=== PATIENT | female | born 1980 ===

== ENCOUNTER → 2020-07-26 09:10 | Outpatient (BNVA) | payer MEDICAID, SELFPAY | PROVIDERS: PCP Internal Medicine; Visit Provider Surgery ==

== ENCOUNTER → 2020-07-27 12:25 | Outpatient (BNVA) | payer MEDICAID, SELFPAY | PROVIDERS: PCP Internal Medicine; Visit Provider Surgery ==

== ENCOUNTER → 2020-08-21 08:19 | Outpatient (BNVA) | payer MEDICAID, SELFPAY | PROVIDERS: PCP Internal Medicine; Visit Provider Dietitian, Registered ==

== ENCOUNTER 2020-08-24 11:00 | Outpatient (REF) | payer MEDICAID, SELFPAY ==
[2020-08-25 15:12] LABS: H Pylori Breath Test NOT DETECTED (NOT DETECTED)
== END 2020-08-24 11:01 | disposition home or self-care (01) ==
LOC: HO.LNP 11:00
PROVIDERS: PCP Internal Medicine; Visit Provider Surgery
DX: A04.8 Other specified bacterial intestinal infections (principal)
CPT/HCPCS: 83013; 99211

== ENCOUNTER → 2020-08-29 08:12 | Outpatient (BNVA) | payer MEDICAID, SELFPAY | PROVIDERS: PCP Internal Medicine; Visit Provider Surgery ==

== ENCOUNTER 2020-09-11 09:19 | Outpatient (REF) | payer MEDICAID, SELFPAY ==
--- NOTE | ~2020-09-11 | US_ITS ---
EXAMINATION: ULTRASOUND ABDOMEN COMPLETE WITH ELASTOGRAPHY XR CHEST CLINICAL INFORMATION: Moderate to severe obesity. COMPARISON: Ultrasound abdomen 10/06/2017. TECHNIQUE: Routine grayscale imaging of abdomen was obtained. In addition liver Elastography was performed. Chest x-ray 2 views. FINDINGS: CHEST: The lungs are well expanded and clear of acute process. The heart size and pulmonary vascularity is normal. No gross bony abnormality seen. ABDOMEN ULTRASOUND: Liver and gallbladder: The liver is diffusely increased in intensity, normal size and contour. No focal mass or intrahepatic ductal dilatation seen. Normal hepatopedal flow seen in the portal vein on Doppler exam. Right hepatic lobe measures 17.3 cm in length and left hepatic lobe measures 15.5 cm in length. On liver elastography the median value is 1.66 m/s. IQR/median is 0.08. Pancreas: The pancreas has homogeneous echotexture which appears normal size. Abdominal aorta and IVC: Unremarkable. Gallbladder: There are no radiopaque gallstones or wall thickening. The gallbladder wall measures 0.17 cm in thickness. Common bile duct measures 0.43 cm. Right kidney: It measures 13.2 cm in length. There is normal kidney cortical thickness with no radiopaque calculi or hydronephrosis. Left kidney: It measures 12.8 cm in length. There is normal kidney cortical thickness with no radiopaque calculi or hydronephrosis. The spleen measures 11.8 cm in length and appears unremarkable. US/US abdomen comp w elastography IMPRESSION: Unremarkable chest exam. Diffuse hepatic steatosis without focal lesion. Liver elastography stiffness measures 1.66 m/S. This corresponds to cACLD (ruled out).
--- NOTE | ~2020-09-11 | FL_ITS ---
EXAMINATION: XR GI SERIES CLINICAL INFORMATION: Obesity. Preop. COMPARISON: None TECHNIQUE: Upper GI was performed using thin and thick barium and effervescent granules. FINDINGS: Esophageal motility is normal. There is mild gastroesophageal reflux. The stomach and duodenum are normal-appearing. No fold thickening, mass, ulcer or stricture is seen. FLUOROSCOPY TIME: 0.9 minutes DAP: 15 quispe per centimeter squared, total dose 52 mgy 24 saved fluoroscopic images. FL/FL upper GI series IMPRESSION: Mild gastroesophageal reflux otherwise unremarkable exam.
== END 2020-09-11 09:20 | disposition home or self-care (01) ==
LOC: HO.US 09:19
PROVIDERS: PCP Internal Medicine; Visit Provider Surgery
DX: Z01.818 Encounter for other preprocedural examination (principal); E66.01 Morbid (severe) obesity due to excess calories; K21.9 Gastro-esophageal reflux disease without esophagitis
CPT/HCPCS: 71046; 74240; 76705; 76981

== ENCOUNTER → 2020-10-18 15:34 | Outpatient (BNVA) | payer MEDICAID, SELFPAY | PROVIDERS: PCP Internal Medicine; Referring Provider Internal Medicine; Visit Provider Dietitian, Registered | DX: E66.01 Morbid (severe) obesity due to excess calories (principal); Z68.42 Body mass index [BMI] 45.0-49.9, adult | CPT/HCPCS: 97803 ==

== ENCOUNTER 2020-11-26 10:41 | Outpatient (REF) | payer MEDICAID, SELFPAY ==
--- NOTE | 2020-11-26 10:48 | ECG_ITS ---
Test Reason : E66.00 Blood Pressure : / mmHG Vent. Rate : 063 BPM Atrial Rate : 063 BPM P-R Int : 164 ms QRS Dur : 100 ms QT Int : 424 ms P-R-T Axes : 060 000 -14 degrees QTc Int : 433 ms Normal sinus rhythm Nonspecific ST abnormality Abnormal ECG No significant changes when compared with the previous EKG of 30 jul 2017 Referred By: Mikey Ricardo Electronically Signed By:REGLA CHAVEZ
[2020-11-26 11:44] LABS: MANUAL DIFF FLAG NO
[2020-11-26 11:52] LABS: Basophils Absolute Auto 0.1 X10*3/uL (0.0-0.2); Basophils Percent Auto 0.7 % (0-2); Eosinophils Absolute Auto 0.1 X10*3/uL (0.0-0.4); Eosinophils Percent Auto 2.1 % (0-4); Hematocrit 39.6 % (37-47); Hemoglobin 12.4 g/dl (12.0-16.0); Imm Gran Abs Auto 0.03 X10*3/uL (0.00-0.03); Imm Gran Pct Auto 0.4 % (0.0-0.4); Lymphocytes Absolute Auto 1.5 X10*3/uL (1.2-4.9); Lymphocytes Percent Auto 21.7 % (20-40); Mean Corpuscular HGB Conc 31.3 g/dl (31.0-35.0); Mean Corpuscular Hemoglobin 23.9 pg (27.0-33.0); Mean Corpuscular Volume 76.4 fL (80-98); Mean Platelet Volume 11.2 fL (9.4-12.3); Monocytes Absolute Auto 0.3 X10*3/uL (0.1-1.2); Monocytes Percent Auto 4.3 % (2-11); Neutrophils Absolute Auto 4.8 X10*3/uL (2.0-8.3); Neutrophils Percent Auto 70.8 % (45-73); Platelet Count 310 X10*3/uL (160-400); Red Blood Count 5.18 X10*6/uL (4.20-5.50); White Blood Count 6.8 X10*3/uL (4.8-10.8)
[2020-11-26 11:57] LABS: Estimated Average Glucose 126 mg/dL
[2020-11-26 12:17] LABS: Alanine Aminotransferase 29 U/L (0-31); Albumin Level 3.8 g/dL (3.5-5.0); Alkaline Phosphatase 89 U/L (39-117); Anion Gap 10 (12-20); Aspartate Amino Transferase 19 U/L (5-31); Bilirubin Total 0.7 mg/dL (0.0-1.0); Blood Urea Nitrogen 10 mg/dL (9-16); C Reactive Protein 1.66 mg/dL (< or = 0.50); Carbon Dioxide 32 mmol/L (22-29); Chloride 105 mmol/L (96-108); Cholesterol 157 mg/dL; Estimated Glomerular Filt Rate > 60; Glucose Random 117 mg/dL (60-115); HDL Cholesterol 40 mg/dL; LDL Cholesterol Calculated 98 mg/dl; Potassium 3.9 mmol/L (3.3-5.1); Sodium 143 mmol/L (135-145); Total Protein 6.3 g/dL (6.5-8.0); Triglycerides 99 mg/dL
[2020-11-26 12:29] LABS: Ferritin 11 ng/mL (10-250); TSH reflex Free T4 1.13 uIU/mL (0.32-4.0)
[2020-11-26 12:43] LABS: Folate 8.2 ng/mL (> or = 4.0); Vitamin B12 378 pg/mL (200-900)
[2020-11-27 18:32] LABS: Insulin Level Total 15.5 uIU/mL
[2020-11-28 10:36] LABS: Calcium (PTHI) 8.9 mg/dL (8.6-10.2); PTHI 85 pg/mL (14-64)
[2020-11-28 23:42] LABS: Zinc 62 mcg/dL (60-130)
[2020-11-30 10:07] LABS: Vitamin B1 8 nmol/L (8-30)
[2020-12-01 00:47] LABS: Vitamin A 29 mcg/dL (38-98)
== END 2020-11-26 10:42 | disposition home or self-care (01) ==
LOC: HO.LAB 10:41
PROVIDERS: PCP Internal Medicine; Visit Provider Surgery
DX: E66.01 Morbid (severe) obesity due to excess calories (principal); K21.9 Gastro-esophageal reflux disease without esophagitis; I10 Essential (primary) hypertension; R73.03 Prediabetes
CPT/HCPCS: 36415; 80053; 80061; 82306; 82607; 82728; 82746; 83036; 83525; 83970; 84425; 84443; 84590; 84630; 85025; 86140; 93005

== ENCOUNTER 2021-01-14 15:49 | Emergency (ER) | payer MEDICAID, SELFPAY ==
--- NOTE | ~2021-01-14 | XR_ITS ---
EXAMINATION: XR CHEST CLINICAL INFORMATION: Left-sided chest pain COMPARISON: 09/11/2020 TECHNIQUE: Frontal view of the chest was obtained. FINDINGS: No significant abnormality is noted involving the heart, lungs, mediastinum, bony thorax or soft tissues. XR/XR chest 1V IMPRESSION: Unremarkable examination.
--- NOTE | ~2021-01-14 | CT_ITS ---
EXAMINATION: CT HEAD WITHOUT CONTRAST CLINICAL INFORMATION: Headache. Nausea. Hypertension. COMPARISON: Head CT report from 07/25/2015. TECHNIQUE: Contiguous axial imaging was performed from the skull base to vertex without intravenous administration of contrast. This CT examination was performed using dose optimization techniques as appropriate, variously including the following: *Automated exposure control *Adjustment of mA and/or kV according to patient size (this includes techniques or standardized protocols for targeted exams where dose is matched to indication/reason for exam; i.e. extremities or head) *Use of iterative reconstruction technique DLP: 817 mGy-cm FINDINGS: There is a 2 x 2 x 1.5 cm rounded fluid attenuation lesion filling the superior nasal passages and directly underlying the planum sphenoidale where there is perceived deficiency of bone. Adjacent posterior ethmoid air cells are mucosal opacified and suspected to be at least partially obstructed bilaterally. The sphenoid sinus cavities are hypoplastic and aerated with patency of the sphenoethmoid recesses. Additionally, there is an empty mildly expanded sella. Small arachnoid pit is seen in the greater sphenoid wings bilaterally. There are small bilateral petrous apex cephaloceles at the level of Meckel's cave on both sides. The craniovertebral junction and cerebellar tonsils appear normal. There is no evidence of acute intracranial hemorrhage or territorial infarction. No abnormal mass effect or midline shift is seen. Neely to white matter differentiation is well preserved. No extra-axial fluid collections are identified. The ventricles are normal in size. There is no abnormal attenuation within the brain parenchyma. Incidental developmental pneumatization variant in the body of the sphenoid bone posterior to the left sphenoid sinus. The remaining osseous structures and soft tissues are normal. The mastoid air cells are well aerated. CT/CT head/brain wo con IMPRESSION: Homogeneous 2 x 2 x 1.5 cm fluid attenuating cystic lesion in the superior nasal passages, more so on the left side with potential partial resorption of the perpendicular plate of the ethmoid bone at this level. Additional deficiency of bone in the overlying planum sphenoidale. 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 Recommend ENT follow-up evaluation. Assess for any signs of papilledema on funduscopic assessment. A follow-up MRI of the brain and paranasal sinuses could be considered in follow-up as well.
[2021-01-14 17:00] VITALS: BP 173/95; PULSE 69; RESP 18; TEMP 36.6; O2SAT 100; BMI 31.9
--- NOTE | 2021-01-14 19:07 | ECG_ITS ---
Test Reason : HYPERTENSION Blood Pressure : / mmHG Vent. Rate : 064 BPM Atrial Rate : 064 BPM P-R Int : 160 ms QRS Dur : 098 ms QT Int : 420 ms P-R-T Axes : 046 -05 -10 degrees QTc Int : 433 ms Normal sinus rhythm Nonspecific ST abnormality Abnormal ECG When compared with ECG of 26-NOV-2020 10:53, No significant change was found Referred By: Kurt Piña Electronically Signed By:Monster Ma
[2021-01-14 19:11] VITALS: BP 173/95; PULSE 68; RESP 15; TEMP 35.8; O2SAT 100
[2021-01-14 20:14] LABS: Hematocrit 40.2 % (37-47); Hemoglobin 12.7 g/dl (12.0-16.0); Mean Corpuscular HGB Conc 31.6 g/dl (31.0-35.0); Mean Corpuscular Hemoglobin 24.2 pg (27.0-33.0); Mean Corpuscular Volume 76.7 fL (80-98); Mean Platelet Volume 10.8 fL (9.4-12.3); Platelet Count 295 X10*3/uL (160-400); Red Blood Count 5.24 X10*6/uL (4.20-5.50); Red Cell Distribution Width 16.6 % (11.0-16.0); White Blood Count 12.3 X10*3/uL (4.8-10.8)
[2021-01-14 20:20] LABS: Prothrombin Time 11.1 SEC (9.9-13.0)
--- NOTE | 2021-01-14 20:20 | PC.NURSE ---
Multiple attempts at iv access and unable, provider aware.
[2021-01-14 20:39] LABS: Anion Gap 13 (12-20); Blood Urea Nitrogen 14 mg/dL (9-16); C Reactive Protein 1.88 mg/dL (< or = 0.50); Calcium 9.3 mg/dL (8.4-10.2); Carbon Dioxide 26 mmol/L (22-29); Chloride 106 mmol/L (96-108); Creatinine Clr Calc Pharmacy 125.8; Estimated Glomerular Filt Rate > 60; Glucose Random 109 mg/dL (60-115); Potassium 3.9 mmol/L (3.3-5.1); Sodium 141 mmol/L (135-145)
[2021-01-14] MEDS: Butalb/Acetamin/Caff 50/325/40 TABLET 1 TAB PO (20:50)
[2021-01-14] MEDS: Ondansetron ODT 4 MG TAB.RAPDIS TRANSLINGU (20:50)
--- NOTE | 2021-01-14 21:04 | ED.GENADULT ---
HPI - General Adult General Chief complaint: General Medical Stated complaint: high blood pressure Time Seen by Provider: 01/14/21 18:59 Source: patient Mode of arrival: ambulatory Limitations: no limitations History of Present Illness HPI narrative: Patient presents to ED for headache, nausea, and blurry vision. Patient denies any paralysis, slurred speech, loss of vision, or facial droop. Patient states history of migraine but this headache is different. Patient states woke up with headache since Thursday morning at 01:00am. Patient presently denies any blurry vision Related Data Home Medications Medication Instructions Recorded Confirmed lisinopril 10 mg tablet 10 mg PO DAILY 07/25/20 01/14/21 omeprazole 20 mg capsule,delayed 20 mg PO BID 07/25/20 07/27/20 release sucralfate 1 gram tablet 1 g PO QIDACHS 07/25/20 07/27/20 trazodone 50 mg tablet 25 mg PO DAILY 07/26/20 07/27/20 albuterol sulfate 90 mcg/actuation 2 puff INHALATION Q6H PRN 07/27/20 07/27/20 aerosol inhaler cetirizine 10 mg tablet 1 tab PO QAM PRN 01/14/21 01/14/21 sodium chloride 0.65 % nasal spray 1 spray INTRANASAL Q4H PRN 01/14/21 01/14/21 aerosol (Deep Sea Nasal) Previous Rx's Medication Instructions Recorded naproxen 500 mg tablet 500 mg PO BID PRN #20 tab 01/15/21 Allergies Allergy/AdvReac Type Severity Reaction Status Date / Time zolpidem [From Ambien] AdvReac Confusion Verified 01/14/21 19:15 Review of Systems Review of Systems: Yes all other systems are reviewed and are negative and unobtainable due to endotracheal tube Constitutional: Constitutional: Reports headache(s) Eyes: Eyes: Reports as per HPI, Reports no additional eye complaints and Reports blurry vision ENT: Reports system reviewed and no additional complaints, except as documented, Reports as per HPI and Reports headache(s) Cardiovascular: Cardiovascular: Reports as per HPI and Reports no additional cardiovascular complaints Respiratory: Respiratory: Reports as per HPI and Reports no additional respiratory complaints Gastrointestinal: Gastrointestinal: Reports as per HPI and Reports no additional gastrointestinal complaints Genitourinary: Genitourinary: Reports no additional female genitourinary complaints and Reports as per HPI Musculoskeletal: Musculoskeletal: Reports no additional musculoskeletal complaints and Reports as per HPI Integumentary/Breasts: Skin/Breast: Reports system reviewed and no additional complaints, except as docu and Reports as per HPI Neurologic: Reports system reviewed and no additional complaints, except as documented, Reports as per HPI and Reports headache(s) [facility] Past Medical History Medical History (Updated 01/14/21 @ 23:55 by SHERRILL Camejo) Back pain GERD (gastroesophageal reflux disease) Hypertension Insomnia Knee pain Morbid obesity Prediabetes Surgical History (Updated 07/25/20 @ 13:47 by Drew Pugh Deyanira) Hx of section Hx of tubal ligation Family History Family History (Updated 07/25/20 @ 13:49 by ESTELA Cooley) Mother Hypertension Diabetes Asthma Arthritis Father No problems noted. Brother No problems noted. Brother No problems noted. Daughter No problems noted. Daughter No problems noted. Daughter No problems noted. Social History Social History (Updated 07/25/20 @ 13:49 by Drew Pugh Deyanira) Alcohol intake: never Patient Tobacco Use Status: Never used Tobacco Use of substances other than those prescribed or required for medical reasons: No Advance Directives: No Advance Directives Information Provided: Yes Patient : No Physical Exam Vital Signs: Vital Signs: Last Vital Signs Temp 96.5 F L 01/14/21 19:11 Pulse 63 01/15/21 00:00 Resp 16 01/15/21 00:00 BP 144/99 H 01/15/21 00:00 Pulse Ox 100 01/15/21 00:00 Body Mass Index 31.9 Const: General: cooperative, healthy appearing, comfortable, no acute distress and well developed Orientation/consciousness: patient oriented x3 HENMT: Head: Yes normal to inspection, Yes No palpable skull fracture present, Yes normocephalic, Yes atraumatic, No abrasion, No Acrocyanosis present, No Walsh's sign, No contusion, No cranial bruits, No hematoma, No laceration, No occipital foramen tenderness, No palpable skull fracture, No raccoon eyes, No scalp lesion, No scalp tenderness, No Temporal artery tenderness present and No periorbital ecchymosis Eyes: Other: Mild photophobia General: appearance normal, both eyes and all related structures Neck: Neck: Yes normal visual inspection, Yes full ROM, Yes no lymphadenopathy, Yes no meningeal signs, Yes trachea midline, Yes supple and No tender Chest: Chest palpation & inspection: normal inspection of the chest and normal palpation of entire chest wall Resp: Effort & Inspection: normal respiratory effort and able to speak in complete sentences Auscultation: clear to auscultation bilaterally Cardio: Jugular venous distension: no JVD Heart sounds: S1 normal heart sound present and S2 normal heart sound present GI: Inspection: Yes normal to inspection and No abdominal wall ecchymosis Palpation (GI): Soft to palpation, not firm, nontender, no guarding and not rigid : General: No CVA tenderness and Yes no CVA tenderness Back/Spine/Pelvis: Back: no CVA tenderness, No CVA tenderness and No back tenderness Skin: General skin exam: no rashes or lesions noted and elasticity normal Neuro: Other: Negative facial droop. Negative slurred speech. Negative pronator drift. All extremities equal strength 5+. [id number] and rapid hand movement intact. Negative Romberg test. General: patient oriented x3, gait normal, no meningeal signs and CN's II-XI intact bilaterally Cranial nerves: Yes CN's II-XII intact bilaterally Course Course Course Narrative: Patient will have labs including head CT ordered. EKG troponin ordered. Chest x-ray ordered. Reevaluation(s) Reevaluation #1: Head CT scan shows possible intracranial pressure elevation. Troponin chest x-ray normal. EKG negative for STEMI. Negative elevated white blood cell count. Will to do lumbar puncture per Time: 20:08 Reevaluation #2: Patient signed consent for lumbar puncture. Lumbar puncture performed by myself and Dr. Hurt. Area cleaned with sterile saline Betadine iodine. 5 mL of lidocaine used for anesthesia. Twenty-two size spinal needle was used for procedure. Intracranial pressure was measured. Initial ICP pressure was 25. Around 8 cc was drained. Repeat ICP pressure was 16. Patient feels better after procedure no longer has headache Time: 22:09 Reevaluation #3: CSF negative for any white blood cell count. Patient will be discharged. Patient will be discharged with pain medication. Time: 23:54 Medical Decision Making Lab Data Result diagrams: 01/14/21 20:08 01/14/21 20:08 Labs: Lab Results 01/14/21 01/14/21 01/14/21 Range/Units 20:08 20:08 20:08 WBC 12.3 H (4.8-10.8) X10*3/uL RBC 5.24 (4.20-5.50) X10*6/uL Hgb 12.7 (12.0-16.0) g/dl Hct 40.2 (37-47) % MCV 76.7 L (80-98) fL MCH 24.2 L (27.0-33.0) pg MCHC 31.6 (31.0-35.0) g/dl RDW 16.6 H (11.0-16.0) % Plt Count 295 (160-400) X10*3/uL MPV 10.8 (9.4-12.3) fL Absolute Nucleated RBC 0.000 (0.0-0.012) X10*3/uL Nucleated RBC % (auto) 0.0 (0.0-0.2) /100WBC ESR (0-20) MM/HR PT 11.1 (9.9-13.0) SEC INR 1.0 (0.9-1.1) APTT 31.0 (24.1-38.0) SEC Sodium 141 (135-145) mmol/L Potassium 3.9 (3.3-5.1) mmol/L Chloride 106 (96-108) mmol/L Carbon Dioxide 26 (22-29) mmol/L Anion Gap 13 (12-20) BUN 14 (9-16) mg/dL Creatinine 0.71 (0.5-1.4) mg/dL Estim Creat Clear Calc 125.8 Estimated GFR > 60 Random Glucose 109 (60-115) mg/dL Calcium 9.3 (8.4-10.2) mg/dL Total Creatine Kinase 102 (26-140) U/L Troponin I High Sens (<3.5-17.0) ng/L C-Reactive Protein 1.88 H (< or = 0.50) mg/dL CSF Tube Number CSF Volume ML CSF Appearance CSF Color CSF WBC MM*3 CSF RBC MM*3 CSF Appearance (b) CSF Glucose mg/dL CSF Total Protein (15-45) mg/dL 01/14/21 01/14/21 01/14/21 Range/Units 20:33 20:33 22:04 WBC (4.8-10.8) X10*3/uL RBC (4.20-5.50) X10*6/uL Hgb (12.0-16.0) g/dl Hct (37-47) % MCV (80-98) fL MCH (27.0-33.0) pg MCHC (31.0-35.0) g/dl RDW (11.0-16.0) % Plt Count (160-400) X10*3/uL MPV (9.4-12.3) fL Absolute Nucleated RBC (0.0-0.012) X10*3/uL Nucleated RBC % (auto) (0.0-0.2) /100WBC ESR 16 (0-20) MM/HR PT (9.9-13.0) SEC INR (0.9-1.1) APTT (24.1-38.0) SEC Sodium (135-145) mmol/L Potassium (3.3-5.1) mmol/L Chloride (96-108) mmol/L Carbon Dioxide (22-29) mmol/L Anion Gap (12-20) BUN (9-16) mg/dL Creatinine (0.5-1.4) mg/dL Estim Creat Clear Calc Estimated GFR Random Glucose (60-115) mg/dL Calcium (8.4-10.2) mg/dL Total Creatine Kinase (26-140) U/L Troponin I High Sens 3.5 (<3.5-17.0) ng/L C-Reactive Protein (< or = 0.50) mg/dL CSF Tube Number 2 CSF Volume ML CSF Appearance CSF Color CSF WBC MM*3 CSF RBC MM*3 CSF Appearance (b) Clear, Colorless CSF Glucose 67 mg/dL CSF Total Protein 24.0 (15-45) mg/dL 01/14/21 Range/Units 22:04 WBC (4.8-10.8) X10*3/uL RBC (4.20-5.50) X10*6/uL Hgb (12.0-16.0) g/dl Hct (37-47) % MCV (80-98) fL MCH (27.0-33.0) pg MCHC (31.0-35.0) g/dl RDW (11.0-16.0) % Plt Count (160-400) X10*3/uL MPV (9.4-12.3) fL Absolute Nucleated RBC (0.0-0.012) X10*3/uL Nucleated RBC % (auto) (0.0-0.2) /100WBC ESR (0-20) MM/HR PT (9.9-13.0) SEC INR (0.9-1.1) APTT (24.1-38.0) SEC Sodium (135-145) mmol/L Potassium (3.3-5.1) mmol/L Chloride (96-108) mmol/L Carbon Dioxide (22-29) mmol/L Anion Gap (12-20) BUN (9-16) mg/dL Creatinine (0.5-1.4) mg/dL Estim Creat Clear Calc Estimated GFR Random Glucose (60-115) mg/dL Calcium (8.4-10.2) mg/dL Total Creatine Kinase (26-140) U/L Troponin I High Sens (<3.5-17.0) ng/L C-Reactive Protein (< or = 0.50) mg/dL CSF Tube Number 4 CSF Volume 3.0 ML CSF Appearance CLEAR CSF Color COLORLESS CSF WBC 0 MM*3 CSF RBC 56 MM*3 CSF Appearance (b) CSF Glucose mg/dL CSF Total Protein (15-45) mg/dL Discharge Plan Discharge Clinical Impression: Headache, Increased intracranial pressure Patient Disposition: Home, Self-Care Instructions: Acute Headache (ED), Lumbar Puncture (ED) Additional Instructions: Le diagnosticaron aumento de la presi?n intracraneal. Tendr? que hacer un seguimiento con un neur?logo. El electrocardiograma y las troponinas dieron resultados negativos normales para un ataque card?aco. Garcia radiograf?a de t?rax result? negativa para neumon?a. Entonces, garcia l?quido cefalorraqu?swati no muestra signos de infecci?n bacteriana. Regrese al servicio de urgencias si empeora el dolor de elizabeth, las n?useas, los v?mitos, la fiebre, los escalofr?os, la rigidez del yeny o cualquier otro s?ntoma que le preocupe. Llame al PCP para que lo derive a un neur?logo o puede llamar a nuestro neur?logo afiliado a [facility] ER. Prescriptions: New naproxen 500 mg tablet 500 mg PO BID PRN (Reason: pain) Qty: 20 RF: 0 No Action lisinopril 10 mg tablet 10 mg PO DAILY RF: 0 sucralfate 1 gram tablet 1 g PO QIDACHS RF: 0 omeprazole 20 mg capsule,delayed release(DR/EC) 20 mg PO BID RF: 0 cetirizine 10 mg tablet 1 tab PO QAM PRN (Reason: allergies) RF: 0 sodium chloride [Deep Sea Nasal] 0.65 % aerosol,spray 1 spray intranasal Q4H PRN (Reason: Congestion) RF: 0 trazodone 50 mg tablet 25 mg PO DAILY RF: 0 albuterol sulfate 90 mcg/actuation HFA aerosol inhaler 2 puff inhalation Q6H PRNRF: 0 Referrals: Alfred House MD [Physician] - 2 days (Increase intracranial pressure.) Partha Morgan [Physician] - 2 days (CT scan shows cyst in nasal passages.) Stand Alone Forms: Work/School Release Interventions: ED Discharge Assessment Last Done: 01/15/21 00:26 Discharge Date/Time: 01/15/21 00:27 Print Language: Bahraini
[2021-01-14 21:06] LABS: Troponin-I High Sensitivity 3.5 ng/L (<3.5-17.0)
[2021-01-14 21:20] LABS: Erythrocyte Sedimentation Rate 16 MM/HR (0-20)
[2021-01-14 22:00] VITALS: BP 126/81; PULSE 62; RESP 16; O2SAT 100
[2021-01-14] MEDS: Lidocaine HCl 2 % MPF 5 ML VIAL INFILTRATI (22:05)
--- NOTE | 2021-01-14 22:06 | PC.NURSE ---
lidocaine given by provider to perform a lumbar punture. pt aleshia well no complications, deneis headache and instructed to lay flat till 2250
[2021-01-14 22:31] LABS: CSF Appearance Clear, Colorless; CSF Tube # 2
[2021-01-14 22:51] LABS: Glucose CSF 67 mg/dL
[2021-01-14 22:57] LABS: Appearance CSF CLEAR; CSF Tube # 4; Color CSF COLORLESS; Red Blood Cell CSF 56 MM*3; White Blood Cell CSF 0 MM*3
[2021-01-14] MEDS: Ibuprofen 800 MG TABLET PO (23:59)
[2021-01-15] VITALS: BP 144/99; PULSE 63; RESP 16; O2SAT 100
== END 2021-01-15 00:27 | disposition home or self-care (01) ==
PROVIDERS: Physician Assistant; Emergency Provider Internal Medicine
DX: R51.9 Headache, unspecified (principal); G93.2 Benign intracranial hypertension; E66.01 Morbid (severe) obesity due to excess calories
CPT/HCPCS: 36415; 62270; 70450; 71045; 80048; 82550; 82945; 84157; 84484; 85027; 85610; 85652; 85730; 86140; 87015; 87070; 87205; 89051; 93005; 96360; 99285

== ENCOUNTER 2021-01-15 15:39 | Emergency (ER) | payer MEDICAID, SELFPAY ==
[2021-01-15 15:57] VITALS: BP 167/103; PULSE 71; RESP 22; TEMP 36.7; O2SAT 98; BMI 48.0
--- NOTE | 2021-01-15 20:03 | PC.NURSE ---
PA at bedside for primary eval.
--- NOTE | 2021-01-15 20:08 | ED_ITS ---
HPI - Headache General Chief Complaint: Headache Stated Complaint: neck pain Time Seen by Provider: 01/15/21 15:51 Source: patient and family (Family translated for patient via FaceTime phone call) Mode of arrival: ambulatory Limitations: language barrier (No manager of exhibitions and collections on duty in the hospital, family interpreted) History of Present Illness HPI Narrative: 40-year-old female with a past medical history of GERD, pre diabetes, hypertension and morbid obesity presents with 10/10 headache and nausea x2 days. Patient was seen in this emergency department yesterday where she had a LP which was negative. She states she has some upper thoracic back pain which is sharp in nature. It does not radiate. She denies any changes in her vision, fevers, vomiting or neck pain. She states she last took ibuprofen at 01:00 o'clock today, with no relief of her headache or back pain. Patient states the headache is not better when she lies flat and it is not worse when she stands up, is the same regardless of her position. Related Data Home Medications Medication Instructions Recorded Confirmed lisinopril 10 mg tablet 10 mg PO DAILY 07/25/20 01/14/21 omeprazole 20 mg capsule,delayed 20 mg PO BID 07/25/20 07/27/20 release sucralfate 1 gram tablet 1 g PO QIDACHS 07/25/20 07/27/20 trazodone 50 mg tablet 25 mg PO DAILY 07/26/20 07/27/20 albuterol sulfate 90 mcg/actuation 2 puff INHALATION Q6H PRN 07/27/20 07/27/20 aerosol inhaler cetirizine 10 mg tablet 1 tab PO QAM PRN 01/14/21 01/14/21 sodium chloride 0.65 % nasal spray 1 spray INTRANASAL Q4H PRN 01/14/21 01/14/21 aerosol (Deep Sea Nasal) Previous Rx's Medication Instructions Recorded beanxjbtfs-cepqxmsexqukv-eqfpwdrg 1 cap PO Q8H PRN #10 cap 01/15/21 50 mg-300 mg-40 mg capsule (Fioricet) naproxen 500 mg tablet 500 mg PO BID PRN #20 tab 01/15/21 Allergies Allergy/AdvReac Type Severity Reaction Status Date / Time zolpidem [From Ambien] AdvReac Confusion Verified 01/14/21 19:15 Review of Systems Review of Systems: Yes all other systems are reviewed and are negative [facility] Past Medical History Medical History Back pain GERD (gastroesophageal reflux disease) Hypertension Insomnia Knee pain Morbid obesity Prediabetes Surgical History Hx of section Hx of tubal ligation Family History Family History Mother Hypertension Diabetes Asthma Arthritis Father No problems noted. Brother No problems noted. Brother No problems noted. Daughter No problems noted. Daughter No problems noted. Daughter No problems noted. Social History Social History Alcohol intake: never Patient Tobacco Use Status: Never used Tobacco Advance Directives: No Physical Exam Vital Signs: Vital Signs: Last Vital Signs Temp 98.0 F 01/15/21 22:17 Pulse 56 01/15/21 22:17 Resp 18 01/15/21 22:17 BP 122/72 01/15/21 22:17 Pulse Ox 97 01/15/21 22:17 Body Mass Index 48.0 Const: General: cooperative, healthy appearing, comfortable, no acute distress and well developed Orientation/consciousness: patient oriented x3 Limitations: no limitations HENMT: Head: Yes normal to inspection Eyes: General: appearance normal, both eyes and all related structures Neck: Neck: Yes normal visual inspection and Yes full ROM Resp: Effort & Inspection: normal respiratory effort and able to speak in complete sentences Cardio: Rate: regular rate GI: Inspection: Yes normal to inspection Back/Spine/Pelvis: Other: Small Aks on patient's lumbar spine where LP was likely done, no signs of infection noted. No warmth in this area, no tenderness. Back: No mass, No erythema, No warmth and back tenderness (Upper thoracic paraspinal muscles) Cervical Spine: cervical ROM normal and No Cervical spine tenderness Thoracic/Lumbar Spine: thoracic and lumbar spine normal to inspection, No thoracic spinal tenderness and No lumbar spinal tenderness Skin: General skin exam: no rashes or lesions noted Neuro: General: patient oriented x3 Extrem: General: Yes normal to inspection Course Course Course Narrative: 40-year-old female with a past medical history of GERD, pre diabetes, hypertension and morbid obesity presents with 10/10 headache and nausea x2 days. Patient was seen in this emergency department yesterday where she had a LP which was negative. Spoke with Kurt, the PA who did the LP, he said it was pretty routine, he tried twice and then Dr. Hurt came in and got on the 3rd try. No complications from the procedure. As her headache is not worse with standing and not better with lying flat, this is very unlikely to be a post LP headache. Vital signs stable except for slightly elevated blood pressure at 167/103 and respiratory rate of 22. Likely secondary to pain. Will give migraine cocktail, repeat labs to compare for to yesterday, UA and reassess. Reevaluation(s) Reevaluation #1: Patient states headache is feeling better but she still has the back pain. We discussed a migraine cocktail at home, advised I would give her a couple of Fioricet to get her through rough patches. Advised to follow up with her PCP and possibly a neurologist. We also discussed using ice on her back in the area where it hurts as well as a lidocaine patch which she can purchase [id number]. Time: 22:41 MDM - Headache Lab Data Result diagrams: 01/15/21 20:17 01/15/21 20:17 Labs: Lab Results 01/15/21 01/15/21 01/15/21 Range/Units 20:17 20:17 20:17 WBC 9.4 (4.8-10.8) X10*3/uL RBC 5.04 (4.20-5.50) X10*6/uL Hgb 12.4 (12.0-16.0) g/dl Hct 39.1 (37-47) % MCV 77.6 L (80-98) fL MCH 24.6 L (27.0-33.0) pg MCHC 31.7 (31.0-35.0) g/dl RDW 16.3 H (11.0-16.0) % Plt Count 326 (160-400) X10*3/uL MPV 10.6 (9.4-12.3) fL Immature Gran % (Auto) 0.2 (0.0-0.4) % Neut % (Auto) 75.0 H (45-73) % Lymph % (Auto) 18.9 L (20-40) % Addison % (Auto) 4.5 (2-11) % Eos % (Auto) 0.8 (0-4) % Baso % (Auto) 0.6 (0-2) % Lymph # (Auto) 1.8 (1.2-4.9) X10*3/uL Addison # (Auto) 0.4 (0.1-1.2) X10*3/uL Eos # (Auto) 0.1 (0.0-0.4) X10*3/uL Baso # (Auto) 0.1 (0.0-0.2) X10*3/uL Abs Immat Gran (auto) 0.02 (0.00-0.03) X10*3/uL Absolute Neuts (auto) 7.1 (2.0-8.3) X10*3/uL Absolute Nucleated RBC 0.000 (0.0-0.012) X10*3/uL Nucleated RBC % (auto) 0.0 (0.0-0.2) /100WBC Sodium 142 (135-145) mmol/L Potassium 4.1 (3.3-5.1) mmol/L Chloride 107 (96-108) mmol/L Carbon Dioxide 26 (22-29) mmol/L Anion Gap 13 (12-20) BUN 12 (9-16) mg/dL Creatinine 0.64 (0.5-1.4) mg/dL Estim Creat Clear Calc 152.7 Estimated GFR > 60 Random Glucose 111 (60-115) mg/dL Calcium 9.4 (8.4-10.2) mg/dL Total Bilirubin 0.5 (0.0-1.0) mg/dL AST 13 (5-31) U/L ALT 19 (0-31) U/L Alkaline Phosphatase 97 (39-117) U/L Total Protein 7.0 (6.5-8.0) g/dL Albumin 4.1 (3.5-5.0) g/dL Urine Color YELLOW Urine Appearance CLEAR Urine pH 6.0 (5.0-8.0) Ur Specific Advance >= 1.030 H (1.005-1.025) Urine Protein TRACE (NEG-TRACE) MG/DL Urine Glucose (UA) NEG (NEG) MG/DL Urine Ketones NEG (NEG) MG/DL Urine Blood TRACE (NEG) Urine Nitrite NEG (NEG) Ur Leukocyte Esterase NEG (NEG) Urine RBC 0-2 (0) /HPF Urine WBC 0-2 (0-4) /HPF Ur Squamous Epith Cells 1+ /LPF Amorphous Sediment TRACE /LPF Urine Bacteria NONE /LPF Urine Test (NEGATIVE) 01/15/21 Range/Units 20:17 WBC (4.8-10.8) X10*3/uL RBC (4.20-5.50) X10*6/uL Hgb (12.0-16.0) g/dl Hct (37-47) % MCV (80-98) fL MCH (27.0-33.0) pg MCHC (31.0-35.0) g/dl RDW (11.0-16.0) % Plt Count (160-400) X10*3/uL MPV (9.4-12.3) fL Immature Gran % (Auto) (0.0-0.4) % Neut % (Auto) (45-73) % Lymph % (Auto) (20-40) % Addison % (Auto) (2-11) % Eos % (Auto) (0-4) % Baso % (Auto) (0-2) % Lymph # (Auto) (1.2-4.9) X10*3/uL Addison # (Auto) (0.1-1.2) X10*3/uL Eos # (Auto) (0.0-0.4) X10*3/uL Baso # (Auto) (0.0-0.2) X10*3/uL Abs Immat Gran (auto) (0.00-0.03) X10*3/uL Absolute Neuts (auto) (2.0-8.3) X10*3/uL Absolute Nucleated RBC (0.0-0.012) X10*3/uL Nucleated RBC % (auto) (0.0-0.2) /100WBC Sodium (135-145) mmol/L Potassium (3.3-5.1) mmol/L Chloride (96-108) mmol/L Carbon Dioxide (22-29) mmol/L Anion Gap (12-20) BUN (9-16) mg/dL Creatinine (0.5-1.4) mg/dL Estim Creat Clear Calc Estimated GFR Random Glucose (60-115) mg/dL Calcium (8.4-10.2) mg/dL Total Bilirubin (0.0-1.0) mg/dL AST (5-31) U/L ALT (0-31) U/L Alkaline Phosphatase (39-117) U/L Total Protein (6.5-8.0) g/dL Albumin (3.5-5.0) g/dL Urine Color Urine Appearance Urine pH (5.0-8.0) Ur Specific Advance (1.005-1.025) Urine Protein (NEG-TRACE) MG/DL Urine Glucose (UA) (NEG) MG/DL Urine Ketones (NEG) MG/DL Urine Blood (NEG) Urine Nitrite (NEG) Ur Leukocyte Esterase (NEG) Urine RBC (0) /HPF Urine WBC (0-4) /HPF Ur Squamous Epith Cells /LPF Amorphous Sediment /LPF Urine Bacteria /LPF Urine Test NEGATIVE (NEGATIVE) Discharge Plan Discharge Clinical Impression: Headache Qualifiers: Headache type: tension-type Headache chronicity pattern: acute headache Intract ability: not intractable Qualified Code(s): G44.209 - Tension-type headache, unspecified, not intractable Patient Disposition: Home, Self-Care Instructions: Acute Headache (ED) Additional Instructions: As discussed, please use ice and or lidocaine patch on your mid back pain. For your headaches, you can take 600mg ibuprofen and Benadryl at bedtime. I have sent a prescription for another migraine medication to be used when ibuprofen and Benadryl do not work for you. Please follow-up with your primary care doctor because you may need a Neurology referral or different kind of migraine medication. If you have any changes in your vision, extreme dizziness or the ?worst headache of your life ?, please return to the emergency department or call 911. Prescriptions: New cgzlhtuspb-otdlcsnumotuh-hiib [Fioricet] 50-300-40 mg capsule 1 cap PO Q8H PRN (Reason: migraine headache) Qty: 10 RF: 0 No Action lisinopril 10 mg tablet 10 mg PO DAILY RF: 0 sucralfate 1 gram tablet 1 g PO QIDACHS RF: 0 omeprazole 20 mg capsule,delayed release(DR/EC) 20 mg PO BID RF: 0 cetirizine 10 mg tablet 1 tab PO QAM PRN (Reason: allergies) RF: 0 sodium chloride [Deep Sea Nasal] 0.65 % aerosol,spray 1 spray intranasal Q4H PRN (Reason: Congestion) RF: 0 naproxen 500 mg tablet 500 mg PO BID PRN (Reason: pain) Qty: 20 RF: 0 trazodone 50 mg tablet 25 mg PO DAILY RF: 0 albuterol sulfate 90 mcg/actuation HFA aerosol inhaler 2 puff inhalation Q6H PRNRF: 0 Referrals: Joceline Gutierrez MD [Primary Care Provider] - 2 days (If your headaches do not resolve )
[2021-01-15 20:23] LABS: MANUAL DIFF FLAG NO
[2021-01-15 20:24] LABS: Basophils Absolute Auto 0.1 X10*3/uL (0.0-0.2); Basophils Percent Auto 0.6 % (0-2); Eosinophils Absolute Auto 0.1 X10*3/uL (0.0-0.4); Eosinophils Percent Auto 0.8 % (0-4); Hematocrit 39.1 % (37-47); Hemoglobin 12.4 g/dl (12.0-16.0); Imm Gran Abs Auto 0.02 X10*3/uL (0.00-0.03); Imm Gran Pct Auto 0.2 % (0.0-0.4); Lymphocytes Absolute Auto 1.8 X10*3/uL (1.2-4.9); Lymphocytes Percent Auto 18.9 % (20-40); Mean Corpuscular HGB Conc 31.7 g/dl (31.0-35.0); Mean Corpuscular Hemoglobin 24.6 pg (27.0-33.0); Mean Corpuscular Volume 77.6 fL (80-98); Mean Platelet Volume 10.6 fL (9.4-12.3); Monocytes Absolute Auto 0.4 X10*3/uL (0.1-1.2); Monocytes Percent Auto 4.5 % (2-11); Neutrophils Absolute Auto 7.1 X10*3/uL (2.0-8.3); Platelet Count 326 X10*3/uL (160-400); Red Blood Count 5.04 X10*6/uL (4.20-5.50); Red Cell Distribution Width 16.3 % (11.0-16.0); White Blood Count 9.4 X10*3/uL (4.8-10.8)
[2021-01-15 20:25] LABS: Glucose Urine UA NEG (NEG); Leukocyte Esterase Urine NEG (NEG); Nitrite Urine NEG (NEG); Specific Gravity - Urine >= 1.030 (1.005-1.025); UACC Culture Trigger NO; Urine Blood TRACE (NEG); Urine Ketones NEG (NEG); Urine Protein TRACE MG/DL (NEG-TRACE)
[2021-01-15] MEDS: Ketorolac Tromethamine 15 MG/ML VIAL 30 MG IVPUSH (20:25)
[2021-01-15] MEDS: dexAMETHasone sod phosphate 10 MG/ML VIAL IVPUSH (20:25)
[2021-01-15] MEDS: diphenhydrAMINE HCL 50 MG/ML VIAL 25 MG IVPUSH (20:25)
[2021-01-15] MEDS: Metoclopramide HCl 10 MG/2 ML VIAL IVPUSH (20:25)
[2021-01-15 20:27] LABS: Appearance Urine CLEAR; Color Urine YELLOW
[2021-01-15 20:28] LABS: UPreg QC Valid YES; Urine Pregnancy NEGATIVE (NEGATIVE)
--- NOTE | 2021-01-15 20:31 | PC.NURSE ---
IV established, labs and UA obtained and sent. Pt medicated per AUG. Pt resting in bed, lights dim, warm blanket provided for comfort. Continue to monitor.
[2021-01-15 20:45] LABS: Amorphous Sediment Urine TRACE /LPF; RBC Urine 0-2 /HPF (0); Squamous Epithelial Cell Urine 1+ /LPF; WBC Urine 0-2 /HPF (0-4)
[2021-01-15 20:50] LABS: Alanine Aminotransferase 19 U/L (0-31); Albumin Level 4.1 g/dL (3.5-5.0); Alkaline Phosphatase 97 U/L (39-117); Anion Gap 13 (12-20); Aspartate Amino Transferase 13 U/L (5-31); Bilirubin Total 0.5 mg/dL (0.0-1.0); Blood Urea Nitrogen 12 mg/dL (9-16); Calcium 9.4 mg/dL (8.4-10.2); Carbon Dioxide 26 mmol/L (22-29); Chloride 107 mmol/L (96-108); Creatinine Clr Calc Pharmacy 152.7; Estimated Glomerular Filt Rate > 60; Glucose Random 111 mg/dL (60-115); Potassium 4.1 mmol/L (3.3-5.1); Sodium 142 mmol/L (135-145)
[2021-01-15 22:17] VITALS: BP 122/72; PULSE 56; RESP 18; TEMP 36.7; O2SAT 97
== END 2021-01-15 23:05 | disposition home or self-care (01) ==
PROVIDERS: Physician Assistant; Emergency Provider Emergency Medicine; PCP Internal Medicine
DX: G44.209 Tension-type headache, unspecified, not intractable (principal); M54.2 Cervicalgia; M54.5 Low back pain; R73.03 Prediabetes; Z79.899 Other long term (current) drug therapy
CPT/HCPCS: 36415; 80053; 81001; 81025; 85025; 96365; 96375; 99284; J1100; J1200; J1885; J2765

== ENCOUNTER → 2021-03-01 13:11 | Outpatient (BNVA) | payer MEDICAID, SELFPAY | PROVIDERS: Visit Provider Nurse Practitioner Family | DX: M79.18 Myalgia, other site (principal) | CPT/HCPCS: 99202 ==

== ENCOUNTER 2021-03-11 14:48 | Outpatient (REF) | payer MEDICAID, SELFPAY ==
--- NOTE | ~2021-03-11 | MM_ITS ---
EXAMINATION: MM SCREENING DIGITAL BREAST TOMOSYNTHESIS, BILATERAL CLINICAL INFORMATION: Screening. Asymptomatic. No prior breast imaging. Age 40. Family history breast cancer, paternal aunt. The lifetime risk of breast cancer based on the Tyrer-Cuzick Model is 16%. COMPARISON: None (current study represents initial baseline exam). TECHNIQUE: Digital breast tomosynthesis is performed in both the craniocaudal and mediolateral oblique views along with computer-aided detection (CAD). Synthesized 2D images are generated from the tomosynthesis. FINDINGS: The breasts are almost entirely fatty (ACR BI-RADS breast composition Category a). There are no significant masses, abnormal calcifications, or other abnormalities. There are 2 tiny circumscribed nodules central mid right breast, possibly intramammary nodes. No architectural abnormality. The axilla and skin contours are unremarkable. MM/MM tomosynthesis screening BI IMPRESSION: No mammographic evidence of malignancy. ASSESSMENT: BI-RADS 2: Benign RECOMMENDATION: Routine annual mammography screening. This patient's information was entered into a reminder system with a target due date for their next mammogram.
== END 2021-03-11 14:49 | disposition home or self-care (01) ==
LOC: HO.MAMMO 14:48
PROVIDERS: Visit Provider Internal Medicine
DX: Z12.31 Encounter for screening mammogram for malignant neoplasm of breast (principal)
CPT/HCPCS: 77063; 77067

== ENCOUNTER 2021-04-18 15:58 | Outpatient (REF) | payer MEDICAID, SELFPAY ==
--- NOTE | ~2021-04-18 | MR_ITS ---
EXAMINATION: MRI ORBIT WITHOUT AND WITH CONTRAST CLINICAL INFORMATION: Cyst and mucocele of the nose and nasal sinus. COMPARISON: CT scan of the head 01/14/2021. TECHNIQUE: Multiplanar MR imaging of the orbits was performed without and with contrast. A total of 10 mL Gadavist was utilized for this examination. FINDINGS: There is a well marginated nonenhancing cystic lesion located within the left olfactory recess causing chronic remodeling of the adjacent structures including the left posterior ethmoid air cells and there is rightward deviation of the nasal septum. It measures 2.3 x 1.4 x 2.0 cm (AP x TV x SI). There is also fluid partially filling the right posterior ethmoid air cells and what appears to be an [place] air cell on the left. Globes and extraocular muscles are symmetric. No abnormal retrobulbar mass or inflammation. The optic nerves and orbital apices are unremarkable. There is homogeneous enhancement within the anterior lobe of the pituitary gland. No suprasellar mass effect or chiasmatic compression. Cavernous sinuses enhance symmetrically. Cavernous internal carotid artery flow voids are maintained. Postcontrast images of the whole brain reveal no abnormal mass or enhancement within the intracranial compartment. No evidence of acute territorial infarct. Intracranial vascular flow voids are grossly maintained. MR/MR orbits face neck wo/w con IMPRESSION: There is an expansile well marginated nonenhancing cystic lesion located within the left olfactory recess most likely representing a mucocele causing chronic remodeling of the adjacent anatomy. No evidence of a meningoencephalocele.
[2021-04-18 15:44] LABS: Blood Urea Nitrogen 10 mg/dL (9-16); Estimated Glomerular Filt Rate > 60
== END 2021-04-18 15:59 | disposition home or self-care (01) ==
LOC: HO.MRI 15:58
PROVIDERS: Internal Medicine; Visit Provider General Practice
DX: G97.1 Other reaction to spinal and lumbar puncture (principal); H40.053 Ocular hypertension, bilateral; H47.333 Pseudopapilledema of optic disc, bilateral; J34.1 Cyst and mucocele of nose and nasal sinus
CPT/HCPCS: 36415; 70543; 82565; 84520; A9585

== ENCOUNTER → 2021-07-03 08:26 | Outpatient (REF) | payer MEDICAID, SELFPAY ==
--- NOTE | 2021-07-03 08:31 | CA_ITS ---
Transthoracic Echocardiogram Patient (Last, First, Middle): Delma Downs M Gender: Female Date of : 1980 Age: 41 Procedure Date: 07/03/2021 Procedure Type: Transthoracic Echocardiogram Location: OP Height: 162.56 cm Weight: 136.08 kg BSA: 2.32 m2 Heart Rate: bpm BP: 145 / 102 mmHg Learning Coach: JOSE ANTONIO Referring MD: Joceline Gutierrez MD Coremaker Helper: Gerard Hare MD Symptoms: I10 HTN R01.1 CARDIAC MURMUR Study Quality: Fair ECG Rhythm: Sinus Conclusions: - 1. Normal LV systolic and diastolic function with mild LVH 2. Normal cardiac valvular Doppler 3. Normal RV systolic pressure 4. No pericardial effusion Findings Left Ventricle Normal left ventricular size and systolic function. There is mildly increased left ventricular wall thickness. The visually estimated ejection fraction is between 55-60%. Spectral Doppler is indicative of a normal filling pattern. Right Ventricle Normal right ventricular cavity size and systolic function. Atria Both atria are normal in size. Interatrial shunt cannot be excluded. Aortic Valve Normal aortic valve structure and function. There is no aortic valve stenosis. There is no aortic valve regurgitation. Mitral Valve Normal mitral valve structure and function. There is trace mitral valve regurgitation. There is no mitral valve stenosis. Tricuspid Valve Likely normal tricuspid valve structure and function. There is trace tricuspid valve regurgitation. The right ventricular systolic pressure is normal. The right ventricular systolic pressure is 13 mmHg. Normal right atrial pressure. There is no evidence of pulmonary hypertension. Great Vessels All visible segments of the aorta are normal in size. The pulmonary artery was not well visualized. Venous The inferior vena cava was not well visualized. Pericardium/Pleural There is no evidence of pericardial effusion. Prior Study Comparison No prior study available for comparison. Measurements 2D Linear Measurements IVSd: 1.22 0.6-0.9/0.6-1.0 cm LVIDd: 4.91 3.9-5.3/4.2-5.9 cm LVIDd Index: 2.12 2.4-3.2/2.2-3.1 cm/m2 LVIDs: 2.77 2.0-3.6 cm LVPWd: 1.31 0.7-1.1 cm Ao Root: 3.30 2.1-3.5 cm LA Diam: 3.80 2.7-3.8/3.0-4.0 cm LAIDs Index: 1.64 1.5-2.3 cm/m2 LV Mass: 305.20 67-162/88-224 g LV Mass Index: 131.55 43-95/49-115 g/m2 LVOT Diam: 2.00 3.0+(-)1.3 cm 2D Systolic Function EF 4C: 56.00 >55% EF 2C: 59.10 >55% Mitral Valve MV Pk E: 0.74 MV PK A: 0.88 MV Decel Time: 209.00 E/A: 0.80 E'Lateral: 9.14 E'Medial: 9.03 E/E' Med: 8.10 E/E' Lat: 8.00 PHT: 61.00 MVA PHT: 3.61 Decel [place]: 3.51 Aortic Valve AoV Pk Cas: 1.68 AoV Mn Cas: 1.17 AoV VTI: 0.30 AoV Pk Grad: 11.00 Aov Mn Grad: 6.00 ELAINA Cont.VTI: 2.07 LVOT LVOT Pk Cas: 1.03 LVOT Mn Cas: 0.73 LVOT VTI: 0.20 LVOT Pk Grad: 4.00 LVOT Mn Grad: 2.00 LVOT Diam: 2.00 LVOT Area: 3.14 Diastolic Function MV Pk E: 0.74 MV Pk A: 0.88 E/A: 0.80 E'Medial: 9.03 E/E' Med: 8.10 E' Laterial: 9.14 E/E' Lat: 8.00 Right Ventricle TAPSE (mm): 2.30 TVS' Cas: 12.20 Tricuspid Valve TR Pk Cas: 1.60 TR Pk Grad: 10.00 RA Press: 3.00 RVSP: 13.00 Great Vessels Aorta Ao Root-2D: 3.30 2.0-3.7 cm Ao Asc: 3.60 2.1-3.4 cm Ao Arch: 2.80 Updated in Other Vendor System with Status of Final Gerard Hare MD electronically signed on 07/03/2021 1:03:27 PM with status of Final
== END ==
LOC: HO.CARD 08:26
PROVIDERS: Visit Provider Internal Medicine
DX: I10 Essential (primary) hypertension (principal); R01.1 Cardiac murmur, unspecified
CPT/HCPCS: 93306

== ENCOUNTER 2021-07-11 10:56 | Outpatient (REF) | payer MEDICAID, SELFPAY | END 2021-07-11 10:57 | disposition home or self-care (01) | LOC: HO.LAB 10:56 | PROVIDERS: PCP Internal Medicine; Visit Provider Obstetrics & Gynecology | DX: R87.612 Low grade squamous intraepithelial lesion on cytologic smear of cervix (LGSIL) (principal); R87.810 Cervical high risk human papillomavirus (HPV) DNA test positive; I10 Essential (primary) hypertension; E66.01 Morbid (severe) obesity due to excess calories; R73.03 Prediabetes; Z68.43 Body mass index [BMI] 50.0-59.9, adult; Z98.51 Tubal ligation status; Z88.8 Allergy status to other drugs, medicaments and biological substances | CPT/HCPCS: 57454; 88305 ==

== ENCOUNTER → 2021-07-25 11:35 | Outpatient (BNVA) | payer MEDICAID, SELFPAY | PROVIDERS: PCP Internal Medicine; Visit Provider Obstetrics & Gynecology ==

== ENCOUNTER 2021-10-16 14:41 | Emergency (ER) | payer MEDICAID, SELFPAY ==
[2021-10-16 14:58] VITALS: BP 180/90; PULSE 84; RESP 18; TEMP 36.4; O2SAT 98; BMI 46.9
--- NOTE | 2021-10-16 15:34 | ED.HA ---
HPI - Headache General Chief Complaint: Headache Stated Complaint: eye pain head pain Time Seen by Provider: 10/16/21 15:34 Source: patient Mode of arrival: ambulatory Limitations: no limitations History of Present Illness HPI Narrative: history obtained by shoe handler. Patient with eye pain and pulsating headache. 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 This is being operated by Dr. Li of ENT in [place]. Now she is having more symptoms. MD elicited complaint: headache Onset (ago): week(s) Onset description: gradually Location: left Severity: mild Quality & Timing: throbbing Exacerbating factors: none Relieving factors: nothing Associated symptoms: none Related Data Home Medications Medication Instructions Recorded Confirmed lisinopril 10 mg tablet 10 mg PO DAILY 07/25/20 03/01/21 omeprazole 20 mg capsule,delayed 20 mg PO BID 07/25/20 03/01/21 release trazodone 50 mg tablet 25 mg PO DAILY 07/26/20 03/01/21 albuterol sulfate 90 mcg/actuation 2 puff INHALATION Q6H PRN 07/27/20 03/01/21 aerosol inhaler cetirizine 10 mg tablet 1 tab PO QAM PRN 01/14/21 03/01/21 sodium chloride 0.65 % nasal spray 1 spray INTRANASAL Q4H PRN 01/14/21 03/01/21 aerosol (Deep Sea Nasal) chlorthalidone 25 mg tablet 25 mg PO DAILY 03/01/21 03/01/21 meclizine 12.5 mg tablet 12.5 mg PO TID 03/01/21 03/01/21 Previous Rx's Medication Instructions Recorded nrcwnyyrlw-cukwfhanhgwbt-eankbvnd 1 cap PO Q8H PRN #10 cap 01/15/21 50 mg-300 mg-40 mg capsule (Fioricet) naproxen 500 mg tablet 500 mg PO BID PRN #20 tab 01/15/21 amoxicillin 875 mg-potassium 1 tab PO BID #20 tab 10/16/21 clavulanate 125 mg tablet fluticasone propionate 50 1 spray INTRANASAL BID #16 g 10/16/21 mcg/actuation nasal spray,suspension (24 Hour Allergy Relief) Allergies Allergy/AdvReac Type Severity Reaction Status Date / Time zolpidem [From Ambien] AdvReac Confusion Verified 07/11/21 11:06 Review of Systems Constitutional: Constitutional: Reports no additional constitutional complaints Eyes: Eyes: Reports no additional eye complaints ENT: Denies dizziness Cardiovascular: Cardiovascular: Reports no additional cardiovascular complaints Respiratory: Respiratory: Reports as per HPI Gastrointestinal: Gastrointestinal: Reports no additional gastrointestinal complaints Genitourinary: Genitourinary: Reports no additional female genitourinary complaints Musculoskeletal: Musculoskeletal: Reports no additional musculoskeletal complaints Integumentary/Breasts: Skin/Breast: Denies rash Neurologic: Reports system reviewed and no additional complaints, except as documented, Denies dizziness and Denies Sensory deficit (Neuro) Psychiatric: Psychiatric: Denies anxiety [facility] Past Medical History Medical History Back pain GERD (gastroesophageal reflux disease) Hypertension Insomnia Knee pain Morbid obesity Prediabetes Surgical History Hx of section Hx of tubal ligation Family History Family History Mother Hypertension Diabetes Asthma Arthritis Father No problems noted. Brother No problems noted. Brother No problems noted. Daughter No problems noted. Daughter No problems noted. Daughter No problems noted. Social History Social History Alcohol intake: never Patient Tobacco Use Status: Never used Tobacco Advance Directives: No Advance Directives Information Provided: No Physical Exam Vital Signs: Vital Signs: Last Vital Signs Temp 98.6 F 10/16/21 15:56 Pulse 80 10/16/21 15:56 Resp 18 10/16/21 15:56 BP 182/114 H 10/16/21 15:56 Pulse Ox 99 10/16/21 15:56 BMI result Body Mass Index 46.9 Const: General: healthy appearing Nutritional Appearance: average body habitus Orientation/consciousness: oriented to person and patient oriented x3 Limitations: no limitations HEENT: Head: Yes normal to inspection Ears: external ears normal General nose exam: Normal external nose present Mouth: Normal oral and palatal mucosa present and oropharynx normal Throat: Yes posterior oropharynx normal Eyes: Other: PERRL, EOMI General: appearance normal, both eyes and all related structures Neck: Other: supple Neck: Yes normal visual inspection Chest: Chest palpation & inspection: normal inspection of the chest Resp: Auscultation: clear to auscultation bilaterally Cardio: Jugular venous distension: no JVD Rate: regular rate Rhythm: regular rhythm Heart sounds: S1 normal heart sound present and S2 normal heart sound present GI: Inspection: Yes normal to inspection Palpation (GI): Soft to palpation, nontender and No hepatosplenomegaly present Auscultation: normal bowel sounds : General: Yes no CVA tenderness Back/Spine/Pelvis: Back: no CVA tenderness Skin: General skin exam: no rashes or lesions noted Neuro: General: oriented to person and patient oriented x3 Cranial nerves: Yes CN's II-XII intact bilaterally Motor exam (neuro): 5/5 motor strength present throughout Sensory Exam: No Sensory deficit (Neuro) Extrem: General: Yes normal to inspection Psych: Appearance: grossly normal Course Reevaluation(s) Reevaluation #1: patient with known 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 Li. Time: 16:12 Discharge Plan Discharge Clinical Impression: Sinusitis, Headache Patient Disposition: Home, Self-Care Instructions: Sinusitis (ED) Prescriptions: New fluticasone propionate [24 Hour Allergy Relief] 50 mcg/actuation spray,suspension 1 spray intranasal BID Qty: 16 0RF Rx Instructions: administer into each nostril amoxicillin-pot clavulanate 875-125 mg tablet 1 tab PO BID Qty: 20 0RF No Action lisinopril 10 mg tablet 10 mg PO DAILY 0RF omeprazole 20 mg capsule,delayed release(DR/EC) 20 mg PO BID 0RF cetirizine 10 mg tablet 1 tab PO QAM PRN (Reason: allergies) 0RF sodium chloride [Deep Sea Nasal] 0.65 % aerosol,spray 1 spray intranasal Q4H PRN (Reason: Congestion) 0RF naproxen 500 mg tablet 500 mg PO BID PRN (Reason: pain) Qty: 20 0RF mzgjscsgmh-gzbpazsfycpwx-djte [Fioricet] 50-300-40 mg capsule 1 cap PO Q8H PRN (Reason: migraine headache) Qty: 10 0RF trazodone 50 mg tablet 25 mg PO DAILY 0RF albuterol sulfate 90 mcg/actuation HFA aerosol inhaler 2 puff inhalation Q6H PRN0RF chlorthalidone 25 mg tablet 25 mg PO DAILY 0RF meclizine 12.5 mg tablet 12.5 mg PO TID 0RF Referrals: Joceline Gutierrez MD [Primary Care Provider] - 1 week (Also follow up with Dr. Li your surgeon)
[2021-10-16 15:56] VITALS: BP 182/114; PULSE 80; RESP 18; TEMP 37; O2SAT 99
== END 2021-10-16 16:35 | disposition home or self-care (01) ==
PROVIDERS: Emergency Provider Emergency Medicine; PCP Internal Medicine
DX: J32.9 Chronic sinusitis, unspecified (principal); R51.9 Headache, unspecified; J34.1 Cyst and mucocele of nose and nasal sinus; I10 Essential (primary) hypertension
CPT/HCPCS: 99283

== ENCOUNTER 2021-11-28 12:40 | Emergency (ER) | payer MEDICAID, SELFPAY ==
--- NOTE | ~2021-11-28 | CT_ITS ---
EXAMINATION: CT HEAD WITHOUT CONTRAST CLINICAL INFORMATION: Headache. Neck pain. COMPARISON: Previous head CT January 2021 TECHNIQUE: Contiguous axial imaging was performed from the skull base to vertex without intravenous administration of contrast. This CT examination was performed using dose optimization techniques as appropriate, variously including the following: *Automated exposure control *Adjustment of mA and/or kV according to patient size (this includes techniques or standardized protocols for targeted exams where dose is matched to indication/reason for exam; i.e. extremities or head) *Use of iterative reconstruction technique DLP: 758 mGy-cm FINDINGS: There is no evidence of acute intracranial hemorrhage or territorial infarction. No abnormal mass effect or midline shift is seen. Neely to white matter differentiation is well preserved. No extra-axial fluid collections are identified. The ventricles are normal in size. There is no abnormal attenuation within the brain parenchyma. No skull fracture is seen. There appears to have been interval removal of the left nasal cavity cystic mass. There is a soft tissue and air seen filling the nasal cavity. There is tarsal soft tissue opacification of the bilateral ethmoid, sphenoid and left frontal sinus. There is membranous soft tissue thickening in the left maxillary sinus. CT/CT head/brain wo con IMPRESSION: No acute intracranial pathology. Postsurgical changes to the nasal cavity with residual soft tissue opacification of the nasal cavity and bilateral ethmoid sinuses and membranous soft tissue thickening in the left maxillary sinus.
--- NOTE | 2021-11-28 12:50 | ED_ITS ---
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 Patient states that 3 days ago she had surgery on her left sinus and now she is having a headache and nausea. Patient states that when she called her surgeon, Dr. Li's office, they recommended she come to the ER. Patient states that she does have a significant history of migraines. Patient denies any dizziness, lightheadedness, abdominal pain, vomiting, fever, chills, blurry vision, double vision, loss of vision, chest pain, difficulty breathing, shortness of breath, back pain, night sweats, pain with urination, increased urinary frequency, increased urinary urgency, blood in her urine or stool, syncope or a near syncopal episode, recent trauma or falls, bowel incontinence, bladder incontinence, bowel retention, bladder retention, or any other complaints at this time. Onset (ago): hour(s) Location: head Radiation: non-radiation Severity: mild Severity scale (1-10): 2 Pain Consistency: constant Relieving factors: none Exacerbating factors: none Associated symptoms: nausea/vomiting Treatments prior to arrival: none Related Data Home Medications Medication Instructions Recorded Confirmed lisinopril 10 mg tablet 10 mg PO DAILY 07/25/20 03/01/21 omeprazole 20 mg capsule,delayed 20 mg PO BID 07/25/20 03/01/21 release trazodone 50 mg tablet 25 mg PO DAILY 07/26/20 03/01/21 albuterol sulfate 90 mcg/actuation 2 puff inhalation Q6H PRN 07/27/20 03/01/21 aerosol inhaler cetirizine 10 mg tablet 1 tab PO QAM PRN allergies 01/14/21 03/01/21 sodium chloride 0.65 % nasal spray 1 spray intranasal Q4H PRN 01/14/21 03/01/21 aerosol (Deep Sea Nasal) Congestion chlorthalidone 25 mg tablet 25 mg PO DAILY 03/01/21 03/01/21 meclizine 12.5 mg tablet 12.5 mg PO TID 03/01/21 03/01/21 Previous Rx's Medication Instructions Recorded [id number]-azbztfxtafjqc-nphntggq 1 cap PO Q8H PRN migraine headache 01/15/21 50 mg-300 mg-40 mg capsule #10 caps (Fioricet) naproxen 500 mg tablet 500 mg PO BID PRN pain #20 tabs 01/15/21 amoxicillin 875 mg-potassium 1 tab PO BID #20 tabs 10/16/21 clavulanate 125 mg tablet fluticasone propionate 50 1 spray intranasal BID #16 grams 10/16/21 mcg/actuation nasal spray,suspension (24 Hour Allergy Relief) Allergies Allergy/AdvReac Type Severity Reaction Status Date / Time zolpidem [From Ambien] AdvReac Confusion Verified 07/11/21 11:06 Review of Systems Constitutional: Constitutional: Reports no additional constitutional complain ts, Denies chills, Denies fever(s), Reports headache(s) and Denies night sweats Eyes: Eyes: Reports no additional eye complaints, Denies blurry vision, Denies change in vision, Denies diplopia, Denies eye discharge, Denies loss of vision and Denies eye pain ENT: Denies dizziness and Reports headache(s) Cardiovascular: Cardiovascular: Reports no additional cardiovascular complaints, Denies chest pain, Denies lightheadedness, Denies Loss of Consciousness and Denies dyspnea Respiratory: Respiratory: Reports no additional respiratory complaints and Denies dyspnea Gastrointestinal: Gastrointestinal: Reports no additional gastrointestinal complaints, Denies abdominal pain, Denies melena, Denies hematochezia, Denies change in bowel habits, Denies change in stool character and Reports nausea Genitourinary: Genitourinary: Denies hematuria, Denies urinary frequency, Denies dysuria, Denies urinary incontinence, Denies urinary hesitancy and Denies urinary urgency Musculoskeletal: Musculoskeletal: Reports no additional musculoskeletal complaints, Denies numbness and Denies tingling Neurologic: Denies dizziness, Reports headache(s), Denies loss of vision, Denies numbness and Denies tingling Psychiatric: Psychiatric: Reports no additional psychiatric complaints Endocrine: Endocrine: Reports no additional endocrine complaints Hematologic/Lymphatic: Hematologic/Lymphatic: Reports no additional hematologic/lymphatic complaints Allergic/Immunologic: Allergic/Immunologic: Reports no additional a llergic/immunologic complaints PMFSH Past Medical History Attestation statement: The following information was validated with the patient. Source: old records reviewed Surgical History Hx of section Hx of tubal ligation Family History Family History Mother Hypertension Diabetes Asthma Arthritis Father No problems noted. Brother No problems noted. Brother No problems noted. Daughter No problems noted. Daughter No problems noted. Daughter No problems noted. Social History Social History Alcohol intake: never Patient Tobacco Use Status: Never used Tobacco Advance Directives: No Advance Directives Information Provided: No Physical Exam ED Vital Signs: Vital Signs - 24 hr 11/28/21 12:53 11/28/21 14:18 Temperature 98.3 F 98.7 F Pulse Rate 80 77 Respiratory Rate 16 20 Blood Pressure 150/85 H 158/91 H Pulse Oximetry 99 98 Oxygen Delivery Method Room Air Room Air BMI result Body Mass Index 48.3 Const General: cooperative, no acute distress, alert and awake Nutritional Appearance: well nourished Orientation/consciousness: patient oriented x3 Limitations: no limitations HENMT Head: Yes normal to inspection and Yes atraumatic Ears: hearing grossly normal bilaterally and external ears normal General nose exam: Normal external nose present, no nasal discharge noted and no epistaxis Face and sinus: Yes normal facial exam, No abrasion and No laceration Mouth: Normal oral and palatal mucosa present, no drooling and no muffled voice Eyes General: appearance normal, both eyes and all related structures Periorbital: periorbital findings normal Eyelids: Yes eyelids normal Conjunctivae: conjunctivae normal Pupils: Equal, round and reactive pupils present EOM: EOMs intact bilaterally Neck Neck: Yes normal visual inspection, Yes full ROM and Yes no lymphadenopathy Chest Chest palpation & inspection: normal inspection of the chest Resp Effort & Inspection: normal respiratory effort and able to speak in complete sentences Auscultation: clear to auscultation bilaterally Cardio Rate: regular rate Rhythm: regular rhythm GI Inspection: Yes normal to inspection Neuro General: patient oriented x3 and moves all extremities Cranial nerves: Yes Equal, round and reactive pupils present Cognition (Neuro): normal cognition Motor exam (neuro): 5/5 motor strength present throughout Sensory Exam: Normal double simultaneous stimulation for sensation Coordination: ekgtdd-oe-zrlc test normal Extrem General: Yes normal to inspection, Yes full ROM and Yes capillary refill normal Psych Appearance: grossly normal Mental Status: mental status grossly normal Affect: normal affect Attitude: cooperative Thought process: Normal thought process present Thought content: Normal thought content present Insight: Good insight present (Psych) Course Consultations Consultation #1: Spoke to Dr. Li who stated that he was satisfied with our work up and that he did not recommend anything further. States that he will follow up with her in office. Time: 15:55 Medical Decision Making MDM Narrative Medical decision making narrative: Patient is a 41 year old female presenting to the emergency department today with a left sided headache. Patient's physical exam was unremarkable. Patient's blood work showed an elevated WBC count, ESR, and CRP however, this is secondary to a recent procedure rather than an acute infection. Patient's head CT showed no acute process. I determined that the patient is not septic as of 1321. I explained my physical exam findings as well as all test results to the patient. I answered all questions asked by the patient. Patient received IV Regalin, Morphine, and Toradol which she stated helped her symptoms significantly. I stressed the importance of the patient taking her medication as prescribed. I stressed the importance of the patient following up with her primary care provider and Dr. Li, her surgeon. I stressed the importance of the patient returning to the emergency department immediately if her symptoms were to worsen or if she were to develop any dizziness, shortness of breath, difficulty breathing, chest pain, blurry vision, loss of vision, nausea, vomiting, abdominal pain, fever, chills, back pain, or any other complaints. Patient verbalized agreement and understanding with this treatment plan and discharge. Differential Diagnosis Differential Diagnosis: migraine, headache Medical Records Medical records reviewed: Yes I reviewed the patient's medical records. Lab Data Lab results reviewed: Yes I reviewed the patient's lab results. Result diagrams: 11/28/21 13:21 11/28/21 13:21 Labs: Lab Results 11/28/21 11/28/21 11/28/21 Range/Units 13:21 13:21 13:21 WBC 13.6 H (4.8-10.8) X10*3/uL RBC 4.87 (4.20-5.50) X10*6/uL Hgb 12.7 (12.0-16.0) g/dl Hct 38.9 (37.0-47.0) % MCV 79.9 L (80.0-98.0) fL MCH 26.1 L (27.0-33.0) pg MCHC 32.6 (31.0-35.0) g/dl RDW 14.4 (11.0-16.0) % Plt Count 293 (160-400) X10*3/uL MPV 10.0 (9.4-12.3) fL Immature Gran % (Auto) 0.4 (0.0-0.4) % Neut % (Auto) 86.6 H (45-73) % Lymph % (Auto) 9.5 L (20-40) % [place] % (Auto) 3.0 (2-11) % Eos % (Auto) 0.1 (0-4) % Baso % (Auto) 0.4 (0-2) % Lymph # (Auto) 1.3 (1.2-4.9) X10*3/uL [place] # (Auto) 0.4 (0.1-1.2) X10*3/uL Eos # (Auto) 0.0 (0.0-0.4) X10*3/uL Baso # (Auto) 0.1 (0.0-0.2) X10*3/uL Abs Immat Gran (auto) 0.06 H (0.00-0.03) X10*3/uL Absolute Neuts (auto) 11.8 H (2.0-8.3) x10*3/uL Absolute Nucleated RBC 0.000 (0.0-0.012) X10*3/uL Nucleated RBC % (auto) 0.0 (0.0-0.2) /100WBC ESR 21 H (0-20) MM/HR Sodium 135 (135-145) mmol/L Potassium 3.5 (3.3-5.1) mmol/L Chloride 94 L (96-108) mmol/L Carbon Dioxide 32 H (22-29) mmol/L Anion Gap 13 (12-20) BUN 9 (9-16) mg/dL Creatinine 0.66 (0.5-1.4) mg/dL Estim Creat Clear Calc 141.9 Estimated GFR > 60 Random Glucose 193 H (60-115) mg/dL Calcium 9.0 (8.4-10.2) mg/dL Total Bilirubin 0.6 (0.0-1.0) mg/dL AST 17 (5-31) U/L ALT 31 (0-31) U/L Alkaline Phosphatase 100 (39-117) U/L C-Reactive Protein 4.63 H (< or = 0.50) mg/dL Total Protein 6.9 (6.5-8.0) g/dL Albumin 4.1 (3.5-5.0) g/dL Imaging Data CT scan - head: Attestation: I personally reviewed and interpreted this imaging study as follows: My impression: No acute process. Radiologist's impression: EXAMINATION: CT HEAD WITHOUT CONTRAST CLINICAL INFORMATION: Headache. Neck pain.? COMPARISON: Previous head CT January 2021 TECHNIQUE: Contiguous axial imaging was performed from the skull base to vertex without intravenous administration of contrast. This CT examination was performed using dose optimization techniques as appropriate, variously including the following: *Automated exposure control *Adjustment of mA and/or kV according to patient size (this includes techniques or standardized protocols for targeted exams where dose is matched to indication/reason for exam; i.e. extremities or head) *Use of iterative reconstruction technique DLP: 758 mGy-cm FINDINGS: There is no evidence of acute intracranial hemorrhage or territorial infarction. No abnormal mass effect or midline shift is seen. Neely to white matter differentiation is well preserved. No extra-axial fluid collections are identified. The ventricles are normal in size. There is no abnormal attenuation within the brain parenchyma. No skull fracture is seen. There appears to have been interval removal of the left nasal cavity cystic mass. There is a soft tissue and air seen filling the nasal cavity. There is tarsal soft tissue opacification of the bilateral ethmoid, sphenoid and left frontal sinus. There is membranous soft tissue thickening in the left maxillary sinus. CT/CT head/brain wo con IMPRESSION: No acute intracranial pathology. Postsurgical changes to the nasal cavity with residual soft tissue opacification of the nasal cavity and bilateral ethmoid sinuses and membranous soft tissue thickening in the left maxillary sinus. Dictated By: Michell Davies MD Signed By: Electronically signed by Michell Davies MD 11/28/21 9801 Discharge Plan Discharge Clinical Impression: Migraine Patient Disposition: Home, Self-Care Instructions: Migraine Headache (ED) Additional Instructions: Follow up with your primary care provider and Dr. Li at [facility]. Return to the emergency department immediately if your symptoms worsen or if you develop any dizziness, shortness of breath, difficulty breathing, chest pain, blurry vision, loss of vision, nausea, vomiting, abdominal pain, fever, chills, back pain, or any other complaints. Prescriptions: No Action lisinopril 10 mg tablet 10 mg PO DAILY omeprazole 20 mg capsule,delayed release(DR/EC) 20 mg PO BID cetirizine 10 mg tablet 1 tab PO QAM PRN (Reason: allergies) sodium chloride [Deep Sea Nasal] 0.65 % aerosol,spray 1 spray intranasal Q4H PRN (Reason: Congestion) naproxen 500 mg tablet 500 mg PO BID PRN (Reason: pain) Qty: 20 0RF ssabmoeexl-xjobgbldajspp-kzna [Fioricet] 50-300-40 mg capsule 1 cap PO Q8H PRN (Reason: migraine headache) Qty: 10 0RF fluticasone propionate [24 Hour Allergy Relief] 50 mcg/actuation spray,suspension 1 spray intranasal BID Qty: 16 0RF Rx Instructions: administer into each nostril amoxicillin-pot clavulanate 875-125 mg tablet 1 tab PO BID Qty: 20 0RF trazodone 50 mg tablet 25 mg PO DAILY albuterol sulfate 90 mcg/actuation HFA aerosol inhaler 2 puff inhalation Q6H PRN chlorthalidone 25 mg tablet 25 mg PO DAILY meclizine 12.5 mg tablet 12.5 mg PO TID Referrals: Joceline Gutierrez MD [Primary Care Provider] - Interventions: ED Discharge Assessment Last Done: 11/28/21 16:13 Discharge Date/Time: 11/28/21 16:14 Print Language: Korean
[2021-11-28 12:53] VITALS: BP 150/85; PULSE 80; RESP 16; TEMP 36.8; O2SAT 99; BMI 48.3
[2021-11-28 13:24] LABS: MANUAL DIFF FLAG NO
[2021-11-28 13:25] LABS: Basophils Absolute Auto 0.1 X10*3/uL (0.0-0.2); Basophils Percent Auto 0.4 % (0-2); Eosinophils Percent Auto 0.1 % (0-4); Hematocrit 38.9 % (37.0-47.0); Hemoglobin 12.7 g/dl (12.0-16.0); Imm Gran Abs Auto 0.06 X10*3/uL (0.00-0.03); Imm Gran Pct Auto 0.4 % (0.0-0.4); Lymphocytes Absolute Auto 1.3 X10*3/uL (1.2-4.9); Lymphocytes Percent Auto 9.5 % (20-40); Mean Corpuscular HGB Conc 32.6 g/dl (31.0-35.0); Mean Corpuscular Hemoglobin 26.1 pg (27.0-33.0); Mean Corpuscular Volume 79.9 fL (80.0-98.0); Monocytes Absolute Auto 0.4 X10*3/uL (0.1-1.2); Neutrophils Absolute Auto 11.8 x10*3/uL (2.0-8.3); Neutrophils Percent Auto 86.6 % (45-73); Platelet Count 293 X10*3/uL (160-400); Red Blood Count 4.87 X10*6/uL (4.20-5.50); Red Cell Distribution Width 14.4 % (11.0-16.0); White Blood Count 13.6 X10*3/uL (4.8-10.8)
[2021-11-28] MEDS: Metoclopramide HCl 10 MG/2 ML VIAL IVPUSH (13:58)
[2021-11-28] MEDS: Morphine Sulfate 4 MG/ML CARTRIDGE IVPUSH (13:59)
[2021-11-28 14:07] LABS: Alanine Aminotransferase 31 U/L (0-31); Albumin Level 4.1 g/dL (3.5-5.0); Alkaline Phosphatase 100 U/L (39-117); Anion Gap 13 (12-20); Aspartate Amino Transferase 17 U/L (5-31); Bilirubin Total 0.6 mg/dL (0.0-1.0); Blood Urea Nitrogen 9 mg/dL (9-16); C Reactive Protein 4.63 mg/dL (< or = 0.50); Carbon Dioxide 32 mmol/L (22-29); Chloride 94 mmol/L (96-108); Creatinine Clr Calc Pharmacy 141.9; Estimated Glomerular Filt Rate > 60; Glucose Random 193 mg/dL (60-115); Potassium 3.5 mmol/L (3.3-5.1); Sodium 135 mmol/L (135-145); Total Protein 6.9 g/dL (6.5-8.0)
[2021-11-28 14:18] VITALS: BP 158/91; PULSE 77; RESP 20; TEMP 37.1; O2SAT 98
[2021-11-28 14:35] LABS: Erythrocyte Sedimentation Rate 21 MM/HR (0-20)
[2021-11-28] MEDS: Ketorolac Tromethamine 15 MG/ML VIAL IVPUSH (16:06)
== END 2021-11-28 16:14 | disposition home or self-care (01) ==
PROVIDERS: Physician Assistant Medical; Emergency Provider Student in an Organized Health Care Education/Training Program; PCP Internal Medicine
DX: G43.909 Migraine, unspecified, not intractable, without status migrainosus (principal); I10 Essential (primary) hypertension
CPT/HCPCS: 36415; 70450; 80053; 85025; 85652; 86140; 96374; 96375; 99283; 99284; J1885; J2270; J2765

== ENCOUNTER → 2022-03-26 11:50 | Outpatient (REF) | payer MEDICAID, SELFPAY ==
--- NOTE | 2022-03-26 | PFT_ITS ---
INDICATION: History of asthma. SPIROMETRY: FEV1 to FVC of 80% with an FEV1 of 2.61 L, which is 91% predicted. FVC of 3.24 L, which is 92% predicted. No significant response to bronchodilators noted. To note, there is some evidence of small airways disease with an FEF 25/75 of 60%. Maximum voluntary ventilation 67% predicted. LUNG VOLUMES: Appears the patient could not perform the study and the expiratory reserve volume could not be measured. A total lung capacity is 88% predicted. DIFFUSION CAPACITY: DLCO 111% predicted. COMPARISONS: None. INTERPRETATION: No obstructive ventilatory defect. No restrictive ventilatory defect. No significant response to bronchodilators noted. There is some evidence of small airway disease, which could be secondary to her history of asthma, although it could also be related to her body habitus with NIV elevated BMI. Lung volumes are within normal limits and diffusion capacity is within normal limits. If asthma is in the differential, methacholine challenge may be helpful in assessing for hyper-reactive airways, otherwise clinical correlation warranted. MD SOHEILA Selby/MODDahlia / [phone]
== END ==
LOC: HO.SL 11:50
PROVIDERS: PCP Internal Medicine; Visit Provider Internal Medicine
DX: R06.09 Other forms of dyspnea (principal); G47.9 Sleep disorder, unspecified
CPT/HCPCS: 94060; 94727; 94729; 95806

== ENCOUNTER → 2022-04-09 10:21 | Outpatient (BNVA) | payer MEDICAID, SELFPAY | PROVIDERS: PCP Internal Medicine; Referring Provider Internal Medicine; Visit Provider Internal Medicine Cardiovascular Disease | DX: I10 Essential (primary) hypertension (principal); R06.09 Other forms of dyspnea | CPT/HCPCS: 93005; 99202 ==

== ENCOUNTER → 2022-04-24 11:11 | Outpatient (REF) | payer MEDICAID, SELFPAY ==
--- NOTE | 2022-04-24 11:13 | CA_ITS ---
Acquisition Time: 2022-04-24 11:24:42 Total Exercise Time: 00:03:55 Test Indications: Dyspnea Medications: ALBUTEROL CETIRIZINE CHLORTHALIDONE LISINOPRIL NAPROXEN OMEPRAZOLE Protocol: YOLANDA Max HR: 157 BPM 88% of Pred: 177 BPM Max BP: 140/080 mmHG Max Work Load: 5.6 METS Exercise stress test with exercise 3 min 55 sec of Yolanda protocol, achieving up to 88% MPHR, with moderate to severe shortness of breath and need to stop, no chest discomfort, with normotensive response to exercise, without EKG changes meeting criteria for ischemia. Echo images obtained at rest and immediately post peak exercise. Definity contrast used. Test reviewed with Dr Ma. Note: prior to exercise she had some expiratory wheezes and used her own albuteral inhaler. Intermittent cough noted during test period. STRESS ECHO : Technique : Images were obtianed at rest and immediately post exerrcise within 1 minute. Definity contast was used to enhance endocardial definition. Images were obtained in multiple views and compared side to side. Findings: At rest images are of adequate quality. LV systolic function is normal with normal wall motion. Post exercise images are borderline due to some off-axis views. There is good augmentation of overall LV systolic function with no regional wall motion abnormalities. Conclusion : Stress echo is negative for ischemia at achieved workload. Referred By: Monster Ma Overread By: KESHAV FREED MD
== END ==
LOC: HO.CARD 11:11
PROVIDERS: PCP Internal Medicine; Visit Provider Internal Medicine Cardiovascular Disease
DX: R06.09 Other forms of dyspnea (principal)
CPT/HCPCS: 93350; Q9957

== ENCOUNTER 2022-05-28 10:45 | Outpatient (REF) | payer MEDICAID, SELFPAY ==
--- NOTE | ~2022-05-28 | US_ITS ---
EXAMINATION: US PELVIS CLINICAL INFORMATION: Secondary dysmenorrhea COMPARISON: August 25, 2011 TECHNIQUE: Ultrasound of the pelvis is performed using transabdominal transducers along with Doppler. Patient refused transvaginal study. FINDINGS: Uterus: The uterus is anteverted and measures 7.8 x 4.4 x 5.2 cm. No cervical abnormality appreciated. The double wall endometrial thickness is 0.5 mm. The uterus is smooth in contour and has normal myometrial echogenicity. No visible fibroid. Adnexa: Neither ovary was visualized due to body habitus and bowel gas.. There is no pelvic ascites or fluid collection. No definite adnexal mass is seen. US/US pelvic complete IMPRESSION: Limited study as described above. No significant abnormality appreciated on provided images.
== END 2022-05-28 10:46 | disposition home or self-care (01) ==
LOC: HO.US 10:45
PROVIDERS: Visit Provider Advanced Practice Midwife
DX: N94.5 Secondary dysmenorrhea (principal)
CPT/HCPCS: 76856

== ENCOUNTER → 2022-07-02 10:00 | Outpatient (BNVA) | payer MEDICAID, SELFPAY | PROVIDERS: PCP Internal Medicine; Referring Provider Internal Medicine; Visit Provider Internal Medicine Cardiovascular Disease | DX: R06.09 Other forms of dyspnea (principal); I10 Essential (primary) hypertension; E66.01 Morbid (severe) obesity due to excess calories; Z68.43 Body mass index [BMI] 50.0-59.9, adult | CPT/HCPCS: 99212 ==

== ENCOUNTER → 2022-08-05 13:25 | Outpatient (BNVA) | payer MEDICAID, SELFPAY | PROVIDERS: PCP Internal Medicine; Visit Provider Internal Medicine | DX: E66.01 Morbid (severe) obesity due to excess calories (principal); R06.09 Other forms of dyspnea; Z68.43 Body mass index [BMI] 50.0-59.9, adult | CPT/HCPCS: 99202 ==

== ENCOUNTER 2022-12-08 10:20 | Outpatient (REF) | payer MEDICAID, SELFPAY ==
[2022-12-11 02:33] LABS: HPV mRNA E6/E7 rflx Not Detected (Not Detected)
== END 2022-12-08 10:21 | disposition home or self-care (01) ==
LOC: HO.LNP 10:20
PROVIDERS: PCP Internal Medicine; Visit Provider Obstetrics & Gynecology
DX: Z01.419 Encounter for gynecological examination (general) (routine) without abnormal findings (principal); Z11.51 Encounter for screening for human papillomavirus (HPV)
CPT/HCPCS: 87624; 88142

== ENCOUNTER 2022-12-17 11:10 | Outpatient (REF) | payer MEDICAID, SELFPAY ==
--- NOTE | ~2022-12-17 | MM_ITS ---
EXAMINATION: MM SCREENING DIGITAL BREAST TOMOSYNTHESIS, BILATERAL CLINICAL INFORMATION: Screening. Asymptomatic. The lifetime risk of breast cancer based on the Tyrer-Cuzick Model is 15%. COMPARISON: Mammography: This study is compared with prior exam dating back to 2020. TECHNIQUE: Digital breast tomosynthesis is performed in both the craniocaudal and mediolateral oblique views along with computer-aided detection (CAD). Synthesized 2D images are generated from the tomosynthesis. FINDINGS: There are scattered areas of fibroglandular density (ACR BI-RADS breast composition Category b). There are no significant masses, abnormal calcifications, or other abnormalities. MM/MM tomosynthesis screening BI IMPRESSION: No mammographic evidence of malignancy. ASSESSMENT: BI-RADS BI-RADS 1 - Negative RECOMMENDATION: Routine annual mammography screening. 1 year F/U This examination should not preclude the clinical evaluation of a suspicious palpable abnormality. This patient's information was entered into a reminder system with a target due date for their next mammogram.
== END 2022-12-17 11:11 | disposition home or self-care (01) ==
LOC: HO.MAMMO 11:10
PROVIDERS: Absent Provider Obstetrics & Gynecology; PCP Internal Medicine; Visit Provider Internal Medicine
DX: Z12.31 Encounter for screening mammogram for malignant neoplasm of breast (principal)
CPT/HCPCS: 77063; 77067

== ENCOUNTER → 2022-12-17 11:45 | Outpatient (BNV) | payer MEDICAID, SELFPAY | PROVIDERS: Absent Provider Obstetrics & Gynecology; PCP Internal Medicine; Visit Provider Radiology Diagnostic Radiology | DX: Z12.31 Encounter for screening mammogram for malignant neoplasm of breast (principal) | CPT/HCPCS: 77063; 77067 ==

== ENCOUNTER 2023-01-07 09:34 | Outpatient (AMB) | payer MEDICAID, SELFPAY ==
--- NOTE | 2023-01-07 09:44 | A.OFFVIS_ITS ---
Intake Vital Signs 01/07/23 09:46 Height 5 ft 4 in Weight 300 lb BMI 51.5 BP 130/84 Blood Pressure Location Lt brachial Position Sitting Pulse 67 Pulse Source Monitor Intake Visit Reasons: 6 mth fu Intake Note: 6 month follow up with EKG. Carbon Electrodes Supervisor Required: Yes Carbon Electrodes Supervisor Language: Screw Machine Repairer Name: Hany [id number] Ipad Accompanied by: Self / Same As Patient Allergies zolpidem [From Ambien] Adverse Reaction (Verified 01/07/23 09:47) Confusion Medication List - Last Reconciled 01/07/23 by Monster Ma MD albuterol sulfate 90 mcg/actuation 2 puffs inhalation Q6H PRN atorvastatin 40 mg PO QAM cetirizine 10 mg PO QAM PRN chlorthalidone 50 mg PO BEDTIME empagliflozin (Jardiance) 25 mg PO QAM ergocalciferol (vitamin D2) 1,250 mcg PO QWEEK meclizine 12.5 mg PO TID metformin ER 500 mg PO QPM naproxen 500 mg PO BID PRN nifedipine ER 90 mg PO QAM omeprazole 20 mg PO BID oxybutynin chloride ER 15 mg PO QAM sucralfate 1 g PO TID valsartan 160 mg PO BID HPI HPI Comments History of Present Illness Details 42-year-old female who is presenting for dyspnea on exertion. She has been experiencing shortness of breath for some time but has noticed that it is getting worse. She is saying when she is going up stairs or walking she gets out of breath. She has morbid obesity. She has hypertension and blood pressure is mildly elevated. She returns and has been started on valsartan 160 mg daily along with lisinopril 10 mg daily. Together they can increase risk of hyperkalemia and kidney issues and I have advised her to stop the lisinopril. She continues to have dyspnea on exertion. She is also describing some orthopnea like episodes which sound more like obstructive sleep apnea to me. She has daytime fatigue and sleepiness. Blood pressure is mildly elevated. She was referred for exercise stress echo which she was able to exercise for 5.6 metabolic equivalents and did not have any wall motion abnormalities. Overall the stress test was somewhat limited due to her exercise capacity. He was referred to pulmonology and has followed up with pulmonology. She was told that most of her symptoms are related to her weight. 7/26/23: She is here for follow-up. She is denying any chest discomfort. She is saying her breathing has been stable. Blood pressure control is good. She is currently taking chlorthalidone 50 mg, 50 pain 90 mg and valsartan 160 mg twice a day. She is saying that she has looked at the weight management program and will be considering it. [facility] Medical History (Reviewed 12/08/22 @ 10:39 by Cara Trinh [facility]) Back pain Dysplasia of cervix, low grade (JOSE LUIS 1) GERD (gastroesophageal reflux disease) Hypertension Insomnia Knee pain Morbid obesity Prediabetes Surgical History Hx of section Hx of tubal ligation Family History Mother Hypertension Diabetes Asthma Arthritis Father No problems noted. Brother No problems noted. Brother No problems noted. Daughter No problems noted. Daughter No problems noted. Daughter No problems noted. Social History Household Members: Children Household Members Other:: mother Housing: Apartment Alcohol intake: never Patient Tobacco Use Status: Never used Tobacco Current occupational status: unemployed Sexual orientation: Straight/Heterosexual Gender identity: Female Female Reproductive History Menstrual Age of Menarche: 10 Review of Systems Const Denies weakness ENT Denies dizziness Card Denies chest pain, Denies chest pain with activity, Denies syncope, Denies rapid heart rate, Denies pedal edema, Denies edema, Denies leg edema, Denies lightheadedness, Denies palpitations, Denies dyspnea, Denies dyspnea on exertion and Denies orthopnea Resp Denies cough, Denies dyspnea and Denies dyspnea on exertion GI Denies hematochezia and Denies change in stool character Musc Denies abnormal gait, Denies muscle cramps, Denies muscle weakness, Denies numbness, Denies radiating pain into limb and Denies tingling Neuro Denies abnormal gait, Denies dizziness, Denies syncope, Denies numbness, Denies tingling and Denies weakness Endo Denies palpitations Physical Exam Vital Signs: Last Vital Signs Pulse 67 01/07/23 09:46 BP 130/84 01/07/23 09:46 BMI result Body Mass Index 51.5 GENERAL APPEARANCE: in no acute distress, pleasant. Obese. NECK: no carotid bruit, no jugular venous distention. SKIN: no suspicious lesions, warm and dry. HEART: no murmurs, regular rate and rhythm. LUNGS: clear to auscultation bilaterally. ABDOMEN: soft, nontender. EXTREMITIES: no edema. PERIPHERAL PULSES: equal. NEUROLOGIC: No gross deficits, AAO X 3 Office Procedures EKG Details: Normal sinus rhythm 87 beats per minute, normal axis, nonspecific T-wave changes, QTC 448 milliseconds. [id number], Complete Assessment & Plan Assessment & Plan (1) ZHAO (dyspnea on exertion): Comment: DYSPNEA ON EXERTION IS MAINLY DUE TO HER MORBID OBESITY, AND DECONDITIONING. I EXPLAINED TO HER THAT BASICALLY HER PULMONARY FUNCTION TEST IS NORMAL. ALSO SHE HAS HAD CARDIAC WORKUP WHICH IS WITHIN NORMAL RANGE. FOR RESPIRATORY CONDITIONING I GAVE HER INCENTIVE SPIROMETRY DEVICE FROM THE OFFICE, AN INSTRUCTED HER TO DO DEEP BREATHING EXERCISES EVERY 2 HOURS WHILE AWAKE. SHE WAS EDUCATED THROUGH AN FLAKING ROLL OPERATOR. Code(s): R06.09 - Other forms of dyspnea (2) Hypertension: Code(s): I10 - Essential (primary) hypertension Plan Pleasant 39 year female who is here for follow-up. She has hypertension. Blood pressure control is good on the current regimen and she should continue same medications. She has seen pulmonology as above and was told that pulmonary function testing was normal. She is overweight and I think that is a harrington reason for her symptoms right now. She is looking into the weight management program. Continue same medications. She should have at least once a year basic metabolic panel as she is on thiazides and valsartan. Follow-up with us in 6 months. Thank you for allowing me to participate in the care of your patient. Please f eel free to contact me if you have any questions. Coding Level of Care Code Est Pt Level 3 (47852) Diagnoses ZAHO (dyspnea on exertion) R06.09 Hypertension I10 CPT Codes EKG - CPT: 60360-[id number], Complete ([id number])
[2023-01-07 09:46] VITALS: BP 130/84; PULSE 67; BMI 51.5
== END 2023-01-07 10:09 | disposition home or self-care (01) ==
LOC: HO.HCSM 09:34
PROVIDERS: PCP Internal Medicine; Visit Provider Internal Medicine Cardiovascular Disease
DX: R06.09 Other forms of dyspnea (principal); I10 Essential (primary) hypertension
CPT/HCPCS: 93010; 99213

== ENCOUNTER → 2023-01-07 09:34 | Outpatient (BNVA) | payer MEDICAID, SELFPAY | PROVIDERS: PCP Internal Medicine; Visit Provider Internal Medicine Cardiovascular Disease | DX: R06.09 Other forms of dyspnea (principal); I10 Essential (primary) hypertension | CPT/HCPCS: 93005; 99212 ==

== ENCOUNTER 2023-01-12 09:31 | Outpatient (REF) | payer MEDICAID, SELFPAY ==
[2023-01-12 12:53] LABS: Anion Gap 16 (12-20); Blood Urea Nitrogen 9 mg/dL (9-16); Calcium 9.1 mg/dL (8.4-10.2); Carbon Dioxide 26 mmol/L (22-29); Chloride 104 mmol/L (96-108); Estimated Glomerular Filt Rate > 60; Glucose Random 175 mg/dL (60-115); Potassium 3.1 mmol/L (3.3-5.1); Sodium 143 mmol/L (135-145)
== END 2023-01-12 09:32 | disposition home or self-care (01) ==
LOC: HO.HHCL 09:31
PROVIDERS: Visit Provider Internal Medicine
DX: I10 Essential (primary) hypertension (principal)
CPT/HCPCS: 36415; 80048

== ENCOUNTER 2023-01-27 09:21 | Outpatient (REF) | payer MEDICAID, SELFPAY ==
[2023-01-27 12:01] LABS: Anion Gap 14 (12-20); Blood Urea Nitrogen 11 mg/dL (9-16); Calcium 9.8 mg/dL (8.4-10.2); Carbon Dioxide 26 mmol/L (22-29); Chloride 102 mmol/L (96-108); Estimated Glomerular Filt Rate > 60; Glucose Random 172 mg/dL (60-115); Potassium 3.4 mmol/L (3.3-5.1); Sodium 139 mmol/L (135-145)
== END 2023-01-27 09:22 | disposition home or self-care (01) ==
LOC: HO.HHCL 09:21
PROVIDERS: Visit Provider Internal Medicine
DX: E87.6 Hypokalemia (principal)
CPT/HCPCS: 36415; 80048

== ENCOUNTER 2023-02-13 10:26 | Emergency (ER) | payer MEDICAID, SELFPAY ==
--- NOTE | ~2023-02-13 | CT_ITS ---
EXAMINATION: CT ABDOMEN AND PELVIS WITH CONTRAST CLINICAL INFORMATION: 42-year-old female with epigastric pain COMPARISON: None available. TECHNIQUE: Multidetector volumetric images were obtained from the superior aspect of the liver through the pubic symphysis following administration 100 mL of Omnipaque 350 intravenous contrast. Sagittal and coronal reformatted images were obtained on the technologist's workstation. Oral contrast: No This CT examination was performed using dose optimization techniques as appropriate, variously including the following: *Automated exposure control *Adjustment of mA and/or kV according to patient size (this includes techniques or standardized protocols for targeted exams where dose is matched to indication/reason for exam; i.e. extremities or head) *Use of iterative reconstruction technique DLP: 1087 mGy-cm FINDINGS: LUNG BASES: The visualized lung bases are unremarkable. LIVER, GALLBLADDER, AND BILIARY TREE: The liver is normal in size, shape, and attenuation. No focal hepatic lesion or biliary ductal dilatation is present. The gallbladder is unremarkable with no evidence of radiopaque gallstones, gallbladder wall thickening, or obvious pericholecystic inflammatory changes. PANCREAS: Unremarkable. SPLEEN: Unremarkable. ADRENAL GLANDS: Unremarkable. KIDNEYS AND URETERS: The kidneys are normal in size, shape, and attenuation. No hydronephrosis, hydroureter, or calculi seen. No perinephric stranding. BLADDER: Unremarkable. GASTROINTESTINAL TRACT: The small and large bowel are unremarkable. The appendix is not seen ABDOMINAL WALL: There is fat-containing small umbilical hernia. LYMPH NODES: Normal. VASCULAR: Unremarkable. PELVIC VISCERA: An bilateral ovarian cysts in left ovary measured 4.3 x 3.1 x 3.7 cm in the right ovary measured 3.2 x 2.3 x 3.0 cm. There is no free fluid in the pelvis. OSSEOUS STRUCTURES: Unremarkable. CT/CT abdomen pelvis w IV con IMPRESSION: Bilateral ovarian cysts. Small fat-containing umbilical hernia. Fleischner guidelines were followed.
[2023-02-13 10:34] VITALS: BP 179/107; PULSE 75; RESP 18; TEMP 36.7; O2SAT 99; BMI 51.5
--- NOTE | 2023-02-13 11:18 | ED.ABDPAIN ---
HPI - Abdominal Pain General Chief Complaint: Abdominal Pain Stated Complaint: sent from [facility] Time Seen by Provider: 02/13/23 10:45 Source: patient, family and gas shovel operator Mode of arrival: ambulatory Limitations: no limitations History of Present Illness HPI narrative: 42 yo female with PMH of obesity, prediabetes, GERD, HTN, h pylori reports frequent heartburn episodes does not take NSAIDs states she is on omeprazole 20mg daily and compliant. Last night she had heartburn and nausea with diarrhea made worse with terrance seltzer. She was seen at walk in clinic and c/o pain and they referred her here. She denies fevers. She has no had surgery on abdomen before. No ETOH use. MD elicited complaint: abdominal pain Pertinent past history: gastritis Onset (ago): day(s) (1) Pain Consistency: constant Location: epigastric Severity: moderate Quality: aching and burning Radiation: none Migration to: no migration Exacerbating factors: eating Relieving factors: nothing Context: history of similar episodes Associated symptoms: nausea Related Data Home Medications Medication Instructions Recorded Confirmed omeprazole 20 mg capsule,delayed 20 mg PO BID 07/25/20 01/07/23 release albuterol sulfate 90 mcg/actuation 2 puff inhalation Q6H PRN 07/27/20 01/07/23 aerosol inhaler meclizine 12.5 mg tablet 12.5 mg PO TID 03/01/21 01/07/23 ergocalciferol (vitamin D2) 1,250 1,250 mcg PO QWEEK 07/02/22 01/07/23 mcg (50,000 unit) capsule metformin 500 mg tablet,extended 500 mg PO QPM 07/02/22 01/07/23 release 24 hr nifedipine 90 mg tablet,extended 90 mg PO QAM 07/02/22 01/07/23 release 24 hr sucralfate 1 gram tablet 1 g PO TID 07/02/22 01/07/23 atorvastatin 40 mg tablet 40 mg PO QAM 01/07/23 01/07/23 cetirizine 10 mg tablet 10 mg PO QAM PRN allergies 01/07/23 01/07/23 chlorthalidone 50 mg tablet 50 mg PO BEDTIME 01/07/23 01/07/23 empagliflozin 25 mg tablet 25 mg PO QAM 01/07/23 01/07/23 (Jardiance) oxybutynin chloride 15 mg 15 mg PO QAM 01/07/23 01/07/23 tablet,extended release 24 hr Previous Rx's Medication Instructions Recorded naproxen 500 mg tablet 500 mg PO BID PRN pain #20 tabs 01/15/21 valsartan 160 mg tablet 160 mg PO BID #90 tabs 07/02/22 omeprazole 40 mg capsule,delayed 40 mg PO BID #14 caps 02/13/23 release sucralfate 100 mg/mL oral 5 ml PO QID 7 days #140 mL 02/13/23 suspension (Carafate) Allergies Allergy/AdvReac Type Severity Reaction Status Date / Time zolpidem [From Ambien] AdvReac Confusion Verified 01/07/23 09:47 Review of Systems Review of Systems Constitutional : No Weight loss, No Fever, No Chills Cardiovascular : No Chest Pain, No SOB, NoEdema Respiratory : No Cough, No Sputum, No Wheezing Gastrointestinal : Positive Nausea, no Vomiting, positive Diarrhea, positive abdominal Pain, No Hematochezia, No Melena Genitourinary : No Dysuria, No Urinary Frequency, No Hematuria, No Urgency Musculoskeletal : No joint pain, No Myalgias, No Joint Swelling Skin : No Skin Lesions, No rash Neuro : No Weakness, No Numbness, No Dizziness, No Headache Psych : No Anxiety/Panic, No Depression All other systems reviewed and are negative. [facility] Past Medical History Attestation statement: The following information was validated with the patient. Source: old records reviewed Medical History Back pain Dysplasia of cervix, low grade (JOSE LUIS 1) GERD (gastroesophageal reflux disease) Hypertension Insomnia Knee pain Morbid obesity Prediabetes Surgical History Hx of section Hx of tubal ligation Family History Family History Mother Hypertension Diabetes Asthma Arthritis Father No problems noted. Brother No problems noted. Brother No problems noted. Daughter No problems noted. Daughter No problems noted. Daughter No problems noted. Social History Social History Household Members: Children Household Members Other:: mother Housing: Apartment Alcohol intake: never Patient Tobacco Use Status: Never used Tobacco Advance Directives: No Current occupational status: unemployed Sexual orientation: Straight/Heterosexual Gender identity: Female Physical Exam ED Vital Signs: Vital Signs - 24 hr 02/13/23 10:34 02/13/23 12:54 02/13/23 13:16 Temperature 98.1 F Pulse Rate 75 66 Respiratory Rate 18 18 18 Blood Pressure 179/107 H 104/55 L Pulse Oximetry 99 100 Oxygen Delivery Method Room Air Room Air BMI result Body Mass Index 51.5 Appearance: Alert. Oriented X3. No acute distress. Eyes: Pupils equal, round and reactive to light. ENT: Pharynx normal. Neck: Normal inspection. Neck supple. CVS: Normal heart rate and rhythm. Pulses normal. Respiratory: No respiratory distress. Breath sounds normal. Abdomen: Soft and nontender. neg maddox's sign Skin: Skin warm and dry. Normal skin color. Normal skin turgor. Extremities: No lower extremity edema. No calf ttp Neuro: Oriented X 3. No motor deficit. No sensory deficit. Medical Decision Making Medical Decision Making [facility] Narrative: 42 yo female with PMH of obesity, prediabetes, GERD, HTN, h pylori here with c/o epigastric pain and nausea/diarrhea the patient has hx of same. Negative maddox's sign on exam and no fevers. At this time will need basic labs, CT scan to assess pancreas and biliary colic. She has no clinical signs to suggest perforation. IV morphine and GI cocktail ordered. EKG ordered but would be atypical for ACS. Differential Diagnosis Differential Diagnoses: The differential diagnosis associated with the presentation includes gastritis, GERD, biliary colic, pancreatitis Admission/Observation Consideration of admission/observation: Escalation of care including admission/observation considered no vomiting, pain controlled stable for outpatient management Consult Healthcare Provider Management of the patient was discussed with: Primary Care Provider (urgent care referral notes and letter sent over) Lab Data [facility] Lab Attestation statement: I reviewed the patient's lab results. 02/13/23 12:18 02/13/23 12:18 Labs: Lab Results 02/13/23 02/13/23 02/13/23 Range/Units 12:06 12:18 13:19 WBC 8.2 (4.8-10.8) X10*3/uL RBC 4.84 (4.20-5.50) X10*6/uL Hgb 11.7 L (12.0-16.0) g/dl Hct 36.7 L (37.0-47.0) % MCV 75.8 L (80.0-98.0) fL MCH 24.2 L (27.0-33.0) pg MCHC 31.9 (31.0-35.0) g/dl RDW 16.4 H (11.0-16.0) % Plt Count 285 (160-400) X10*3/uL MPV Not Reportable Immature Gran % (Auto) 0.5 H (0.0-0.4) % Neut % (Auto) 75.7 H (45-73) % Lymph % (Auto) 17.5 L (20-40) % [place] % (Auto) 3.7 (2-11) % Eos % (Auto) 2.0 (0-4) % Baso % (Auto) 0.6 (0-2) % Lymph # (Auto) 1.4 (1.2-4.9) X10*3/uL [place] # (Auto) 0.3 (0.1-1.2) X10*3/uL Eos # (Auto) 0.2 (0.0-0.4) X10*3/uL Baso # (Auto) 0.1 (0.0-0.2) X10*3/uL Abs Immat Gran (auto) 0.04 H (0.00-0.03) X10*3/uL Absolute Neuts (auto) 6.2 (2.0-8.3) x10*3/uL Absolute Nucleated RBC 0.000 (0.0-0.012) X10*3/uL Nucleated RBC % (auto) 0.0 (0.0-0.2) /100WBC Smear Tech's Comments VERIFIED Sodium 139 (135-145) mmol/L Potassium 3.4 (3.3-5.1) mmol/L Chloride 103 (96-108) mmol/L Carbon Dioxide 25 (22-29) mmol/L Anion Gap 14 (12-20) BUN 5 L (9-16) mg/dL Creatinine 0.57 (0.5-1.4) mg/dL Estim Creat Clear Calc 175.3 Estimated GFR > 60 Random Glucose 110 (60-115) mg/dL Calcium 8.7 D (8.4-10.2) mg/dL Magnesium 1.8 (1.6-2.6) mg/dL Total Bilirubin 0.6 (0.0-1.0) mg/dL Direct Bilirubin 0.2 (0.0-0.5) mg/dL AST 25 (5-31) U/L ALT 28 (0-31) U/L Alkaline Phosphatase 92 (39-117) U/L Total Protein 6.7 (6.5-8.0) g/dL Albumin 3.7 (3.5-5.0) g/dL Lipase 7 L (8-78) U/L Urine Color Yellow Urine Appearance Clear Urine pH 8.0 (5.0-9.0) Ur Specific [place] 1.015 (1.005-1.025) Urine Protein Negative (Neg-Trace) mg/dL Urine Glucose (UA) Negative (Negative) mg/dL Urine Ketones Negative (Negative) mg/dL Urine Blood Negative (Negative) Urine Nitrite Negative (Negative) Ur Leukocyte Esterase Negative (Negative) Independent Interpretation I performed an independent interpretation of an: EKG and CT Scan (no gallstones) Interpretation: Rate: 70 Rhythm: NSR [place]: normal Normal P waves. Normal JOSE LUIS. Normal QRS complex. ST T wave : inverted t wave III, no GERMAN qTC: normal prior studies: no acute ischemia The study has been interpreted contemporaneously by me. . Radiology Impression Discussion of test interpretation with radiology: I have reviewed the radiologist's reading. Independent Historian Clinical information obtained from an independent historian. History obtained from or confirmed by: Parent External Record Review External record reviewed: Inpatient record Prescription Management I considered prescription management with: Other (PPI BID 40mg for a week and carafate) Medications Administered Discontinued Medications Generic Name Dose Route Start Last Admin Trade Name Freq PRN Reason Stop Dose Admin Al Hydroxide/Mg Hydroxide 15 ml 02/13/23 11:11 02/13/23 13:15 Magnesium Hydrox/Alum Hydrox 30 Ml Oral.Susp PO 02/13/23 11:12 15 ml ONCE ONE Administration Iohexol 100 ml 02/13/23 14:21 02/13/23 14:22 Iohexol 350 Mg/Ml 100 Ml Infus..Btl IV 02/13/23 14:22 100 ml ONCE ONE Administration Lidocaine HCl 15 ml 02/13/23 11:11 02/13/23 13:14 Lidocaine Hcl Viscous 2 % 15 Ml Solution MUCOUS MEM 02/13/23 11:12 15 ml ONCE ONE Administration Morphine Sulfate 2 mg 02/13/23 11:11 02/13/23 13:16 Morphine Sulfate 2 Mg/Ml Cartridge IVPUSH 02/13/23 11:12 2 mg ONCE ONE Administration Protocol Ondansetron HCl 4 mg 02/13/23 11:11 02/13/23 13:16 Ondansetron Hcl 4 Mg/2 Ml Vial IVPUSH 02/13/23 11:12 4 mg ONCE ONE Administration Discharge Plan Discharge Clinical Impression: Abdominal pain Qualifiers: Abdominal location: epigastric Qualified Code(s): R10.13 - Epigastric pain Gastritis Qualifiers: Gastritis type: unspecified gastritis Chronicity: acute Gastritis bleeding: without bleeding Qualified Code(s): K29.00 - Acute gastritis without bleeding Patient Disposition: Home, Self-Care Instructions: Gastritis (ED), Abdominal Pain (ED) Additional Instructions: take the omeprazole 40mg twice a day for one week then back to your regular prescription. return for worsening pain, fevers, black or bloody stools or any other concerns. no motrin, ibuprofen or NSAIDs. avoid spicy greasy or fatty foods. tome 40 mg de omeprazol dos veces al d?a steff emil semana y luego vuelva a martinez receta habitual. Regrese si el dolor empeora, tiene fiebre, heces negras o con giovanni o cualquier otra inquietud. sin motrin, ibuprofeno ni RAVI. Evite los alimentos picantes, grasosos o grasosos. Prescriptions: New omeprazole 40 mg capsule,delayed release(DR/EC) 40 mg PO BID Qty: 14 0RF Rx Instructions: one week sucralfate [Carafate] 100 mg/mL suspension 5 ml PO QID 7 Days Qty: 140 0RF Rx Instructions: swish in mouth and swallow; use after food/drink No Action omeprazole 20 mg capsule,delayed release(DR/EC) 20 mg PO BID naproxen 500 mg tablet 500 mg PO BID PRN (Reason: pain) Qty: 20 0RF albuterol sulfate 90 mcg/actuation HFA aerosol inhaler 2 puff inhalation Q6H PRN meclizine 12.5 mg tablet 12.5 mg PO TID Jardiance 25 mg tablet 25 mg PO QAM chlorthalidone 50 mg tablet 50 mg PO BEDTIME atorvastatin 40 mg tablet 40 mg PO QAM cetirizine 10 mg tablet 10 mg PO QAM PRN (Reason: allergies) oxybutynin chloride 15 mg tablet extended release 24hr 15 mg PO QAM metformin 500 mg tablet extended release 24 hr 500 mg PO QPM ergocalciferol (vitamin D2) 1,250 mcg (50,000 unit) capsule 1,250 mcg PO QWEEK nifedipine 90 mg tablet extended release 24hr 90 mg PO QAM sucralfate 1 gram tablet 1 g PO TID valsartan 160 mg tablet 160 mg PO BID Qty: 90 3RF Referrals: Jermaine Finnegan [Physician] - (fareed para programar emil anthony) Print Language: Welsh
--- NOTE | 2023-02-13 11:19 | ECG_ITS ---
Test Reason : ABD PAIN Blood Pressure : / mmHG Vent. Rate : 070 BPM Atrial Rate : 070 BPM P-R Int : 168 ms QRS Dur : 100 ms QT Int : 410 ms P-R-T Axes : 042 -08 002 degrees QTc Int : 442 ms Normal sinus rhythm Cannot rule out Anterior infarct , age undetermined Abnormal ECG When compared with ECG of 14-JAN-2021 19:39, No significant change was found Referred By: Selene Wu Electronically Signed By:HUMBERTO GIRALDO
[2023-02-13 12:34] LABS: Appearance Urine Clear; Color Urine Yellow; Glucose Urine UA Negative (Negative); Leukocyte Esterase Urine Negative (Negative); Nitrite Urine Negative (Negative); Specific Gravity - Urine 1.015 (1.005-1.025); Urine Blood Negative (Negative); Urine Ketones Negative (Negative); Urine Protein Negative (Neg-Trace)
[2023-02-13 12:40] LABS: Basophils Absolute Auto 0.1 X10*3/uL (0.0-0.2); Basophils Percent Auto 0.6 % (0-2); Eosinophils Absolute Auto 0.2 X10*3/uL (0.0-0.4); Hematocrit 36.7 % (37.0-47.0); Hemoglobin 11.7 g/dl (12.0-16.0); Imm Gran Abs Auto 0.04 X10*3/uL (0.00-0.03); Imm Gran Pct Auto 0.5 % (0.0-0.4); Lymphocytes Absolute Auto 1.4 X10*3/uL (1.2-4.9); Lymphocytes Percent Auto 17.5 % (20-40); MANUAL DIFF FLAG SCAN; Mean Corpuscular HGB Conc 31.9 g/dl (31.0-35.0); Mean Corpuscular Hemoglobin 24.2 pg (27.0-33.0); Mean Corpuscular Volume 75.8 fL (80.0-98.0); Monocytes Absolute Auto 0.3 X10*3/uL (0.1-1.2); Monocytes Percent Auto 3.7 % (2-11); Neutrophils Absolute Auto 6.2 x10*3/uL (2.0-8.3); Neutrophils Percent Auto 75.7 % (45-73); PLT CLUMP 1; Red Blood Count 4.84 X10*6/uL (4.20-5.50); Red Cell Distribution Width 16.4 % (11.0-16.0); SCAN SMEAR FLAG 1
[2023-02-13 12:43] LABS: White Blood Count 8.2 X10*3/uL (4.8-10.8)
[2023-02-13 12:54] VITALS: BP 104/55; PULSE 66; RESP 18; O2SAT 100
[2023-02-13 13:05] LABS: Platelet Count 285 X10*3/uL (160-400)
[2023-02-13 13:10] LABS: SLIDE REVIEW VERIFIED
[2023-02-13] MEDS: Lidocaine HCl Viscous 2 % 15 ML SOLUTION MUCOUS MEM (13:14)
[2023-02-13] MEDS: Magnesium Hydrox/Alum Hydrox 30 ML ORAL.SUSP 15 ML PO (13:15)
[2023-02-13 13:16] VITALS: RESP 18
[2023-02-13] MEDS: ondansetron HCL 4 MG/2 ML VIAL IVPUSH (13:16)
[2023-02-13] MEDS: Morphine Sulfate 2 MG/ML CARTRIDGE IVPUSH (13:16)
[2023-02-13 13:40] LABS: Alanine Aminotransferase 28 U/L (0-31); Albumin Level 3.7 g/dL (3.5-5.0); Alkaline Phosphatase 92 U/L (39-117); Anion Gap 14 (12-20); Aspartate Amino Transferase 25 U/L (5-31); Bilirubin Direct 0.2 mg/dL (0.0-0.5); Bilirubin Total 0.6 mg/dL (0.0-1.0); Blood Urea Nitrogen 5 mg/dL (9-16); Calcium 8.7 mg/dL (8.4-10.2); Carbon Dioxide 25 mmol/L (22-29); Chloride 103 mmol/L (96-108); Creatinine Clr Calc Pharmacy 175.3; Estimated Glomerular Filt Rate > 60; Glucose Random 110 mg/dL (60-115); Lipase 7 U/L (8-78); Magnesium 1.8 mg/dL (1.6-2.6); Potassium 3.4 mmol/L (3.3-5.1); Sodium 139 mmol/L (135-145); Total Protein 6.7 g/dL (6.5-8.0)
[2023-02-13] MEDS: iohexoL 350 MG/ML 100 ML INFUS..BTL IV (14:22)
== END 2023-02-13 16:49 | disposition home or self-care (01) ==
PROVIDERS: Emergency Provider Emergency Medicine
DX: K29.00 Acute gastritis without bleeding (principal); R10.13 Epigastric pain; R94.31 Abnormal electrocardiogram [ECG] [EKG]; Z79.899 Other long term (current) drug therapy
CPT/HCPCS: 36415; 74177; 80048; 80076; 81003; 83690; 83735; 85025; 93005; 99284; J2270; J2405; Q9967

== ENCOUNTER 2023-06-11 13:48 | Outpatient (AMB) | payer MEDICAID, SELFPAY ==
--- NOTE | 2023-06-11 14:25 | MHC.OFFVIS ---
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 She denies any injuries, past biopsies, surgeries to the right breast. FH of breast cancer maternal aunt. [facility] Medical History Back pain Dysplasia of cervix, low grade (JOSE LUIS 1) GERD (gastroesophageal reflux disease) Hypertension Insomnia Knee pain Morbid obesity Prediabetes Surgical History Hx of section Hx of tubal ligation Family History Mother Hypertension Diabetes Asthma Arthritis Father No problems noted. Brother No problems noted. Brother No problems noted. Daughter No problems noted. Daughter No problems noted. Daughter No problems noted. Social History Household Members: Children Household Members Other:: mother Housing: Apartment Alcohol intake: never Patient Tobacco Use Status: Never used Tobacco Current occupational status: unemployed Sexual orientation: Straight/Heterosexual Gender identity: Female Female Reproductive History Menstrual Age of Menarche: 10 Review of Systems Const All systems reviewed & are unremarkable except as noted in HPI and below Reports no additional complaints Skin/Breast Reports system reviewed and no additional complaints, except as documented and Reports as per HPI Physical Exam Vital Signs: Last Vital Signs BP 126/94 H 06/11/23 14:29 BMI result Body Mass Index 50.3 Const General: cooperative, healthy appearing and no acute distress Chest Other: Large pendulous breasts bilaterally, no masses, no nipple discharge elicited on the right side no erythema or edema noted or skin changes. Breast/axilla inspection: normal inspection of the breasts and normal inspection of the axillae Breast/axilla palpation: normal palpation of the breasts Skin General skin exam: no rashes or lesions noted Assessment & Plan Assessment & Plan (1) Nipple pain: Code(s): N64.4 - Mastodynia (2) Nipple discharge: Code(s): N64.52 - Nipple discharge Plan Plan diagnostic mammogram right side, left breast ultrasound. Discussed possible causes including cyst, benign tumor, or carcinoma. All of her questions and concerns were addressed to the best of my ability and shared decision making. She is agreeable to the plan of care. If a biopsy is indicated the department of radiology will make appointments. If any concerns or questions, follow-up here for test results. This note is constructed using voice recognition software. While every effort has been made to ensure accuracy, film mounter errors may have been included. Orders: Orders MM tomosynthesis diagnostic RT Today N64.4 - Mastodynia, N64.52 - Nipple discharge, Z12.31 - Encounter for screening mammogram for malignant neoplasm of breast US breast RT complete Today N64.4 - Mastodynia, N64.52 - Nipple discharge Coding Level of Care Code Est Pt Level 3 (77680) Diagnoses Nipple pain N64.4 Nipple discharge N64.52
[2023-06-11 14:29] VITALS: BP 126/94; BMI 50.3
== END 2023-06-11 14:54 | disposition home or self-care (01) ==
LOC: HO.HWS 13:48
PROVIDERS: Visit Provider Advanced Practice Midwife
DX: N64.4 Mastodynia (principal); N64.52 Nipple discharge
CPT/HCPCS: 99213

== ENCOUNTER → 2023-06-11 13:48 | Outpatient (BNVA) | payer MEDICAID, SELFPAY | PROVIDERS: Visit Provider Advanced Practice Midwife | DX: N64.4 Mastodynia (principal); N64.52 Nipple discharge | CPT/HCPCS: 99212 ==

== ENCOUNTER 2023-07-03 10:54 | Outpatient (REF) | payer MEDICAID, SELFPAY ==
--- NOTE | ~2023-07-03 | MM_ITS ---
EXAMINATION: MM DIAGNOSTIC DIGITAL BREAST TOMOSYNTHESIS, RIGHT US BREAST LIMITED, RIGHT MAMMOGRAPHY: CLINICAL INFORMATION: Right periareolar breast pain, off and on. Patient states 1 episode nipple discharge with a small speck of blood within. COMPARISON: Mammography: 12/17/2022, 03/11/2021. TECHNIQUE: Digital breast tomosynthesis is performed in both the craniocaudal and mediolateral oblique views along with computer-aided detection (CAD). Synthesized 2D images are generated from the tomosynthesis. In addition, a full-field right 3-D ML view was obtained as well. FINDINGS: The breasts are almost entirely fatty (ACR BI-RADS breast composition Category a). There is a stable tiny nodules in the central right breast and slightly upper outer right breast, unchanged from 2020 and benign. There is otherwise no suspicious mass, suspicious microcalcifications, or areas of architectural distortion in either breast. Specifically, there is nothing suspicious within the right breast periareolar region. There are no skin or axillary abnormalities. ULTRASOUND: CLINICAL INFORMATION: As above. COMPARISON: None TECHNIQUE: Targeted sonographic evaluation right breast was performed using a high frequency linear transducer. Attention was focused on the right periareolar region in the region of breast pain/discharge. Selected archived documentation. FINDINGS: RIGHT BREAST: There is a mixture of fatty and fibroglandular tissue. No suspicious or intraductal mass is seen. There is no pathologic acoustic shadowing. There is one small ectatic duct noted without filling defect. There is no cystic abnormality. Overall, no significant finding or correlate to explain right periareolar breast pain or discharge. MM/MM tomosynthesis diagnostic RT IMPRESSION: There are no findings in the right breast suspicious for malignancy. No mammographic or ultrasonographic correlate to the right periareolar breast pain or discharge. Recommend clinical management. Otherwise, recommend resuming routine annual screening mammography. OVERALL ASSESSMENT: Mammography: BI-RADS 2 - Benign Findings Ultrasound: BI-RADS 2 - Benign Findings RECOMMENDATION: 1. Patient should be managed based on the clinical impression. 2. Otherwise, routine annual screening mammography. Results were provided to the patient at time of visit by the technologist. This patient's information was entered into a reminder system with a target due date for their next mammogram.
== END 2023-07-03 10:55 | disposition home or self-care (01) ==
LOC: HO.MAMMO 10:54
PROVIDERS: PCP Internal Medicine; Visit Provider Internal Medicine
DX: N64.4 Mastodynia (principal); N64.52 Nipple discharge
CPT/HCPCS: 76642; 77061; 77065

== ENCOUNTER → 2023-07-03 11:00 | Outpatient (BNV) | payer MEDICAID, SELFPAY | PROVIDERS: PCP Internal Medicine; Visit Provider Radiology Diagnostic Radiology | DX: N63.11 Unspecified lump in the right breast, upper outer quadrant (principal) | CPT/HCPCS: 76642; 77061; 77065 ==

== ENCOUNTER 2023-08-05 12:42 | Outpatient (AMB) | payer MEDICAID, SELFPAY ==
--- NOTE | 2023-08-05 13:00 | MHC.OFFVIS ---
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 She reports random episodes lasting 4 days. She denies any breast pain today. History of tubal ligation, and regular menses. [facility] Medical History (Updated 08/05/23 @ 13:15 by Chanda Danielson CNM) Dysplasia of cervix, low grade (JOSE LUIS 1) Knee pain Back pain Prediabetes Insomnia GERD (gastroesophageal reflux disease) Hypertension Morbid obesity Surgical History Hx of tubal ligation Hx of section Family History Mother Hypertension Diabetes Asthma Arthritis Father No problems noted. Brother No problems noted. Brother No problems noted. Daughter No problems noted. Daughter No problems noted. Daughter No problems noted. Social History Household Members: Children Household Members Other:: mother Housing: Apartment Alcohol intake: never Patient Tobacco Use Status: Never used Tobacco Current occupational status: unemployed Sexual orientation: Straight/Heterosexual Gender identity: Female Female Reproductive History Menstrual Age of Menarche: 10 Date of last menstrual period: 08/01/23 Review of Systems Const All systems reviewed & are unremarkable except as noted in HPI and below Reports no additional complaints Skin/Breast Reports system reviewed and no additional complaints, except as documented and Reports as per HPI Physical Exam Vital Signs: Last Vital Signs BP 128/92 H 08/05/23 13:01 Const General: cooperative, healthy appearing and no acute distress Chest Chest palpation & inspection: tenderness (Right nipple) Breast/axilla inspection: normal inspection of the breasts and normal inspection of the axillae Breast/axilla palpation: normal palpation of the breasts Skin General skin exam: no rashes or lesions noted Results Reviewed Results Reviewed: [facility] [address] [place], [place] [address] Ultrasound Report Signed Patient: Delma Downs MR#: [id number] : 1980 Acct:[id number] Age/Sex: 43 / F ADM Date: 07/03/23 Loc: HO.MAMMO Attending Dr: Joceline Gutierrez MD Ordering Physician: Chanda Danielson CNM Date of Service: 07/03/23 Procedure(s): US breast RT limited mamm only Accession Number(s): [id number] cc: Joceline Gutierrez MD; Chanda Danielson CNM~ EXAMINATION: MM DIAGNOSTIC DIGITAL BREAST TOMOSYNTHESIS, RIGHT US BREAST LIMITED, RIGHT MAMMOGRAPHY: CLINICAL INFORMATION: Right periareolar breast pain, off and on. Patient states 1 episode nipple discharge with a small speck of blood within. COMPARISON: Mammography: 12/17/2022, 03/11/2021. TECHNIQUE: Digital breast tomosynthesis is performed in both the craniocaudal and mediolateral oblique views along with computer-aided detection (CAD). Synthesized 2D images are generated from the tomosynthesis. In addition, a full-field right 3-D ML view was obtained as well. FINDINGS: The breasts are almost entirely fatty (ACR BI-RADS breast composition Category a). There is a stable tiny nodules in the central right breast and slightly upper outer right breast, unchanged from 2020 and benign. There is otherwise no suspicious mass, suspicious microcalcifications, or areas of architectural distortion in either breast. Specifically, there is nothing suspicious within the right breast periareolar region. There are no skin or axillary abnormalities. ULTRASOUND: CLINICAL INFORMATION: As above. COMPARISON: None TECHNIQUE: Targeted sonographic evaluation right breast was performed using a high frequency linear transducer. Attention was focused on the right periareolar region in the region of breast pain/discharge. Selected archived documentation. FINDINGS: RIGHT BREAST: There is a mixture of fatty and fibroglandular tissue. No suspicious or intraductal mass is seen. There is no pathologic acoustic shadowing. There is one small ectatic duct noted without filling defect. There is no cystic abnormality. Overall, no significant finding or correlate to explain right periareolar breast pain or discharge. US/US breast RT limited mamm only IMPRESSION: There are no findings in the right breast suspicious for malignancy. No mammographic or ultrasonographic correlate to the right periareolar breast pain or discharge. Recommend clinical management. Otherwise, recommend resuming routine annual screening mammography. OVERALL ASSESSMENT: Mammography: BI-RADS 2 - Benign Findings Ultrasound: BI-RADS 2 - Benign Findings RECOMMENDATION: 1. Patient should be managed based on the clinical impression. 2. Otherwise, routine annual screening mammography. Results were provided to the patient at time of visit by the technologist. This patient's information was entered into a reminder system with a target due date for their next mammogram. Dictated By: Marcus Aj MD Signed By: <Electronically signed by Marcus Aj MD in OV> 07/03/23 1216 DD/ 1204 TD/TT: Value Stream Coach: Assessment & Plan Assessment & Plan (1) Nipple pain: Code(s): N64.4 - Mastodynia (2) Bloody discharge from right nipple: Code(s): N64.52 - Nipple discharge Plan Discussed: Ultrasound findings. Recommended referral to Dr. [facility] at the [facility] for further evaluation treatment plan. All of her questions and concerns were addressed to the best of my ability and shared decision making. She is agreeable to the plan of care. This note is constructed using voice recognition software. While every effort has been made to ensure accuracy, test facility engineer errors may have been included. Orders: Referrals Breast Surgery Referral N64.4 - Mastodynia, N64.52 - Nipple discharge Coding Level of Care Code Est Pt Level 3 (66238) Diagnoses Nipple pain N64.4 Bloody discharge from right nipple N64.52
[2023-08-05 13:01] VITALS: BP 128/92
== END 2023-08-05 13:30 | disposition home or self-care (01) ==
LOC: HO.HWS 12:42
PROVIDERS: PCP Internal Medicine; Visit Provider Advanced Practice Midwife
DX: N64.4 Mastodynia (principal); N64.52 Nipple discharge
CPT/HCPCS: 99213

== ENCOUNTER → 2023-08-05 12:42 | Outpatient (BNVA) | payer MEDICAID, SELFPAY | PROVIDERS: PCP Internal Medicine; Visit Provider Advanced Practice Midwife | DX: N64.4 Mastodynia (principal); N64.52 Nipple discharge | CPT/HCPCS: 99212 ==

== ENCOUNTER 2023-08-20 12:48 | Outpatient (AMB) | payer MEDICAID, SELFPAY ==
--- NOTE | 2023-08-20 13:03 | A.OFFVIS_ITS ---
Intake Vital Signs 08/20/23 13:04 Height 5 ft 4 in Weight 285 lb BMI 48.9 BP 130/61 Blood Pressure Location Rt brachial Position Sitting Pulse 112 H Intake Visit Reasons: Mastodynia Intake Note: This patient presents for an assessment for mastodynia of the right breast. Patient c/o; reports right breast pain and tenderness, reports discharge from nipple and bloody discharge. Miller Head Assistant Wet Process Required: Yes Miller Head Assistant Wet Process Language: Acid Tank Cleaner Name: Wali Information Interpreted: non-clinical & clinical Accompanied by: Self / Same As Patient Allergies zolpidem [From Ambien] Adverse Reaction (Verified 08/20/23 13:10) Confusion Medication List - Last Reconciled 08/20/23 by Jesse Mcdaniels MD albuterol sulfate 90 mcg/actuation 2 puffs inhalation Q6H PRN atorvastatin 40 mg PO QAM cetirizine 10 mg PO QAM PRN chlorthalidone 50 mg PO BEDTIME empagliflozin (Jardiance) 25 mg PO QAM ergocalciferol (vitamin D2) 1,250 mcg PO QWEEK meclizine 12.5 mg PO TID metformin ER 500 mg PO QPM naproxen 500 mg PO BID PRN nifedipine ER 90 mg PO QAM omeprazole 40 mg PO BID omeprazole 20 mg PO BID oxybutynin chloride ER 15 mg PO QAM sucralfate (Carafate) 5 mL PO QID 7 days sucralfate 1 g PO TID valsartan 160 mg PO BID HPI Mastodynia HPI Details 43-year-old female referred for mastodyn ia. She describes periodic pain on the right breast on and off. She says this happens once or twice a month. She points to the area of the middle of the breast and the nipple- areolar complex as where she describes sharp pains which may last for a few hours sometimes. She describes tenderness in the area as well. She denies any palpable breast mass or any nipple or skin changes. She denies any family history of breast cancer. [facility] Medical History (Updated 08/20/23 @ 13:27 by Jesse Mcdaniels MD) Breast pain, right Dysplasia of cervix, low grade (JOSE LUIS 1) Knee pain Back pain Prediabetes Insomnia GERD (gastroesophageal reflux disease) Hypertension Morbid obesity Surgical History Hx of tubal ligation Hx of section Family History Mother Hypertension Diabetes Asthma Arthritis Father No problems noted. Brother No problems noted. Brother No problems noted. Daughter No problems noted. Daughter No problems noted. Daughter No problems noted. Maternal Aunt Breast cancer, Onset Age: 56 Social History Household Members: Children Household Members Other:: mother Housing: Apartment Alcohol intake: never Patient Tobacco Use Status: Never used Tobacco Current occupational status: unemployed Sexual orientation: Straight/Heterosexual Gender identity: Female Female Reproductive History Menstrual Age of Menarche: 10 Total pregnancies: 3 Review of Systems Const Denies chills and Denies fever(s) Card Denies chest pain, Denies dyspnea and Denies dyspnea on exertion Resp Denies cough, Denies dyspnea and Denies dyspnea on exertion GI Denies hematochezia and Denies change in bowel habits Denies hematuria Musc Denies back pain and Denies limited range of motion Neuro Denies focal weakness and Denies convulsions Psych Denies depression and Denies mood swings Physical Exam Vital Signs: Last Vital Signs Pulse 112 H 08/20/23 13:04 BP 130/61 08/20/23 13:04 BMI result Body Mass Index 48.9 Const Other: Morbidly obese General: comfortable and no acute distress Orientation/consciousness: patient oriented x3 Neck Neck: Yes no lymphadenopathy Chest Other: No palpable breast masses, no axillary lymphadenopathy, no nipple or skin changes Resp Auscultation: clear to auscultation bilaterally Cardio Rhythm: regular rhythm GI Palpation (GI): Soft to palpation, nontender and no guarding Neuro General: patient oriented x3 Assessment & Plan Assessment & Plan (1) Breast pain, right: Code(s): N64.4 - Mastodynia Plan: She describes periodic sharp pain on the right breast on and off. She says this happens once or twice a month. She describes tenderness with this. Current exam does not reveal any palpable breast masses, axillary lymphadenopathy or nipple or skin changes. I have reviewed her mammogram and ultrasound from June,. This does reveal any suspicious findings. I therefore told her that current treatment for mastodynia would be symptomatic including use of NSAIDs. I did emphasized to her to continue doing yearly [facility] screening mammograms. She is welcome to follow up in the office for any concerns down the line. I had advised her on the benefits of weight loss to her cancer risk. Coding Level of Care Code New Pt Level 3 (95613) Diagnoses Breast pain, right N64.4
[2023-08-20 13:04] VITALS: BP 130/61; PULSE 112; BMI 48.9
== END 2023-08-20 13:25 | disposition home or self-care (01) ==
PROVIDERS: PCP Internal Medicine; Referring Provider Advanced Practice Midwife; Visit Provider Surgery
DX: N64.4 Mastodynia (principal)
CPT/HCPCS: 99203

== ENCOUNTER → 2023-08-20 12:48 | Outpatient (BNVA) | payer MEDICAID, SELFPAY | PROVIDERS: PCP Internal Medicine; Referring Provider Advanced Practice Midwife; Visit Provider Surgery | DX: N64.4 Mastodynia (principal) | CPT/HCPCS: 99202 ==

== ENCOUNTER → 2023-08-28 11:04 | Outpatient (BNVA) | payer MEDICAID, SELFPAY | PROVIDERS: PCP Internal Medicine; Visit Provider Physician Assistant Surgical ==

== ENCOUNTER 2023-09-15 08:04 | Outpatient (REF) | payer MEDICAID, SELFPAY ==
[2023-09-15 13:43] LABS: Creatinine Urine 54.23 mg/dL; Microalbum/Creatinine Ratio Ur 44.2 ug/mg cr (<30)
[2023-09-15 13:54] LABS: Alanine Aminotransferase 28 U/L (0-31); Alkaline Phosphatase 101 U/L (39-117); Anion Gap 12 (12-20); Aspartate Amino Transferase 18 U/L (5-31); Bilirubin Total 0.6 mg/dL (0.0-1.0); Blood Urea Nitrogen 10 mg/dL (9-16); Calcium 9.2 mg/dL (8.4-10.2); Carbon Dioxide 30 mmol/L (22-29); Chloride 106 mmol/L (96-108); Cholesterol 180 mg/dL (<200); Estimated Glomerular Filt Rate > 60; Glucose Random 137 mg/dL (60-115); HDL Cholesterol 47 mg/dL (>40); LDL Cholesterol Calculated 118 mg/dL (<100); Potassium 3.6 mmol/L (3.3-5.1); Sodium 144 mmol/L (135-145); TSH reflex Free T4 2.05 uIU/mL (0.32-4.0); Total Protein 7.4 g/dL (6.5-8.0); Triglycerides 78 mg/dL (<150); Vitamin D 25-OH Total 21.5 ng/mL (>30)
[2023-09-15 14:44] LABS: Reflex LDLD? No
[2023-09-18 08:04] LABS: TS Negative Control Passed; TS Panel A 0; TS Panel B 0; TS Positive Control Passed; TSpotTB Negative (Negative)
== END 2023-09-15 08:05 | disposition home or self-care (01) ==
LOC: HO.HHCL 08:04
PROVIDERS: Visit Provider Internal Medicine
DX: Z00.00 Encounter for general adult medical examination without abnormal findings (principal); I10 Essential (primary) hypertension; E11.9 Type 2 diabetes mellitus without complications
CPT/HCPCS: 36415; 80053; 80061; 82043; 82306; 82570; 84443; 86481

== ENCOUNTER 2023-10-12 08:09 | Outpatient (AMB) | payer MEDICAID, SELFPAY ==
--- NOTE | 2023-10-12 08:15 | A.OFFVIS_ITS ---
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* Allergies zolpidem [From Ambien] Adverse Reaction (Verified 10/12/23 08:15) Confusion Medication List - Last Reconciled 10/12/23 by Mikey Ricardo MD albuterol sulfate 90 mcg/actuation 2 puffs inhalation Q6H PRN atorvastatin 40 mg PO QAM cetirizine 10 mg PO QAM PRN chlorthalidone 50 mg PO BEDTIME empagliflozin (Jardiance) 25 mg PO QAM ergocalciferol (vitamin D2) 1,250 mcg PO QWEEK meclizine 12.5 mg PO TID metformin ER 500 mg PO QPM nifedipine ER 90 mg PO QAM omeprazole 40 mg PO BID oxybutynin chloride ER 15 mg PO QAM sucralfate 1 g PO TID valsartan 160 mg PO BID HPI HPI TV Re-Est SWL 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*: Details: Start time: 8.00am, End time: 9am ?I spent 51 minutes speaking with the patient on the phone plus an additional 9 minutes reviewing and updating records for a total of 60 minutes HPI Comments Details: Previous weight loss efforts: [facility] program Wakes up: 7am, Sleeps: 1am Breakfast: skips Lunch: 11am (brunch) Dinner: 4pm (rice, beans, chicken) Snacks: 2pm (fruit, sweets), 10pm (fruit or crackers) Exercise: none Fluids: Coffee (3-4 cups per day with some sugar), tea (honey at times), soda (diet soda), juice: none, ETOH: none PFSH Medical History (Updated 10/12/23 @ 08:22 by Mikey Ricardo MD) Stress incontinence Asthma Hyperlipidemia Breast pain, right Dysplasia of cervix, low grade (JOSE LUIS 1) Knee pain Back pain Prediabetes Insomnia GERD (gastroesophageal reflux disease) Hypertension Morbid obesity Surgical History Hx of tubal ligation Hx of section Family History Mother Hypertension Diabetes Asthma Arthritis Father No problems noted. Brother No problems noted. Brother No problems noted. Daughter No problems noted. Daughter No problems noted. Daughter No problems noted. Maternal Aunt Breast cancer, Onset Age: 56 Social History Household Members: Children Household Members Other:: mother Housing: Apartment Alcohol intake: never Patient Tobacco Use Status: Never used Tobacco Current occupational status: unemployed Sexual orientation: Straight/Heterosexual Gender identity: Female Female Reproductive History Menstrual Age of Menarche: 10 Telehealth Telehealth Telehealth Platform: Telephone Location of provider rendering services: practice address Location of patient: address on file Patient Identification confirmed using: Name, : Yes Telehealth method: voice only Patient verbally consented to treatment: Yes Patient verbally consented to billing insurance company: Yes Patient informed of any privacy concerns related to visit: Yes Minutes spent on Phone/Video with Pt.: 60 Assessment & Plan Assessment & Plan (1) Morbid obesity: Comment: PATIENT IS MORBIDLY OBESE.I DISCUSSED WITH HER THAT SHE NEEDS TO LOSE WEIGHT. THE BEST WAY WOULD BE TO JOIN WEIGHT MANAGEMENT PROGRAM, ARE START SEEING A DIETITIAN ON A REGULAR BASIS. I ADVISED HER TO TALK TO PRIMARY CARE PHYSICIAN FOR A REFERRAL TO WEIGHT MANAGEMENT SERVICE OR TO A DIETITIAN. Code(s): E66.01 - Morbid (severe) obesity due to excess calories Category: Medical Plan: 1.? Plan for lap sleeve gastrectomy. If diaphragmatic or ventral hernias are present at time of surgery, these will be repaired laparoscopically as well. Risks and complications were discussed in detail including possible conversion to an open procedure, anastomotic leak, bleeding requiring transfusion, small bowel obstruction, , DVT and pulmonary embolism, cardiac, or pulmonary complications, as superintendent [employer] complications such as anastomotic ulcer, insufficient weight loss and vitamin deficiencies. I emphasized the importance of close follow-up, adherence to instructions and good communication. 2. Nutritional counseling. Start with 2 premade PREMIER protein shakes (mix 4oz Premier shakes with 4oz low fat unsweetened almond milk each) at 8am-10am and 11am-1pm, 1 protein bar (CELEBRATE, buy at hospital's gift shop) at 2pm-4pm, dinner at 5pm (10 forks of protein and 10 forks of salad/vegetables) and two more protein bars after dinner at 7pm-9pm and 10pm-12am. So you do 2 protein shakes, 3 protein bars and one meal per day. Meal to include lean meat (beef, fish, pork, turkey, chicken), or [place] yogurt, or egg whites, or beans with a salad with olive oil and fruits (berries, pears, apples, kiwi). Avoid salt, breads, potatoes, rice, pasta, desserts. 3. Each shake would be drunk slowly, like coffee in a period of 2 hours. 4. Cut each bar in 4 pieces and eat each piece in 30min ?to make each bar last 2 hours. 5. I emphasized the importance of measuring accurately the food portion and measure it when serving the food in plate 6. The meal portions include 10 full-size forks of meat and 10 full-size forks of salad. You always eat the meat portion but you can replace up to 5 forks for salad/vegetables with rice, potatoes or pasta, or a fruit ?if you like. The less you do it the better weight loss will be. 7. One full-size fork is what it can be scooped on the fork without falling aside and not what can be bit with the fork. Use regular forks like those you find in a typical restaurant. 8.? Please send me weight measurements as soon as possible and then once a week. Always include your diet and exercise plan. 9. Start walking outside daily, tracking calories with a goal of 300 calories per day, daily. Goal is to burn 2000 calories per week on exercise, which means either 300 calories daily, or 400 calories 5 days per week, or 500 calories 4 days per week, or 650 calories 3 days per week. 10. The best choice would be to purchase a stationary bike, elliptical or treadmill at home that can track calories. Let me know if you do so I can give you an exercise plan. 11.?It is important of avoiding and for at least 18 months postoperatively and has been discussed at the infosession. 12. Goal is to lose at least 1.5-2lbs per week 13. Goal to lose 10% of your weight before surgery, which is about 28lbs. Ultimate weight goal: 255lbs before surgery 14. Please follow the diet plan exactly without any change. If you don't like something about the plan or you feel hungry you need to communicate with me so I can help you revise the plan. You should not change the plan yourself. 15. Please check your blood pressure and the blood sugar daily once you start the new plan and let me know if your blood sugar is below 100 or the blood pressure below 110/70 Orders: Orders Insulin Today E11.9 - Type 2 diabetes mellitus without complications, E66.01 - Morbid (severe) obesity due to excess calories, E78.5 - Hyperlipidemia, unspecified, G47.30 - Sleep apnea, unspecified, I10 - Essential (primary) hypertension, J45.909 - Unspecified asthma, uncomplicated, K21.9 - Gastro- esophageal reflux disease without esophagitis Hemoglobin A1c Today E11.9 - Type 2 diabetes mellitus without complications, E66.01 - Morbid (severe) obesity due to excess calories, E78.5 - Hyperlipidemia, unspecified, G47.30 - Sleep apnea, unspecified, I10 - Essential (primary) hypertension, J45.909 - Unspecified asthma, uncomplicated, K21.9 - Gastro- esophageal reflux disease without esophagitis IRON PROFILE Today E11.9 - Type 2 diabetes mellitus without complications, E66.01 - Morbid (severe) obesity due to excess calories, E78.5 - Hyperlipidemia, unspecified, G47.30 - Sleep apnea, unspecified, I10 - Essential (primary) hypertension, J45.909 - Unspecified asthma, uncomplicated, K21.9 - Gastro- esophageal reflux disease without esophagitis Zinc Today E11.9 - Type 2 diabetes mellitus without complications, E66.01 - Morbid (severe) obesity due to excess calories, E78.5 - Hyperlipidemia, unspecified, G47.30 - Sleep apnea, unspecified, I10 - Essential (primary) hypertension, J45.909 - Unspecified asthma, uncomplicated, K21.9 - Gastro- esophageal reflux disease without esophagitis C Reactive Protein Today E11.9 - Type 2 diabetes mellitus without compli cations, E66.01 - Morbid (severe) obesity due to excess calories, E78.5 - Hyperlipidemia, unspecified, G47.30 - Sleep apnea, unspecified, I10 - Essential (primary) hypertension, J45.909 - Unspecified asthma, uncomplicated, K21.9 - Gastro-esophageal reflux disease without esophagitis Vitamin A Today E11.9 - Type 2 diabetes mellitus without complications, E66.01 - Morbid (severe) obesity due to excess calories, E78.5 - Hyperlipidemia, unspecified, G47.30 - Sleep apnea, unspecified, I10 - Essential (primary) hypertension, J45.909 - Unspecified asthma, uncomplicated, K21.9 - Gastro- esophageal reflux disease without esophagitis ECG 12 lead EKG Today E11.9 - Type 2 diabetes mellitus without complications, E66.01 - Morbid (severe) obesity due to excess calories, E78.5 - Hyperlipidemia, unspecified, G47.30 - Sleep apnea, unspecified, I10 - Essential (primary) hypertension, J45.909 - Unspecified asthma, uncomplicated, K21.9 - Gastro-esophageal reflux disease without esophagitis FL upper GI w air Today E11.9 - Type 2 diabetes mellitus without complications, E66.01 - Morbid (severe) obesity due to excess calories, E78.5 - Hyperlipidemia, unspecified, G47.30 - Sleep apnea, unspecified, I10 - Essential (primary) hypertension, J45.909 - Unspecified asthma, uncomplicated, K21.9 - Gastro- esophageal reflux disease without esophagitis H Pylori Breath Test Today E11.9 - Type 2 diabetes mellitus without complications, E66.01 - Morbid (severe) obesity due to excess calories, E78.5 - Hyperlipidemia, unspecified, G47.30 - Sleep apnea, unspecified, I10 - Essential (primary) hypertension, J45.909 - Unspecified asthma, uncomplicated, K21.9 - Gastro-esophageal reflux disease without esophagitis Complete Blood Count Auto Diff Today E11.9 - Type 2 diabetes mellitus without complications, E66.01 - Morbid (severe) obesity due to excess calories, E78.5 - Hyperlipidemia, unspecified, G47.30 - Sleep apnea, unspecified, I10 - Essential (primary) hypertension, J45.909 - Unspecified asthma, uncomplicated, K21.9 - Gastro-esophageal reflux disease without esophagitis Lipid Panel Today E11.9 - Type 2 diabetes mellitus without complications, E66.01 - Morbid (severe) obesity due to excess calories, E78.5 - Hyperlipidemia, unspecified, G47.30 - Sleep apnea, unspecified, I10 - Essential (primary) hypertension, J45.909 - Unspecified asthma, uncomplicated, K21.9 - Gastro- esophageal reflux disease without esophagitis Comprehensive Met. Panel Today E11.9 - Type 2 diabetes mellitus without complications, E66.01 - Morbid (severe) obesity due to excess calories, E78.5 - Hyperlipidemia, unspecified, G47.30 - Sleep apnea, unspecified, I10 - Essential (primary) hypertension, J45.909 - Unspecified asthma, uncomplicated, K21.9 - Gastro-esophageal reflux disease without esophagitis Vitamin B12 and Folate Today E11.9 - Type 2 diabetes mellitus without complications, E66.01 - Morbid (severe) obesity due to excess calories, E78.5 - Hyperlipidemia, unspecified, G47.30 - Sleep apnea, unspecified, I10 - Essential (primary) hypertension, J45.909 - Unspecified asthma, uncomplicated, K21.9 - Gastro-esophageal reflux disease without esophagitis Vitamin B1 Today E11.9 - Type 2 diabetes mellitus without complications, E66.01 - Morbid (severe) obesity due to excess calories, E78.5 - Hyperlipidemia, unspecified, G47.30 - Sleep apnea, unspecified, I10 - Essential (primary) hypertension, J45.909 - Unspecified asthma, uncomplicated, K21.9 - Gastro- esophageal reflux disease without esophagitis TSH reflex Free T4 Today E11.9 - Type 2 diabetes mellitus without complications, E66.01 - Morbid (severe) obesity due to excess calories, E78.5 - Hyperlipidemia, unspecified, G47.30 - Sleep apnea, unspecified, I10 - Essential (primary) hypertension, J45.909 - Unspecified asthma, uncomplicated, K21.9 - Gastro-esophageal reflux disease without esophagitis Ferritin Today E11.9 - Type 2 diabetes mellitus without complications, E66.01 - Morbid (severe) obesity due to excess calories, E78.5 - Hyperlipidemia, unspecified, G47.30 - Sleep apnea, unspecified, I10 - Essential (primary) hypertension, J45.909 - Unspecified asthma, uncomplicated, K21.9 - Gastro- esophageal reflux disease without esophagitis Vitamin D 25-OH Total Today E11.9 - Type 2 diabetes mellitus without complications, E66.01 - Morbid (severe) obesity due to excess calories, E78.5 - Hyperlipidemia, unspecified, G47.30 - Sleep apnea, unspecified, I10 - Essential (primary) hypertension, J45.909 - Unspecified asthma, uncomplicated, K21.9 - Gastro-esophageal reflux disease without esophagitis US abdomen comp w elastography Today E11.9 - Type 2 diabetes mellitus without complications, E66.01 - Morbid (severe) obesity due to excess calories, E78.5 - Hyperlipidemia, unspecified, G47.30 - Sleep apnea, unspecified, I10 - Essential (primary) hypertension, J45.909 - Unspecified asthma, uncomplicated, K21.9 - Gastro-esophageal reflux disease without esophagitis XR chest 2V Today E11.9 - Type 2 diabetes mellitus without complications, E66.01 - Morbid (severe) obesity due to excess calories, E78.5 - Hyperlipidemia, unspecified, G47.30 - Sleep apnea, unspecified, I10 - Essential (primary) hypertension, J45.909 - Unspecified asthma, uncomplicated, K21.9 - Gastro-esopha geal reflux disease without esophagitis Referrals Behavioral Health Referral E11.9 - Type 2 diabetes mellitus without complications, E66.01 - Morbid (severe) obesity due to excess calories, E78.5 - Hyperlipidemia, unspecified, G47.30 - Sleep apnea, unspecified, I10 - Essential (primary) hypertension, J45.909 - Unspecified asthma, uncomplicated, K21.9 - Gastro-esophageal reflux disease without esophagitis Nutrition/Dietitian Referral E11.9 - Type 2 diabetes mellitus without complications, E66.01 - Morbid (severe) obesity due to excess calories, E78.5 - Hyperlipidemia, unspecified, G47.30 - Sleep apnea, unspecified, I10 - Essential (primary) hypertension, J45.909 - Unspecified asthma, uncomplicated, K21.9 - G shila-esophageal reflux disease without esophagitis
[2023-10-12 08:32] VITALS: BMI 48.6
== END 2023-10-12 09:04 | disposition home or self-care (01) ==
LOC: HO.HBS 08:09
PROVIDERS: PCP Internal Medicine; Visit Provider Surgery
DX: E66.01 Morbid (severe) obesity due to excess calories (principal)
CPT/HCPCS: 99205

== ENCOUNTER → 2023-10-12 08:09 | Outpatient (BNVA) | payer MEDICAID, SELFPAY | PROVIDERS: PCP Internal Medicine; Visit Provider Surgery ==

== ENCOUNTER 2023-10-20 09:35 | Outpatient (REF) | payer MEDICAID, SELFPAY ==
--- NOTE | ~2023-10-20 | US_ITS ---
EXAMINATION: US COMPLETE ABDOMEN WITH LIVER ELASTOGRAPHY CLINICAL INFORMATION: Obesity. COMPARISON: None available. TECHNIQUE: Real-time imaging of the abdominal viscera. Noninvasive ultrasound liver fibrosis assessment is performed using Ramya ElastPQ point quantification shear wave elastography (2D-SWE) with a C5-2 MHz transducer. Multiple elastography samples are obtained. FINDINGS: PANCREAS: Normal. The visualized pancreatic head and body are normal in appearance. The remainder of the pancreas is obscured from visualization by the overlying bowel gas. ABDOMINAL AORTA: The proximal, middle, and distal aortic segments are normal in caliber. INFERIOR VENA CAVA: Visualized portions are normal. LIVER: The liver demonstrates normal size, contour and echogenicity. No focal lesion or intrahepatic biliary duct dilatation. The right lobe measures 20.3 cm in length. The left lobe measures 15.1 cm in length. Portal flow is towards the liver (hepatopetal). Shear wave liver elastography median stiffness is 1.34 m/s (reference: normal median stiffness is 1.3 m/s or less). IQR/median stiffness to assess sampling precision is 0.13 (reference: good quality data set is IQR/median stiffness of 0.15 or less). GALLBLADDER: Normal. The gallbladder is physiologically distended without evidence of stones, sludge, polyps, wall thickening or pericholecystic fluid. COMMON BILE DUCT: Normal in caliber measuring 0.7 cm in diameter. RIGHT KIDNEY: Normal. No hydronephrosis. No renal calculi or focal parenchymal lesions. The kidney measures 11.8 cm in maximum dimension. LEFT KIDNEY: Normal. No hydronephrosis. No renal calculi or focal parenchymal lesions. The kidney measures 11.4 cm in maximum dimension. SPLEEN: Normal. The spleen measures 11.8 cm in maximum dimension. FREE FLUID: None. US/US abdomen comp w elastography IMPRESSION: 1. There is hepatomegaly. 2. Liver elastography: In the absence of other known clinical signs, measurements rule out compensated advanced chronic liver disease. If there are known clinical signs, further testing may be needed for confirmation. REFERENCE: Society of Radiologists in Ultrasound Liver Stiffness Thresholds (2020): LIVER STIFFNESS THRESHOLDS: *Liver Stiffness equal or less than 1.3 m/s: High probability of being normal. *Liver Stiffness less than 1.7 m/s: In the absence of other known clinical signs, rules out compensated advanced chronic liver disease. *Liver Stiffness 1.7-2.1 m/s: Suggestive of compensated advanced chronic liver disease but need further test for confirmation. *Liver Stiffness over 2.1 m/s: Rules in compensated advanced chronic liver disease. *Liver Stiffness over 2.4 m/s: Suggestive of clinically significant portal hypertension. QUALITY OF DATA SET: *IQR/Median value equal or less than 0.15 implies a quality data set. *IQR/Median value over 0.15 implies a poor quality data set. SIGNIFICANT CHANGE FROM PRIOR EXAM: Significant change if liver stiffness measurement is 10% or greater from prior exam. OTHER CONSIDERATIONS: The stage of liver fibrosis may be overestimated in the setting of acute hepatitis, liver inflammation, elevated liver function tests, hepatic vascular congestion, obstructive cholestasis, non-fasting state, and infiltrative diseases such as amyloidosis and lymphoma. In some patients with NAFLD, the liver stiffness thresholds for compensated advanced chronic liver disease may be lower. In causes other than viral hepatitis and NAFLD, liver stiffness thresholds are not well established.
--- NOTE | ~2023-10-20 | XR_ITS ---
EXAMINATION: XR CHEST 2 VIEWS CLINICAL INFORMATION: Morbid obesity. COMPARISON: Chest radiograph dated 01/14/2021. TECHNIQUE: Frontal and lateral views of the chest were obtained. FINDINGS: The heart, great vessels, pulmonary vasculature and mediastinum are normal. The lungs show no focal infiltrate, effusion or pneumothorax. There is no acute osseous abnormality. XR/XR chest 2V IMPRESSION: No active cardiopulmonary disease.
[2023-10-20 10:55] LABS: MANUAL DIFF FLAG NO
[2023-10-20 12:13] LABS: Estimated Average Glucose 146 mg/dL; Hemoglobin A1c % 6.7 % (<6.0)
[2023-10-20 12:19] LABS: Basophils Absolute Auto 0.1 X10*3/uL (0.0-0.2); Basophils Percent Auto 0.6 % (0-2); Eosinophils Absolute Auto 0.1 X10*3/uL (0.0-0.4); Eosinophils Percent Auto 0.9 % (0-4); Hematocrit 42.8 % (37.0-47.0); Hemoglobin 13.6 g/dl (12.0-16.0); Imm Gran Abs Auto 0.06 X10*3/uL (0.00-0.03); Imm Gran Pct Auto 0.6 % (0.0-0.4); Lymphocytes Absolute Auto 1.6 X10*3/uL (1.2-4.9); Lymphocytes Percent Auto 15.5 % (20-40); Mean Corpuscular HGB Conc 31.8 g/dl (31.0-35.0); Mean Corpuscular Hemoglobin 23.6 pg (27.0-33.0); Mean Corpuscular Volume 74.2 fL (80.0-98.0); Mean Platelet Volume 10.8 fL (9.4-12.3); Monocytes Absolute Auto 0.4 X10*3/uL (0.1-1.2); Monocytes Percent Auto 3.9 % (2-11); Neutrophils Absolute Auto 8.2 x10*3/uL (2.0-8.3); Neutrophils Percent Auto 78.5 % (45-73); Platelet Count 470 X10*3/uL (160-400); Red Blood Count 5.77 X10*6/uL (4.20-5.50); Red Cell Distribution Width 16.3 % (11.0-16.0); White Blood Count 10.4 X10*3/uL (4.8-10.8)
[2023-10-20 12:54] LABS: Alanine Aminotransferase 26 U/L (0-31); Albumin Level 4.5 g/dL (3.5-5.0); Alkaline Phosphatase 100 U/L (39-117); Anion Gap 17 (12-20); Aspartate Amino Transferase 19 U/L (5-31); Bilirubin Total 0.6 mg/dL (0.0-1.0); Blood Urea Nitrogen 20 mg/dL (9-16); C Reactive Protein 2.15 mg/dL (< or = 0.50); Calcium 10.5 mg/dL (8.4-10.2); Carbon Dioxide 27 mmol/L (22-29); Chloride 101 mmol/L (96-108); Cholesterol 121 mg/dL (<200); Estimated Glomerular Filt Rate > 60; Glucose Random 113 mg/dL (60-115); HDL Cholesterol 38 mg/dL (>40); Iron 32 mcg/dL (30-160); LDL Cholesterol Calculated 66 mg/dL (<100); Percent Iron Saturation 8 % (15-50); Sodium 142 mmol/L (135-145); Total Iron Binding Capacity 382 mcg/dL (228-428); Total Protein 8.2 g/dL (6.5-8.0); Triglycerides 88 mg/dL (<150); Unsaturated Iron Binding 350 ug/dL
[2023-10-20 13:05] LABS: Potassium 2.9 mmol/L (3.3-5.1)
[2023-10-20 13:12] LABS: Ferritin 14 ng/mL (10-250); Insulin 20 uU/mL (2-29); TSH reflex Free T4 0.52 uIU/mL (0.32-4.0); Vitamin D 25-OH Total 32.9 ng/mL (>30)
[2023-10-20 13:18] LABS: Folate 10.6 ng/mL (> or = 4.0); Vitamin B12 580 pg/mL (200-900)
[2023-10-23 18:08] LABS: Zinc 65 mcg/dL (60-130)
[2023-10-25 01:28] LABS: Vitamin A 39 mcg/dL (38-98)
[2023-10-25 11:14] LABS: Vitamin B1 11 nmol/L (8-30)
== END 2023-10-20 09:36 | disposition home or self-care (01) ==
LOC: HO.US 09:35
PROVIDERS: PCP Internal Medicine; Visit Provider Surgery
DX: E66.01 Morbid (severe) obesity due to excess calories (principal); I10 Essential (primary) hypertension; K21.9 Gastro-esophageal reflux disease without esophagitis; E78.5 Hyperlipidemia, unspecified; G47.30 Sleep apnea, unspecified; E11.9 Type 2 diabetes mellitus without complications; J45.909 Unspecified asthma, uncomplicated
CPT/HCPCS: 36415; 71046; 76700; 76981; 80053; 80061; 82306; 82607; 82728; 82746; 83036; 83525; 83540; 84425; 84443; 84590; 84630; 85025; 86140

== ENCOUNTER 2023-10-20 14:55 | Emergency (ER) | payer MEDICAID, SELFPAY ==
[2023-10-20 17:07] VITALS: BP 147/92; PULSE 94; RESP 18; TEMP 36.3; O2SAT 96; BMI 49.6
--- NOTE | 2023-10-20 17:10 | ED_ITS ---
HPI - Recheck/Abnormal Lab/Rx General Chief Complaint: Recheck/Abnormal Lab/Rx Stated Complaint: High potassium Time Seen by Provider: 10/20/23 23:03 Source: patient Mode of arrival: ambulatory History of Present Illness HPI narrative: 43-year-old female who was sent in from the bariatric center for lab work that showed a potassium of 4.9. Patient also describing some nausea. Related Data Home Medications ?Medication ?Instructions ?Recorded ?Confirmed albuterol sulfate 90 mcg/actuation 2 puff inhalation Q6H PRN 07/27/20 08/20/23 aerosol inhaler meclizine 12.5 mg tablet 12.5 mg PO TID 03/01/21 08/20/23 ergocalciferol (vitamin D2) 1,250 1,250 mcg PO QWEEK 07/02/22 08/20/23 mcg (50,000 unit) capsule metformin 500 mg tablet,extended 500 mg PO QPM 07/02/22 08/20/23 release 24 hr nifedipine 90 mg tablet,extended 90 mg PO QAM 07/02/22 08/20/23 release 24 hr sucralfate 1 gram tablet 1 g PO TID 07/02/22 08/20/23 atorvastatin 40 mg tablet 40 mg PO QAM 01/07/23 08/20/23 cetirizine 10 mg tablet 10 mg PO QAM PRN allergies 01/07/23 08/20/23 chlorthalidone 50 mg tablet 50 mg PO BEDTIME 01/07/23 08/20/23 empagliflozin 25 mg tablet 25 mg PO QAM 01/07/23 08/20/23 (Jardiance) oxybutynin chloride 15 mg 15 mg PO QAM 01/07/23 08/20/23 tablet,extended release 24 hr Previous Rx's ?Medication ?Instructions ?Recorded omeprazole 40 mg capsule,delayed 40 mg PO BID #14 caps 02/13/23 release valsartan 160 mg tablet 160 mg PO BID #180 tabs 06/23/23 Allergies Allergy/AdvReac Type Severity Reaction Status Date / Time zolpidem [From Ambien] AdvReac Confusion Verified 10/20/23 17:09 Review of Systems 2 Review of Systems: Pertinent positives and negatives as stated in HPI PMFSH Past Medical History Source: nursing notes reviewed Medical History Stress incontinence Asthma Hyperlipidemia Breast pain, right Dysplasia of cervix, low grade (JOSE LUIS 1) Knee pain Back pain Prediabetes Insomnia GERD (gastroesophageal reflux disease) Hypertension Morbid obesity Surgical History Hx of tubal ligation Hx of section Family History Family History Mother Hypertension Diabetes Asthma Arthritis Father No problems noted. Brother No problems noted. Brother No problems noted. Daughter No problems noted. Daughter No problems noted. Daughter No problems noted. Maternal Aunt Breast cancer, Onset Age: 56 Social History Social History Household Members: Children Household Members Other:: mother Housing: Apartment Alcohol intake: never Patient Tobacco Use Status: Never used Tobacco Advance Directives: No Advance Directives Information Provided: No Current occupational status: unemployed Sexual orientation: Straight/Heterosexual Gender identity: Female Physical Exam 2 Vital Signs: Vital Signs: Last Vital Signs Temp 97.2 F 10/20/23 23:44 Pulse 74 10/20/23 23:44 Resp 16 10/20/23 23:44 BP 122/83 10/20/23 23:44 Pulse Ox 95 10/20/23 23:44 O2 Del Method Room Air 10/20/23 23:44 BMI result Body Mass Index 49.6 VITAL SIGNS: Reviewed. GENERAL: Elevated BMI, Well developed, well nourished, in no acute distress. HEAD: Normocephalic/atraumatic EYES: PERRLA, EOMI LUNGS: Normal breath sounds. No adventitious sounds or accessory muscle use. SpO2<95> CARDIOVASCULAR: Regular rate and rhythm without noted murmurs ABDOMEN: Soft, non-tender, non-distended with bowel sounds. MUSCULOSKELETAL: No tenderness, deformities, or effusions noted on gross inspection. EXTREMITIES: No cyanosis, clubbing or edema. SKIN: Inspection of the skin reveals no rashes NEUROLOGIC: Alert and oriented x 4. Strength and sensation to light touch were grossly intact x 4. Course Course Course Narrative: This is a Rapid Medical Examination (RME) performed by Juan F Nur PA-C in triage. Full HPI, ROS, assessment and treatment plan per primary provider in the Main ED. 43 yo tajik speaking female presenting for evaluation of low potassium on outpatient labs today. reports generalized fatigue, nausea and muscle aches. no chest pain. she is on chlorthalidone. Plan: given 60 meQ KCL in triage w/ zofran. repeat labs and check magnesium Medications Administered Discontinued Medications Generic Name Dose Route Start Last Admin Trade Name Sauravq PRN Reason Stop Dose Admin Ondansetron HCl 4 mg 10/20/23 17:10 10/20/23 17:13 Ondansetron Odt 4 Mg Tab.Rapdis TRANSLINGU 10/20/23 17:11 4 mg ONCE ONE Administration Potassium Chloride 60 meq 10/20/23 14:58 10/20/23 17:13 Potassium Chloride Er 20 Meq Tab.Er.Prt PO 10/20/23 14:59 60 meq ONCE ONE Administration Medical Decision Making Medical Decision Making [facility] Narrative: 43-year-old female who received supplemental oral potassium chloride in the waiting area as well as 4 mg trans lingual Zofran. Repeat BMP demonstrates potassium -3.4. EKG does not demonstrate acute findings. Patient is feeling improved and is otherwise discharged. Differential Diagnosis Differential Diagnoses: The differential diagnosis associated with the presentation includes Please see the discussion above Admission/Observation Consideration of admission/observation: Escalation of care including admission/observation considered Please see the discussion above Lab Data [facility] Lab Attestation statement: I reviewed the patient's lab results. Please see the discussion 10/20/23 20:26 Labs: Lab Results 10/20/23 Range/Units 20:26 Sodium 142 (135-145) mmol/L Potassium 3.4 (3.3-5.1) mmol/L Chloride 101 (96-108) mmol/L Carbon Dioxide 28 (22-29) mmol/L Anion Gap 16 (12-20) BUN 22 H (9-16) mg/dL Creatinine 0.80 (0.5-1.4) mg/dL Estim Creat Clear Calc 116.5 Estimated GFR > 60 Random Glucose 135 H (60-115) mg/dL Calcium 10.3 H (8.4-10.2) mg/dL Magnesium 1.9 (1.6-2.6) mg/dL Independent Interpretation I performed an independent interpretation of an: EKG Interpretation: Normal sinus rhythm, HR-71, no STEMI, IA/QTC is within normal limits. External Record Review External record reviewed: Prior outpatient labs Chronic Conditions Patient?s care impacted by: Diabetes Critical Care Time Critical Care Time Critical Care Time: Yes Total Critical Care Time: 45 Attestation: I personally attest to this time spent taking care of the patient. Discharge Plan Discharge Clinical Impression: Hypokalemia Patient Disposition: Home, Self-Care Instructions: Potassium Content of Foods List (ED), Hypokalemia (ED) Additional Instructions: I recommend that you use the information regarding dietary content of potassium to maintain your potassium levels. Please follow-up with your primary care doctor in the next 2-3 days. Return to the ED for any worsening symptoms. Prescriptions: No Action valsartan 160 mg tablet 160 mg PO BID Qty: 180 3RF omeprazole 40 mg capsule,delayed release(DR/EC) 40 mg PO BID Qty: 14 0RF Rx Instructions: one week albuterol sulfate 90 mcg/actuation HFA aerosol inhaler 2 puff inhalation Q6H PRN meclizine 12.5 mg tablet 12.5 mg PO TID Jardiance 25 mg tablet 25 mg PO QAM chlorthalidone 50 mg tablet 50 mg PO BEDTIME atorvastatin 40 mg tablet 40 mg PO QAM cetirizine 10 mg tablet 10 mg PO QAM PRN (Reason: allergies) oxybutynin chloride 15 mg tablet extended release 24hr 15 mg PO QAM metformin 500 mg tablet extended release 24 hr 500 mg PO QPM ergocalciferol (vitamin D2) 1,250 mcg (50,000 unit) capsule 1,250 mcg PO QWEEK nifedipine 90 mg tablet extended release 24hr 90 mg PO QAM sucralfate 1 gram tablet 1 g PO TID Referrals: Joceline Gutierrez MD [Primary Care Provider] - Print Language: Rw[place]an
[2023-10-20] MEDS: Potassium Chloride ER 20 MEQ TAB.ER.PRT 60 MEQ PO (17:13)
[2023-10-20] MEDS: Ondansetron ODT 4 MG TAB.RAPDIS TRANSLINGU (17:13)
[2023-10-20 20:43] VITALS: BP 118/80; PULSE 85; RESP 16; TEMP 36.8; O2SAT 97
[2023-10-20 20:46] LABS: Anion Gap 16 (12-20); Blood Urea Nitrogen 22 mg/dL (9-16); Calcium 10.3 mg/dL (8.4-10.2); Carbon Dioxide 28 mmol/L (22-29); Chloride 101 mmol/L (96-108); Creatinine Clr Calc Pharmacy 116.5; Estimated Glomerular Filt Rate > 60; Glucose Random 135 mg/dL (60-115); Magnesium 1.9 mg/dL (1.6-2.6); Potassium 3.4 mmol/L (3.3-5.1); Sodium 142 mmol/L (135-145)
--- NOTE | 2023-10-20 23:40 | ECG_ITS ---
Test Reason : ELEVATED POTASSIUM Blood Pressure : / mmHG Vent. Rate : 071 BPM Atrial Rate : 071 BPM P-R Int : 166 ms QRS Dur : 110 ms QT Int : 380 ms P-R-T Axes : 035 -23 -38 degrees QTc Int : 412 ms Normal sinus rhythm Moderate voltage criteria for LVH, may be normal variant ( R in aVL , [place] product ) Nonspecific ST and T wave abnormality Abnormal ECG When compared with ECG of 13-FEB-2023 11:41, Nonspecific T wave abnormality now evident in Lateral leads Referred By: Michell Kent Electronically Signed By:Monster Ma
[2023-10-20 23:44] VITALS: BP 122/83; PULSE 74; RESP 16; TEMP 36.2; O2SAT 95
[2023-10-21 00:08] VITALS: BP 112/83; PULSE 78; RESP 18; TEMP 36.4; O2SAT 96
== END 2023-10-21 00:10 | disposition home or self-care (01) ==
PROVIDERS: Physician Assistant; Emergency Provider Student in an Organized Health Care Education/Training Program; PCP Internal Medicine
DX: E87.6 Hypokalemia (principal); I10 Essential (primary) hypertension
CPT/HCPCS: 36415; 80048; 83735; 93005; 99283; 99284

== ENCOUNTER → 2023-10-20 23:40 | Outpatient (BNV) | payer MEDICAID, SELFPAY | PROVIDERS: Emergency Provider Student in an Organized Health Care Education/Training Program; PCP Internal Medicine; Visit Provider Internal Medicine Cardiovascular Disease | DX: R94.31 Abnormal electrocardiogram [ECG] [EKG] (principal) | CPT/HCPCS: 93010 ==

== ENCOUNTER 2023-11-11 13:00 | Outpatient (AMB) | payer OTHER, SELFPAY ==
--- NOTE | 2023-11-11 13:10 | A.OFFWM_ITS ---
Intake Intake Visit Reasons: VIDEO Intake Allergies zolpidem [From Ambien] Adverse Reaction (Verified 11/17/23 09:42) Confusion PFSH Medical History Stress incontinence Asthma Hyperlipidemia Breast pain, right Dysplasia of cervix, low grade (JOSE LUIS 1) Knee pain Back pain Prediabetes Insomnia GERD (gastroesophageal reflux disease) Hypertension Morbid obesity Surgical History Hx of tubal ligation Hx of section Family History Mother Hypertension Diabetes Asthma Arthritis Father No problems noted. Brother No problems noted. Brother No problems noted. Daughter No problems noted. Daughter No problems noted. Daughter No problems noted. Maternal Aunt Breast cancer, Onset Age: 56 Social History Household Members: Children Household Members Other:: mother Housing: Apartment Alcohol intake: never Patient Tobacco Use Status: Never used Tobacco Current occupational status: unemployed Sexual orientation: Straight/Heterosexual Gender identity: Female Female Reproductive History Menstrual Age of Menarche: 10 Behavioral Health Assessment Weight Management Therapy Therapy Notes Details PT is a 43 y/o female who presents for a follow up to complete assessment for Weight management program. Presenting Concerns Referral Source P Provider. Reason for referral Completion of behavioral health assessment as part of process for weight-loss surgery. Precipitating Event Obesity and medical issues. Living Situation Current Living Situation Rent At risk of losing current housing? No Satisfied with current living situation? Yes Comments PT lives with her mother , 3 daughters (they are 19 and 17 y/o twins), 2 dogs and 1 cat. Food/Weight/Diet Expectations of change The initial goal is to lose 10% of her weight before surgery, about 28lbs-ultimate weight goal: 255lbs before surgery. The patient's long-term goal is to be active, healthy, and feel better about herself. She started the program 1 month ago and reported she is doing well with the meal plan provided. History/Relationship with food PT reports her issues are related to not having a steady meal schedule, she tends to skip meals and then overeat due to being hungrier. She doesn't like all veggies and eats fewer fruits. Pt reports she also doesn't chew her food that much if she chews too much she gets nauseous and vomits the food. On occasions, when stressed she tends to either skip meals or eat bigger portions. Before starting the program, she was eating out 3-4 times a week. Lately, it's 1-2 times a week. Example of meals before starting the program. Breakfast: Skip. Had a coffee with 2 creams and 4 sugar. Lunch: Skip. Abiola tea. Dinner: pasta, rice with meat and salad. -style meals (usually high in carbs and fats). And will eat bigger portions. PM snack: a coffee with cream and sugar. History/Relationship with weight -Obesity runs in her family. Her twin daughters are morbidly obese, and one already had bariatric surgery, and the other will have it soon. - PT stated she [facility] not [facility]. -Over the last 25 years, she has gained weight due to being on medication for asthma, then gained weight with each , and dedicated more to her children. In the last 10 years, her highest weight was 310 lbs a couple of months ago, and her lowest was 220 lbs before Covid. History/Relationship with dieting Portion control, healthier options for things she likes. 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 The most recent was last year while her daughter went through their bariatric program. The last time she visited a patient day coordinator for herself was around 4 years ago. Pt stated she tends to stay on diets for a couple of months consecutively, having some weight loss (20Lbs usually). 4 years ago she was able to lose 100 Lbs , but then she went back to old habits (skipping meals. eating fast food when in a [place]) Binge Eating Do you frequently eat large amounts of food in short periods of time, not feeling physically hungry? No Do you feel out of control when you eat a large amount of food in a short period of time? No Do you eat large amounts of food rapidly and typically alone? No Night Eating Do you wake up at least once during the night to eat? No If you wake up in the night, do you find that it is necessary to eat something in order to fall back asleep? No Do you have little or no appetite in the morning and feel very hungry in the evening, often overeating between dinner and when you go to bed? No Social History Family history and relationship PT is , but from her 1 year ago. PT has 2 siblings. Mother alive and living with her at the moment. Father . PT reported she had poor communication with family but the dynamic in her household is very stable. Parental/Familial scale attendant obligations 3 daughters. Developmental history and status None reported. Social support Mother, Daughters. PT has 4 good and close friends she can count on. Community support PCP. Adventist/Spirituality Raised as Pentec[employer]. visit churches once in a while. Cultural/Ethnic information PT was born in [place]. Moved to [place] 25 years ago. Legal Involvement and History Current or historical involvement with the legal system? None reported. Education Highest grade completed 12th. Preferred learning style Visual Currently enrolled in educational program? Yes (ESL classes at [employer] Interested in further educational program? Yes Educational Interests/Skills Would like to learn ASL language or culinary. Employment Employment Status Unemployed Wants help to find employment? No Meaningful activities Listen music, watch Tv. Financial Situation Describe current financial situation Often struggles with finance Financial assistance? Food [place], Disability (From one daughter. ) [facility] Service Service? No Mental Health and Addiction Treatment Current/Past substance abuse? No Current/Past addictive behavior concerns? No Medical and Physical Health Summary Additional Medical History not covered in history None Sexual History concerns None Physical exam in the last year? Yes Pain Screening Current pain? Yes Pain in the last few months? Yes Comments Back pain, neck pain. Medications Is the patient compliant with medications? Yes Does the patient have Vargas Guardian in place? Not applicable Does the patient use complimentary health approaches? No Trauma/Abuse History History of trauma? Yes Physical Abuse None Domestic Violence/Abuse Past Sexual Abuse/Molestation None Community Violence None Elder Abuse None Financial Abuse None Verbal/Emotional Abuse None Physical Neglect None Emotional Neglect None Related Trauma None Witness to Violence None Exploitation None Other None Current Involvement By None Reported Additional Mandated Report Required None Reported Assessment & Plan Assessment & Plan (1) Adjustment disorder, unspecified: Code(s): F43.20 - Adjustment disorder, unspecified Plan: Pt not cleared today she will be seen again next week to complete intake. Telehealth Telehealth [facility]health [facility] Location of provider rendering services: other Location of patient: address on file Patient Identification confirmed using: Name, : Yes Telehealth method: video Patient verbally consented to treatment: Yes Patient verbally consented to billing insurance company: Yes Patient informed of any privacy concerns related to visit: No Minutes spent on Phone/Video with Pt.: 60 Coding Level of Care Code New Pt Tele Psytx >53 mins (86210) Patient Type New Diagnoses Adjustment disorder, unspecified F43.20 Time Spent (min) 60
== END 2023-11-11 14:00 | disposition home or self-care (01) ==
PROVIDERS: PCP Internal Medicine; Visit Provider Counselor Mental Health
DX: F43.20 Adjustment disorder, unspecified (principal)
CPT/HCPCS: 90837

== ENCOUNTER → 2023-11-11 13:00 | Outpatient (BNVA) | payer MEDICAID, SELFPAY | PROVIDERS: PCP Internal Medicine; Visit Provider Counselor Mental Health ==

== ENCOUNTER 2023-11-17 09:26 | Outpatient (AMB) | payer MEDICAID, SELFPAY ==
--- NOTE | 2023-11-17 09:30 | A.OFFVIS_ITS ---
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 Required: No Allergies zolpidem [From Ambien] Adverse Reaction (Verified 11/17/23 09:42) Confusion Medication List - Last Reconciled 11/17/23 by SHERRILL Bernard albuterol sulfate 90 mcg/actuation 2 puffs inhalation Q6H PRN atorvastatin 40 mg PO QAM cetirizine 10 mg PO QAM PRN chlorthalidone 50 mg PO BEDTIME empagliflozin (Jardiance) 25 mg PO QAM ergocalciferol (vitamin D2) 1,250 mcg PO QWEEK meclizine 12.5 mg PO TID metformin ER 500 mg PO QPM nifedipine ER 90 mg PO QAM omeprazole 40 mg PO BID oxybutynin chloride ER 15 mg PO QAM sucralfate 1 g PO TID valsartan 160 mg PO BID HPI Comments Details: Patient is a 43-year-old female who presented to the weight management clinic to reestablish care in the surgical weight loss pathway on 10/12/2023. Her weight at that time was 283.2 lb with a BMI of 48.6. Weight today is 274.6 pounds with a BMI of 48.6. She has lost 8.6 lb or 3% total body weight loss. Feels as though plans are doing well. Checking BP at home 90s to 120s over 60s to 70s with complaints of lightheadedness. We will instruct her to decrease her valsartan from 160 mg twice a day down to 80 mg twice a day. States she is not having the last bar for the last 2 weeks She could not use the right BMI johann as she had difficulty understanding it. meal plan: 2 premade PREMIER protein shakes (mix 4oz Premier shakes with 4oz low fat unsweetened almond milk each) at 8am-10am and 11am-1pm, 1 protein bar (CELEBRATE, buy at [facility]) at 2pm-4pm, dinner at 5pm (10 forks of protein and 10 forks of salad/vegetables) and two more protein bars after dinner at 7pm-9pm and 10pm-12am. So you do 2 protein shakes, 3 protein bars and one meal per day Drinking 48 oz water daily Exercise plan: walking outside has ability to join [facility] Medical History (Updated 11/17/23 @ 09:59 by SHERRILL Bernard) Stress incontinence Asthma Hyperlipidemia Breast pain, right Dysplasia of cervix, low grade (JOSE LUIS 1) Knee pain Back pain Prediabetes Insomnia GERD (gastroesophageal reflux disease) Hypertension Morbid obesity Surgical History Hx of tubal ligation Hx of section Family History Mother Hypertension Diabetes Asthma Arthritis Father No problems noted. Brother No problems noted. Brother No problems noted. Daughter No problems noted. Daughter No problems noted. Daughter No problems noted. Maternal Aunt Breast cancer, Onset Age: 56 Social History Household Members: Children Household Members Other:: mother Housing: Apartment Alcohol intake: never Patient Tobacco Use Status: Never used Tobacco Current occupational status: unemployed Sexual orientation: Straight/Heterosexual Gender identity: Female Female Reproductive History Menstrual Age of Menarche: 10 Review of Systems Const All systems reviewed & are unremarkable except as noted in HPI and below Physical Exam Const General: healthy appearing and no acute distress Resp Effort & Inspection: normal respiratory effort Auscultation: clear to auscultation bilaterally Cardio Rate: regular rate Rhythm: regular rhythm GI Auscultation: normal bowel sounds Extrem General: Yes normal to inspection Assessment & Plan Assessment & Plan (1) Morbid obesity: Code(s): E66.01 - Morbid (severe) obesity due to excess calories Category: Medical Plan: Discussed the importance of formal exercise. She was given a discount paper for the [facility]. Encouraged to track her calories while walking outside with the [employer] johann. goal of burning 300 calories per day or 2000 calories per week. Change meal plans slightly: 1 premade PREMIER protein shakes (mix 4oz Premier shakes with 4oz low fat uns weetened almond milk each) at 8am-10am and 11am-1pm, 1 protein bar (CELEBRATE, buy at [facility]) at 2pm-4pm, dinner at 5pm (10 forks of protein and 10 forks of salad/vegetables) and one more protein bar after dinner at 7pm-9pm Return to clinic 1 month (2) Hypertension: Code(s): I10 - Essential (primary) hypertension Category: Medical Plan: Symptomatically hypotensive, decrease valsartan 80 mg twice per day. Medications: Changed From valsartan 160 mg PO BID 180 tabs 3RF I10 - Essential (primary) hypertensi on To valsartan 80 mg (1/2 x 160 mg) PO BID 180 tabs 3RF I10 - Essential (primary) hypertension
[2023-11-17 09:41] VITALS: BP 120/78; PULSE 78; TEMP 36.6; O2SAT 96; BMI 47.1
== END 2023-11-17 10:01 | disposition home or self-care (01) ==
PROVIDERS: PCP Internal Medicine; Visit Provider Physician Assistant Surgical
DX: E66.01 Morbid (severe) obesity due to excess calories (principal); I10 Essential (primary) hypertension
CPT/HCPCS: 99214

== ENCOUNTER → 2023-11-17 09:26 | Outpatient (BNVA) | payer MEDICAID, SELFPAY | PROVIDERS: PCP Internal Medicine; Visit Provider Physician Assistant Surgical | DX: E66.01 Morbid (severe) obesity due to excess calories (principal); Z68.42 Body mass index [BMI] 45.0-49.9, adult; I10 Essential (primary) hypertension; Z79.899 Other long term (current) drug therapy | CPT/HCPCS: 99212 ==

== ENCOUNTER → 2023-11-18 06:43 | Day surgery (SDC) | payer MEDICAID, SELFPAY ==
--- NOTE | 2023-11-16 12:59 | P.CONAN_ITS ---
Documented by User: Vidya Barone NP 11/16/23 13:01 HPI - Anesthesia Eval Consult details Narrative: 43yo F for Upper Endoscopy Anesthesia Pre-Procedure Meds Is the patient on any of the following meds?: SGLT2 Inhib PMFSH Active Problems Active Problems: All Active Problems Stress incontinence (Acute) Asthma (Acute) Hyperlipidemia (Acute) Sleep apnea with use of continuous positive airway pressure (CPAP) (Acute) Non-insulin dependent type 2 diabetes mellitus (Acute) Breast pain, right (Acute) Well woman exam (Acute) ZHAO (dyspnea on exertion) (Acute) LGSIL on Pap smear of cervix (Acute) Neck pain without injury (Acute) Myofascial pain (Acute) Knee pain (Acute) Back pain (Acute) Prediabetes (Acute) Insomnia (Acute) GERD (gastroesophageal reflux disease) (Acute) Hypertension (Acute) Morbid obesity (Acute) Past Medical History Medical History Stress incontinence Asthma Hyperlipidemia Breast pain, right Dysplasia of cervix, low grade (JOSE LUIS 1) Knee pain Back pain Prediabetes Insomnia GERD (gastroesophageal reflux disease) Hypertension Morbid obesity Family History Family History Mother Hypertension Diabetes Asthma Arthritis Father No problems noted. Brother No problems noted. Brother No problems noted. Daughter No problems noted. Daughter No problems noted. Daughter No problems noted. Maternal Aunt Breast cancer, Onset Age: 56 Surgical History Surgical History Hx of tubal ligation Hx of section Social History Social History Household Members: Children Household Members Other:: mother Housing: Apartment Alcohol intake: never Patient Tobacco Use Status: Never used Tobacco Use of substances other than those prescribed or required for medical reasons: No Are you DNR?: No Advance Directives: No Advance Directives Information Provided: Yes Current occupational status: unemployed Sexual orientation: Straight/Heterosexual Gender identity: Female Meds Allergies Allergy/AdvReac Type Severity Reaction Status Date / Time zolpidem [From Ambien] AdvReac Confusion Verified 11/17/23 09:42 Home Medications ?Medication ?Instructions ?Recorded ?Confirmed ?Last Taken ?Type albuterol sulfate 90 mcg/actuation 2 puff inhalation Q6H PRN 07/27/20 11/17/23 Unknown History aerosol inhaler meclizine 12.5 mg tablet 12.5 mg PO TID 03/01/21 11/17/23 Unknown History ergocalciferol (vitamin D2) 1,250 1,250 mcg PO QWEEK 07/02/22 11/17/23 Unknown History mcg (50,000 unit) capsule metformin 500 mg tablet,extended 500 mg PO QPM 07/02/22 11/17/23 Unknown History release 24 hr nifedipine 90 mg tablet,extended 90 mg PO QAM 07/02/22 11/17/23 Unknown History release 24 hr sucralfate 1 gram tablet 1 g PO TID 07/02/22 11/17/23 Unknown History atorvastatin 40 mg tablet 40 mg PO QAM 01/07/23 11/17/23 Unknown History cetirizine 10 mg tablet 10 mg PO QAM PRN allergies 01/07/23 11/17/23 Unknown History chlorthalidone 50 mg tablet 50 mg PO BEDTIME 01/07/23 11/17/23 Unknown History oxybutynin chloride 15 mg 15 mg PO QAM 01/07/23 11/17/23 Unknown History tablet,extended release 24 hr dulaglutide 0.75 mg/0.5 mL mg subcut QWEEK 11/18/23 11/18/23 11/15/23 History subcutaneous pen injector (Trulicity) Exam Narrative Narrative: EKG 2023 Vent. Rate : 071 BPM Atrial Rate : 071 BPM P-R Int : 166 ms QRS Dur : 110 ms QT Int : 380 ms P-R-T Axes : 035 -23 -38 degrees QTc Int : 412 ms Normal sinus rhythm Moderate voltage criteria for LVH, may be normal variant ( R in aVL , [place] product ) Nonspecific ST and T wave abnormality Abnormal ECG When compared with ECG of 13-FEB-2023 11:41, Nonspecific T wave abnormality now evident in Lateral leads Assessment and Plan Assessment Anesthesia Assessment: Chart Reviewed Documented by User: Sharon Mendez MD 11/18/23 08:33 HPI - Anesthesia Eval Anesthesia Pre-Procedure Meds Is the patient on any of the following meds?: SGLT2 Inhib (On trulicity. Last dose 2 days ago.) If yes to any meds - educate patient: Pt education - increased risk of aspiration and/or euvolemic DKA and Pt education - possibility of cancelled proc at provider's discretion (Discussed risks of not stopping trulicity including aspiration, ICU admission and with Patient and mother. They understand risks and patient wishes to proceed ) [facility] Past Medical History Medical History Stress incontinence Asthma Hyperlipidemia Breast pain, right Dysplasia of cervix, low grade (JOSE LUIS 1) Knee pain Back pain Prediabetes Insomnia GERD (gastroesophageal reflux disease) Hypertension Morbid obesity Family History Family History Mother Hypertension Diabetes Asthma Arthritis Father No problems noted. Brother No problems noted. Brother No problems noted. Daughter No problems noted. Daughter No problems noted. Daughter No problems noted. Maternal Aunt Breast cancer, Onset Age: 56 Family history of problems with anesthesia: No Surgical History Surgical History Hx of tubal ligation Hx of section History of Problems with Anesthesia: No Social History Social History Household Members: Children Household Members Other:: mother Housing: Apartment Alcohol intake: never Patient Tobacco Use Status: Never used Tobacco Use of substances other than those prescribed or required for medical reasons: No Are you DNR?: No Advance Directives: No Advance Directives Information Provided: Yes Current occupational status: unemployed Sexual orientation: Straight/Heterosexual Gender identity: Female Meds Allergies Allergy/AdvReac Type Severity Reaction Status Date / Time zolpidem [From Ambien] AdvReac Confusion Verified 11/17/23 09:42 Home Medications ?Medication ?Instructions ?Recorded ?Confirmed ?Last Taken ?Type albuterol sulfate 90 mcg/actuation 2 puff inhalation Q6H PRN 07/27/20 11/17/23 Unknown History aerosol inhaler meclizine 12.5 mg tablet 12.5 mg PO TID 03/01/21 11/17/23 Unknown History ergocalciferol (vitamin D2) 1,250 1,250 mcg PO QWEEK 07/02/22 11/17/23 Unknown History mcg (50,000 unit) capsule metformin 500 mg tablet,extended 500 mg PO QPM 07/02/22 11/17/23 Unknown History release 24 hr nifedipine 90 mg tablet,extended 90 mg PO QAM 07/02/22 11/17/23 Unknown History release 24 hr sucralfate 1 gram tablet 1 g PO TID 07/02/22 11/17/23 Unknown History atorvastatin 40 mg tablet 40 mg PO QAM 01/07/23 11/17/23 Unknown History cetirizine 10 mg tablet 10 mg PO QAM PRN allergies 01/07/23 11/17/23 Unknown History chlorthalidone 50 mg tablet 50 mg PO BEDTIME 01/07/23 11/17/23 Unknown History oxybutynin chloride 15 mg 15 mg PO QAM 01/07/23 11/17/23 Unknown History tablet,extended release 24 hr dulaglutide 0.75 mg/0.5 mL mg subcut QWEEK 11/18/23 11/18/23 11/15/23 History [facility] ([facility] Exam Height,Weight and Vital Signs: Height 5 ft 4 in Weight 127.686 kg Vital Signs Temp Pulse Resp BP Pulse Ox O2 Del Method 11/18/23 07:34 97.1 F 82 16 114/72 98 Room Air Pertinent Lab Results Pertinent Lab Results: Lab Results 11/18/23 Range/Units 07:54 POC Glucose 111 (60-115) mg/dL Airway Mallampati Class: III TM Dist: >3cm Neck ROM: Full Heart: RRR Lungs: CTAB Assessment and Plan Assessment Anesthesia Assessment: Anesthesia Plan Discussed and Chart Reviewed Final Anesthetic Review Family History of Problems with Anesthesia: No History of Problems with Anesthesia: No NPO: Yes ASA Class: III Final Preanesthetic Review: No Changes in Pt Med Stat, Meds/Allgs Chart Reviewed, Consent Obtained/Reviewed and Anes Risks/Benef Reviewed Patient Risk: Intermediate Procedure Risk: Low Assessment/Block/Sedation in SS: Assess/Block/Sedation-SS Anesthetic Plan Anesthetic Plan: GA, MAC: and TIVA Disposition: Standard PACU
[2023-11-18 07:21] VITALS: BMI 48.3
[2023-11-18 07:34] VITALS: BP 114/72; PULSE 82; RESP 16; TEMP 36.2; O2SAT 98
--- NOTE | 2023-11-18 07:49 | PC.NURSE ---
patient no longer takes jardiance but took her trulicity on thursday per patients mother. aware.
[2023-11-18 07:57] LABS: Glucose, Whole Blood 111 mg/dL (60-115)
[2023-11-18] MEDS: Lactated Ringers 1,000 ML 100 ML IVCONT (08:01)
== END ==
PROVIDERS: PCP Internal Medicine; Visit Provider Surgery
DX: E66.01 Morbid (severe) obesity due to excess calories (principal); Z68.42 Body mass index [BMI] 45.0-49.9, adult; I10 Essential (primary) hypertension; E11.9 Type 2 diabetes mellitus without complications; J45.909 Unspecified asthma, uncomplicated; Z53.9 Procedure and treatment not carried out, unspecified reason
CPT/HCPCS: 82947; J1596; J2704

== ENCOUNTER 2023-11-18 11:00 | Outpatient (AMB) | payer OTHER, SELFPAY ==
--- NOTE | 2023-11-18 11:49 | A.OFFWM_ITS ---
Intake Intake Visit Reasons: VIDOE Intake Part 2 Allergies zolpidem [From Ambien] Adverse Reaction (Verified 12/29/23 09:35) Confusion [facility] Medical History JAD (obstructive sleep apnea) Stress incontinence Asthma Hyperlipidemia Breast pain, right Dysplasia of cervix, low grade (JOSE LUIS 1) Knee pain Back pain Prediabetes Insomnia GERD (gastroesophageal reflux disease) Hypertension Morbid obesity Surgical History Hx of tubal ligation Hx of section Family History Mother Hypertension Diabetes Asthma Arthritis Father No problems noted. Brother No problems noted. Brother No problems noted. Daughter No problems noted. Daughter No problems noted. Daughter No problems noted. Maternal Aunt Breast cancer, Onset Age: 56 Social History Household Members: Children Household Members Other:: mother Housing: Apartment Alcohol intake: never Patient Tobacco Use Status: Never used Tobacco Current occupational status: unemployed Sexual orientation: Straight/Heterosexual Gender identity: Female Female Reproductive History Menstrual Age of Menarche: 10 Behavioral Health Assessment Weight Management Therapy Therapy Notes Details PT is a 43 y/o female who presents for a follow up to complete assessment for Weight management program. PT did WMP in 2020, this time she feels ready, positive and committed as she has been doing well and has lost weight leading to the initial weight-loss goals before surgery. She hopes to have surgery before starting classes again in . PT reports she is attending counseling services for depression and anxiety, and therapy is a coping strategy to better manage life stresses; PT stated she is stable and in a good place to pursue bariatric surgery. Her PHQ-9 indicate no active Sx of depression and Mental status exam was rowena normal limits indicating no concerns and/or risk factors at the time of this appointment and overall good functioning. At this time PT is cleared from standpoint, and has been provided information of available resources at [facility] to remain committed with weight-loss journey. She doesn't need further appointments with this provider pre-op but will be seen post-op as-needed for support. Presenting Concerns Referral Source [facility] Provider. Reason for referral Completion of behavioral health assessment as part of process for weight-loss surgery. Precipitating Event Obesity and medical issues. Living Situation Current Living Situation Rent At risk of losing current housing? No Satisfied with current living situation? Yes Comments PT lives with her mother , 3 daughters (they are 19 and 17 y/o twins), 2 dogs and 1 cat. Food/Weight/Diet Expectations of change The initial goal is to lose 10% of her weight before surgery, about 28lbs-ultimate weight goal: 255lbs before surgery. The patient's long-term goal is to be active, healthy, and feel better about herself. She started the program 1 month ago and reported she is doing well with the meal plan provided. History/Relationship with food PT reports her issues are related to not having a steady meal schedule, she tends to skip meals and then overeat due to being hungrier. She doesn't like all veggies and eats fewer fruits. Pt reports she also doesn't chew her food that much if she chews too much she gets nauseous and vomits the food. On occasions, when stressed she tends to either skip meals or eat bigger portions. Before starting the program, she was eating out 3-4 times a week. Lately, it's 1-2 times a week. Example of meals before starting the program. Breakfast: Skip. Had a coffee with 2 creams and 4 sugar. Lunch: Skip. Abiola tea. Dinner: pasta, rice with meat and salad. -style meals (usually high in carbs and fats). And will eat bigger portions. PM snack: a coffee with cream and sugar. History/Relationship with weight -Obesity runs in her family. Her twin danielle faustin are morbidly obese, and one already had bariatric surgery, and the other will have it soon. - PT stated she was not obese in [facility]. -Over the last 25 years, she has gained weight due to being on medication for asthma, then gained weight with each , and dedicated more to her children. In the last 10 years, her highest weight was 310 lbs a couple of months ago, and her lowest was 220 lbs before Covid. History/Relationship with dieting Portion control, healthier options for things she likes. Has been in battery starter and weight management programs multiple times. The most recent was last year while her daughter went through their bariatric program. The last time she visited a charter school executive director for herself was around 4 years ago. Pt stated she tends to stay on diets for a couple of months consecutively, having some weight loss (20Lbs usually). 4 years ago she was able to lose 100 Lbs , but then she went back to old habits (skipping meals. eating fast food when in a [place]) Binge Eating Do you frequently eat large amounts of food in short periods of time, not feeling physically hungry? No Do you feel out of control when you eat a large amount of food in a short period of time? No Do you eat large amounts of food rapidly and typically alone? No Night Eating Do you wake up at least once during the night to eat? No If you wake up in the night, do you find that it is necessary to eat something in order to fall back asleep? No Do you have little or no appetite in the morning and feel very hungry in the evening, often overeating between dinner and when you go to bed? No Social History Family history and relationship PT is , but from her 1 year ago. PT has 2 siblings. Mother alive and living with her at the moment. Father . PT reported she had poor communication with family but the dynamic in her household is very stable. 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 Developmental history and status None reported. Social support Mother, Daughters. PT has 4 good and close friends she can count on. Community support PCP. Adventism/Spirituality Raised as Pentecost. visit churches once in a while. Cultural/Ethnic information PT was born in [place]. Moved to [place] 25 years ago. Legal Involvement and History Current or historical involvement with the legal system? None reported. Education Highest grade completed 12th. Preferred learning style Visual Currently enrolled in educational program? Yes (ESL classes at [employer].) Interested in further educational program? Yes Educational Interests/Skills Would like to learn ASL language or culinary. Employment Employment Status Unemployed Wants help to find employment? No Meaningful activities Listen music, watch Tv. Financial Situation Describe current financial situation Often struggles with finance Financial assistance? Food [place], Disability (From one daughter. ) and [facility] Service? No Mental Health and Addiction Treatment Current/Past substance abuse? No Current/Past addictive behavior concerns? No Psychiatric history Pt attends counseling at [facility] located in [facility] and sees Judith Hewitt. attends therapy every 2 weeks 2 months ago. She decided to start counseling due to symptoms of depression and anxiety. Pt states that when she feels depressed she cries, starts thinking negatively about herself as a mom/daughter, low energy, and isolated. Usually, these symptoms last a couple of days and less than 2 weeks. When Anxious, she feels overwhelmed in enclosed and crowded places, she feels with no air and in needs to get away and get fresh air. She gets anxious inside elevators and doesn't use electric stairs. The patient reported she was hospitalized for mental health (inpatient) a couple of years ago due to increased depression and suicidal thoughts. Denies any safety concerns in the last year. Medical and Physical Health Summary Additional Medical History not covered in history None Sexual History concerns None Physical exam in the last year? Yes Pain Screening Current pain? Yes Pain in the last few months? Yes Comments Back pain, neck pain. Medications Is the patient compliant with medications? Yes Does the patient have Vargas Guardian in place? Not applicable Does the patient use complimentary health approaches? No Trauma/Abuse History History of trauma? Yes Physical Abuse None Domestic Violence/Abuse Past Sexual Abuse/Molestation None Community Violence None Elder Abuse None Financial Abuse None Verbal/Emotional Abuse None Physical Neglect None Emotional Neglect None Related Trauma None Witness to Violence None Exploitation None Other None Current Involvement By None Reported Additional Mandated Report Required None Reported Questionnaires PHQ-9 Over the last 2 weeks, how often have you been bothered by any of the following problems? 1. Little interest or pleasure in doing things: not at all 2. Feeling down, depressed, or hopeless: several days 3. Trouble falling or staying asleep, or sleeping too much: not at all 4. Feeling tired or having little energy: more than half the days 5. Poor appetite or overeating: not at all 6. Feeling bad about yourself - or that you are a failure or have let yourself or your family down: not at all 7. Trouble concentrating on things, such as reading the newspaper or watching television: not at all 8. Moving or speaking so slowly that other people could have noticed. Or the opposite - being so fidgety or restless that you have been moving around a lot more than usual: not at all 9. Thoughts that you would be better off or of hurting yourself in some way: not at all Total score: 3 Depression Screening Interpretation: Negative Depression Screening Done: Yes 25274 - PHQ-9 Billing: Yes Source: Developed by Drs. Jermaine Mcguire, Marilu Andrews, Golden Bae and colleagues, with an educational cassidy from [employer]. Assessment & Plan Assessment & Plan (1) Adjustment disorder with mixed anxiety and depressed mood: Code(s): F43.23 - Adjustment disorder with mixed anxiety and depressed mood Plan: [facility] She has been advised to scheduled an appointment with me for support as needed and will be seen post-op for monitoring and support. Telehealth Telehealth Telehealth Platform: [employer] Location of provider rendering services: other (Home office. [place], [place]) Location of patient: address on file Patient Identification confirmed using: Name, : Yes Telehealth method: voice only Patient verbally consented to treatment: Yes Patient verbally consented to billing insurance company: Yes Patient informed of any privacy concerns related to visit: No Minutes spent on Phone/Video with Pt.: 60 Coding Level of Care Code Established Pt Tele Psytx >53 mins ([id number]) Patient Type Established Diagnoses Adjustment disorder with mixed anxiety and depressed mood F43.23 Time Spent (min) 60
== END 2023-11-18 12:00 | disposition home or self-care (01) ==
LOC: HO.HBST 11:30
PROVIDERS: PCP Internal Medicine; Visit Provider Counselor Mental Health
DX: F43.23 Adjustment disorder with mixed anxiety and depressed mood (principal)
CPT/HCPCS: 90837

== ENCOUNTER 2023-12-04 07:35 | Outpatient (REF) | payer MEDICAID, SELFPAY ==
--- NOTE | ~2023-12-04 | FL_ITS ---
EXAMINATION: XR FLUOROSCOPY UPPER GI WITH AIR CLINICAL INFORMATION: Preop evaluation prior to bariatric surgery COMPARISON: None TECHNIQUE: Fluoroscopic air contrast upper GI examination was performed utilizing standard techniques with thin and thick barium and effervescent granules. Numerous spot images were obtained. FINDINGS: Dual and single contrast images of the esophagus demonstrate normal caliber, contour, and mucosal pattern. No evidence of stricture, mass, or ulcerations identified. Esophageal peristalsis was normal. A very small type I hiatal hernia is present. Gastroesophageal reflux is at the level of the aortic arch. Dual contrast and single contrast images of the stomach demonstrated normal contour and mucosal pattern without evidence of mass, ulceration, or other abnormality. Contrast freely passed into the gastric antrum and duodenal bulb without delay. Single and air-contrast images of the duodenal bulb demonstrate no abnormality. The duodenal sweep has a normal appearance, course, and mucosal fold appearance. The imaged proximal jejunum has a normal fold pattern and caliber. FLUOROSCOPY TIME: 2 minutes 24 seconds Number of Spot Images: 12 Number of Cine: 8 DOSE AREA PRODUCT: 2175 uGy-m2 (microgray-meter squared) FL/FL upper GI w air IMPRESSION: 1. Very small type I hiatal hernia 2. Moderate gastroesophageal reflux This procedure was performed by Nir Harper PA-C, and supervised by Dr. Aj
== END 2023-12-04 07:36 | disposition home or self-care (01) ==
LOC: HO.XRAY 07:35
PROVIDERS: PCP Internal Medicine; Visit Provider Surgery
DX: K21.9 Gastro-esophageal reflux disease without esophagitis (principal); E66.01 Morbid (severe) obesity due to excess calories
CPT/HCPCS: 74246

== ENCOUNTER → 2023-12-04 07:36 | Outpatient (BNV) | payer MEDICAID, SELFPAY | PROVIDERS: PCP Internal Medicine; Visit Provider Physician Assistant Surgical | DX: E66.01 Morbid (severe) obesity due to excess calories (principal); Z01.818 Encounter for other preprocedural examination | CPT/HCPCS: 74246 ==

== ENCOUNTER 2023-12-09 10:42 | Day surgery (SDC) | payer MEDICAID, SELFPAY ==
--- NOTE | 2023-12-07 15:39 | P.CONAN_ITS ---
Documented by User: Vidya Barone NP 12/07/23 15:40 HPI - Anesthesia Eval Consult details Narrative: 43yo F for Upper Endoscopy Rescheduled from earlier 11/2023 d/t not stopping Trulicity Anesthesia Pre-Procedure Meds Is the patient on any of the following meds?: GLP1/DPP4 PMFSH Active Problems Active Problems: All Active Problems Stress incontinence (Acute) Asthma (Acute) Hyperlipidemia (Acute) Sleep apnea with use of continuous positive airway pressure (CPAP) (Acute) Non-insulin dependent type 2 diabetes mellitus (Acute) Breast pain, right (Acute) Well woman exam (Acute) ZHAO (dyspnea on exertion) (Acute) LGSIL on Pap smear of cervix (Acute) Neck pain without injury (Acute) Myofascial pain (Acute) Knee pain (Acute) Back pain (Acute) Prediabetes (Acute) Insomnia (Acute) GERD (gastroesophageal reflux disease) (Acute) Hypertension (Acute) Morbid obesity (Acute) Past Medical History Medical History Stress incontinence Asthma Hyperlipidemia Breast pain, right Dysplasia of cervix, low grade (JOSE LUIS 1) Knee pain Back pain Prediabetes Insomnia GERD (gastroesophageal reflux disease) Hypertension Morbid obesity Family History Family History Mother Hypertension Diabetes Asthma Arthritis Father No problems noted. Brother No problems noted. Brother No problems noted. Daughter No problems noted. Daughter No problems noted. Daughter No problems noted. Maternal Aunt Breast cancer, Onset Age: 56 Family history of problems with anesthesia: No Surgical History Surgical History Hx of tubal ligation Hx of section History of Problems with Anesthesia: No Social History Social History Household Members: Children Household Members Other:: mother Housing: Apartment Alcohol intake: never Patient Tobacco Use Status: Never used Tobacco Current occupational status: unemployed Sexual orientation: Straight/Heterosexual Gender identity: Female Meds Allergies Allergy/AdvReac Type Severity Reaction Status Date / Time zolpidem [From Ambien] AdvReac Confusion Verified 11/17/23 09:42 Home Medications ?Medication ?Instructions ?Recorded ?Confirmed ?Last Taken ?Type albuterol sulfate 90 mcg/actuation 2 puff inhalation Q6H PRN 07/27/20 11/17/23 Unknown History aerosol inhaler meclizine 12.5 mg tablet 12.5 mg PO TID 03/01/21 11/17/23 Unknown History ergocalciferol (vitamin D2) 1,250 1,250 mcg PO QWEEK 07/02/22 11/17/23 Unknown History mcg (50,000 unit) capsule metformin 500 mg tablet,extended 500 mg PO QPM 07/02/22 11/17/23 Unknown History release 24 hr nifedipine 90 mg tablet,extended 90 mg PO QAM 07/02/22 11/17/23 Unknown History release 24 hr sucralfate 1 gram tablet 1 g PO TID 07/02/22 11/17/23 Unknown History atorvastatin 40 mg tablet 40 mg PO QAM 01/07/23 11/17/23 Unknown History cetirizine 10 mg tablet 10 mg PO QAM PRN allergies 01/07/23 11/17/23 Unknown History chlorthalidone 50 mg tablet 50 mg PO BEDTIME 01/07/23 11/17/23 Unknown History oxybutynin chloride 15 mg 15 mg PO QAM 01/07/23 11/17/23 Unknown History tablet,extended release 24 hr dulaglutide 0.75 mg/0.5 mL mg subcut QWEEK 11/18/23 11/18/23 11/30/23 History subcutaneous pen injector (Trulicity) Exam Narrative Narrative: EKG 2023 Vent. Rate : 071 BPM Atrial Rate : 071 BPM P-R Int : 166 ms QRS Dur : 110 ms QT Int : 380 ms P-R-T Axes : 035 -23 -38 degrees QTc Int : 412 ms Normal sinus rhythm Moderate voltage criteria for LVH, may be normal variant ( R in aVL , Huey product ) Nonspecific ST and T wave abnormality Abnormal ECG When compared with ECG of 13-FEB-2023 11:41, Nonspecific T wave abnormality now evident in Lateral leads Assessment and Plan Assessment Anesthesia Assessment: Chart Reviewed Final Anesthetic Review Family History of Problems with Anesthesia: No History of Problems with Anesthesia: No Documented by User: Sharon Mendez MD 12/09/23 13:18 [facility] Active Problems Active Problems: All Active Problems Stress incontinence (Acute) Asthma (Acute)- controlled Hyperlipidemia (Acute) Sleep apnea Non-insulin dependent type 2 diabetes mellitus (Acute) Breast pain, right (Acute) Well woman exam (Acute) ZHAO (dyspnea on exertion) (Acute) LGSIL on Pap smear of cervix (Acute) Neck pain without injury (Acute) Myofascial pain (Acute) Knee pain (Acute) Back pain (Acute) Prediabetes (Acute) Insomnia (Acute) GERD (gastroesophageal reflux disease) (Acute) Hypertension (Acute) Morbid obesity (Acute) Past Medical History Medical History Stress incontinence Asthma Hyperlipidemia Breast pain, right Dysplasia of cervix, low grade (JOSE LUIS 1) Knee pain Back pain Prediabetes Insomnia GERD (gastroesophageal reflux disease) Hypertension Morbid obesity Family History Family History Mother Hypertension Diabetes Asthma Arthritis Father No problems noted. Brother No problems noted. Brother No problems noted. Daughter No problems noted. Daughter No problems noted. Daughter No problems noted. Maternal Aunt Breast cancer, Onset Age: 56 Family history of problems with anesthesia: No Surgical History Surgical History Hx of tubal ligation Hx of section History of Problems with Anesthesia: No Social History Social History Household Members: Children Household Members Other:: mother Housing: Apartment Alcohol intake: never Patient Tobacco Use Status: Never used Tobacco Current occupational status: unemployed Sexual orientation: Straight/Heterosexual Gender identity: Female Meds Allergies Allergy/AdvReac Type Severity Reaction Status Date / Time zolpidem [From Ambien] AdvReac Confusion Verified 11/17/23 09:42 Home Medications ?Medication ?Instructions ?Recorded ?Confirmed ?Last Taken ?Type albuterol sulfate 90 mcg/actuation 2 puff inhalation Q6H PRN 07/27/20 11/17/23 Unknown History aerosol inhaler meclizine 12.5 mg tablet 12.5 mg PO TID 03/01/21 11/17/23 Unknown History ergocalciferol (vitamin D2) 1,250 1,250 mcg PO QWEEK 07/02/22 11/17/23 Unknown History mcg (50,000 unit) capsule metformin 500 mg tablet,extended 500 mg PO QPM 07/02/22 11/17/23 Unknown History release 24 hr nifedipine 90 mg tablet,extended 90 mg PO QAM 07/02/22 11/17/23 Unknown History release 24 hr sucralfate 1 gram tablet 1 g PO TID 07/02/22 11/17/23 Unknown History atorvastatin 40 mg tablet 40 mg PO QAM 01/07/23 11/17/23 Unknown History cetirizine 10 mg tablet 10 mg PO QAM PRN allergies 01/07/23 11/17/23 Unknown History chlorthalidone 50 mg tablet 50 mg PO BEDTIME 01/07/23 11/17/23 Unknown History oxybutynin chloride 15 mg 15 mg PO QAM 01/07/23 11/17/23 Unknown History tablet,extended release 24 hr dulaglutide 0.75 mg/0.5 mL mg subcut QWEEK 11/18/23 11/18/23 11/30/23 History subcutaneous pen injector ([facility]) Exam Height,Weight and Vital Signs: Height 5 ft 3 in Weight 126.155 kg Vital Signs Temp Pulse Resp BP Pulse Ox O2 Del Method O2 Flow Rate 12/09/23 13:10 97.2 F 86 18 114/93 H 99 Simple Mask 10 12/09/23 11:37 97.7 F 85 16 104/70 95 Room Air Pertinent Lab Results Pertinent Lab Results: Lab Results 12/09/23 Range/Units 11:46 POC Glucose 103 (60-115) mg/dL Airway Mallampati Class: III TM Dist: >3cm Neck ROM: Full Loose/Missing/Broken Teeth: No (Denies broken, loose or missing teeth) Heart: RRR Lungs: CTAB Assessment and Plan Assessment Anesthesia Assessment: Anesthesia Plan Discussed and Chart Reviewed Final Anesthetic Review Family History of Problems with Anesthesia: No History of Problems with Anesthesia: No NPO: Yes ASA Class: III Final Preanesthetic Review: No Changes in Pt Med Stat, Meds/Allgs Chart Reviewed, Consent Obtained/Reviewed and Anes Risks/Benef Reviewed Patient Risk: Intermediate Procedure Risk: Low Assessment/Block/Sedation in SS: Assess/Block/Sedation-SS Anesthetic Plan Anesthetic Plan: GA and TIVA Disposition: Standard PACU
[2023-12-09 11:32] VITALS: BMI 49.3
[2023-12-09 11:37] VITALS: BP 104/70; PULSE 85; RESP 16; TEMP 36.5; O2SAT 95
[2023-12-09 11:50] LABS: Glucose, Whole Blood 103 mg/dL (60-115)
[2023-12-09] MEDS: Lactated Ringers 1,000 ML 80 ML IVCONT (11:53)
--- NOTE | 2023-12-09 12:22 | PM.OP ---
Brief Operative Note Date of Service: 12/09/23 Pre-op diagnosis: GERD Post-op diagnosis: same Procedure: PROCEDURE DATE: 12/06/25 PREOPERATIVE DIAGNOSIS: GERD POSTOPERATIVE DIAGNOSIS: ?Same as above. 1) small hiatal hernia PROCEDURE: Bqkjyveb-wkjqzs-jvzxkrtrybhj with biopsies Surgeon: Kristina Ricardo M.D.. Ph.D. Chief Nurse Anesthetist: None ? Anesthesia: IV sedation Estimated blood loss: ?Minimal FINDINGS AND PROCEDURE: ? OPERATIVE INDICATIONS: ?The patient is a 43 year old female known to me who is interested in bariatric surgery. The patient has GERD. Based on this information I recommended an upper endoscopy to evaluate the patient's symptoms. Risks and complications of the surgery were discussed with the patient in advance particularly the possibility of perforation or bleeding that may require surgical intervention. The patient understood the risks and was in agreement with the plan. ? PROCEDURE: After informed consent was obtained by the patient, the patient was ?transferred to the Operating Room and was placed in the supine position.? After successful induction of IV sedation, a mouth block was inserted and the patient was placed in the left lateral decubitus position. An upper endoscopy was performed next, the oropharynx and esophagus appeared within the normal limits. There was a small 2cm hiatal hernia. The z-line was smooth. Two biopsies were obtained from the distal esophagus 2-3 cm proximal to the GE junction and two additional biopsies from the GE junction. The stomach was entered and it appeared to be of normal size. There was no gastritis. There was no stricture or ulcer. A biopsy was obtained from the gastric fundus and antrum. No significant bleeding was noted from any of the biopsy sites. Retroflexion of the scope revealed a small hiatal hernia. The scope was then advanced into the duodenum which appeared to be normal as well. At that point the duodenum ?and the stomach were decompressed and the scope was withdrawn from the patient's mouth. The patient extubated and was transferred in stable condition to the Recovery Room for further care. I was present and performed all steps of the procedure. There were no residents to assist with this case. Pako Ricardo M.D., Ph.D. Surgeon: Mikey Ricardo MD Anesthesia: MAC Was an Chief Nurse Anesthetist used for this Procedure?: No Estimated blood loss (mL): 0 IV fluids (mL): 400 Urine output (mL): 0 (No Isaacs to record output) Pathology: other (1) antrum x1, 2) fundus x1, 3) GE junction x2, 4) distal esophagus x2) Condition: stable Disposition: PACU
--- NOTE | 2023-12-09 12:24 | P.HPSUR_ITS ---
Pre-Procedural Eval Section A - 24 Hr Update-Section A only Date of Service: 12/09/23 The patient is an INPATIENT: No The patient has been examined within 24 hours of the surgical procedure. The History & Physical has been completed within 30 days and I have reviewed it.: No Section B - Complete if H&P > 30 days Chief Complaint: Morbid (severe) obesity due to excess calories Details of Present Illness: GERD Relevant Family History (Specify if Yes): No Relevant Social History: None Present Medications: None Medical History: No relevant PMH History of Previous Operations: No relevant previous surgery Allergies: Allergies Allergy/AdvReac Type Severity Reaction Status Date / Time zolpidem [From Ambien] AdvReac Confusion Verified 11/17/23 09:42 Review of Systems Sugical H&P ROS: Negative: Constitution, Cardiovascular, Respiratory, Neurological, Psychiatric, Hem-Onc, Allergic/Immunologic, Gastrointestinal, Genitourinary, Musculoskeletal, Integumentary, Endocrine and Eyes/Ears/Nos e/Throat Exam Surgical H&P Exam: Normal: HEENT, Normal: Heart, Normal: Lungs, Normal: Extremities, Normal: Abdomen, Normal: Skin and Normal: Neurological Plan Diagnosis/Plan: Unchanged (EGD to assess etiology of GERD. Risks of bleeding and perforation were discussed with the patient and she is in agreement with the plan.) I have reviewed the history and physical and performed a pertinent physical examination on my patient. No changes have occurred unless specified. Time Spent With Patient Time: Total time managing care of this patient today ____ minutes.
[2023-12-09 13:10] VITALS: BP 114/93; PULSE 86; RESP 18; TEMP 36.2; O2SAT 99
[2023-12-09 13:25] VITALS: BP 126/84; PULSE 89; RESP 16; TEMP 36.1; O2SAT 97
== END 2023-12-09 13:57 | disposition home or self-care (01) ==
PROVIDERS: PCP Internal Medicine; Visit Provider Surgery
PROC: 0DJ08ZZ Inspection of Upper Intestinal Tract, Via Natural or Artificial Opening Endoscopic (ICD-10-PCS; CPT 43235; principal; 2023-12-09 11:50)
DX: K21.9 Gastro-esophageal reflux disease without esophagitis (principal); E66.01 Morbid (severe) obesity due to excess calories; Z68.42 Body mass index [BMI] 45.0-49.9, adult; K44.9 Diaphragmatic hernia without obstruction or gangrene; E78.5 Hyperlipidemia, unspecified; K29.50 Unspecified chronic gastritis without bleeding; I10 Essential (primary) hypertension; E11.9 Type 2 diabetes mellitus without complications; G47.30 Sleep apnea, unspecified; J45.909 Unspecified asthma, uncomplicated; Z79.84 Long term (current) use of oral hypoglycemic drugs; Z79.899 Other long term (current) drug therapy; Z88.8 Allergy status to other drugs, medicaments and biological substances; Z56.0 Unemployment, unspecified
CPT/HCPCS: 43239; 82947; 88305; 88313; 88342; J2704

== ENCOUNTER → 2023-12-09 10:42 | Outpatient (BNV) | payer MEDICAID, SELFPAY | PROVIDERS: PCP Internal Medicine; Visit Provider Surgery | DX: K44.9 Diaphragmatic hernia without obstruction or gangrene (principal) | CPT/HCPCS: 43239 ==

== ENCOUNTER 2023-12-10 09:04 | Outpatient (AMB) | payer MEDICAID, SELFPAY ==
--- NOTE | 2023-12-10 09:20 | A.OFFVIS_ITS ---
Vital Signs 12/10/23 09:21 Height 5 ft 3 in Weight 272 lb 4.334 oz BMI 48.2 BP 112/72 Blood Pressure Location Lt radial Position Sitting Pulse 92 Pulse Source Pulse Oximeter Pulse Oximetry (%) 98 Oxygen Delivery Method Room Air Intake Visit Reasons: jad Intake Note: pt is here for new problem and states she is having shortness of shortness of breath and tired easily, and doing stairs. will be working towards bariatric surgery. Rn Telephonic Required: Yes Rn Telephonic Name: veronica Allergies zolpidem [From Ambien] Adverse Reaction (Verified 12/10/23 09:45) Confusion Medication List - Last Reconciled 12/10/23 by Jalil Galo MD albuterol sulfate 90 mcg/actuation 2 puffs inhalation Q6H PRN atorvastatin 40 mg PO QAM cetirizine 10 mg PO QAM PRN chlorthalidone 50 mg PO BEDTIME dulaglutide (Trulicity) mg subcut QWEEK ergocalciferol (vitamin D2) 1,250 mcg PO QWEEK meclizine 12.5 mg PO TID metformin ER 500 mg PO QPM nifedipine ER 90 mg PO QAM omeprazole 40 mg PO BID oxybutynin chloride ER 15 mg PO QAM sucralfate 1 g PO TID valsartan 80 mg (1/2 x 160 mg) PO BID HPI HPI jad: Details: This 43 years old female with morbid obesity, diagnosis of mild bronchial asthma, and obstructive sleep apnea is coming for follow-up visit, Breathing has been stable, she uses albuterol but only once in a while. She has mild intermittent nasal congestion and uses cetirizine 10 mg only p.r.n.. She was last seen by me in July 2022, and had had home-based sleep study in March 2022 which was surprisingly normal. Subsequently she continued to have difficulty in sleeping at night with some snoring, and daytime sleepiness. Patient had a repeat sleep study in [place] , does not know the name of the sleep lab . Which confirmed diagnosis of sleep apnea. She tells me that CPAP has been ordered by her primary care physician, but she has been waiting for the equipment. This seems to be some issue with the approval process. She describes today that she wakes up quite frequently with snoring and gasping for air. This may be because she has put on some weight. Her sleep is fragmented, and she does have daytime fatigue/sleepiness. [facility] Medical History JAD (obstructive sleep apnea) Stress incontinence Asthma Hyperlipidemia Breast pain, right Dysplasia of cervix, low grade (JOSE LUIS 1) Knee pain Back pain Prediabetes Insomnia GERD (gastroesophageal reflux disease) Hypertension Morbid obesity Surgical History Hx of tubal ligation Hx of section Family History Mother Hypertension Diabetes Asthma Arthritis Father No problems noted. Brother No problems noted. Brother No problems noted. Daughter No problems noted. Daughter No problems noted. Daughter No problems noted. Maternal Aunt Breast cancer, Onset Age: 56 Social History Household Members: Children Household Members Other:: mother Housing: Apartment Alcohol intake: never Patient Tobacco Use Status: Never used Tobacco Current occupational status: unemployed Sexual orientation: Straight/Heterosexual Gender identity: Female Female Reproductive History Menstrual Age of Menarche: 10 Review of Systems Const All systems reviewed & are unremarkable except as noted in HPI and below Eyes Reports no additional complaints ENT Reports no additional complaints Card Denies chest pain, Denies irregular heart rhythm and Denies leg edema Resp Reports as per HPI GI Reports heartburn Reports no additional complaints Musc Reports myalgias and Reports arthralgias Skin/Breast Reports system reviewed and no additional complaints, except as documented Neuro Reports no additional complaints Psych Reports no additional complaints Endo Reports no additional complaints Roger/Lymph Reports no additional complaints Aller/Immun Reports no additional complaints Physical Exam Vital Signs: Last Vital Signs Pulse 92 12/10/23 09:21 BP 112/72 12/10/23 09:21 Pulse Ox 98 12/10/23 09:21 Oxygen Delivery Method Room Air 12/10/23 09:21 BMI result Body Mass Index 48.2 Const Other: SHE IS GROSSLY OVERWEIGHT WITH A ROUND FACE. General: comfortable, no acute distress, alert and awake Orientation/consciousness: patient oriented x3 HEENT Head: Yes normal to inspection General nose exam: No nasal polyps present and No nasal discharge present Face and sinus: Yes sinuses nontender Mouth: oropharynx abnormals (OROPHARYNX IS MODERATELY CROWDED, MALLAMPATI CLASS 3.) Throat: Yes posterior oropharynx normal Eyes General: appearance normal, both eyes and all related structures Neck Neck: Yes normal visual inspection, Yes no lymphadenopathy, Yes trachea midline and Yes no JVD Thyroid: Thyroid normal Chest Chest palpation & inspection: normal inspection of the chest, normal palpation of entire chest wall and no tenderness Resp Other: BREATH SOUNDS ARE SLIGHTLY DISTANT BECAUSE OF THE OBESITY, BUT LUNGS ARE VERY CLEAR NO WHEEZES OR RHONCHI ARE HEARD, Cardio Palpation: PMI not normal (NOT PALPABLE) Rate: regular rate Rhythm: regular rhythm Heart sounds: no gallops and no murmurs Peripheral pulses: Peripheral pulses 2+ throughout GI Palpation (GI): Soft to palpation, nontender, No hepatosplenomegaly present, no masses and Other GI palpation findings present (ABDOMEN IS OBESE AND MODERATELY PROTUBERANT) Auscultation: normal bowel sounds Back/Spine/Pelvis Thoracic/Lumbar Spine: thoracic and lumbar spine normal to inspection and thoraco-lumbar ROM limited Skin General skin exam: no rashes or lesions noted Neuro General: patient oriented x3 and no focal motor deficits Cranial nerves: Yes CN's II-XII intact bilaterally Extrem General: Yes normal to inspection, Yes no clubbing, cyanosis or edema and Yes no calf tenderness Psych Appearance: grossly normal and well kempt Speech and movement: Normal speech and movement present Assessment & Plan Assessment & Plan (1) Morbid obesity: Comment: Patient is morbidly obese, She is in weight management program, Awaiting to undergo bariatric surgery. Code(s): E66.01 - Morbid (severe) obesity due to excess calories Category: Medical Plan: Lately she has put on more weight. Encouraged to stay in the weight management program. (2) ZHAO (dyspnea on exertion): Comment: DYSPNEA ON EXERTION IS MAINLY DUE TO HER MORBID OBESITY, RESTRICTIVE LUNG DISORDER AND MAY BE MILD BRONCHIAL ASTHMA. Code(s): R06.09 - Other forms of dyspnea Category: Medical Plan: SHE IS ADVISED TO LOSE WEIGHT, DO DEEP BREATHING EXERCISES 2 OR 3 TIMES A DAY. AND USE ALBUTEROL INHALER ONLY P.R.N. (3) Asthma: Comment: This patient has a low-grade chronic allergic rhinitis/bronchial asthma, mild and intermittent Code(s): J45.909 - Unspecified asthma, uncomplicated Category: Medical Plan: USE ALBUTEROL HFA 2 PUFFS Q.6 HOURS P.R.N. (4) JAD (obstructive sleep apnea): Comment: Patient with morbid obesity has typical symptoms of obstructive sleep apnea. Surprisingly her home-based sleep study in March 2022 was negative. Patient has had a recent the repeat sleep study, in [place], we do not have that report. Apparently it was positive for sleep apnea and she is in the process of getting the CPAP equipment. However there has been a long wait . Code(s): G47.33 - Obstructive sleep apnea (adult) (pediatric) Category: Medical Plan: WE WILL TRY TO GET HOLD OF HER RECENT SLEEP STUDY, AND THEN WORK WITH THE DME PROVIDER AND DETERMINE WHAT THE ISSUE IS. Coding Level of Care Code Est Pt Level 4 (84985) Diagnoses Morbid obesity E66.01 ZHAO (dyspnea on exertion) R06.09 Asthma J45.909 JAD (obstructive sleep apnea) G47.33
[2023-12-10 09:21] VITALS: BP 112/72; PULSE 92; O2SAT 98; BMI 48.2
--- NOTE | 2023-12-10 09:28 | MHC.OFFVIS ---
Vital Signs 12/10/23 09:21 Height 5 ft 3 in Weight 272 lb 4.334 oz BMI 48.2 BP 112/72 Blood Pressure Location Lt radial Position Sitting Pulse 92 Pulse Source Pulse Oximeter Pulse Oximetry (%) 98 Oxygen Delivery Method Room Air Intake Visit Reasons: jad Allergies zolpidem [From Ambien] Adverse Reaction (Verified 12/10/23 09:45) Confusion Medication List - Last Reconciled 12/10/23 by Jalil Galo MD albuterol sulfate 90 mcg/actuation 2 puffs inhalation Q6H PRN atorvastatin 40 mg PO QAM cetirizine 10 mg PO QAM PRN chlorthalidone 50 mg PO BEDTIME dulaglutide (Trulicity) mg subcut QWEEK ergocalciferol (vitamin D2) 1,250 mcg PO QWEEK meclizine 12.5 mg PO TID metformin ER 500 mg PO QPM nifedipine ER 90 mg PO QAM omeprazole 40 mg PO BID oxybutynin chloride ER 15 mg PO QAM sucralfate 1 g PO TID valsartan 80 mg (1/2 x 160 mg) PO BID Do you need a note to return to daycare/school/sports/work: No HPI HPI jad: Details: This 43 years old female with morbid obesity, is in weight management program and awaiting to undergo bariatric surgery. She had a home-based sleep study at [facility] on 03/27/2022 and surprisingly it was negative for sleep apnea with total sleep time AHI only 2.8 Her pulmonary function test was also relatively normal. She has had continued symptoms of fragmented sleep at night and, daytime sleepiness/fatigue. In the interval. She has had a sleep study in [place], and apparently it was positive for sleep apnea. CPAP therapy was ordered but she has not received CPAP equipment , and has been waiting for long time. She has mild intermittent cough but no wheezing, She gets short of breath on walking around and that is probably due to her morbid obesity. She does have albuterol HFA on hand but uses it only once in a while. She is also using Zyrtec 10 mg once a day on p.r.n. basis. [facility] Medical History (Updated 12/10/23 @ 09:55 by Jalil Galo MD) JAD (obstructive sleep apnea) Stress incontinence Asthma Hyperlipidemia Breast pain, right Dysplasia of cervix, low grade (JOSE LUIS 1) Knee pain Back pain Prediabetes Insomnia GERD (gastroesophageal reflux disease) Hypertension Morbid obesity Surgical History Hx of tubal ligation Hx of section Family History Mother Hypertension Diabetes Asthma Arthritis Father No problems noted. Brother No problems noted. Brother No problems noted. Daughter No problems noted. Daughter No problems noted. Daughter No problems noted. Maternal Aunt Breast cancer, Onset Age: 56 Social History Household Members: Children Household Members Other:: mother Housing: Apartment Alcohol intake: never Patient Tobacco Use Status: Never used Tobacco Current occupational status: unemployed Sexual orientation: Straight/Heterosexual Gender identity: Female Female Reproductive History Menstrual Age of Menarche: 10 Review of Systems Const All systems reviewed & are unremarkable except as noted in HPI and below Eyes Reports no additional complaints ENT Reports no additional complaints Card Denies chest pain, Denies irregular heart rhythm and Denies leg edema Resp Reports as per HPI GI Reports heartburn Reports no additional complaints Musc Reports myalgias and Reports arthralgias Skin/Breast Reports system reviewed and no additional complaints, except as documented Neuro Reports no additional complaints Psych Reports no additional complaints Endo Reports no additional complaints Roger/Lymph Reports no additional complaints Aller/Immun Reports no additional complaints Physical Exam Vital Signs: Last Vital Signs Pulse 92 12/10/23 09:21 BP 112/72 12/10/23 09:21 Pulse Ox 98 12/10/23 09:21 Oxygen Delivery Method Room Air 12/10/23 09:21 BMI result Body Mass Index 48.2 Const Other: SHE IS GROSSLY OVERWEIGHT WITH A ROUND FACE. General: comfortable, no acute distress, alert and awake Orientation/consciousness: patient oriented x3 HEENT Head: Yes normal to inspection General nose exam: No nasal polyps present and No nasal discharge present Face and sinus: Yes sinuses nontender Mouth: oropharynx abnormals (OROPHARYNX IS MODERATELY CROWDED, MALLAMPATI CLASS 3.) Throat: Yes posterior oropharynx normal Eyes General: appearance normal, both eyes and all related structures Neck Neck: Yes normal visual inspection, Yes no lymphadenopathy, Yes trachea midline and Yes no JVD Thyroid: Thyroid normal Chest Chest palpation & inspection: normal inspection of the chest, normal palpation of entire chest wall and no tenderness Resp Other: BREATH SOUNDS ARE SLIGHTLY DISTANT BECAUSE OF THE OBESITY, BUT IT LUNGS ARE VERY CLEAR NO WHEEZES OR RHONCHI ARE HEARD, Cardio Palpation: PMI not normal (NOT PALPABLE) Rate: regular rate Rhythm: regular rhythm Heart sounds: no gallops and no murmurs Peripheral pulses: Peripheral pulses 2+ throughout GI Palpation (GI): Soft to palpation, nontender, No hepatosplenomegaly present, no masses and Other GI palpation findings present (ABDOMEN IS OBESE AND MODERATELY PROTUBERANT) Auscultation: normal bowel sounds Back/Spine/Pelvis Thoracic/Lumbar Spine: thoracic and lumbar spine normal to inspection and thoraco-lumbar ROM limited Skin General skin exam: no rashes or lesions noted Neuro General: patient oriented x3 and no focal motor deficits Cranial nerves: Yes CN's II-XII intact bilaterally Extrem General: Yes normal to inspection, Yes no clubbing, cyanosis or edema and Yes no calf tenderness Psych Appearance: grossly normal and well kempt Speech and movement: Normal speech and movement present Assessment & Plan Assessment & Plan (1) Morbid obesity: Comment: Patient is morbidly obese, She is in weight management program, Awaiting to undergo bariatric surgery. Code(s): E66.01 - Morbid (severe) obesity due to excess calories Category: Medical Plan: Continue in the weight management program (2) Asthma: Comment: This patient has a low-grade chronic allergic rhinitis/bronchial asthma, mild and intermittent Code(s): J45.909 - Unspecified asthma, uncomplicated Category: Medical Plan: May use albuterol 2 puffs Q 4-6 hours p.r.n.. May use Zyrtec 10 mg once a day p.r.n. (3) JAD (obstructive sleep apnea): Comment: Patient with morbid obesity has typical symptoms of obstructive sleep apnea. Surprisingly her home-based sleep study in March 2022 was negative. Patient has had a recent the repeat sleep study, in [place], we do not have that report. Apparently it was positive for sleep apnea and she is in the process of getting the CPAP equipment. However there has been a long wait . Code(s): G47.33 - Obstructive sleep apnea (adult) (pediatric) Category: Medical Plan: We will try to get the report of that sleep study. After that will do necessary paperwork and contact the [employer] company to find out what the issue is. Coding Level of Care Code Est Pt Level 3 (99557) Diagnoses Morbid obesity E66.01 Asthma J45.909 JAD (obstructive sleep apnea) G47.33
== END 2023-12-10 09:46 | disposition home or self-care (01) ==
PROVIDERS: PCP Internal Medicine; Referring Provider Internal Medicine; Visit Provider Internal Medicine
DX: E66.01 Morbid (severe) obesity due to excess calories (principal); R06.09 Other forms of dyspnea; J45.909 Unspecified asthma, uncomplicated; G47.33 Obstructive sleep apnea (adult) (pediatric)
CPT/HCPCS: 99214

== ENCOUNTER → 2023-12-10 09:04 | Outpatient (BNVA) | payer MEDICAID, SELFPAY | PROVIDERS: PCP Internal Medicine; Visit Provider Internal Medicine | DX: G47.33 Obstructive sleep apnea (adult) (pediatric) (principal); R06.09 Other forms of dyspnea; J45.909 Unspecified asthma, uncomplicated; E66.01 Morbid (severe) obesity due to excess calories; Z68.42 Body mass index [BMI] 45.0-49.9, adult | CPT/HCPCS: 99212 ==

== ENCOUNTER 2023-12-29 09:12 | Outpatient (AMB) | payer MEDICAID, SELFPAY ==
--- NOTE | 2023-12-29 09:21 | A.OFFVIS_ITS ---
VS Expanded 12/29/23 09:41 BP 177/98 H Blood Pressure Location Rt brachial Blood Pressure Position Sitting Pulse 77 Pulse Source Pulse Oximeter Temp 97.1 F Temperature Source Temporal Artery Scan Pulse Oximetry 99 Oxygen Delivery Method Room Air Height 5 ft 3 in Weight 274 lb 12.8 oz BMI 48.7 Body Fat % 47.0 Body Fat Mass 129.2 Fat Free Mass 145.6 Visceral Fat Rating 16.0 Body Water % 37.8 Body Water Mass 103.8 Muscle Mass/Score 138.2 Basal Metabolic Rate/Score 2,069 Intake Visit Reasons: (OV) F/U SWL Professional Nursing Assistant Required: No Allergies zolpidem [From Ambien] Adverse Reaction (Verified 12/29/23 09:35) Confusion Medication List - Last Reconciled 12/29/23 by SHERRILL Bernard albuterol sulfate 90 mcg/actuation 2 puffs inhalation Q6H PRN atorvastatin 40 mg PO QAM cetirizine 10 mg PO QAM PRN chlorthalidone 50 mg PO BEDTIME dulaglutide (Trulicity) mg subcut QWEEK ergocalciferol (vitamin D2) 1,250 mcg PO QWEEK meclizine 12.5 mg PO TID metformin ER 500 mg PO QPM nifedipine ER 90 mg PO QAM omeprazole 40 mg PO BID oxybutynin chloride ER 15 mg PO QAM pantoprazole 40 mg PO DAILY sucralfate 1 g PO TID valsartan 80 mg (1/2 x 160 mg) PO BID HPI Comments Details: Patient is a 43-year-old female who presented to the weight management clinic to reestablish care in the surgical weight loss pathway on 10/12/2023. Her weight at that time was 283.2 lb with a BMI of 48.6. Weight today is 274.8 pounds with a BMI of 48.7. She has lost 8.4 lb or 2.9% total body weight loss. Feels as though plans are doing well. Checking BP at home 120s over 70s. We had her decrease valsartan from 160 mg twice a day down to 80 mg twice a day. She could not use the right BMI johann as she had difficulty understanding it. meal plan: 1 premade PREMIER protein shakes (mix 4oz Premier shakes with 4oz low fat unsweetened almond milk each) at 8am-10am and 11am-1pm, 1 protein bar (CELEBRATE, buy at hospital[facility] gift shop) at 2pm-4pm, dinner at 5pm (10 forks of protein and 10 forks of salad/vegetables) and one more protein bar after dinner at 7pm-9pm Drinking 48 oz water daily Exercise plan: walking outside has ability to join [facility] Medical History JAD (obstructive sleep apnea) Stress incontinence Asthma Hyperlipidemia Breast pain, right Dysplasia of cervix, low grade (JOSE LUIS 1) Knee pain Back pain Prediabetes Insomnia GERD (gastroesophageal reflux disease) Hypertension Morbid obesity Surgical History Hx of tubal ligation Hx of section Family History Mother Hypertension Diabetes Asthma Arthritis Father No problems noted. Brother No problems noted. Brother No problems noted. Daughter No problems noted. Daughter No problems noted. Daughter No problems noted. Maternal Aunt Breast cancer, Onset Age: 56 Social History Household Members: Children Household Members Other:: mother Housing: Apartment Alcohol intake: never Patient Tobacco Use Status: Never used Tobacco Current occupational status: unemployed Sexual orientation: Straight/Heterosexual Gender identity: Female Female Reproductive History Menstrual Age of Menarche: 10 Physical Exam Const General: healthy appearing and no acute distress Resp Effort & Inspection: normal respiratory effort Auscultation: clear to auscultation bilaterally Cardio Rate: regular rate Rhythm: regular rhythm GI Auscultation: normal bowel sounds Extrem General: Yes normal to inspection Assessment & Plan Assessment & Plan (1) Morbid obesity: Code(s): E66.01 - Morbid (severe) obesity due to excess calories Category: Medical Plan: Patient had a sick child requiring hospitalization and ultimately surgery requiring her attention and inpatient hospital stay. She was unable to follow the meal plan for approximately 10 days or so. She is now back on track, was able to identify the meal plan. She unfortunately in the cast of that incident, she lost the discount paper that I had given her for the [facility], I have given her a new paper. We will have her return to the office in approximately 4 weeks. She has been encouraged to send her weight weekly and text with any questions.
[2023-12-29 09:41] VITALS: BP 177/98; PULSE 77; TEMP 36.2; O2SAT 99; BMI 48.7
== END 2023-12-29 09:49 | disposition home or self-care (01) ==
PROVIDERS: PCP Internal Medicine; Visit Provider Physician Assistant Surgical
DX: E66.01 Morbid (severe) obesity due to excess calories (principal)
CPT/HCPCS: 99213

== ENCOUNTER → 2023-12-29 09:12 | Outpatient (BNVA) | payer MEDICAID, SELFPAY | PROVIDERS: PCP Internal Medicine; Visit Provider Physician Assistant Surgical | DX: E66.01 Morbid (severe) obesity due to excess calories (principal); Z68.42 Body mass index [BMI] 45.0-49.9, adult | CPT/HCPCS: 99212 ==

== ENCOUNTER 2024-02-19 08:04 | Outpatient (AMB) | payer MEDICAID, SELFPAY ==
--- NOTE | 2024-02-19 10:40 | MHC.OFFVISWM ---
VS Expanded 02/19/24 10:42 Height 5 ft 3 in Weight 267 lb 9 oz BMI 47.4 Intake Visit Reasons: TV Pre Op LSG 02/23/24 *[employer]* Allergies zolpidem [From Ambien] Adverse Reaction (Verified 02/19/24 10:42) Confusion Medication List - Last Reconciled 02/19/24 by Mikey Ricardo MD albuterol sulfate 90 mcg/actuation 2 puffs inhalation Q6H PRN atorvastatin 40 mg PO QAM cetirizine 10 mg PO QAM PRN chlorthalidone 50 mg PO BEDTIME dulaglutide (Trulicity) 0.75 mg subcut QWEEK ergocalciferol (vitamin D2) 1,250 mcg PO QWEEK meclizine 12.5 mg PO TID metformin ER 500 mg PO QPM nifedipine ER 90 mg PO QAM omeprazole 40 mg PO BID ondansetron 4 mg PO Q12H oxybutynin chloride ER 15 mg PO QAM pantoprazole 40 mg PO DAILY pantoprazole 40 mg PO DAILY polyethylene glycol 3350 17 grams PO DAILY sucralfate 1 g PO TID sucralfate 10 mL PO BID valsartan 80 mg (1/2 x 160 mg) PO BID HPI HPI TV Pre Op LSG 02/23/24 *[employer]*: Details: Start time: 10.30am, End time: 11am ?I spent 25 minutes speaking with the patient on the phone plus an additional 5 minutes reviewing and updating records for a total of 30 minutes HPI Comments Details: Overall weight loss: 15.3lbs, or 5.4% TBWL meal plan: 1 premade PREMIER protein shakes (mix 4oz Premier shakes with 4oz low fat unsweetened almond milk each) at 8am-10am and 11am-1pm, 1 protein bar (CELEBRATE, buy at hospital[facility] gift shop) at 2pm-4pm, dinner at 5pm (10 forks of protein and 10 forks of salad/vegetables) and one more protein bar after dinner at 7pm-9pm Exercise: walking [facility] Medical History (Updated 02/18/24 @ 09:57 by Terra Vee RN) Type 2 diabetes mellitus JAD (obstructive sleep apnea) Stress incontinence Asthma Hyperlipidemia Dysplasia of cervix, low grade (JOSE LUIS 1) Back pain Insomnia GERD (gastroesophageal reflux disease) Hypertension Morbid obesity Surgical History (Updated 02/18/24 @ 10:00 by Terra Vee RN) History of esophagogastroduodenoscopy (EGD) Hx of tubal ligation Hx of section Family History Mother Hypertension Diabetes Asthma Arthritis Father No problems noted. Brother No problems noted. Brother No problems noted. Daughter No problems noted. Daughter No problems noted. Daughter No problems noted. Maternal Aunt Breast cancer, Onset Age: 56 Social History Household Members: Children Household Members Other:: mother Housing: Apartment Alcohol intake: never Patient Tobacco Use Status: Never used Tobacco Current occupational status: unemployed Sexual orientation: Straight/Heterosexual Gender identity: Female Female Reproductive History Menstrual Age of Menarche: 10 Telehealth Telehealth Telehealth Platform: Telephone Location of provider rendering services: practice address Location of patient: address on file Patient Identification confirmed using: Name, : Yes Telehealth method: voice only Patient verbally consented to treatment: Yes Patient verbally consented to billing insurance company: Yes Patient informed of any privacy concerns related to visit: Yes Minutes spent on Phone/Video with Pt.: 30 Assessment & Plan Assessment & Plan (1) Morbid obesity: Code(s): E66.01 - Morbid (severe) obesity due to excess calories Category: Medical Plan: 1. Plan for lap sleeve gastrectomy including upper GI endoscopy. All tests has been completed and reviewed and the patient is cleared for the surgery. ?If diaphragmatic or ventral hernias are present at time of surgery, these will be repaired laparoscopically as well. Risks and complications were discussed in detail including possible conversion to an open procedure, anastomotic leak, bleeding requiring transfusion, small bowel obstruction, , DVT and pulmonary embolism, cardiac, or pulmonary complications, as target man complications such as anastomotic ulcer, insufficient weight loss and vitamin deficiencies. I emphasized the importance of close follow-up, adherence to instructions and good communication. So far she has proven to be an excellent communicator and very compliant with all our directions accomplishing a great weight loss. I believe that she is an excellent candidate and she is ready. 2. Preop prescriptions were provided and explained the purpose of each one. Need to be purchased preop. Start Pantoprazole now as you get it from the pharmacy, 1 pill per day. Sucralfate and Zofran are for after surgery as needed. 3. Bowel prep: please do 7 packets ?of Miralax mixing each one with a an 8oz glass of water, crystal light, gatorade zero, or propel ?on 02/21/24 and the same amount on 02/22/24. The Miralax you begin with one packet at a time in 8oz water or crystal light, gatorade zero, or propel ?as early in the day as you can and you do them back to back until you finish them. Continue the protein shakes during ?the bowel prep. 4. Needs to purchase 1oz medicine cups . 5. Needs to purchase Children's liquid Tylenol for postop pain control. 6. She needs to stop the Trulicity as of today. Avoid aspirin, motrin, Advil, Aleve, Ibuprofen, Naproxyn. Tylenol is OK. 7. She needs to purchase the Celebrate 4:1 protein shakes from the hospital's gift shop. 8. Importance of adherence to postop folllow-up and recommendations was underscored and she understands that. 9. Stop food and bars as of TODAY 02/19/24 and continue with 5 premade PREMIER protein shakes (mixing 4oz of Premier shake with 4oz almond milk) at 8am-10am, 11am-1pm, 2pm-4pm, 5pm-7pm and at 8pm-10pm 10. No soups, broths or V8 11. The patient's?medical?history has been reviewed and they are considered low risk for post op DVT and therefore DVT prophylaxis is not considered necessary. Travel after surgery was reviewed. The patient has not disclosed any travel plans during the first 30 days after surgery and they have been advised that within the first 30 days after surgery any bus, plane, train or car travel over 2 hours in duration is contraindicated due to the possibility of developing blood clots from immobility. Any travel, needs to include periods of ambulation of 10 minutes in duration every 2 hours.? Patient was instructed to discuss any plans for travel during this period with their bariatric surgeon.? 12. Measure your blood pressure daily as of tomorrow in the mornings. If your blood pressure is: Below 120/70: Do not take the Valsartan, Nefedipine or Chlorthalidone 121/71 to 130/80: Take ONLY the Chlorthallidone 131/81 to 140/90: Take ONLY the Nefedipine and Chlorthalidone. NOT the Valsartan Over 141/91: take the Valsartan, Nefedipine and Chlorthalidone 13. Please take at the day of surgery the following medications: Only the Valsartan, Nefedipine or Chlorthalidone based on the parameters on #12 14. Stop any control pills and don't use them for one month after surgery 15. Absolutely no smoking or vaping, or marijuana until the surgery and for at least the first 4 weeks. Only nicotine patches are allowed. 16. Send me weight measurements tomorrow 02/20/24 and then on Thursday02/23/24, the day of surgery before you go to the hospital. 17. Avoid any steroids by mouth for any reason. Let me know if someone prescribes them to you 18. These instructions supersede anything else you read in the handbook, anything you watched in videos or classes or you were told by any other provider. If there is any conflict, you follow the above instructions and nothing else. Medications: New sucralfate 10 mL PO BID 600 mL 2RF K21.9 - Gastro-esophageal reflux disease without esophagitis polyethylene glycol 3350 Mix each measuring cup with 8oz of water, Crystal light, or Gatorade zero, or Propel and do 7 measuring cups on 02/21/24 and another 7 measuring cups on 02/22/24 17 grams PO DAILY 238 grams 0RF Z01.818 - Encounter for other preprocedural examination pantoprazole 40 mg PO DAILY 90 tabs 0RF K21.9 - Gastro-esophageal reflux disease without esophagitis ondansetron Only take one every 12 hours as needed if you have nausea 4 mg PO Q12H 20 tabs 0RF nausea and vomiting R11.0 - Nausea
[2024-02-19 10:42] VITALS: BMI 47.4
== END 2024-02-19 11:01 | disposition home or self-care (01) ==
LOC: HO.HBS 08:04
PROVIDERS: PCP Internal Medicine; Visit Provider Surgery
DX: E66.01 Morbid (severe) obesity due to excess calories (principal); Z68.42 Body mass index [BMI] 45.0-49.9, adult
CPT/HCPCS: 99499

== ENCOUNTER → 2024-02-19 08:04 | Outpatient (BNVA) | payer MEDICAID, SELFPAY | PROVIDERS: PCP Internal Medicine; Visit Provider Surgery ==

== ENCOUNTER 2024-02-23 06:07 | Inpatient (IN) | payer MEDICAID, SELFPAY ==
[2024-02-19 08:29] LABS: MANUAL DIFF FLAG NO
[2024-02-19 08:54] LABS: Basophils Percent Auto 0.5 % (0-2); Eosinophils Absolute Auto 0.1 X10*3/uL (0.0-0.4); Eosinophils Percent Auto 1.6 % (0-4); Hemoglobin 12.5 g/dl (12.0-16.0); Imm Gran Abs Auto 0.03 X10*3/uL (0.00-0.03); Imm Gran Pct Auto 0.4 % (0.0-0.4); Lymphocytes Absolute Auto 1.5 X10*3/uL (1.2-4.9); Mean Corpuscular HGB Conc 31.3 g/dl (31.0-35.0); Mean Corpuscular Hemoglobin 23.2 pg (27.0-33.0); Mean Corpuscular Volume 74.3 fL (80.0-98.0); Mean Platelet Volume 10.3 fL (9.4-12.3); Monocytes Absolute Auto 0.4 X10*3/uL (0.1-1.2); Monocytes Percent Auto 4.8 % (2-11); Neutrophils Absolute Auto 5.3 x10*3/uL (2.0-8.3); Neutrophils Percent Auto 72.7 % (45-73); Platelet Count 368 X10*3/uL (160-400); Red Blood Count 5.38 X10*6/uL (4.20-5.50); White Blood Count 7.3 X10*3/uL (4.8-10.8)
[2024-02-19 08:59] LABS: INTERNATIONAL NORM RATIO 0.9 (0.9-1.1); Prothrombin Time 10.7 SEC (11.1-13.3)
[2024-02-19 09:02] LABS: Partial Thromboplastin Time 28.9 SEC (26.0-36.8)
[2024-02-19 09:29] LABS: Alanine Aminotransferase 26 U/L (0-31); Alkaline Phosphatase 89 U/L (39-117); Anion Gap 12 (12-20); Aspartate Amino Transferase 22 U/L (5-31); Bilirubin Total 0.4 mg/dL (0.0-1.0); Blood Urea Nitrogen 12 mg/dL (9-16); C Reactive Protein 2.05 mg/dL (< or = 0.50); Carbon Dioxide 27 mmol/L (22-29); Chloride 107 mmol/L (96-108); Cholesterol 177 mg/dL (<200); Estimated Glomerular Filt Rate > 60; Glucose Random 108 mg/dL (60-115); HDL Cholesterol 40 mg/dL (>40); Iron 28 mcg/dL (30-160); LDL Cholesterol Calculated 120 mg/dL (<100); Percent Iron Saturation 9 % (15-50); Potassium 3.3 mmol/L (3.3-5.1); Sodium 143 mmol/L (135-145); Total Iron Binding Capacity 300 mcg/dL (228-428); Total Protein 7.1 g/dL (6.5-8.0); Triglycerides 89 mg/dL (<150); Unsaturated Iron Binding 272 ug/dL
[2024-02-19 09:47] LABS: Ferritin 17 ng/mL (10-250); Insulin 10 uU/mL (2-29); TSH reflex Free T4 1.83 uIU/mL (0.32-4.0); Vitamin D 25-OH Total 26.4 ng/mL (>30)
[2024-02-19 09:51] LABS: Vitamin B12 477 pg/mL (200-900)
[2024-02-19 10:58] LABS: Estimated Average Glucose 126 mg/dL
[2024-02-19 12:16] VITALS: BMI 47.1
--- NOTE | 2024-02-19 14:14 | P.CONAN_ITS ---
Documented by User: Vidya Barone NP 02/19/24 14:15 HPI - Anesthesia Eval Consult details Narrative: 43yo F for Gastrectomy Sleeve- EGD, possible diaphragmatic hernia, possible ventral hernia, possible open PMFSH Active Problems Active Problems: All Active Problems Pre-op evaluation (Acute) Esophagitis determined by biopsy (Acute) Sleep apnea with use of continuous positive airway pressure (CPAP) (Acute) Non-insulin dependent type 2 diabetes mellitus (Acute) Breast pain, right (Acute) Well woman exam (Acute) ZHAO (dyspnea on exertion) (Acute) LGSIL on Pap smear of cervix (Acute) Neck pain without injury (Acute) Myofascial pain (Acute) Knee pain (Acute) Prediabetes (Acute) JAD (obstructive sleep apnea) (Acute) Stress incontinence (Acute) Asthma (Acute) Hyperlipidemia (Acute) Back pain (Acute) Insomnia (Acute) GERD (gastroesophageal reflux disease) (Acute) Hypertension (Acute) Morbid obesity (Acute) Past Medical History Medical History Type 2 diabetes mellitus JAD (obstructive sleep apnea) Stress incontinence Asthma Hyperlipidemia Dysplasia of cervix, low grade (JOSE LUIS 1) Back pain Insomnia GERD (gastroesophageal reflux disease) Hypertension Morbid obesity Family History Family History Mother Hypertension Diabetes Asthma Arthritis Father No problems noted. Brother No problems noted. Brother No problems noted. Daughter No problems noted. Daughter No problems noted. Daughter No problems noted. Maternal Aunt Breast cancer, Onset Age: 56 Family history of problems with anesthesia: No Surgical History Surgical History History of esophagogastroduodenoscopy (EGD) Hx of tubal ligation Hx of section History of Problems with Anesthesia: No Social History Social History Household Members: Children Household Members Other:: mother Housing: Apartment Are you a primary senior care assistant to a significant other at home: No Do you presently have visiting nurse or other home services: No Alcohol intake: never Patient Tobacco Use Status: Never used Tobacco Use of substances other than those prescribed or required for medical reasons: No Have you been hit, kicked, punched, or otherwise hurt by someone within the past year? If so, by whom?: No Are you DNR?: No Advance Directives: No (mother is primary contact) Advance Directives Information Provided: Yes Advance Directives on File: No Recently lost weight without trying: No Eating poorly because of decreased appetite: No Nutrition Risks: No Nutritional Risk Patient : No FDLMP: 02/18/24 : No Poor oral hygiene: No Current occupational status: unemployed Sexual orientation: Straight/Heterosexual Gender identity: Female Meds Allergies Allergy/AdvReac Type Severity Reaction Status Date / Time zolpidem [From Ambien] AdvReac Confusion Verified 02/19/24 10:42 Home Medications ?Medication ?Instructions ?Recorded ?Confirmed ?Last Taken ?Type albuterol sulfate 90 mcg/actuation 2 puff inhalation Q6H PRN 07/27/20 02/19/24 Unknown History aerosol inhaler Shortness Of Breath meclizine 12.5 mg tablet 12.5 mg PO TID 03/01/21 02/19/24 Unknown History ergocalciferol (vitamin D2) 1,250 1,250 mcg PO QWEEK 07/02/22 02/19/24 Unknown History mcg (50,000 unit) capsule metformin 500 mg tablet,extended 500 mg PO QPM 07/02/22 02/19/24 Unknown History release 24 hr nifedipine 90 mg tablet,extended 90 mg PO QAM 07/02/22 02/19/24 Unknown History release 24 hr sucralfate 1 gram tablet 1 g PO TID 07/02/22 02/19/24 Unknown History atorvastatin 40 mg tablet 40 mg PO QAM 01/07/23 02/19/24 Unknown History cetirizine 10 mg tablet 10 mg PO QAM PRN allergies 01/07/23 02/19/24 Unknown History chlorthalidone 50 mg tablet 50 mg PO BEDTIME 01/07/23 02/19/24 Unknown History oxybutynin chloride 15 mg 15 mg PO QAM 01/07/23 02/19/24 Unknown History tablet,extended release 24 hr dulaglutide 0.75 mg/0.5 mL 0.75 mg subcut QWEEK 11/18/23 02/19/24 02/15/24 History subcutaneous pen injector (Trulicity) Exam Height,Weight and Vital Signs: Height 5 ft 3 in Weight 120.656 kg Pertinent Lab Results Pertinent Lab Results: Laboratory Tests 02/19/24 02/19/24 08:25 08:28 WBC 7.3 RBC 5.38 Hgb 12.5 Hct 40.0 MCV 74.3 L MCH 23.2 L MCHC 31.3 RDW 18.0 H Plt Count 368 MPV 10.3 Immature Gran % (Auto) 0.4 Neut % (Auto) 72.7 Lymph % (Auto) 20.0 [place] % (Auto) 4.8 Eos % (Auto) 1.6 Baso % (Auto) 0.5 Lymph # (Auto) 1.5 [place] # (Auto) 0.4 Eos # (Auto) 0.1 Baso # (Auto) 0.0 Abs Immat Gran (auto) 0.03 Absolute Neuts (auto) 5.3 Absolute Nucleated RBC 0.000 Nucleated RBC % (auto) 0.0 PT 10.7 L INR 0.9 APTT 28.9 Sodium 143 Potassium 3.3 Chloride 107 Carbon Dioxide 27 Anion Gap 12 BUN 12 Creatinine 0.67 Estim Creat Clear Calc TNP Estimated GFR > 60 Random Glucose 108 Estimat Average Glucose 126 Hemoglobin A1c % 6.0 Insulin Level 10 Calcium 9.0 D Iron 28 L TIBC 300 % Saturation 9 L Unsat Iron Binding 272 Ferritin 17 Total Bilirubin 0.4 AST 22 ALT 26 Alkaline Phosphatase 89 C-Reactive Protein 2.05 H Total Protein 7.1 Albumin 4.0 Triglycerides 89 Cholesterol 177 LDL Cholesterol, Calc 120 H HDL Cholesterol 40 L Vitamin B12 477 25-OH Vitamin D Total 26.4 L TSH 1.83 Blood Type O Positive Antibody Screen NEGATIVE Narrative Narrative: EKG 10/2023 Vent. Rate : 071 BPM Atrial Rate : 071 BPM P-R Int : 166 ms QRS Dur : 110 ms QT Int : 380 ms P-R-T Axes : 035 -23 -38 degrees QTc Int : 412 ms Normal sinus rhythm Moderate voltage criteria for LVH, may be normal variant ( R in aVL , [place] product ) Nonspecific ST and T wave abnormality Abnormal ECG When compared with ECG of 13-FEB-2023 11:41, Nonspecific T wave abnormality now evident in Lateral leads Stress ECHO 2021 Findings: At rest images are of adequate quality. LV systolic function is normal with normal wall motion. Post exercise images are borderline due to some off-axis views. There is good augmentation of overall LV systolic function with no regional wall motion abnormalities. Conclusion : Stress echo is negative for ischemia at achieved workload. Assessment and Plan Assessment Anesthesia Assessment: Chart Reviewed Final Anesthetic Review Family History of Problems with Anesthesia: No History of Problems with Anesthesia: No Documented by User: Michell Phelan MD 02/23/24 07:38 [facility] Past Medical History Medical History Type 2 diabetes mellitus JAD (obstructive sleep apnea) Stress incontinence Asthma Hyperlipidemia Dysplasia of cervix, low grade (JOSE LUIS 1) Back pain Insomnia GERD (gastroesophageal reflux disease) Hypertension Morbid obesity Family History Family History Mother Hypertension Diabetes Asthma Arthritis Father No problems noted. Brother No problems noted. Brother No problems noted. Daughter No problems noted. Daughter No problems noted. Daughter No problems noted. Maternal Aunt Breast cancer, Onset Age: 56 Surgical History Surgical History History of esophagogastroduodenoscopy (EGD) Hx of tubal ligation Hx of section Social History Social History Household Members: Children Household Members Other:: mother Housing: Apartment Are you a primary senior care assistant to a significant other at home: No Do you presently have visiting nurse or other home services: No Alcohol intake: never Patient Tobacco Use Status: Never used Tobacco Use of substances other than those prescribed or required for medical reasons: No Have you been hit, kicked, punched, or otherwise hurt by someone within the past year? If so, by whom?: No Are you DNR?: No Advance Directives: No (mother is primary contact) Advance Directives Information Provided: Yes Advance Directives on File: No Recently lost weight without trying: No Eating poorly because of decreased appetite: No Nutrition Risks: No Nutritional Risk Patient : No FDLMP: 02/18/24 : No Poor oral hygiene: No Current occupational status: unemployed Sexual orientation: Straight/Heterosexual Gender identity: Female Meds Allergies Allergy/AdvReac Type Severity Reaction Status Date / Time zolpidem [From Ambien] AdvReac Confusion Verified 02/19/24 10:42 Home Medications ?Medication ?Instructions ?Recorded ?Confirmed ?Last Taken ?Type albuterol sulfate 90 mcg/actuation 2 puff inhalation Q6H PRN 07/27/20 02/19/24 Unknown History aerosol inhaler Shortness Of Breath meclizine 12.5 mg tablet 12.5 mg PO TID 03/01/21 02/19/24 Unknown History ergocalciferol (vitamin D2) 1,250 1,250 mcg PO QWEEK 07/02/22 02/19/24 Unknown History mcg (50,000 unit) capsule metformin 500 mg tablet,extended 500 mg PO QPM 07/02/22 02/19/24 Unknown History release 24 hr nifedipine 90 mg tablet,extended 90 mg PO QAM 07/02/22 02/19/24 Unknown History release 24 hr sucralfate 1 gram tablet 1 g PO TID 07/02/22 02/19/24 Unknown History atorvastatin 40 mg tablet 40 mg PO QAM 01/07/23 02/19/24 Unknown History cetirizine 10 mg tablet 10 mg PO QAM PRN allergies 01/07/23 02/19/24 Unknown History chlorthalidone 50 mg tablet 50 mg PO BEDTIME 01/07/23 02/19/24 Unknown History oxybutynin chloride 15 mg 15 mg PO QAM 01/07/23 02/19/24 Unknown History tablet,extended release 24 hr dulaglutide 0.75 mg/0.5 mL 0.75 mg subcut QWEEK 11/18/23 02/19/24 02/15/24 History subcutaneous pen injector (Trulicity) Exam Airway Mallampati Class: II TM Dist: >3cm Neck ROM: Full Loose/Missing/Broken Teeth: No Heart: RRR Lungs: CTA Assessment and Plan Assessment Anesthesia Assessment: Anesthesia Plan Discussed Final Anesthetic Review NPO: Yes ASA Class: III Final Preanesthetic Review: Meds/Allgs Chart Reviewed, Consent Obtained/Reviewed and Anes Risks/Benef Reviewed Patient Risk: Intermediate Procedure Risk: Intermediate Anesthetic Plan Anesthetic Plan: MAC: Disposition: Standard PACU
[2024-02-23] VITALS (17 sets, daily range): BP systolic 101–163; BP diastolic 68–105; PULSE 74–98; RESP 12–20; TEMP 36.1–36.6; O2SAT 94–100; BMI 45.4
--- OUTSIDE RECORDS SUMMARY | 2024-02-23 06:16 | XMS_ITS | Continuity of Care Document ---
Author Organization [facility] [employer] [facility] Address [address], [address] [place] [address]- Care Team Providers Care Senior Packaging Engineer Name Role Phone Joceline Gutierrez MD Primary Care Physician [facility] [id number] Date(s): 10/23/22 - 11/22/22 [facility] [employer] [facility] [address], [address] [place], [place] [address] Attending Physician: Zafar García Admitting Physician: AdmZafar willard Referring Physician: Admtr, Ar8 Allergies, Adverse Reactions, Alerts Substance Reaction Severity Status Ambien Active Medications Amlodipine By Mouth, Daily, 0 Refills, Maintenance, 07/16/21 14:55:00 EST, Partial fill upon patient request if the prescription is for a schedule II opioid drug. Start Date: 07/16/21 Status: Ordered ibuprofen 800 mg oral tablet 800 mg, 1, tablet, By Mouth, 3 times a day, # 90 tablet, Refills 0, Maintenance, 06/04/21 11:10:00 EST, Partial fill upon patient request if the prescription is for a schedule II opioid drug. Start Date: 06/04/21 Status: Ordered lisinopril 40 mg oral tablet 1 tablet = 40 mg, By Mouth, Daily, # 90 tablet, 0 Refills, Maintenance, 06/04/21 11:06:00 EST, Tablet, Partial fill upon patient request if the prescription is for a schedule II opioid drug. Start Date: 06/04/21 Status: Ordered Meclizine By Mouth, 3 times a day, 0 Refills, Maintenance, 07/16/21 14:55:00 EST, Partial fill upon patient request if the prescription is for a schedule II opioid drug. Start Date: 07/16/21 Status: Ordered omeprazole 20 mg oral delayed release tablet 1 tablet = 20 mg, By Mouth, 2 times a day, # 60 tablet, 0 Refills, Maintenance, 06/04/21 11:10:00 EST, EC Tablet, Partial fill upon patient request if the prescription is for a schedule II opioid drug. Start Date: 06/04/21 Status: Ordered oxybutynin 15 mg/24 hr oral tablet, extended release 1 tablet = 15 mg, By Mouth, Daily, # 30 tablet, 11 Refills, Maintenance, 10/23/22 9:11:00 EDT, [facility], Partial fill upon patient request if the prescription is for a schedule II opioid drug., 162.4, cm, 09/03/22 9:11:00 EDT, He... Start Date: 10/23/22 Status: Ordered Problem List Condition Confirmation Course Effective Dates Status Health St atus Informant Hypertension Confirmed Active Prediabetes Confirmed Active Severe obesity Confirmed Active Social History Social History Type Response Smoking Status Never (less than 100 in lifetime) entered on: 09/03/22 Sex Patient Care team information Care Team Personnel Name: Joceline Gutierrez MD Position: [facility] Outreach Member Role: PCP Address: Address: [address] [place] [phone]- Name: Sarah Mendez MA Position: [facility] Outreach Member Role: Lifetime Consulting Physician Care Team Related Persons Name: CRISTIANA VILLAGRAN Address: home [address] [place] [id number] Name: STEPHANIE CURRAN Address: home [address] [place] [address]
--- OUTSIDE RECORDS SUMMARY | 2024-02-23 06:16 | XMS_ITS | Continuity of Care Document ---
Author Organization [facility] [employer] [facility] Address [address], [address] [place] [address]- Care Team Providers Care Able Bodied Tankerman Name Role Phone Joceline Gutierrez MD Primary Care Physician [facility] [id number] Date(s): 11/25/23 - 12/25/23 [facility] [employer] [facility] [address], 4th [address] [place], [place] [address] Attending Physician: Zafar García Admitting Physician: AdmtrZafar Referring Physician: Admtr, Ar8 Allergies, Adverse Reactions, [...] mg/24 hr oral tablet, extended release 1 tablet, By Mouth, Daily in AM, # 90 tablet, 3 Refills, Maintenance, 11/25/23 11:50:00 EDT, [facility], 160, cm, 10/05/23 12:26:00 EDT, Height, 127, kg, 10/05/23 12:26:00 EDT, Dry Weight Start Date: 11/25/23 Status: Ordered Problem List Condition Confirmation Course Effective Dates Status Health St atus Informant Hypertension Confirmed Active Prediabetes Confirmed Active Severe obesity Confirmed Active Social History Social History Type Response Smoking Status Never (less than 100 in lifetime) entered on: 09/03/22 Sex Patient Care team information Care Team Personnel Name: Bernda KAHN, Joceline Clemens Position: [facility] Outreach Member Role: PCP Address: Address: [address] [place] [id number] Name: Sarah Mendez MA Position: S Outreach Member Role: Lifetime Consulting Physician Care Team Related Persons Name: CRISTIANA VILLAGRAN Address: home [address] [place] [address] Name: STEPHANIE CURRAN Address: home [address] [place] [address]
--- OUTSIDE RECORDS SUMMARY | 2024-02-23 06:17 | XMS_ITS | Continuity of Care Document ---
Author Organization [facility] Address [address] [place] [id number]- Care Team Providers Care Unarmed Security Guard Name Role Phone Brenda KAHN, Joceline Clemens Primary Care Physician Encounter [facility] Date(s): 10/05/23 - 10/05/[address] [address]- Encounter Diagnosis Muscle strain(Final) - 10/05/23 Dyspnea(Final) - 10/05/23 Discharge Disposition: A-D/C Home Attending Physician: Neha Martines MD Admitting Physician: Neha Martines MD Referring Physician: Not on Staff, Referring MD Allergies, Adverse Reactions, Alerts Substance Reaction Severity [...] 11 Refills, Maintenance, 10/23/22 9:11:00 EDT, [facility], Partial fill upon patient request if the prescription is for a schedule II opioid drug., 162.4, cm, 09/03/22 9:11:00 EDT, He... Start Date: 10/23/22 Status: Ordered Problem List Condition Confirmation Course Effective Dates Status Health St atus Informant Hypertension Confirmed Active Prediabetes Confirmed Active Severe obesity Confirmed Active Results Radiology Reports * Exam Date Time Procedure Performing Provider Status 10/05/23 1:40 PM Chest 2 Views Frontal and Lat Keyla Bellamy; Auth (Verified) Notes: (Chest 2 Views Frontal and Lat) Reason For Exam: Shortness of Breath RESULT: Chest 2 Views Frontal and Lat Chest 2 Views Frontal and Lat INDICATION/CLINICAL QUESTION: Reason: Shortness of Breath; Clinical Question(s): CHF / CHF TECHNIQUE: Frontal and lateral views of the chest. COMPARISON: None.. FINDINGS: LINES AND TUBES: None. LUNGS AND PLEURA: RIGHT CHEST: The right lung is clear and there is no right effusion. LEFT CHEST: The left lung is clear and there is no left effusion. HEART, MEDIASTINUM AND NILS: The heart is of normal size. The mediastinum and nils are normal. BONES AND SOFT TISSUES: No acute bony abnormality. IMPRESSION: 1. No active disease in chest. WSN: [id number] Ordering Physician: Neha Martines Dictated By: Wilbert Gandhi MD Dictated Date/Time: 10/05/23 2:14 pm Reviewed By: Wilbert Gandhi MD Signed By: Wilbert Gandhi MD Signed Date/Time: 10/05/23 2:14 pm Transcribed By: LUDA Transcribed Date/Time: 10/05/23 2:13 pm Vital Signs Most recent to oldest [Reference Range]: 1 2 Height 160 cm (10/05/23 12:26 PM) Oxygen Saturation [94-100 %] 99 % (10/05/23 12: PM) 100 % (10/05/23 12:05 PM) Pulse Rate [55-90 bpm] 88 bpm (10/05/23 12: PM) Blood Pressure [90-138/55-84 mm Hg] 130/ 75mm Hg (10/05/23: PM) Respiratory Rate [16-30 br/min] 18 br/mi n (10/05/23: PM) Temperature [96.8-100.4 DegF] 98.3 DegF (10/05/23: PM) Liters per Minute 2 L/min (10/05/23 12:05 PM) Mode of Delivery (Oxygen) Room air (10/05/23: PM) Nasal cannula (10/05/23 12:05 PM) Blood pressure sites Arm, right (10/05/23: PM) Temperature Route Oral (10/05/23: PM) Dry Weight 127 kg (10/05/23 12: PM) Social History Social History Type Response Smoking Status Never (less than 100 in lifetime) entered on: 09/03/22 Sex EKG study * Event Display: ECG 12-Lead Authored Date: Please click on pdf link to open report * Event Display: ECG 12-Lead Authored Date: Ventricular Rate: 79 BPM Atrial Rate: 79 BPM P-R Interval: 144 ms QRS Duration: 100 ms Q-T Interval: 372 ms QTC Calculation(Bazett): 426 ms P Warren: 45 degrees R Warren: -16 degrees T Warren: 8 degrees Normal sinus rhythm Moderate voltage criteria for LVH, may be normal variant ( R in aVL , [place] product ) Borderline ECG When compared with ECG of 16-JAN-2021 12:55, No significant change was found Confirmed by DIEGO LOO MD ([id number]) on 10/05/2023 1:04:26 PM [place]: DIEGO LOO MD Note * Tali Randall NP: PERFORM Event Display: Patient Education Leaflets Authored Date: Chest Pain, Uncertain Cause ?? [id number] Causas inciertas de dolor de pecho El dolor de pecho puede producirse por numerosas razones. En algunos casos, no se puede determinar la causa. Si martinez afecci??n no parece grave y el dolor no parece venir del coraz??n, martinez proveedor de atenci??n m??dica puede recomendar un seguimiento de cerca. A veces, los signos de un problema grave tardan m??s en aparecer. Muchas afecciones no relacionadas con el coraz??n pueden causar dolor de pecho. Por ejemplo: ??? Musculoesquel??cristian. Costocondritis, emil inflamaci??n de los tejidos alrededor de las costillas que puede ocurrir por trauma o lesiones por uso excesivo, o emil distensi??n de los m??sculos de lapared tor??cica. ??? Respiratorias. Neumon??a, pulm??n colapsado (neumot??rax) o inflamaci??n del re vestimiento del pecho y los pulmones (pleuritis). ??? Gastrointestinales. Reflujo esof??gico, acidez estomacal, ??lceras o enfermedad de la ves??cula biliar. ??? Ansiedad y ataques de p??leonid ??? Compresi??n e inflamaci??n de un nervio ??? Afecciones poco frecuentes devika aneurisma a??rtico o disecci??n a??rtica (emil hinchaz??n de la arteria leonardo que sale del coraz??n o un desgarro en la pared de la arteria) o embolia pulmonar (co??gulos de giovanni en los pulmones). Cuidados en el hogar Luego de martinez visita, preste atenci??n a las siguientes recomendaciones: ??? Descanse hoy y evite toda actividad agotadora. ??? Elco el medicamento recetado seg??n le hayan indicado. ??? Est?? atento acualquier dolor de pecho recurrente y observe cualquier cambio ?? Visita de seguimiento Programe emil visita de control con martinez proveedor de atenci??n m??dica si no empieza a sentirse mejoren las siguientes 24??horas, o seg??n lo que le indiquen. ?? Cu??ndo llamar al?? 911 Llame al?? 911 si ocurre algo de lo siguiente: ??? Cambio en el tipo de dolor: se siente diferente,se urbano vuelto m??s grave, dura m??s o comienza a esparcirse hacia el hombro, el brazo, el yeny, lamand??bula o la espalda ??? Falta de aire o dolor creciente al respirar ??? Debilidad, mareos o desmayos ??? Ritmo card??aco acelerado ??? Sensaci??n de aplastamiento en el pecho ??? Tos con cantidadabundante de giovanni ?? Cu??ndo buscar atenci??n m??dica Llame a martinez proveedor de atenci??n m??dica de inmediato ante cualquiera de los siguientes signos o s??ntomas: ??? Tos con expulsi??n de esputo (flema) de color oscuro o con un poco de giovanni ??? Fiebre de 100.4?F (38?C) o superior, o seg??n le haya indicado martinez proveedor de atenci??n m??dica ??? Dolor, enrojecimiento o hinchaz??n de emil pierna ?? Last Reviewed Date: 2021 ?? [id number] The sifon[employer]. Todos los derechos reservados. Esta informaci??n no pretende sustituir la atenci??n m??dica profesional. S??lo martinez m??dico puede diagnosticar y tratar un problema de ashley. ?? Patient Care team information Care Team Personnel Name: Brenda KAHN, Joceline Clemens Position: [facility] Outreach Member Role: PCP Address: Address: [address] [place] [address] Name: Sarah Mendez MA Position: [facility] Outreach Member Role: Lifetime Consulting Physician Care Team Related Persons Name: SPARKLE CRISTIANA Address: home [address] [place] [address] Name: STEPHANIE CURRAN Address: [address] [address]
--- OUTSIDE RECORDS SUMMARY | 2024-02-23 06:17 | XMS_ITS | Continuity of Care Document ---
Author Organization [facility] Address [address], [address], [address] [place] [address]- Care Team Providers Care Editor & Co Founder Name Role Phone Brenda KAHN, Joceline Clemens Primary Care Physician Encounter [facility] Date(s): 08/21/23 - 09/20/23 [facility] [address] [place] [address], [address] [place] [address] Allergies, Adverse Reactions, Alerts Substance Reaction Severity [...] tablet, 11 Refills, Maintenance, 10/23/22 9:11:00 EDT, [facility], Partial fill upon patient request if the prescription is for a schedule II opioid drug., 162.4, cm, 09/03/22 9:11:00 EDT, HeJacqueline.. Start Date: 10/23/22 Status: Ordered Problem List Condition Confirmation Course Effective Dates Status Health St atus Informant Hypertension Confirmed Active Prediabetes Confirmed Active Severe obesity Confirmed Active Social History Social History Type Response Smoking Status Never (less than 100 in lifetime) entered on: 09/03/22 Sex Patient Care team information Care Team Personnel Name: Brenda KAHN, Joceline Clemens Position: [facility] Outreach Member Role: PCP Address: Address: [address] [place] [id number]- Name: Sarah Mendez MA Position: [facility] Outreach Member Role: Lifetime Consulting Physician Care Team Related Persons Name: CRISTIANA VILLAGRAN Address: home [address] [address] Name: STEPHANIE CURRAN Address: home [address] [address]
--- NOTE | 2024-02-23 06:32 | PC.NURSE ---
unable to verify patients medication list because they can in blister packs. patient is calling her daughter to bring in her list for later.
[2024-02-23] MEDS: Lactated Ringers 1,000 ML 999 ML IV ×2 (06:46)
[2024-02-23] MEDS: Aprepitant 32 MG/4.4 ML VIAL IVPUSH (06:49)
[2024-02-23 06:58] LABS: Glucose, Whole Blood 129 mg/dL (60-115)
--- NOTE | 2024-02-23 07:29 | MHC.SHP ---
Pre-Procedural Eval Section A - 24 Hr Update-Section A only Date of Service: 02/23/24 The patient is an INPATIENT: Yes The patient has been examined within 24 hours of the surgical procedure. The History & Physical has been completed within 30 days and I have reviewed it.: Yes Section B - Complete if H&P > 30 days Chief Complaint: Morbid Obesity Relevant Family History (Specify if Yes): No Relevant Social History: None Present Medications: None Medical History: No relevant PMH History of Previous Operations: No relevant previous surgery Allergies: Allergies Allergy/AdvReac Type Severity Reaction Status Date / Time zolpidem [From Ambien] AdvReac Confusion Verified 02/19/24 10:42 Review of Systems Sugical H&P ROS: Negative: Constitution, Cardiovascular, Respiratory, Neurological, Psychiatric, Hem-Onc, Allergic/Immunologic, Gastrointestinal, Genitourinary, Musculoskeletal, Integumentary, Endocrine and Eyes/Ears/Nose/Throat Exam Surgical H&P Exam: Normal: HEENT, Normal: Heart, Normal: Lungs, Normal: Extremities, Normal: Abdomen, Normal: Skin and Normal: Neurological Plan Diagnosis/Plan: Unchanged I have reviewed the history and physical and performed a pertinent physical examination on my patient. No changes have occurred unless specified. Time Spent With Patient Time: Total time managing care of this patient today ____ minutes.
--- NOTE | 2024-02-23 07:40 | P.BOP_ITS ---
Brief Operative Note Date of Service: 02/23/24 Pre-op diagnosis: Morbid obesity with comorbidities (see below) Post-op diagnosis: same Procedure: INITIAL PATIENT BMI ON PRESENTATION AT OUR OFFICE: 48,6 kg/m2 LAST BMI BEFORE SURGERY: 47.2 kg/m2 COMORBIDITIES: sleep apnea on CPAP, asthma, hyperlipidemia, hypertension, non- insulin dependent diabetes, GERD, DJD, stress incontinence, LVH ?The patient presented to the Weight Management Program with significant obesity that was negatively impacting the patient's comorbidities as listed above.? The program is a phased program with a special focus on preoperative medical weight management to promote substantial weight loss and prepare the patients for the second phase of the program: bariatric surgery. The patient participated in an intensive weekly lifestyle ?intervention and exercise program during which the patient ?has lost between the initial office visit and the last preoperative visit 27 lbs, or 9% of initial actual body weight. It was deemed appropriate for the patient to now have bariatric surgery. In light of the current Covid-19 pandemic and the well documented strong association of obesity and increased risk of worse outcomes if infected with Covid-19 (REFERENCES: https://pubmed.ncbi.nlm.nih.gov/19440411/ ,? https://pubmed.ncbi.nlm.nih.gov/49750056/ ), any delay in undergoing bariatric surgery may lead to the patient's worsening health condition and increased?risk of more severe Covid-19 disease if infected. In addition a recent?study from [facility] published in [facility] on 06/10/2021 ([email or web address]) found that, among patients with obesity, substantial weight loss achieved with surgery was associated with improved outcomes of COVID-19 infection. The findings suggest that obesity can be a modifiable risk factor for the severity of COVID- 19 infection. In addition, the patient met the BMI-criteria for bariatric surgery based on the BMI on initial presentation. The patient should not be penalized for achieving such weight loss because ?it is not sustainable long-term without surgical intervention and it was achieved in preparation for bariatric surgery ?under my direction and based on my published research ([email or web address]).[email or web address] and? https://www.soard.org/article/[email or web address](13)88392-X/pdf ) ?that a 10% preoperative weight loss improves long-term weight loss after surgery and reduces perioperative complications.? Insurance carriers such as [facility] have endorsed my recommendations ?and have included in their policies criteria to include a 10% preoperative weight loss requirement. PROCEDURE: Esophago-gastroscopy, laparoscopic sleeve gastrectomy and laparosc opic gastropexy INDICATIONS: This is a 43 year-old female who was electively scheduled for laparoscopic, possibly open sleeve gastrectomy. The risks and complications of the procedure were discussed with the patient in advance, particularly the possibility of ; pulmonary embolism; staple line leak; bleeding; GERD; cardiac, pulmonary, or renal complications; as well as long-term problems such as insufficient weight loss, vitamin deficiency, strictures, or ulcers. The patient understood all the risks, and was in agreement to proceed with surgery. DESCRIPTION OF PROCEDURE: After informed consent was obtained from the patient, the patient was given preoperative antibiotics, and was transferred to the operating room. After successful induction of general anesthesia, pneumatic compression devices were placed on both lower extremities. An upper endoscopy was performed next. The oropharynx and esophagus appeared to be within normal limits. There was no significant diaphragmatic hernia present. The stomach was entered. Then after all fluid and air were suctioned and the stomach was fully decompressed, the scope was withdrawn and secured in the mid esophagus. The patient was then prepped and draped in the usual sterile manner, and abdominal access was established at the right upper quadrant with the Davina technique. A 12 mm blunt port was inserted, and the abdomen was insufflated with CO2 to a pressure of 15 mmHg. Under direct visualization, additional ports were placed, specifically two 5 mm Versi-step ports to the left upper quadrant, and a 5 mm Versi-Step port to the right upper quadrant. 1% lidocaine plain was used to infiltrate all port sites as well as all fascia defects. Following that, the patient was placed in a steep reverse Trendelenburg position. An additional 5 mm port was placed to the right flank for the Mediflex retractor that was used to retract the left lobe of the liver. The gastro-esophageal fat pad was opened with the ultrasonic device (Thunde rbeat, Olympus) and the anterior esophagus and hiatus were exposed. The angle of His was opened with the ultrasonic device the fundus of the stomach from any diaphragmatic and splenic attachments. I then opened the gastrocolic ligament between the transverse colon and the greater curvature of the stomach with the ultrasonic device to enter the lesser sac and facilitate the ligation of the short gastric vessels. I started at a mid-point along the greater curvature and using the Thunderbeat, all short gastric vessels were divided all the way to the angle of His until the left deng was completely dissected at its entirety. I then divided the gastro-colic ligament distally to a distance of about 3-4 cm proximal to the pylorus. The stomach was then divided transversely with one Endo JOSE ALBERTO-45 purple, one Endo JOSE ALBERTO-60 purple, one JOSE ALBERTO-45 orange load and three JOSE ALBERTO-60 articulating orange loads using the SIGNIA and AEON stapler and loads. Every effort was made that the gastric sleeve had a tubular shape and an even caliber throughout. Once the sleeve resection was completed, the staple line of the gastric sleeve was reinforced with Hemoclips. The resected stomach was retrieved without difficulty from the Davina port. A gastropexy was then performed in order to prevent postoperative GERD and partial gastric volvulus. Several interrupted 2.0 Surgidac sutures were placed between the sleeve's staple line and the previously divided greater omentum and gastro-colic ligament using the Endo-Stitch device. ?An upper endoscopy was performed. There was no narrowing at the GE junction. The scope was easily advanced all the way to the pylorus which was clearly visualized. There was no narrowing anywhere and the sleeve's caliber was even throughout. The sleeve's staple line was inspected and there was no evidence of ischemia, bleeding or dehiscence. At that point the gastroscope was withdrawn from the patient?s mouth while we were decompressing the bowel and the stomach from any remaining air. I looked into the lesser sac to see how the sleeve was situating and it was situating well. There was no bleeding from the staple line, spleen, or short gastric vessels. The Mediflex retractor was removed, and the undersurface of the liver was inspected and there was no bleeding. The patient was placed in supine position. I closed the fascial defect of the 12 mm port site with a figure of eight #1 Polysorb suture. Then 30cc Ropivacaine plain with 10 mg of Dexamethasone were used to infiltrate the fascial closure as well as all skin incisions. At this point, the abdomen was deflated, all ports were removed under direct vision, and no bleeding was noted from any of the port sites. The skin incisions were irrigated with saline and were closed with 4-0 absorbable monofilament sutures. Steri-Strips and OpSites were used to cover all incisions. The patient was extubated and was transferred in stable condition to the recovery room for further care. I was present and performed all harrington parts of the procedure. Mr. Torres was the assistant athletic trainer. There were no residents to assist with this case. Pako Ricardo MD, PhD, FACS Surgeon: Mikey Ricardo MD Anesthesia: GETA, local and other (TAP block) Was an Varnish Blender used for this Procedure?: No Varnish Blender: Tom Torres Estimated blood loss (mL): 10 IV fluids (mL): 3,000 Urine output (mL): 0 (No Isaacs to record output) Pathology: other (Stomach) Condition: stable Disposition: PACU
--- NOTE | 2024-02-23 08:21 | P.PNGS_ITS ---
Subjective Subjective Date of Service: 02/24/24 Interval history: Feels well. Mild incisional pain. She is tolerating phase 1 bariatric diet Physical Exam 2 Vital Signs: Vital Signs: Last Vital Signs Temp 97.3 F 02/23/24 06:35 Pulse 88 02/23/24 06:35 Resp 16 02/23/24 06:35 BP 101/79 02/23/24 06:35 Pulse Ox 98 02/23/24 06:35 O2 Del Method Room Air 02/23/24 06:35 BMI result Body Mass Index 45.4 GI: Inspection: Yes normal to inspection, Yes incision (clean, dry and intact) and Yes obesity Palpation (GI): Soft to palpation Extrem: Right lower extremity: normal to inspection (no calf tenderness) L eft lower extremity: normal to inspection (no calf tenderness) Objective Data Active Medications Albuterol Sulfate (Albuterol Sulfate (0.083%) 2.5 Mg/3 Ml Vial.Neb) 2.5 mg INHALE ONCE PRN PRN Reason: Shortness of Breath/Wheezing Albuterol/Ipratropium (Albuterol/Iprat 2.5/0.5mg 3 Ml Ampul.Neb) 3 ml INHALE ONCE PRN PRN Reason: Bronchospasm/wheezing Stop: 02/23/24 13:38 Fentanyl (Fentanyl Citrate/Pf 100 Mcg/2 Ml Vial) 25 mcg IVPUSH Q5M PRN PRN Reason: Pain, Moderate to Severe (Pain Scale 4-10) Stop: 02/23/24 13:38 Hydromorphone HCl (Hydromorphone Hcl 0.5 Mg/0.5 Ml Syringe) 0.25 mg IVPUSH Q5M PRN PRN Reason: Pain, Moderate to Severe (Pain Scale 4-10) Stop: 02/23/24 13:38 Lactated Ringer's (Lr) 1,000 mls @ 100 mls/hr IVCONT .Q10H MIKEY Naloxone HCl (Naloxone Hcl 0.4 Mg/Ml Vial) 0.04 mg IVPUSH Q5M PRN PRN Reason: Excessive sedation or RR < 8 Ondansetron HCl (Ondansetron Hcl 4 Mg/2 Ml Vial) 4 mg IVPUSH ONCE PRN PRN Reason: Nausea and Vomiting Stop: 02/23/24 13:38 Oxycodone HCl (Oxycodone Hcl Immed Release 5 Mg Tablet) 5 mg PO ONCE PRN PRN Reason: Pain, Moderate(Pain Scale 4-6) if no IV Access Stop: 02/23/24 13:38 Labs 02/24/24 05:37 02/24/24 05:37 Labs: Laboratory Results - last 24 hr 02/23/24 06:54 POC Glucose 129 H Procedures Date of Service Date of Service: 02/24/24 Progress Note: A&P Assessment and plan (1) Morbid obesity: Status: Acute Assessment and Plan: s/p laparoscopic sleeve gastrectomy and gastropexy Doing well Will check am labs and if OK the patient will be discharged home (2) Hypertension: Status: Acute (3) GERD (gastroesophageal reflux disease): Status: Acute (4) Insomnia: Status: Acute (5) Back pain: Status: Acute (6) Hyperlipidemia: Status: Acute (7) Asthma: Status: Acute (8) Stress incontinence: Status: Acute (9) JAD (obstructive sleep apnea): Status: Acute (10) Non-insulin dependent type 2 diabetes mellitus: Status: Acute (11) Esophagitis determined by biopsy: Status: Acute (12) LVH (left ventricular hypertrophy): Status: Acute (13) S/P laparoscopic sleeve gastrectomy: Status: Acute Time Spent With Patient Time: Total time managing care of this patient today ____ minutes. Quality Stroke Does the patient have a stroke diagnosis?: No VTE Prior VTE?: No VTE Risk Level:: Surgical - moderate VTE Device Contraindication: N/A - Device Ordered VTE Drug Contraindication: Treatment Not Indicated
--- NOTE | 2024-02-23 11:01 | P.DS_ITS ---
DS: Providers Provider Date of Service: 02/24/24 Date of admission: 02/23/24 06:07 Primary care physician: Joceline Gutierrez MD DS: Diagnosis Discharge Diagnosis (1) Morbid obesity: Status: Acute (2) Hypertension: Status: Acute (3) GERD (gastroesophageal reflux disease): Status: Acute (4) Insomnia: Status: Acute (5) Back pain: Status: Acute (6) Hyperlipidemia: Status: Acute (7) Asthma: Status: Acute (8) Stress incontinence: Status: Acute (9) JAD (obstructive sleep apnea): Status: Acute (10) Non-insulin dependent type 2 diabetes mellitus: Status: Acute (11) Esophagitis determined by biopsy: Status: Acute (12) LVH (left ventricular hypertrophy): Status: Acute DS: Summary Hospital Course Hospital Course: ADMITTING DIAGNOSIS: morbid obesity, htn, hld, jad, asthma ? DISCHARGE DIAGNOSIS: same, s/p laparoscopic sleeve gastrectomy ? PAST SURGICAL HISTORY: tubal ligation, cesarian section ? PROCEDURE: upper endoscopy, laparoscopic sleeve gastrectomy ? DISCHARGE SUMMARY: ? History of Present Illness: ? The patient is a?43 year-old woman with a BMI of?48.6 kg/m2 and associated co- morbidities as described above. The patient had extensive work-up,lost?17.9 lbs preoperatively and was electively scheduled for laparoscopic, possible open sleeve gastrectomy and gastropexy. Risks and complications of the surgery were discussed with the patient in advance, particularly the possibility of , pulmonary embolism, anastomotic leak, bleeding, bowel injury, GERD, cardiac, renal or pulmonary complications. The patient understood all the risks and was in agreement with the surgical plan. ? Hospital Course: ? The patient underwent an uneventful laparoscopic sleeve gastrectomy with gastropexy on the day of admission. Postoperatively, the patient was transferred to the surgical floor. The patient received IV Acetaminophen and IV dilaudid for pain control. Patient was started on bariatric phase 1 diet POD #0. On postoperative day one, the patient was feeling well without nausea, vomiting, fevers, or tachycardia. The patient had some mild incisional pain and the abdomen was soft. ? On the morning of postoperative day one, the patient was continued on 1 ounce of water or ice every half hour. During the day, the patient did fairly well, having some incisional pain, but able to ambulate adequately and to tolerate liquids well. ? Since the patient is doing well, we decided that the patient was ready to be discharged. The patient was given instructions to follow-up with me next week and to call my office for any fever over 101, persistent abdominal pain, nausea, vomiting, GERD, symptoms of DVT such as calf tenderness, or leg swelling, or pulmonary embolism such as chest pain or shortness of breath. The patient was also instructed to drink 40-60 ounces of liquids per day using the 1-ounce cups. The patient had been given prescriptions for Tylenol for pain, Zofran prn for nausea, and pantoprazole and carafate previously. The patient was encouraged to ambulate and use the incentive spirometer. The patient was allowed to shower, but no baths, and encouraged to stay active at home. All of these instructions were given to the patient personally. All questions were answered and the patient understood all instructions, the instructions were also given to the patient in print. Time Attestation Total time managing care of this patient today: 25 mintues. Discharge Coordination Time (in mins): 25 Quality: Safe Use of Opioids Does Pt have an Active Cancer Diagnosis on the Problem List?: No Quality: Stroke Does the patient have a stroke diagnosis?: No Physical Exam Vital Signs: Vital Signs: Last Vital Signs Temp 97.3 F 02/23/24 06:35 Pulse 88 02/23/24 06:35 Resp 16 02/23/24 06:35 BP 101/79 02/23/24 06:35 Pulse Ox 98 02/23/24 06:35 O2 Del Method Room Air 02/23/24 06:35 BMI result Body Mass Index 45.4 DS: Data Data Completed and Pending Pending studies at discharge: Pending at discharge 02/23/24 10:14 Surgical [PTH] Routine Labs on day of discharge: Laboratory Results - last 24 hr 02/23/24 06:54 POC Glucose 129 H Discharge Plan Discharge Anticipated Discharge Date/Time: 02/24/24 10:00 Patient Disposition: Home, Self-Care Discharge Diagnosis: s/p laparoscopic sleeve gastrectomy Referrals: Joceline Gutierrez MD [Primary Care Provider] - 1 Week Discharge Medications: Continued pantoprazole 40 mg tablet,delayed release (DR/EC) 40 mg PO DAILY Qty: 90 0RF hydroxyzine HCl 50 mg tablet 50 mg PO BEDTIME acetaminophen 500 mg tablet 500 mg PO Q8-12H PRN (Reason: Pain) fluoxetine 10 mg capsule 10 mg PO DAILY atorvastatin 40 mg tablet 40 mg PO DAILY cetirizine 10 mg tablet 10 mg PO DAILY PRN (Reason: allergies) oxybutynin chloride 15 mg tablet extended release 24hr 15 mg PO DAILY sucralfate 100 mg/mL suspension 10 ml PO BID Qty: 600 2RF ondansetron 4 mg tablet,disintegrating 4 mg PO Q12H Qty: 20 0RF Rx Instructions: Only take one every 12 hours as needed if you have nausea Held nifedipine 90 mg tablet extended release 24hr 90 mg PO BEDTIME Hold Instructions: Resume on 02/25/24. Check your blood pressure every morning as soon as you wake up and send it to Dr. Ricardo. Do no take the blood pressure medication if the blood pressure is below 120/70. Wait every day to hear back from Dr. Ricardo before you take the medication. labetalol 100 mg tablet 100 mg PO BID Hold Instructions: Resume on 02/25/24. Check your blood pressure every morning as soon as you wake up and send it to Dr. Ricardo. Do no take the blood pressure medication if the blood pressure is below 120/70. Wait every day to hear back from Dr. Ricardo before you take the medication. valsartan 160 mg tablet 160 mg PO BID Hold Instructions: Resume on 02/25/24. Check your blood pressure every morning as soon as you wake up and send it to Dr. Ricardo. Do no take the blood pressure medication if the blood pressure is below 120/70. Wait every day to hear back from Dr. Ricardo before you take the medication. chlorthalidone 50 mg tablet 50 mg PO BEDTIME Hold Instructions: Resume on 02/25/24. Check your blood pressure every morning as soon as you wake up and send it to Dr. Ricardo. Do no take the blood pressure medication if the blood pressure is below 120/70. Wait every day to hear back from Dr. Ricardo before you take the medication. Discontinued Trulicity 0.75 mg/0.5 mL pen injector 0.75 mg subcut MO ibuprofen 800 mg tablet 800 mg PO DAILY PRN (Reason: Pain) Jardiance 25 mg tablet 25 mg PO DAILY metformin 500 mg tablet extended release 24 hr 500 mg PO BEDTIME ergocalciferol (vitamin D2) 1,250 mcg (50,000 unit) capsule 1,250 mcg PO WRIGHT Discharge Orders: Discharge Order (Routine); Ordered 02/24/24 Ordered By: Mikey Ricardo Activity on Discharge: No heavy lifting Stand Alone Forms: Patient Portal Discharge page Print Language: Lithuanian Care Plan Goals: weight loss Health Concerns: morbid obesity Plan of Treatment: No tub baths, sex or returning to work until discussed at first post op appointment. No exercise, alcohol, tobacco or illegal drug use. Continue to use incentive spirometer hourly while awake. Walk in home for 5- 10 minutes every 2 hours during the first week. Follow all instructions in the bariatric handbook and call with any questions.Discharge Instructions 1. Please call your doctor or come back to the emergency room should any new symptoms arise. 2. You will receive a courtesy call from [facility] 24-48 hours after discharge. 3. Activity: abstain from alcohol, practice limited stair climbing, no bending, no driving, no exercise, no illicit substances, no lifting, no sex, no tub bath, no work. 4. Diet: continue as discussed with Dr. Ricardo. 5. Dressing Change/Wound Care: Your incision is covered by clear bandages and guaze underneath. If the area is tender, you may apply an ice pack for short intervals (no more than 20 minutes on, followed by at least 20 minutes off). Do not apply heat. Do not use creams, lotions, or topical antibiotics unless instructed to do so by your surgeon. These can cause infection or allergic reaction. 6. Call your doctor if: - Your temperature exceeds 101.5 F - You experience excessive pain or swelling - You have an unexpected reaction to medication - You have excessive bleeding - You experience continued vomiting/nausea - Your incision begins to separate - Your incision shows signs of infection such as increased redness, swelling, excessive pain, heat, or drainage (light blood or clear fluid is normal) 7. General instructions: No lifting greater than 5 lbs for 1 week and not more than 20lbs the next 3?weeks. No driving until seen at the office in 5-7 days after surgery. If you do not move your bowels in the next 2 days, please tell?Dr. Ricardo. Please walk around your home every hour or two to prevent blood clots from forming in your legs. You do not need to wake from sleeping to walk. Please sleep in a bed or couch to prevent kinking at the hips and knees. Please take your incentive spirometer (your lung bath mix operator) home with you and use it for the next few days to prevent pneumonia. You may shower, no hot tubs, baths or swimming pools.?Please follow the post op diet instructions you are?given by Dr iRcardo? and text me daily at 5-6pm for an update.?If you have any issues or concerns or questions please communicate this to him via text.? The Celebrate shakes have all of the bariatric vitamins you need if you consume these shakes. If you are drinking other protein shakes, you will need to purchase the Celebrate multivitamins and calcium that are available in the hospital gift shop on the first floor of the [facility].??Do not take anything without first discussing with Dr Ricardo. Please make sure you are consuming at least 40 ounces of fluids per day starting the?day AFTER your discharge from the hospital. Always drink 1-2 ml per minute using the 5ml?syringe. If you drink faster you may experience?bloating,?gas pain, burping, nausea or heartburn. In that case please slow down your pace and use the syringe to?understand better the?proper?pace and volume of drinking. Do not hesitate to contact the office with any questions at . The patient's medical history has been reviewed and they are considered low risk for post op DVT and therefore DVT prophylaxis is not considered necessary. Travel after surgery was reviewed. The patient has not disclosed any travel plans during the first 30 days after surgery and they have been advised that within the first 30 days after surgery any bus, plane, train or car travel over 2 hours in duration is contraindicated due to the possibility of developing blood clots from immobility. Any travel, needs to include periods of ambulation of 10 minutes in duration every 2 hours.? The patient was instructed to discuss any plans for travel during this period with their bariatric surgeon. Assessment: stable s/p laparoscopic sleeve gastrectomy Discharge Date/Time: 02/24/24 11:29
[2024-02-23] MEDS: fentaNYL citrate/PF 100 MCG/2 ML VIAL 25 MCG IVPUSH ×4 (11:54→12:25)
[2024-02-23] MEDS: Haloperidol Lactate 5 MG/ML VIAL 1 MG IVPUSH (12:17)
[2024-02-23 12:49] LABS: Zinc 64 mcg/dL (60-130)
[2024-02-23] MEDS: ceFAZolin Sodium/Dextrose,Iso 2 GM/50 ML PIGGYBACK IV (13:51)
[2024-02-23] MEDS: Lactated Ringers 1,000 ML 100 ML IVCONT (13:54)
[2024-02-23] MEDS: Acetaminophen 1,000 MG/100 ML PIGGYBACK 16.7 MG IV ×2 (14:41→20:16)
[2024-02-23 14:51] LABS: Hematocrit 40.7 % (37.0-47.0); Hemoglobin 13.2 g/dl (12.0-16.0)
[2024-02-23] MEDS: Metoclopramide HCl 10 MG/2 ML VIAL IVPUSH (15:18)
[2024-02-23 15:21] LABS: Anion Gap 14 (12-20); Blood Urea Nitrogen 10 mg/dL (9-16); Carbon Dioxide 24 mmol/L (22-29); Chloride 102 mmol/L (96-108); Creatinine Clr Calc Pharmacy 140.2; Estimated Glomerular Filt Rate > 60; Glucose Random 206 mg/dL (60-115); Sodium 137 mmol/L (135-145)
--- NOTE | 2024-02-23 15:29 | PHA.MEDREC ---
Addendum entered by Tom Finch, [facility] 02/23/24 15:53: med rec verified Original Note: Pharmacy Consult ? Medication Reconciliation Pharmacy has completed the medication reconciliation. Got Med Box list from family. They also confirmed the patient is still taking Metformin 500mg and she does it at bedtime. I asked more on that since there were no claims and they state she fills that at [facility]. They also confirmed that her doctor switched her from her Omeprazole 40mg and took her last dose yesterday 02/21 and is now gonna be starting Pantoprazole 40mg daily when she gets home from the hospital.
[2024-02-23] MEDS: HYDROmorphone HCl 0.5 MG/0.5 ML SYRINGE 0.25 MG IVPUSH (19:14)
[2024-02-23] MEDS: 0.9 % Sodium Chloride Flush 3 ML SYRINGE IVFLUSH (19:15)
[2024-02-23] MEDS: Valsartan 160 MG TABLET PO (19:15)
[2024-02-23] MEDS: Famotidine/PF 20 MG/2 ML VIAL IVPUSH (19:15)
[2024-02-23] MEDS: ondansetron HCL 4 MG/2 ML VIAL IVPUSH (19:21)
[2024-02-23] MEDS: KCl 20 mEq in 0.9 % Sodium ChL 20 MEQ/1,000 ML IV.SOLN 100 MEQ IVCONT (22:18)
[2024-02-24] MEDS: Acetaminophen 1,000 MG/100 ML PIGGYBACK 16.7 MG IV (02:08)
[2024-02-24] MEDS: HYDROmorphone HCl 0.5 MG/0.5 ML SYRINGE 0.25 MG IVPUSH (02:09)
[2024-02-24 03:16] VITALS: BP 140/77; PULSE 75; RESP 16; TEMP 36.2; O2SAT 94
[2024-02-24 06:48] LABS: MANUAL DIFF FLAG NO
[2024-02-24 06:57] LABS: Basophils Percent Auto 0.1 % (0-2); Hematocrit 38.5 % (37.0-47.0); Hemoglobin 12.1 g/dl (12.0-16.0); Imm Gran Abs Auto 0.06 X10*3/uL (0.00-0.03); Imm Gran Pct Auto 0.5 % (0.0-0.4); Lymphocytes Absolute Auto 0.9 X10*3/uL (1.2-4.9); Lymphocytes Percent Auto 8.4 % (20-40); Mean Corpuscular HGB Conc 31.4 g/dl (31.0-35.0); Mean Corpuscular Hemoglobin 23.1 pg (27.0-33.0); Mean Corpuscular Volume 73.6 fL (80.0-98.0); Monocytes Absolute Auto 0.4 X10*3/uL (0.1-1.2); Monocytes Percent Auto 3.5 % (2-11); Neutrophils Absolute Auto 9.6 x10*3/uL (2.0-8.3); Neutrophils Percent Auto 87.5 % (45-73); Platelet Count 380 X10*3/uL (160-400); Red Blood Count 5.23 X10*6/uL (4.20-5.50); Red Cell Distribution Width 17.7 % (11.0-16.0)
[2024-02-24 07:01] VITALS: BP 152/84; PULSE 85; RESP 16; TEMP 36.5; O2SAT 100
[2024-02-24 07:21] LABS: Anion Gap 13 (12-20); Blood Urea Nitrogen 7 mg/dL (9-16); Calcium 9.5 mg/dL (8.4-10.2); Carbon Dioxide 30 mmol/L (22-29); Chloride 102 mmol/L (96-108); Creatinine Clr Calc Pharmacy 127.9; Estimated Glomerular Filt Rate > 60; Glucose Random 138 mg/dL (60-115); Potassium 3.1 mmol/L (3.3-5.1); Sodium 142 mmol/L (135-145)
[2024-02-24 07:58] LABS: Glucose, Whole Blood 136 mg/dL (60-115)
[2024-02-24] MEDS: Famotidine/PF 20 MG/2 ML VIAL IVPUSH (07:59)
[2024-02-24] MEDS: Valsartan 160 MG TABLET PO (08:02)
[2024-02-24] MEDS: NIFEdipine ER 90 MG TAB.ER.24 PO (08:02)
[2024-02-24] MEDS: Potassium Chloride/H20 10 MEQ/100 ML PIGGYBACK 100 MEQ IV ×2 (08:06→09:19)
--- NOTE | 2024-02-24 08:45 | MHC.CM.PN ---
pt dcd home self care
--- NOTE | 2024-02-24 08:54 | HO.POSTANES ---
Post Anesthesia Evaluation Post Anesthesia Evaluation Date of Service: 02/23/24 Vital Signs: Vital Signs Temp Pulse Resp BP Pulse Ox O2 Del Method 02/24/24 07:01 97.7 F 85 16 152/84 H 100 Room Air 02/24/24 03:16 97.1 F 75 16 140/77 H 94 Room Air 02/23/24 23:19 97.4 F 83 16 144/82 H 94 Room Air Anesthesia: General Endotracheal-GETA Mental Status: Awake Pain Control: Satisfactory Nausea/Vomiting: None Hydration: Adequate Anesthesia-Related Issues: No Anes. Related Issues
[2024-02-24 19:53] LABS: Vitamin A 33 mcg/dL (38-98)
[2024-02-26 12:38] LABS: Vitamin B1 8 nmol/L (8-30)
== END 2024-02-24 11:29 | disposition home or self-care (01) | DRG 403 ==
LOC: HO.SSSA 11:03 → HO.S3 11:28
PROVIDERS: Physician Assistant Surgical; Admitting Provider Surgery; PCP Internal Medicine; Visit Provider Surgery
PROC: 0DB64Z3 Excision of Stomach, Percutaneous Endoscopic Approach, Vertical (ICD-10-PCS; CPT 43845; principal; 2024-02-23 08:50)
DX: E66.01 Morbid (severe) obesity due to excess calories (principal); I11.9 Hypertensive heart disease without heart failure; E11.9 Type 2 diabetes mellitus without complications; J45.909 Unspecified asthma, uncomplicated; N39.3 Stress incontinence (female) (male); G47.33 Obstructive sleep apnea (adult) (pediatric); Z68.42 Body mass index [BMI] 45.0-49.9, adult; K21.9 Gastro-esophageal reflux disease without esophagitis; M19.90 Unspecified osteoarthritis, unspecified site; Z79.899 Other long term (current) drug therapy
CPT/HCPCS: 36415; 80048; 80053; 80061; 82306; 82607; 82728; 82947; 83036; 83525; 83540; 84425; 84443; 84590; 84630; 85014; 85018; 85025; 85610; 85730; 86140; 86850; 86900; 86901; 88304; 88305; 88307; 88342; A4649; C9145; J0131; J0690; J1100; J1170; J1630; J2250; J2405; J2704; J2765; J2795; J3010; J3480; J7120

== ENCOUNTER → 2024-02-23 06:07 | Outpatient (BNV) | payer MEDICAID, SELFPAY | PROVIDERS: Admitting Provider Surgery; PCP Internal Medicine; Visit Provider Surgery | DX: E66.01 Morbid (severe) obesity due to excess calories (principal); Z68.42 Body mass index [BMI] 45.0-49.9, adult; Z90.3 Acquired absence of stomach [part of]; Z98.84 Bariatric surgery status | CPT/HCPCS: 43659; 43775; 99024; 99499 ==

== ENCOUNTER 2024-03-02 11:54 | Outpatient (AMB) | payer MEDICAID, SELFPAY ==
--- NOTE | 2024-03-02 12:00 | MHC.OFFVISWM ---
VS Expanded 03/02/24 12:16 BP 130/81 Blood Pressure Location Rt brachial Blood Pressure Position Sitting Pulse 93 Pulse Source Pulse Oximeter Temp 97.3 F Temperature Source Temporal Artery Scan Pulse Oximetry 97 Oxygen Delivery Method Room Air Height 5 ft 3 in Weight 249 lb BMI 44.1 Body Fat % 49.2 Body Fat Mass 122.4 Fat Free Mass 126.6 Intake Visit Reasons: (OV) PO LSG 02/23/2024 Utilities Equipment Repairer Required: Yes Utilities Equipment Repairer Services: Utilities Equipment Repairer Present Utilities Equipment Repairer Name: [facility] Allergies zolpidem [From Ambien] Adverse Reaction (Verified 03/02/24 12:37) Confusion HPI Comments Details: Patient is a pleasant 43-year-old female who returns to the office today in follow-up. She is 8 days post sleeve gastrectomy performed on 02/23/2024. She is tolerating 2 celebrate 4 in 1 shakes with 2 scoops each and 1 premier protein ready to drink, 4 oz mixed with 4 oz of almond milk. She has moved her bowels and offers no complaints at today's visit. [facility] Medical History (Updated 02/27/24 @ 00:03 by Orville Flores) Pre-op evaluation Esophagitis determined by biopsy Well woman exam Type 2 diabetes mellitus JAD (obstructive sleep apnea) Stress incontinence Asthma Hyperlipidemia Dysplasia of cervix, low grade (JOSE LUIS 1) Back pain Insomnia GERD (gastroesophageal reflux disease) Hypertension Morbid obesity Surgical History (Updated 03/02/24 @ 12:38 by Sara Garcia [facility]) Hx of laparoscopic partial gastrectomy History of esophagogastroduodenoscopy (EGD) Hx of tubal ligation Hx of section Family History Mother Hypertension Diabetes Asthma Arthritis Father No problems noted. Brother No problems noted. Brother No problems noted. Daughter No problems noted. Daughter No problems noted. Daughter No problems noted. Maternal Aunt Breast cancer, Onset Age: 56 Social History Household Members: Family Household Members Other:: mother Housing: House Are you a primary director of patient care to a significant other at home: No Do you presently have visiting nurse or other home services: No Alcohol intake: never Patient Tobacco Use Status: Never used Tobacco Current occupational status: unemployed Sexual orientation: Straight/Heterosexual Gender identity: Female Female Reproductive History Menstrual Age of Menarche: 10 Physical Exam Vital Signs: Last Vital Signs Temp 97.3 F 03/02/24 12:16 Pulse 93 03/02/24 12:16 BP 130/81 03/02/24 12:16 Pulse Ox 97 03/02/24 12:16 Oxygen Delivery Method Room Air 03/02/24 12:16 BMI result Body Mass Index 44.1 GI Inspection: Yes incision (Clean, dry, intact.) Assessment & Plan Assessment & Plan (1) S/P laparoscopic sleeve gastrectomy: Code(s): Z98.84 - Bariatric surgery status Category: Surgical Plan: POD 8 s/p LSG on 02/23/[address] Ricardo Weight loss prior to surgery was 17.9 pounds or 6.3 % TBWL. Original weight on 10/12/2023 was 283.2 pounds and op weight was 265.3 pounds. Be sure to text Dr Ricardo exactly 1 week after surgery your weight from your home scale so he can adjust your meal plan. Continue meal plan until f/u tiffanie Santos in 2 weeks May shower, no submersion in bath for another week Continue abdominal binder with activity and exercise for the next 2 weeks. Exercise prior to surgery was treadmill and may resume No abdominal exercises for 6 weeks post operatively Will be emailed link to post op video for review Reminded of the pace of drinking, 2 mL per minute, 1 oz/15 min.
[2024-03-02 12:16] VITALS: BP 130/81; PULSE 93; TEMP 36.3; O2SAT 97; BMI 44.1
== END 2024-03-02 12:44 | disposition home or self-care (01) ==
PROVIDERS: PCP Internal Medicine; Visit Provider Physician Assistant Surgical
DX: Z98.84 Bariatric surgery status (principal)
CPT/HCPCS: 99024

== ENCOUNTER → 2024-03-02 11:54 | Outpatient (BNVA) | payer MEDICAID, SELFPAY | PROVIDERS: PCP Internal Medicine; Visit Provider Physician Assistant Surgical | DX: E66.01 Morbid (severe) obesity due to excess calories (principal); Z68.41 Body mass index [BMI] 40.0-44.9, adult; Z90.3 Acquired absence of stomach [part of] | CPT/HCPCS: 99212 ==

== ENCOUNTER → 2024-03-21 08:15 | Outpatient (BNVA) | payer MEDICAID, SELFPAY | PROVIDERS: PCP Internal Medicine; Visit Provider Physician Assistant Surgical ==

== ENCOUNTER 2024-03-23 14:16 | Emergency (ER) | payer MEDICAID, SELFPAY ==
--- NOTE | ~2024-03-23 | XR_ITS ---
EXAMINATION: XR LUMBOSACRAL SPINE CLINICAL INFORMATION: Low back pain COMPARISON: None available. TECHNIQUE: Three views of the lumbosacral spine. FINDINGS: No fracture or destructive process. Vertebral body heights and disc space heights do appear preserved. SI joints appear symmetric. Surgical clips are seen in the left upper quadrant. XR/XR lumbar spine 2-3V IMPRESSION: No acute findings. Electronically signed by: Jose Bianchi MD 03/23/2024 04:57 PM EDT
[2024-03-23 14:44] VITALS: BP 143/93; PULSE 80; RESP 16; TEMP 37; O2SAT 98; BMI 54.1
--- NOTE | 2024-03-23 14:51 | ED_ITS ---
HPI - General Adult General Chief complaint: Back Pain/Injury Stated complaint: lower back pain-r leg pain Time Seen by Provider: 03/23/24 16:56 Source: patient, RN notes reviewed and old records reviewed Mode of arrival: ambulatory History of Present Illness ED Provider: Debbi Jenkins PA-C HPI narrative: 43-year-old female with a past medical history of diabetes, JAD, asthma, HLD, GERD, insomnia, obesity, gastric sleeve, presenting to the ED complaining of low back pain radiating down RLE x5 days. Denies known injury/trauma or fall, reports associated paresthesias. Admits to history of sciatica/nerve imping ement in back. Denies weakness, incontinence/retention, hematuria/dysuria, abdominal pain. Has not been taking anything for pain Related Data Home Medications ?Medication ?Instructions ?Recorded ?Confirmed atorvastatin 40 mg tablet 40 mg PO DAILY 01/07/23 02/23/24 cetirizine 10 mg tablet 10 mg PO DAILY PRN allergies 01/07/23 02/23/24 chlorthalidone 50 mg tablet 50 mg PO BEDTIME 01/07/23 02/23/24 oxybutynin chloride 15 mg 15 mg PO DAILY 01/07/23 02/23/24 tablet,extended release 24 hr acetaminophen 500 mg tablet 500 mg PO Q8-12H PRN Pain 02/23/24 02/23/24 fluoxetine 10 mg capsule 10 mg PO DAILY 02/23/24 02/23/24 hydroxyzine HCl 50 mg tablet 50 mg PO BEDTIME 02/23/24 02/23/24 labetalol 100 mg tablet 100 mg PO BID 02/23/24 02/23/24 nifedipine 90 mg tablet,extended 90 mg PO BEDTIME 02/23/24 02/23/24 release 24 hr valsartan 160 mg tablet 160 mg PO BID 02/23/24 02/23/24 Previous Rx's ?Medication ?Instructions ?Recorded pantoprazole 40 mg tablet,delayed 40 mg PO DAILY #90 tabs 12/11/23 release ondansetron 4 mg disintegrating 4 mg PO Q12H nausea and vomiting 02/19/24 tablet #20 tabs sucralfate 100 mg/mL oral 10 ml PO BID #600 mL 02/19/24 suspension acetaminophen 500 mg tablet 500 mg PO Q6H PRN fever or pain 03/23/24 (Tylenol Extra Strength) #14 tabs cyclobenzaprine 5 mg tablet 5 mg PO Q8H PRN pain (scale score 03/23/24 7-10) 5 days #14 tabs lidocaine 5 % topical patch 1 patch topical DAILY PRN pain #30 03/23/24 (Lidoderm) ea Allergies Allergy/AdvReac Type Severity Reaction Status Date / Time zolpidem [From Ambien] AdvReac Confusion Verified 03/23/24 14:50 Review of Systems Review of Systems: Yes all other systems are reviewed and are negative Constitutional: Constitutional: Reports as per [facility] Past Medical History Attestation statement: The following information was validated with the patient. Source: old records reviewed Medical History Pre-op evaluation Esophagitis determined by biopsy Well woman exam Type 2 diabetes mellitus JAD (obstructive sleep apnea) Stress incontinence Asthma Hyperlipidemia Dysplasia of cervix, low grade (JOSE LUIS 1) Back pain Insomnia GERD (gastroesophageal reflux disease) Hypertension Morbid obesity Surgical History Hx of laparoscopic partial gastrectomy History of esophagogastroduodenoscopy (EGD) Hx of tubal ligation Hx of section Family History Family History Mother Hypertension Diabetes Asthma Arthritis Father No problems noted. Brother No problems noted. Brother No problems noted. Daughter No problems noted. Daughter No problems noted. Daughter No problems noted. Maternal Aunt Breast cancer, Onset Age: 56 Social History Social History Household Members: Family Household Members Other:: mother Housing: House Are you a primary child daycare worker to a significant other at home: No Do you presently have visiting nurse or other home services: No Alcohol intake: never Patient Tobacco Use Status: Never used Tobacco Advance Directives: No Advance Directives Information Provided: No Current occupational status: unemployed Sexual orientation: Straight/Heterosexual Gender identity: Female Physical Exam ED Vital Signs: Vital Signs - 24 hr 03/23/24 14:44 03/23/24 17:45 Temperature 98.6 F 98.6 F Pulse Rate 80 80 Respiratory Rate 16 16 Blood Pressure 143/93 H 143/93 H Pulse Oximetry 98 98 Oxygen Delivery Method Room Air Room Air BMI result Body Mass Index 54.1 Const General: cooperative, healthy appearing and no acute distress Orientation/consciousness: patient oriented x3 Limitations: no limitations HENMT Head: Yes normal to inspection and Yes atraumatic Ears: hearing grossly normal bilaterally General nose exam: Normal external nose present Face and sinus: Yes normal facial exam Eyes General: appearance normal, both eyes and all related structures EOM: EOMs intact bilaterally Neck Neck: Yes normal visual inspection and Yes no meningeal signs Resp Effort & Inspection: normal respiratory effort and no respiratory distress Cardio Rate: regular rate GI Inspection: Yes normal to inspection Palpation (GI): Soft to palpation, nontender, no guarding and not rigid General: Yes no CVA tenderness Back/Spine/Pelvis Other: No midline cervical/thoracic/lumbar spinous tenderness/step-off or deformity. + right-sided lower lumbar paraspinal/MSK reproducible tenderness. No rash/ecchymosis Back: no CVA tenderness Skin Rashes: no rashes Wounds: no wounds Neuro Other: Strength intact throughout. No saddle anesthesia. Sensation intact to light touch. Neurovascular intact distally General: patient oriented x3, gait normal, tone normal, moves all extremities and no meningeal signs Cranial nerves: Yes CN's II-XII intact bilaterally Gait exam (Neuro): Normal gait present Motor exam (neuro): 5/5 motor strength present throughout Extrem General: Yes normal to inspection Course Course Course Narrative: RME: Done by HERNANDO Piña. 43-year-old female presents to ED for 4 low back pain radiating down right leg without any trauma. Patient denies any fever, chills, urinary/bowel incontinence, nausea, vomiting, dysuria, or hematuria. Patient states she was told in the past she had nerve impingement in back. Lumbar x-ray ordered. Mild lumbar spine tenderness to palpation XR lumbar spine 2-3V IMPRESSION: No acute findings. >Results discussed with patient including worrisome signs and symptoms and strict return precautions, and when to return to the emergency department. They verbalized understanding and feel safe for discharge at this time. Medications Administered Discontinued Medications Generic Name Dose Route Start Last Admin Trade Name Freq PRN Reason Stop Dose Admin Acetaminophen 975 mg 03/23/24 17:29 03/23/24 17:39 Acetaminophen 325 Mg Tablet PO 03/23/24 17:30 975 mg ONCE ONE Administration Medical Decision Making Medical Decision Making MDM Narrative: 43-year-old female with a past medical history of diabetes, JAD, asthma, HLD, GERD, insomnia, obesity, gastric sleeve, presenting to the ED complaining of low back pain radiating down RLE x5 days. On exam vital signs stable, NAD, nontoxic appearing, physical exam as noted above with reproducible MSK/paraspinal tenderness. No midline spinous tenderness or red flag symptoms. Ambulating with steady gait. Concern for sciatica vs herniated disc vs MSK pain/strain. Low suspicion for cauda equina/cord compression, epidural abscess, pyelo/UTI Plan: X-rays ordered in triage, pain control Please refer to course for remaining clinical decision making, interpretation of labs/imaging results, and discussions with consultants and/or family members. Differential Diagnosis Differential Diagnoses: The differential diagnosis associated with the presentation includes As above Independent Interpretation I performed an independent interpretation of an: Plain X-Ray Radiology Impression Discussion of test interpretation with radiology: I have reviewed the rad iologist's reading. External Record Review External record reviewed: Inpatient record, Office record, Outpatient record, Prior outpatient labs, Prior outpatient radiology, Primary care record and Outside ED record Tests considered The following testing was considered but not selected: As above Prescription Management I considered prescription management with: Pain Medication Chronic Conditions Patient?s care impacted by: Hypertension and Other Discharge Plan Discharge Clinical Impression: Sciatica Patient Disposition: Home, Self-Care Instructions: Sciatica (ED) Additional Instructions: Your pain is likely musculoskeletal/sciatica Flexeril is a muscle relaxer, take at night as it makes you drowsy, do not drive, drink alcohol, or operate machinery while taking it Lidoderm patches are numbing patches, apply to painful area In addition take Tylenol at home If symptoms persist or worsen, pain becomes unbearable, you developed urinary retention or incontinence, or weakness return to the ED Prescriptions: New acetaminophen [Tylenol Extra Strength] 500 mg tablet 500 mg PO Q6H PRN (Reason: fever or pain) Qty: 14 0RF lidocaine [Lidoderm] 5 % adhesive patch,medicated 1 patch topical DAILY MDD remove after 12 hours PRN (Reason: pain) Qty: 30 0RF Rx Instructions: leave on most painful area for up to 12 hrs cyclobenzaprine 5 mg tablet 5 mg PO Q8H PRN (Reason: pain (scale score 7-10)) 5 Days Qty: 14 0RF No Action pantoprazole 40 mg tablet,delayed release (DR/EC) 40 mg PO DAILY Qty: 90 0RF hydroxyzine HCl 50 mg tablet 50 mg PO BEDTIME acetaminophen 500 mg tablet 500 mg PO Q8-12H PRN (Reason: Pain) nifedipine 90 mg tablet extended release 24hr 90 mg PO BEDTIME fluoxetine 10 mg capsule 10 mg PO DAILY labetalol 100 mg tablet 100 mg PO BID valsartan 160 mg tablet 160 mg PO BID chlorthalidone 50 mg tablet 50 mg PO BEDTIME atorvastatin 40 mg tablet 40 mg PO DAILY cetirizine 10 mg tablet 10 mg PO DAILY PRN (Reason: allergies) oxybutynin chloride 15 mg tablet extended release 24hr 15 mg PO DAILY sucralfate 100 mg/mL suspension 10 ml PO BID Qty: 600 2RF ondansetron 4 mg tablet,disintegrating 4 mg PO Q12H Qty: 20 0RF Rx Instructions: Only take one every 12 hours as needed if you have nausea Referrals: [facility] [place] Group] Joceline Gutierrez MD [Primary Care Provider] - 5 days Interventions: ED Discharge Assessment Last Done: 03/23/24 17:45 Discharge Date/Time: 03/23/24 17:46 Print Language: Thai
[2024-03-23] MEDS: Acetaminophen 325 MG TABLET 975 MG PO (17:39)
[2024-03-23 17:45] VITALS: BP 143/93; PULSE 80; RESP 16; TEMP 37; O2SAT 98
== END 2024-03-23 17:46 | disposition home or self-care (01) ==
PROVIDERS: Emergency Provider Internal Medicine; PCP Internal Medicine
DX: M54.41 Lumbago with sciatica, right side (principal); E11.9 Type 2 diabetes mellitus without complications; I10 Essential (primary) hypertension; E78.5 Hyperlipidemia, unspecified; J45.909 Unspecified asthma, uncomplicated; Z79.02 Long term (current) use of antithrombotics/antiplatelets
CPT/HCPCS: 72100; 99283

== ENCOUNTER 2024-04-01 08:19 | Outpatient (AMB) | payer MEDICAID, SELFPAY ==
--- NOTE | 2024-04-01 09:41 | A.OFFVIS_ITS ---
VS Expanded 04/01/24 10:20 BP 139/75 Blood Pressure Location Rt brachial Blood Pressure Position Sitting Pulse 78 Pulse Source Pulse Oximeter Temp 98.1 F Temperature Source Temporal Artery Scan Pulse Oximetry 100 Oxygen Delivery Method Room Air Height 5 ft 3 in Weight 239 lb 9.6 oz BMI 42.4 Body Fat % 45.1 Body Fat Mass 108.0 Fat Free Mass 131.4 Visceral Fat Rating 13.0 Body Water % 39.2 Body Water Mass 94.0 Muscle Mass/Score 124.8 Basal Metabolic Rate/Score 1,850 Intake Visit Reasons: (OV) PO LSG 02/23/2024 Swimming Instructor Required: Yes Swimming Instructor Services: Swimming Instructor Present Swimming Instructor Name: #[id number] Allergies zolpidem [From Ambien] Adverse Reaction (Verified 04/01/24 10:18) Confusion Medication List - Last Reconciled 04/01/24 by SHERRILL Bernard acetaminophen 500 mg PO Q8-12H PRN acetaminophen (Tylenol Extra Strength) 500 mg PO Q6H PRN atorvastatin 40 mg PO DAILY cetirizine 10 mg PO DAILY PRN chlorthalidone 50 mg PO BEDTIME cyclobenzaprine 5 mg PO Q8H PRN 5 days docusate sodium (Colace) 100 mg PO BID 90 days fluoxetine 10 mg PO DAILY hydroxyzine HCl 50 mg PO BEDTIME labetalol 100 mg PO BID lidocaine 5% (Lidoderm) 1 patch topical DAILY PRN MDD remove after 12 hours nifedipine ER 90 mg PO BEDTIME ondansetron 4 mg PO Q12H oxybutynin chloride ER 15 mg PO DAILY pantoprazole 40 mg PO DAILY sucralfate 10 mL PO BID valsartan 160 mg PO BID HPI Comments Details: This?a?43?yo female who is s/p LSG without hiatal hernia repair on?02/23/2024. Presents for 1 month post op visit. Weight today is 239.6 pounds, with a BMI of 42.4. There has been a 43.6 pound weight loss,(initial weight 283.2 pounds) since starting the program on 10/12/2023 reflecting a 15.3% total body weight l oss and a weight loss of 25.7 pounds since surgery (operative weight 265.3 pounds) reflecting a 9.6% TBWL since surgery. No complaints of nausea, emesis, abdominal pain or reflux. Reports infrequent but normal bowel movements every 2- 3 days and uses stool softeners regularly. Present meal plan includes: 2 celebrate 4 in 1 shakes with 2 scoops each 1 premier protein ready to drink, 4 oz mixed with 4 oz of almond milk. 32-48 oz water ? Exercise routine includes: walking outside, daily for exercise and to do errands. going to the store etc. has treadmill at home [facility] Medical History Pre-op evaluation Esophagitis determined by biopsy Well woman exam Type 2 diabetes mellitus JAD (obstructive sleep apnea) Stress incontinence Asthma Hyperlipidemia Dysplasia of cervix, low grade (JOSE LUIS 1) Back pain Insomnia GERD (gastroesophageal reflux disease) Hypertension Morbid obesity Surgical History Hx of laparoscopic partial gastrectomy History of esophagogastroduodenoscopy (EGD) Hx of tubal ligation Hx of section Family History Mother Hypertension Diabetes Asthma Arthritis Father No problems noted. Brother No problems noted. Brother No problems noted. Daughter No problems noted. Daughter No problems noted. Daughter No problems noted. Maternal Aunt Breast cancer, Onset Age: 56 Social History Household Members: Family Household Members Other:: mother Housing: House Are you a primary primary care physician to a significant other at home: No Do you presently have visiting nurse or other home services: No Alcohol intake: never Patient Tobacco Use Status: Never used Tobacco Current occupational status: unemployed Sexual orientation: Straight/Heterosexual Gender identity: Female Female Reproductive History Menstrual Age of Menarche: 10 Physical Exam Const General: healthy appearing and no acute distress Resp Effort & Inspection: normal respiratory effort Auscultation: clear to auscultation bilaterally Cardio Rate: regular rate Rhythm: regular rhythm GI Auscultation: normal bowel sounds Extrem General: Yes normal to inspection Assessment & Plan Assessment & Plan (1) S/P laparoscopic sleeve gastrectomy: Code(s): Z98.84 - Bariatric surgery status Category: Surgical Plan: Patient was encouraged to continue her meal plan. She was encouraged to use her treadmill at home, daily, to achieve a goal of 300-350 calories burned per day. Any additional walking that she is doing for Jasmien[employer] is certainly helpful, but dedicated cardio exercise was discussed. Encouraged to send her weight is weekly. We will have her return to the office in approximately 3-4 weeks.
[2024-04-01 10:20] VITALS: BP 139/75; PULSE 78; TEMP 36.7; O2SAT 100; BMI 42.4
== END 2024-04-01 10:59 | disposition home or self-care (01) ==
PROVIDERS: PCP Internal Medicine; Visit Provider Physician Assistant Surgical
DX: Z98.84 Bariatric surgery status (principal)
CPT/HCPCS: 99024

== ENCOUNTER → 2024-04-01 08:19 | Outpatient (BNVA) | payer MEDICAID, SELFPAY | PROVIDERS: PCP Internal Medicine; Visit Provider Physician Assistant Surgical | DX: Z98.84 Bariatric surgery status (principal) | CPT/HCPCS: 99212 ==

== ENCOUNTER → 2024-04-08 08:08 | Outpatient (BNVA) | payer MEDICAID, SELFPAY | PROVIDERS: PCP Internal Medicine; Visit Provider Physician Assistant Surgical ==

== ENCOUNTER → 2024-04-15 08:18 | Outpatient (BNVA) | payer MEDICAID, SELFPAY | PROVIDERS: PCP Internal Medicine; Visit Provider Physician Assistant Surgical ==

== ENCOUNTER 2024-05-05 08:33 | Outpatient (AMB) | payer MEDICAID, SELFPAY ==
--- NOTE | 2024-05-05 10:11 | A.OFFVIS_ITS ---
VS Expanded 05/05/24 10:39 BP 142/90 H Blood Pressure Location Rt brachial Blood Pressure Position Sitting Pulse 65 Pulse Source Pulse Oximeter Temp 97.6 F Temperature Source Temporal Artery Scan Pulse Oximetry 97 Oxygen Delivery Method Room Air Height 5 ft 3 in Weight 226 lb 12.8 oz BMI 40.2 Body Fat % 41.8 Body Fat Mass 94.8 Fat Free Mass 131.8 Visceral Fat Rating 12.0 Body Water % 41.5 Body Water Mass 94.2 Muscle Mass/Score 125.2 Basal Metabolic Rate/Score 1,831 Intake Visit Reasons: (OV) PO LSG 02/23/2024 Administrative Technician Required: Yes Administrative Technician Name: #[id number] Allergies zolpidem [From Ambien] Adverse Reaction (Verified 05/05/24 10:32) Confusion Medication List - Last Reconciled 05/05/24 by SHERRILL Bernard acetaminophen 500 mg PO Q8-12H PRN acetaminophen (Tylenol Extra Strength) 500 mg PO Q6H PRN atorvastatin 40 mg PO DAILY cetirizine 10 mg PO DAILY PRN chlorthalidone 50 mg PO BEDTIME cyclobenzaprine 5 mg PO Q8H PRN 5 days docusate sodium (Colace) 100 mg PO BID 90 days fluoxetine 10 mg PO DAILY hydroxyzine HCl 50 mg PO BEDTIME labetalol 100 mg PO BID lidocaine 5% (Lidoderm) 1 patch topical DAILY PRN MDD remove after 12 hours nifedipine ER 90 mg PO BEDTIME ondansetron 4 mg PO Q12H oxybutynin chloride ER 15 mg PO DAILY pantoprazole 40 mg PO DAILY sucralfate 10 mL PO BID valsartan 160 mg PO BID HPI Comments Details: This?a?43?yo female who is s/p LSG without hiatal hernia repair on?02/23/2024. Presents for 2 month post op visit. Weight today is 226.8 pounds, with a BMI of 40.2. There has been a 56.4 pound weight loss,(initial weight 283.2 pounds) since starting the program on 10/12/2023 reflecting a 19.9% total body weight loss and a weight loss of 38.5 pounds since surgery (operative weight 265.3 p ounds) reflecting a 14.5% TBWL since surgery. No complaints of nausea, emesis, abdominal pain or reflux. Reports infrequent but normal bowel movements every 2- 3 days and uses stool softeners regularly. Checking her BP at home 130-140/80-90 Present meal plan includes: 2 celebrate 4 in 1 shakes with 2 scoops each 1 premier protein ready to drink, 4 oz mixed with 4 oz of almond milk. 40 oz water ? Exercise routine includes: Joined [facility], has treadmill at home [facility] Medical History Pre-op evaluation Esophagitis determined by biopsy Well woman exam Type 2 diabetes mellitus JAD (obstructive sleep apnea) Stress incontinence Asthma Hyperlipidemia Dysplasia of cervix, low grade (JOSE LUIS 1) Back pain Insomnia GERD (gastroesophageal reflux disease) Hypertension Morbid obesity Surgical History Hx of laparoscopic partial gastrectomy History of esophagogastroduodenoscopy (EGD) Hx of tubal ligation Hx of section Family History Mother Hypertension Diabetes Asthma Arthritis Father No problems noted. Brother No problems noted. Brother No problems noted. Daughter No problems noted. Daughter No problems noted. Daughter No problems noted. Maternal Aunt Breast cancer, Onset Age: 56 Social History Household Members: Family Household Members Other:: mother Housing: House Are you a primary rn wound care to a significant other at home: No Do you presently have visiting nurse or other home services: No Alcohol intake: never Patient Tobacco Use Status: Never used Tobacco Current occupational status: unemployed Sexual orientation: Straight/Heterosexual Gender identity: Female Female Reproductive History Menstrual Age of Menarche: 10 Physical Exam Const General: healthy appearing and no acute distress Resp Effort & Inspection: normal respiratory effort Auscultation: clear to auscultation bilaterally Cardio Rate: regular rate Rhythm: regular rhythm GI Auscultation: normal bowel sounds Extrem General: Yes normal to inspection Assessment & Plan Assessment & Plan (1) S/P laparoscopic sleeve gastrectomy: Code(s): Z98.84 - Bariatric surgery status Category: Surgical Plan: Patient is improving. She did have some mild constipation will add a tbsp of Metamucil to 1 of her shakes. I have encouraged her to go to [facility] as she is able. She did report increased stress at home which should be improving. We will have her return to the office in approximately 3-4 weeks. She states that she is willing to continue her current meal plan but again, discussed the importance of exercise
[2024-05-05 10:39] VITALS: BP 142/90; PULSE 65; TEMP 36.4; O2SAT 97; BMI 40.2
== END 2024-05-05 11:03 | disposition home or self-care (01) ==
PROVIDERS: PCP Internal Medicine; Visit Provider Physician Assistant Surgical
DX: Z98.84 Bariatric surgery status (principal)
CPT/HCPCS: 99024

== ENCOUNTER → 2024-05-05 08:33 | Outpatient (BNVA) | payer MEDICAID, SELFPAY | PROVIDERS: PCP Internal Medicine; Visit Provider Physician Assistant Surgical | DX: E66.01 Morbid (severe) obesity due to excess calories (principal); Z68.41 Body mass index [BMI] 40.0-44.9, adult; Z90.3 Acquired absence of stomach [part of] | CPT/HCPCS: 99212 ==

== ENCOUNTER 2024-08-08 10:08 | Outpatient (AMB) | payer MEDICAID, SELFPAY ==
--- NOTE | 2024-08-08 10:12 | MHC.OFFVISWM ---
VS Expanded 08/08/24 10:22 BP 151/87 H Blood Pressure Location Rt brachial Blood Pressure Position Sitting Pulse 72 Pulse Source Pulse Oximeter Temp 98.2 F Temperature Source Temporal Artery Scan Pulse Oximetry 99 Oxygen Delivery Method Room Air Height 5 ft 3 in Weight 198 lb BMI 35.1 Body Fat % 38.2 Body Fat Mass 75.6 Fat Free Mass 122.4 Visceral Fat Rating 9.0 Body Water % 44.1 Body Water Mass 87.4 Muscle Mass/Score 116.2 Basal Metabolic Rate/Score 1,679 Intake Visit Reasons: (OV) PO LSG 02/23/2024 Quality Review Trainer Required: Yes Quality Review Trainer Services: Quality Review Trainer Present Quality Review Trainer Name: hospital cmi Allergies zolpidem [From Ambien] Adverse Reaction (Verified 08/08/24 10:28) Confusion Medication List - Last Reconciled 08/08/24 by SHERRILL Bernard acetaminophen 500 mg PO Q8-12H PRN acetaminophen (Tylenol Extra Strength) 500 mg PO Q6H PRN atorvastatin 40 mg PO DAILY cetirizine 10 mg PO DAILY PRN chlorthalidone 50 mg PO BEDTIME cyclobenzaprine 5 mg PO Q8H PRN 5 days docusate sodium (Colace) 100 mg PO BID 90 days fluoxetine 10 mg PO DAILY hydroxyzine HCl 50 mg PO BEDTIME labetalol 100 mg PO BID lidocaine 5% (Lidoderm) 1 patch topical DAILY PRN MDD remove after 12 hours nifedipine ER 90 mg PO BEDTIME oxybutynin chloride ER 15 mg PO DAILY valsartan 160 mg PO BID HPI Comments Details: This?a?44?yo female who is s/p LSG without hiatal hernia repair on?02/23/2024. Presents for 5 month post op visit. Weight today is 198 pounds, with a BMI of 35.1. There has been a 85.2 pound weight loss,(initial weight 283.2 pounds) since starting the program on 10/12/2023 reflecting a 30% total body weight loss and a weight loss of 67.3 pounds since surgery (operative weight 265.3 pounds) reflecting a 25.3% TBWL since surgery. No complaints of nausea, emesis, abdominal pain or reflux. Reports infrequent but normal bowel movements every 2-3 days and uses stool softeners regularly. Only checking BP at home sometimes. She states having increased stress at home. She does not have anyone to help her at home but is talking to her therapist. Not taking BP meds as she states she doesn't have time. Present meal plan includes: 2 celebrate 4 in 1 shakes with 2 scoops each 1 premier protein ready to drink, 4 oz mixed with 4 oz of almond milk. 40 oz water ? Exercise routine includes: Joined [facility], has treadmill at home [facility] Medical History Pre-op evaluation Esophagitis determined by biopsy Well woman exam Type 2 diabetes mellitus JAD (obstructive sleep apnea) Stress incontinence Asthma Hyperlipidemia Dysplasia of cervix, low grade (JOSE LUIS 1) Back pain Insomnia GERD (gastroesophageal reflux disease) Hypertension Morbid obesity Surgical History Hx of laparoscopic partial gastrectomy History of esophagogastroduodenoscopy (EGD) Hx of tubal ligation Hx of section Family History Mother Hypertension Diabetes Asthma Arthritis Father No problems noted. Brother No problems noted. Brother No problems noted. Daughter No problems noted. Daughter No problems noted. Daughter No problems noted. Maternal Aunt Breast cancer, Onset Age: 56 Social History Household Members: Family Household Members Other:: mother Housing: House Are you a primary adult live in caregiver to a significant other at home: No Do you presently have visiting nurse or other home services: No Alcohol intake: never Patient Tobacco Use Status: Never used Tobacco Current occupational status: unemployed Sexual orientation: Straight/Heterosexual Gender identity: Female Female Reproductive History Menstrual Age of Menarche: 10 Assessment & Plan Assessment & Plan (1) S/P laparoscopic sleeve gastrectomy: Code(s): Z98.84 - Bariatric surgery status Category: Surgical Plan: Patient is doing the best she can. Unfortunately unable to exercise given significant demands at home which she was unable to discuss. She is losing weight. She does wish to change her meal plans slightly. : Celebrate 4 in 1 shakes, 2 scoops per shake, x2. Meal with 6 forks of protein and 4 forks of vegetables Strongly encouraged to check her blood pressure and take medications as she has been instructed to do. We will have her return to the office as scheduled
[2024-08-08 10:22] VITALS: BP 151/87; PULSE 72; TEMP 36.8; O2SAT 99; BMI 35.1
--- OUTSIDE RECORDS SUMMARY | 2024-08-08 11:21 | XMS_ITS | Clinical Summary ---
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 Coordination (CHW outreach for SDOH utilities and food - LVM ) 07/11/2024 Patient Outreach [address] [address] Joceline Gutierrez MD Pre-visit Planning (SDOH screening negative and Tobacco screening negative) 06/17/[address] [address] Joceline Gutierrez MD August06/14/[address] [address] Lelia Miller, RN Care Management (C3CM- f/u call lvm) 06/03/[address] [address] Joceline Gutierrez MD 06/02/[address] [address] Lelia Miller, RN Care Management (C3CM- f/u call ) 05/30/2024 Patient Outreach [address] [address] Joceline Gutierrez MD Pre-visit Planning (SDOH screening completed on 10/07/2023) 05/30/2024 Refill [facility] [address] [place] [phone] Jayleen Mo MD Hypertension, essential; Essential hypertension 05/24/[address] [address] Lelia Miller, RN Care Management (C3CM- f/u call lvm) 05/17/2024 Refill [facility] [address] [place] [address] Joceline Gutierrez MD Seasonal allergies 05/15/2024 Refill [facility] [address] [place] [address] Jayleen Mo MD Seasonal allergies; Essential hypertension; Hypertension, essential 05/11/2024 Telephone [facility] [address] [place] [address] Lelia Miller RN Care Management (C3CM- f/u call) 05/09/2024 Telephone [facility] [address], [place] [phone] Sarah Elena MA from Last 3 Months Immunizations Name Administration Dates Next Due Hep B, Adolescent or Pediatric 01/16/2010,2008,04/19/2009 Hep B, adult 08/20/2023 Influenza Injectable Quadriv alant Preservative Free IIV4 MDCK 03/30/2023 Influenza injectable quadriv alent preservative free 2022,05/23/2021,07/10/2020,03/11,02/14/2017 Influenza, IIV3, injectable 03/23/2014, 8 Influenza, Split (incl. lesley fied surface antigen) 02/18/2013,07/21/2012 MMR 05/22/2009,04/19/2009 Pfizer Covid-19 Vaccine 12+ Bivalent 07/02/2022 Pneumococcal Conjugate PCV 20 03/30/2023 Pneumococcal Polysaccharide PPSV23 03/11/2019 TD (adult), 2 Lf tetanus tox oid, preservative free, adsorbed 08/14/2022,06/14/2009 Tdap 02/18/2013 Social History Tobacco Use Types Packs/Day Years Used Date Smoking Tobacco: Never Passive Smoke Exposure: Never Smokeless Tobacco: Never Tobacco Cessation:Counseling Given: Not Answered Alcohol Use Standard Drinks/Week Comments Never 0 (1 standard drink = 0.6 oz pur e alcohol) Depression Answer Date Recorded Patient Health Questionnaire-9 Score 17 08/20/2023 Patient Health Questionnaire-9 Score 17 08/20/2023 Last PHQ-9: Questionnaire Data Not on file 0 08/20/2023 Housing Stability Answer Date Recorded What is your housing situation today? I have madisyn hutton 08/20/[address] you li ve. Do you have problems with any of the following? None of the above 08/20/2023 Food Insecurity Answer Date Recorded Within the past 12 months, y ou worried that your food would run out before you got money to buy more: Never True 08/20/2023 Within the past 12 months,th e food you bought just didn't last and you didn't have enough money to get more: Never True 12/2023 Transportation Answer Date Recorded In the past 12 months, has l ack of transportation kept you from medical appts, meetings, work or from getting things needed for daily living? No 08/20/2023 Utilities Answer Date Recorded In the past 12 months, has t he electric, gas, oil or water company threatened to shut off services in your home? Yes 07/11/2024 Depression Answer Date Recorded Patient Health Questionnaire-2 Score 6 08/20/2023 Internet Access Answer Date Recorded Internet Access Q1 Yes 07/11/2024 Internet Access Q2 Not on file 07/11/2024 Comments No Sex and Gender Information Value Date Recorded Sex Assigned at Female 04/14/2022 10:15 AM EDT Legal Sex Female 10:15 AM EDT Gender Identity Female 04/14/2022 10:15 AM EDT Sexual Orientation Straight 04/14/2022 10 :15 AM EDT Last Filed Vital Signs Vital Sign Reading Time Taken Comments Blood Pressure 140/85 03/10/2024 10:55 AM EDT Pulse 75 03/10/2024 10:39 AM EDT Temperature 37.1 ??C (98.8 ??F) 03/10/2024 10:39 AM E DT Respiratory Rate 20 10/30/2023 12:05 PM EDT Oxygen Saturation 100% 03/10/2024 10:39 AM EDT Inhaled Oxygen Concentration - - Weight 114 kg (251 lb 6 oz) 03/10/2024 10:39 AM EDT Height 162.6 cm (5' 4 ) 03/10/2024 10:39 AM EDT Body Mass Index 43.15 03/10/2024 10:39 AM EDT Plan of Treatment Upcoming Encounters Date Type Department Care Team (Late st Contact Info) Description 09/21/2024 2:00 PM EDT Office Visit [facility] [address] [place] [address] Joceline Gutierrez MD [address] [place] [address] 10/11/2024 1:00 PM EDT Office Visit [facility] [address] [place] [address] Jean, [place], OD [address] [place] [address] Health Maintenance Due Date Last Done Comments CT Colonography 1979 Colonoscopy 1979 Colorectal Cancer Screening 1979 FIT DNA/Cologuard 1979 FIT 1979 FOBT 1979 Sigmoidoscopy 1979 Alcohol/Substance Use Screening 1991 Hepatitis B Vaccines (2 of 3 - 19+ 3-dose series) 09/17/2023 08/20/2023, 01/16/2010, 05/22/2009, Additional history exists Depression Monitoring (PHQ-9) 02/20/2024 08/20/2023, 08/20/2023 Diabetes: Hemoglobin A1C 04/21/2024 024, 08/20/2023, 12/25/2022, Additional history exists Mammogram 07/03/2024 07/03/2023, 06/15, 12/17/2022, Additional history exists Depression Screening 08/19/2024 08/20/2023, 08/20/19 24 Diabetes: Foot Exam 08/19/2024 08/20/2023, 08/20/2023, 08/20/2023, Additional history exists Family Planning (PISQ) 08/19/2024 08/20/2023 Diabetes: Urine Protein Screening 09/14/2024 09/15/2023 Lipid Panel 10/19/2024 10/20/2023, 04/0 07/2023, 09/15/2022, Additional history exists Tobacco Screening 03/10/2025 03/10/2024 Eye Exam 07/06/2025 07/06/2023, 06/16, 07/06/2023, Additional history exists SDOH Screening 07/11/2025 07/11/2024 Cervical Cancer Screening 12/08/2025 HPV/Cotest 12/08/2025 07/15/2022, 05/23/2021 Pap Smear 12/08/2025 12/08/2022, 06/17, 05/23/2021, Additional history exists Zoster Vaccines (1 of 2) 2029 DTaP/Tdap/Td Vaccines (3 - Td or Tdap) 08/14/2032 08/14/2022, 02/18/2013, 06/14/2009 RSV Patients and Patients Aged 60 years or older (1 - 1-dose 75+ series) 2054 HIV Screening Completed 09/15/2022 Hepatitis C Screening Completed 09/15/2022 Pneumococcal Vaccine: Pediatrics (0 to 5 Years) and At-Risk Patients (6 to 49) Years) Completed 03/30/2023, 03/11/2019 COVID-19 Vaccine Completed 02/16/2024, , 04/28/2022, Additional history exists Influenza Vaccine Completed 02/16/2024, , 2022, Additional history exists HIB Vaccines Aged Out No longer eligi ble based on patient's age to complete this topic HPV Vaccines Aged Out No longer eligi ble based on patient's age to complete this topic Hepatitis A Vaccines Aged Out No long er eligible based on patient's age to complete this topic IPV Vaccines Aged Out No longer eligi ble based on patient's age to complete this topic Meningococcal Vaccine Aged Out No ramses john eligible based on patient's age to complete this topic RSV under 20 months Aged Out No longe r eligible based on patient's age to complete this topic Rotavirus Vaccines Aged Out No longer eligible based on patient's age to complete this topic Goals Goal Patient Goal Type Associated Problems Recent Progress Patient-Stated? Author Blood Pressure < 140/90 Blood Pressure 140/85( 024 10:55 AM EDT) No Luis Sheehan, PharmD Procedures Procedure Name Priority Date/Time Associated Diagnosis Comments HEMOGLOBIN A1C Routine 10/20/2023 10:54 AM EDT LIPID PANEL, STANDARD Routine 10/20/2023 10:54 AM EDT ALBUMIN, RANDOM URINE W/CREATININE Routine 09/15/2023 8:07 AM EDT Type 2 diabetes mellitus without complication, without long-term current use of insulin ([facility]) BI MAMMOGRAM DIAGNOSTIC TOMOSYNTHESIS RIGHT Routine 07/03/2023 11:45 AM EST PAP SMEAR Routine 12/08/2022 10:56 AM EDT HEPATITIS PANEL, GENERAL Routine 09/15/2022 8:49 AM EDT Encounter for preventive health examination Benign intracranial hypertension HIV 1/2 ANTIGEN/ANTIBODY, FOURTH GENERATION W/RFL Routine 09/15/2022 8:49 AM EDT Encounter for preventive health examination THINPREP PAP AND HPV MRNA E6/E7 Routine 07/15/2022 12:00 AM EST from Last 3 Months or Most Recently Relevant to Health Maintenance Results * (ABNORMAL) Hemoglobin A1c (10/20/2023 10:54 AM EDT) Hemoglobin A1c 6.7(H) <6.0 % [facility] Comment:Hemoglobin A1C Refer ence Range Adults: 4.8 - 6.0 % Non diabetic: < 6.0 % Goal: < 7.0 %Additional Action Suggested: > 8.0 %Note: Hemoglobin A1c results are invalid for patients with abnormal amounts of HbF. Blood transfusions may impact the HbA1c concentration in the patient sample. Estimated Average Glucose 146 mg/dL [facility] Comment:eAG = Estimated ave rage glucose which is %A1C expressed asaverage glucose, using the formula of the R7J-VxfuhkbTukhbty Glucose study (ADAG), Diabetes Care, Vol.31,#8,2007 10/20/2023 10:5 4 AM EDT 10/20/2023 10:54 AM EDT Generic External Data Provider LAB BLOOD ORDERAB LES Final Result Performing Organization Address [facility]/ZIP Co de Phone Number [facility] [address] [place] [phone] * (ABNORMAL) Lipid Panel, Standard (10/20/2023 10:54 AM EDT) Triglycerides 88 <150 mg/dL [facility] Comment:Desirable Triglyceri de: less than 150 mg/dLBorderline High Triglyceride 150-199 mg/dLHigh Triglyceride: 200-499 mg/dLVery High Triglyceride: greater than or equal to 5OO mg/dL Cholesterol 121 <200 mg/dL [facility] Comment:Desirable Cholestero l: less than 200 mg/dLBorderline High Cholesterol: 200-239 mg/dLHigh Cholesterol: greater than 239 mg/dL LDL Cholesterol Calculated 66 <100 mg/dL [facility] Comment:Desirable LDL: less than 100 mg/dLNear Optimal/Above Optimal LDL: 110- 129 mg/dLBorderline High LDL: 130-159 mg/dLHigh LDL: 160-189 mg/dLVery High LDL: greater than or equal to 190 mg/dL HDL Cholesterol 38(L) >40 mg/dL [facility] Comment:Desirable HDL: great er than 40 mg/dL Note: This HDL assay may give artificially low results in patients with liver disease. 10/20/2023 10:5 4 AM EDT 10/20/2023 10:54 AM EDT us Generic External Data Provider LAB BLOOD ORDERAB LES Final Result Performing Organization Address City/[facility]/ZIP Co de Phone Number [facility] [address] [place] [address] [phone] * (ABNORMAL) Albumin, Random Urine W/Creatinine (09/15/2023 8:07 AM EDT) Creatinine, Urine 54.23 mg/dL [facility] Microalbumin Urine 24.0 mg/L [facility] Microalbum Creatinine Ratio Ur 44.2(H) <30 ug/mg cr [facility] Comment:Albumin/Creatinine R atio Reference Ranges: Normal: < 30 ug/mg creatinine Microalbuminuria: 30 - 300 ug/mg creatinineClinical Albuminuria: > 300 ug/mg creatinine Urine (Urine, Random) 09/15/2023 8:07 AM EDT 09/15/2023 12:56 PM EDT us Joceline Gutierrez MD LAB URINE ORDERABLES Fin al Result [facility] [address] [place] [address] [phone] * BI Mammogram Diagnostic Tomosynthesis Right (07/03/2023 11:45 AM EST) Anatomical Region Laterality Modality Breast Right Mammography 07/03/2023 11:4 5 AM EST Narrative 07/03/2023 12:19 PM EST ? [facility] ? [address] ?[place] [address] ? Mammography Report ? Signed ? Patient: Pizarrohandy Moore,Delma M ?MR#: [id number] ?? [id number] ? : 1980 ?Acct:[id number] ? Age/Sex: 43 / F ?ADM Date: //24 ? Loc: HO.MAMMO ? Attending Dr: Joceline Gutierrez MD ? Ordering Physician: Chanda Danielson CNIliana ?Results: 2Beni ?? gn Findings ? Date of Service: 07/03/23 ?Follow Up: 1 Year From Orig ?? inal Mammogram ? Procedure(s): MM tomosynthesis diagnostic RT ?? Accession Number(s): [id number] ? cc: Joceline Gutierrez MD; Chanda Danielson CNM ? EXAMINATION: ?? MM DIAGNOSTIC DIGITAL BREAST TOMOSYNTHESIS, RIGHT ?? US BREAST LIMITED, RIGHT ? MAMMOGRAPHY: ?? CLINICAL INFORMATION: ? Right periareolar breast pain, off and on. Patient states 1 episode ?? nipple discharge with a small speck of blood within. ? COMPARISON: ?? Mammography: 12/17/2022, 03/11/2021. ? TECHNIQUE: ?? Digital breast tomosynthesis is performed in both the craniocaudal and ?? mediolateral oblique views along with computer-aided detection (CAD). ?? Synthesized 2D images are generated from the tomosynthesis. In ?? addition, a full-field right 3-D ML view was obtained as well. ? FINDINGS: ?? The breasts are almost entirely fatty (ACR BI-RADS breast composition ?? Category a). ? There is a stable tiny nodules in the central right breast and slightly ?? upper outer right breast, unchanged from 2020 and benign. There is ?? otherwise no suspicious mass, suspicious microcalcifications, or areas ?? of architectural distortion in either breast. ??Specifically, there is ?? nothing suspicious within the right breast periareolar region. There ?? are no skin or axillary abnormalities. ? ULTRASOUND: ?? CLINICAL INFORMATION: ?? As above. ? COMPARISON: ?? None ? TECHNIQUE: ?? Targeted sonographic evaluation right breast was performed using a high ?? frequency linear transducer. Attention was focused on the right ?? periareolar region in the region of breast pain/discharge. Selected ?? archived documentation. ? FINDINGS: ? RIGHT BREAST: There is a mixture of fatty and fibroglandular tissue. ?? No suspicious or intraductal mass is seen. ??There is no pathologic ?? acoustic shadowing. There is one small ectatic duct noted without ?? filling defect. There is no cystic abnormality. Overall, no significant ?? finding or correlate to explain right periareolar breast pain or ?? discharge. ? MM/MM tomosynthesis diagnostic RT ?? IMPRESSION: ?? There are no findings in the right breast suspicious for malignancy. ? No mammographic or ultrasonographic correlate to the right periareolar ?? breast pain or discharge. Recommend clinical management. ? Otherwise, recommend resuming routine annual screening mammography. ? OVERALL ASSESSMENT: ?? Mammography: BI-RADS 2 - Benign Findings ?? Ultrasound: BI-RADS 2 - Benign Findings ? RECOMMENDATION: ?? 1. Patient should be managed based on the clinical impression. ?2. ?? Otherwise, routine annual screening mammography. ? Results were provided to the patient at time of visit by the ?? technologist. ? This patient's information was entered into a reminder system with a ?? target due date for their next mammogram. ? Dictated By: ?Marcus Aj MD ? Signed By: ?<Electronically signed by Marcus Aj MD in OV> ?07/03/23 1216 ? DD/ 1145 ? TD/TT: ? Auto Machinist: ? Procedure Note Donkristelmiranellieter, Image - 07/03/2023 [facility] [address] [place] [address] Mammography Report Signed Patient: Delma Downs MMR#: [id number] : 1980Acct:[id number] Age/Sex: 43 / FADM Date: 07/03/23 Loc: [facility].MAMMO Attending Dr: Joceline Gutierrez MD Ordering Physician: Chanda Danielsonesults: 2Beni gn Findings Date of Service: 07/03/23Follow Up: 1 Year From Orig inal Mammogram Procedure(s): MM tomosynthesis diagnostic RT Accession Number(s): [id number] cc: Joceline Gutierrez MD; Chanda Danielson CNM EXAMINATION: MM DIAGNOSTIC DIGITAL BREAST TOMOSYNTHESIS, RIGHT US BREAST LIMITED, RIGHT MAMMOGRAPHY: CLINICAL INFORMATION: Right periareolar breast pain, off and on. Patient states 1 episode nipple discharge with a small speck of blood within. COMPARISON: Mammography: 12/17/2022, 03/11/2021. TECHNIQUE: Digital breast tomosynthesis is performed in both the craniocaudal and mediolateral oblique views along with computer-aided detection (CAD). Synthesized 2D images are generated from the tomosynthesis. In addition, a full-field right 3-D ML view was obtained as well. FINDINGS: The breasts are almost entirely fatty (ACR BI-RADS breast composition Category a). There is a stable tiny nodules in the central right breast and slightly upper outer right breast, unchanged from 2020 and benign. There is otherwise no suspicious mass, suspicious microcalcifications, or areas of architectural distortion in either breast. Specifically, there is nothing suspicious within the right breast periareolar region. There are no skin or axillary abnormalities. ULTRASOUND: CLINICAL INFORMATION: As above. COMPARISON: None TECHNIQUE: Targeted sonographic evaluation right breast was performed using a high frequency linear transducer. Attention was focused on the right periareolar region in the region of breast pain/discharge. Selected archived documentation. FINDINGS: RIGHT BREAST: There is a mixture of fatty and fibroglandular tissue. No suspicious or intraductal mass is seen. There is no pathologic acoustic shadowing. There is one small ectatic duct noted without filling defect. There is no cystic abnormality. Overall, no significant finding or correlate to explain right periareolar breast pain or discharge. MM/MM tomosynthesis diagnostic RT IMPRESSION: There are no findings in the right breast suspicious for malignancy. No mammographic or ultrasonographic correlate to the right periareolar breast pain or discharge. Recommend clinical management. Otherwise, recommend resuming routine annual screening mammography. OVERALL ASSESSMENT: Mammography: BI-RADS 2 - Benign Findings Ultrasound: BI-RADS 2 - Benign Findings RECOMMENDATION: 1. Patient should be managed based on the clinical impression. 2. Otherwise, routine annual screening mammography. Results were provided to the patient at time of visit by the technologist. This patient's information was entered into a reminder system with a target due date for their next mammogram. Dictated By: Marcus Aj MD Signed By: <Electronically signed by Marcus Aj MD in OV> 07/03/23 1216 DD/ 1145 TD/TT: Auto Machinist: [facility] External Provider IMG BI PROCEDURES Final Result * Pap Smear (12/08/2022 10:56 AM EDT) 12/08/2022 10:5 6 AM EDT 12/08/2022 12:00 PM EDT Narrative [facility] - 12/29/2022 10:53 AM EDT ----- ------- Name: Delma Downs ?Age/Sex: 42/F ? : 1980 Unit#: [id number] ?? Attend Dr: Mak Begum MD ?Re12/08/22 ?Status: DEP REF ? Location: HO.LNP ?Disch: ? ----- ------- SPEC : [id number] ? RECD: 12/08/22-1200 ? STATUS: ??SOUT ? REQ NUM: [id number] ? CHRIS: 12/08/22-1056 ? SUBM DR: Mak Begum MD ? ENTERED: ??12/08/22-1321 ?SP TYPE: Pap Smr ?OTHR DR: Joceline Gutierrez MD ? ORDERED: ??Pap Smear ? Interpretation ?? Satisfactory for evaluation. ?? Negative for intraepithelial lesion or malignancy. ? HPV mRNA E6/E7: ?NOT DETECTED ? This assay detects E6/E7 viral messenger RNA (mRNA) from 14 high-risk HPV types (16, 18, ?? 31, 33, 35, 39, 45, 51, 52, 56, 58, 59, 66, 68) ? HPV testing performed by [facility], [place], [place]. ??See reference laboratory ?? portion of the EMR for entire report. ?Clinical Information LMP: Unknown date Previous PAP test: 2021, JOSE LUIS I ? Material Received ?? ThinPrep-Cervical Copies To: ?? Joceline Gutierrez MD ?? [address] ?? [place] [address] ? Mak Begum MD ?? [address] [place] [address] [facility] [address] ?? [place] [address] ?? [phone] ----- ------- Signed (signature on file) Haja Gallo MD 12/29/22 1053 ? ----- ------- ? END OF REPORT ? [facility] External Provider LAB CYT OLOGY ORDERABLES Final Result [facility] [address] [place] [phone] * Hepatitis Panel, General (09/15/2022 8:49 AM EDT) Hepatitis A Antibody Total NON-REACT AP NON-REACT AP [facility] Comment: For additional information, please refer to http://education.iTracs/faq/QJG585 (This link is being provided for informational/ educational purposes only.) Hepatitis B Surface Antibody QL NON-REACT AP NON-REACT AP [facility] Hepatitis B Surface Ag NON-REACT AP NON-REACT AP [facility] [place] Hepatitis B Core Antibody Total NON-REACT AP NON-REACT AP [facility] Hepatitis C Antibody NON-REACT AP NON-REACT AP [facility] Index 0.05 <1.00 [facility] Comment: HCV antibody was non-reactive. There is no laboratory evidence of HCV infection. In most cases, no further action is required. However, if recent HCV exposure is suspected, a test for HCV RNA (test code 49967) is suggested. For additional information please refer to http://[employer].iTracs/faq/NKD44o5 (This link is being provided for informational/ educational purposes only.) 09/15/2022 8:49 AM EDT 09/15/2022 8:49 AM EDT Narrative [facility] - 09/20/2022 5:14 PM EDT FASTING:YES FASTING: YES us Joceline Gutierrez MD LAB BLOOD ORDERABLES Fin al Result [facility] [address], [place] [address] [facility] [address] [place] [address] * HIV-1/2 Antigen and Antibodies, Fourth Generation, with Reflexes (09/15/2022 8:49 AM EDT) HIV Antigen/Antibody, 4th Generation NON-REAC TIVE NON-REAC TIVE [facility] [place] [facility] Comment: HIV-1 antigen and HIV-1/HIV-2 antibodies were not detected. There is no laboratory evidence of HIV infection. PLEASE NOTE: This information has been disclosed to you from records whose confidentiality may be protected by state law. ??If your state requires such protection, then the state law prohibits you from making any further disclosure of the information without the specific written consent of the person to whom it pertains, or as otherwise permitted by law. A general authorization for the release of medical or other information is NOT sufficient for this purpose. ?? For additional information please refer to http://[employer].iTracs/faq/SMA846 (This link is being provided for informational/ educational purposes only.) The performance of this assay has not been clinically validated in patients less than 2 years old. Blood Venous blood specimen / Unknown 09/15/2022 8:49 AM EDT 09/15/2022 8:49 AM EDT Narrative [facility] - 09/20/2022 5:14 PM EDT FASTING:YES FASTING: YES Joceline Gutierrez MD LAB BLOOD ORDERABLES Fin al Result [facility] [address], [place] [address] [facility] [place] [facility] [address] [place] [address] * Thinprep PAP and HPV nRNA E6/E7 (07/15/2022 12:00 AM EST) Clinical Information: LSIL HPV POS 05/2021 [facility] [place] [facility] LMP: NONE GIVEN [facility] [place] [facility] Prev. PAP: YES [facility] [place] [facility] Prev. BX: NONE GIVEN [facility] [place] [facility] SOURCE: None given [employer] Statement Of Adequacy: [facility] [place] [facility] Comment: Satisfactory for evaluation. Endocervical/transformation zone component absent. Interpretation/ Result: Negative for intraepithelial lesion or malignancy. [place] Infection Shift in vaginal andrés suggestive of bacterial vaginosis. [facility] [place] [facility] Cytotechnologis t: [facility] [place] [facility] Comment: MXD, CT (ASCP) CT screening location: [address] ??[phone] Review Cytotechnologis t: [facility] [place] [facility] Comment: KF, CT(ASCP) CT screening location: [address] ??[address] (Always Message) [employer] Comment: EXPLANATORY NOTE: The Pap is a screening test for cervical cancer. It is not a diagnostic test and is subject to false negative and false positive results. It is most reliable when a satisfactory sample, regularly obtained, is submitted with relevant clinical findings and history, and when the Pap result is evaluated along with historic and current clinical information. HPV nRNA E6/E7 Not Detected Not Detected [facility] [facility] Comment: Methodology: Paper Bag Machine Operator-Mediated Amplification This assay detects E6/E7 viral messenger RNA (mRNA) from 14 high-risk HPV types (16,18,31,33,35,39,45,51,52,56,58,59,66,68). Cervical sources are required for HPV testing. If a vaginal source from a patient who has had a total hysterectomy with removal of cervix was submitted, please contact the testing laboratory for alternative testing options. For additional information, please refer to http://education.iTracs/faq/RHW865v1 (This link if provided for information/ educational purposes only.) 07/15/2022 07/16/2022 7:1 6 AM EST Narrative [facility] - 07/22/2022 3:46 PM EST FASTING: UNKNOWN [facility] PATHOLOGY ORDERABLES Final Result Performing Organization Address City/State/[facility] Co de Phone Number [facility] [address], [place] [address] [facility] [place] [facility] 200 [facility], (Nl2) [place] [address] from Last 3 Months or Most Recently Relevant to Health Maintenance Insurance [facility] C3 Care Teams 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
--- OUTSIDE RECORDS SUMMARY | 2024-08-08 11:21 | XMS_ITS | Encounter Summary ---
Author Organization [employer] Address [address] [facility] [address] 7t [place] [address] Care Team Providers Care Food Science Professor Name Role Phone Joceline Gutierrez MD Primary Care Provider + Luis Sheehan PharmD Unavailable Karo Gonsales RN Unavailable [phone] Reason for Visit * Reason Onset Date Comments Med Refill 08/04/2024 Encounter Details Date Type Department Care Team (Late st Contact Info) Description 08/04/2024 Telephone [facility] MEDICINE 230 [place], [place] [phone] Joceline Gutierrez MD [address] [place], [place] [phone] Med Refill Social History Tobacco Use Types Packs/Day Years Used Date Smoking Tobacco: Never Passive Smoke Exposure: Never Smokeless Tobacco: Never Alcohol Use Standard Drinks/Week Comments Never 0 [...] Orientation Straight 04/14/2022 10 :15 AM EDT documented as of this encounter Miscellaneous Notes * Telephone Encounter - Joceline Gutierrez MD - 08/05/2024 1:41 PM EST Rx Ibuprofen sent to pharmacy * Telephone Encounter - Heidi Machado LPN - 08/05/2024 8:12 AM EST Refills have been requested for the following medications: Other - Ibuprohen 800 mg Preferred pharmacy: [facility] [place] - [address] [facility] Delivery method: Pickup documented in this encounter Plan of Treatment Upcoming Encounters Date Type Department Care Team (Late st Contact Info) Description 09/21/2024 2:00 PM EDT Office Visit [facility] MEDICINE 230 [place] [address] Joceline Gutierrez MD [address] [place], [place] [phone] 10/11/2024 1:00 PM EDT Office Visit [facility] OPTOMETRY [address] [place] [address] Geneva Pena, OD 230 [place] [address] documented as of this encounter Goals Goal Patient Goal Type Associated Problems Recent Progress Patient-Stated? Author Blood Pressure < 140/90 Blood Pressure 140/85( 024 10:55 AM EDT) No Luis Sheehan, PharmD documented as of this encounter Visit Diagnoses Not on filedocumented in this encounter Additional Health Concerns Assessment Noted Time PHQ-9 Depression Total Score: 17 024 9:21 AM EST documented as of this encounter Care Teams Food Science Professor Relationship Specialty Start Date End Date Joceline Gutierrez MD [address] [place] [address] PCP - General Family Medicine 02/03/17 Luis Sheehan, PharmD [address], [place] [phone] Pharmacist Internal Medicine 08/05/22 Karo Gonsales RN [address] [place] [address] Field Coil Winder 10/07/23 documented as of this encounter
--- OUTSIDE RECORDS SUMMARY | 2024-08-08 11:21 | XMS_ITS | Encounter Summary ---
Author Organization [employer] Address [address]t [place] [address] Care Team Providers Care Superintendent Custodian Janitor Name Role Phone Joceline Gutierrez MD Primary Care Provider + Luis Sheehan PharmD Unavailable [phone] Karo Gonsales RN Unavailable [phone] Reason for Visit * Reason Onset Date Comments Appointment Request 07/26/2024 Encounter Details Date Type Department Care Team (Late st Contact Info) Description 07/26/2024 Telephone [facility] MEDICINE 230 [place], [place] [phone] Joceline Gutierrez MD 230 [place], [place] [phone] Appointment Request Social History Tobacco Use Types Packs/Day Years [...] encounter Miscellaneous Notes * Telephone Encounter - Katelynn Johnson MA - 07/26/2024 3:07 PM EST Tc to pt to r/s appt from 09/21/24 as PCP will be in that afternoon. Appt has been scheduled for 09/21/24 at 2:00 pm. documented in this encounter Plan of Treatment Upcoming Encounters Date Type Department Care Team (Late st Contact Info) Description 09/21/2024 2:00 PM EDT Office Visit [facility] MEDICINE 230 [place], [place] [phone] Joceline Gutierrez MD 230 [place] [address] 10/11/2024 1:00 PM EDT Office Visit [facility] OPTOMETRY [address] [place], [place] [phone] Geneva Pena OD 230 [place] [address] documented as of this encounter Goals Goal [...] documented as of this encounter Care Teams Superintendent Custodian Janitor Relationship Specialty Start Date End Date Joceline Gutierrez MD 230 [place] [address] PCP - General Family Medicine 02/03/17 Luis Sheehan, PharmD [address] [place] [address] Pharmacist Internal Medicine 08/05/22 Karo Gonsales RN [address] [place] [phone] Ordnance Engineer 10/07/23 documented as of this encounter
--- OUTSIDE RECORDS SUMMARY | 2024-08-08 11:21 | XMS_ITS | Encounter Summary ---
Author Organization [employer] Address [address] [facility] [address] [address] [address] [facility] [address] 7t [place] [address] Care Team Providers Care Departmental Buyer Name Role Phone Joceline Gutierrez MD Primary Care Provider + Luis Sheehan PharmD Unavailable [phone] Omari Miller Unavailable Unavailable Karo Gonsales RN Unavailable [phone] Encounter Details Date Type Department Care Team (Latest Contact Info) Description 05/02/2019 Abstract [facility] CONVERSION[facility] Dental, Provider, DDS Social History Tobacco Use Types Packs/Day Years Used Date Smoking Tobacco: Never Assessed Comments Unknown Sex and Gender Information Value Date Recorded Sex Assigned at Female 04/14/2022 10:15 AM EDT Legal Sex Female 10:15 AM EDT Gender Identity Female 04/14/2022 10:15 AM EDT Sexual Orientation Straight 04/14/2022 10 :15 AM EDT documented as of this encounter Plan of Treatment Upcoming Encounters Date Type Department Care Team (Late st Contact Info) Description 09/21/2024 2:00 PM EDT Office Visit [facility] MEDICINE 230 [place], [place] [phone] Joceline Gutierrez MD 230 [place] [address] 10/11/2024 1:00 PM EDT Office Visit [facility] OPTOMETRY [address] [place], [place] [phone] Geneva Pena OD 230 [place] [address] documented as of this encounter Visit Diagnoses Not on filedocumented in this encounter Care Teams Departmental Buyer Relationship Specialty Start Date End Date Joceline Gutierrez MD 230 [place], [place] [phone] PCP - General Family Medicine 02/03/17 Luis Sheehan, Annette [address] [place] [address] Pharmacist Internal Medicine 08/05/22 Omari Miller Community Health Worker 10/07/23 01/03/24 Karo Gonsales, JOE [address] [place] [address] Bank Vault Attendant 10/07/23 documented as of this encounter
--- OUTSIDE RECORDS SUMMARY | 2024-08-08 11:21 | XMS_ITS | Encounter Summary ---
Author Organization [employer] Address [address] [facility] 7t [place] [address] Care Team Providers Care Simulation Educator Name Role Phone Joceline Gutierrez MD Primary Care Provider + Luis Sheehan PharmD Unavailable [phone] Karo Gonsales RN Unavailable [phone] Reason for Visit * Reason Comments Care Coordination CHW outreach for SDO H utilities and food - LVM Encounter Details Date Type Department Care Team (Latest Contact Info) Description 07/11/2024 Patient Outreach [facility]ICINE 230 [place] [address] Joceline Gutierrez MD [address] [place] [address] Care Coordination (CHW outreach for SDOH utilities and food - LVM ) Social History Tobacco Use Types Packs/Day Years [...] your housing situation today? I have madisyn brennen 08/20/[address] you li [...] AM EDT documented as of this encounter Progress Notes * Aguilar Cabrera - 07/11/2024 2:13 PM EST CHW Aguilar Cabrera, placed outbound call to patient for assistance with SDOH as a referral was placed by the provider. Patient had screened positive for the following SDOH insecurities. No answer atthis time. Patient's name and were not confirmed. CHW left detailed message and provided contact information requesting return call for assistance. Patient educated on extended clinic hours on Mondays through Wednesdays, and Walk-In Urgent Care Located in [facility]. Patient provided with after-hours line for [facility], , which offer night time triage service and option to transfer toon call provider if needed. documented in this encounter Plan of Treatment Upcoming Encounters Date Type Department Care Team (Late st Contact Info) Description 09/21/2024 2:00 PM EDT Office Visit [facility] 230 [place] [address] Joceline Gutierrez MD [address] [place] [address] 10/11/2024 1:00 PM EDT Office Visit [facility] OPTOMETRY [address] [place] [address] Geneva Pena, OD 230 [place] [address] documented as of this encounter Goals Goal [...] documented as of this encounter Care Teams Simulation Educator Relationship Specialty Start Date End Date oJceline Gutierrez MD [address] [place] [address] PCP - General Family Medicine 02/03/17 Luis Sheehan, PharmD [address] [place], [place] [phone] Pharmacist Internal Medicine 08/05/22 Karo Gonsales RN [address] [place] [address] Bowl Turner 10/07/23 documented as of this encounter
--- OUTSIDE RECORDS SUMMARY | 2024-08-08 11:21 | XMS_ITS | Encounter Summary ---
Author Organization [employer] Address [address] 7t [place] [address] Care Team Providers Care Intern Retail Name Role Phone Joceline Gutierrez MD Primary Care Provider + Luis Sheehan PharmD Unavailable Karo Gonsales RN Unavailable [phone] Reason for Visit * Reason Onset Date Comments Durable Medical Equipment 04/05/2024 Encounter Details Date Type Department Care Team (Late st Contact Info) Description 04/05/[address] [facility] MEDICINE 230 [place], [place] [phone] Joceline Gutierrez MD 230 [place], [place] [phone] Durable Medical Equipment Social History Tobacco Use Types Packs/Day Years [...] to shut off services in your home? No 08/20/2023 Depression Answer Date Recorded Patient Health Questionnaire-2 Score 6 08/20/2023 Comments No Sex and Gender Information Value Date Recorded Sex Assigned at Female 04/14/2022 10:15 AM EDT Legal Sex Female 10:15 AM EDT Gender Identity Female 04/14/2022 10:15 AM EDT Sexual Orientation Straight 04/14/2022 10 :15 AM EDT documented as of this encounter Miscellaneous Notes * Telephone Encounter - Chemo Myers - 04/05/2024 9:51 AM EDT Tc from [facility] stating they need a newly dated prescription for CPAP machine. If any questions you can contact [facility] at [phone] opt 6. documented in this encounter Plan of Treatment Upcoming Encounters Date Type Department Care Team (Late st Contact Info) Description 09/21/2024 2:00 PM EDT Office Visit [facility] MEDICINE 230 [place] [address] Joceline Gutierrez MD 230 [place] [address] 10/11/2024 1:00 PM EDT Office Visit [facility] OPTOMETRY [address] [place] [address] Geneva Pena, OD 230 [place] [address] documented as of this encounter Goals Goal [...] documented as of this encounter Care Teams Intern Retail Relationship Specialty Start Date End Date Joceline Gutierrez MD [address] [place] [address] PCP - General Family Medicine 02/03/17 Luis Sheehan, PharmD [address] [place] [phone] Pharmacist Internal Medicine 08/05/22 Karo Gonsales RN [address] [place] [address] Band Machine Operator 10/07/23 documented as of this encounter
--- OUTSIDE RECORDS SUMMARY | 2024-08-08 11:21 | XMS_ITS | Encounter Summary ---
Author Organization [employer] Address [address] 7t [place] [address] Care Team Providers Care Director Of Philanthropy Name Role Phone Joceline Gutierrez MD Primary Care Provider + Luis Sheehan PharmD Unavailable Omari Miller Unavailable Unavailable Karo Gonsales RN Unavailable [phone] Reason for Visit * Reason Comments Med Refill Encounter Details Date Type Department Care Team (Late st Contact Info) Description 10/22/2023 Refill [facility] 230 [place], [place] [phone] Joceline Gutierrez MD 230 [place], [place] [phone] Type 2 diabetes mellitus without complication, without long-term current use of insulin ([facility]) Social History Tobacco Use Types Packs/Day Years [...] Description 09/21/2024 2:00 PM EDT Office Visit [facility] [address] [place] [address] Joceline Gutierrez MD 230 [place] [address] 10/11/2024 1:00 PM EDT Office Visit [facility] OPTOMETRY [address] [place] [address] Geneva Pena, OD 230 [place] [address] documented as of this encounter Goals Goal Patient Goal Type Associated Problems Recent Progress Patient-Stated? Author Blood Pressure < 140/90 Blood Pressure 140/85( 024 10:55 AM EDT) No Luis Sheehan, PharmD documented as of this encounter Visit Diagnoses Diagnosis Type 2 diabetes mellitus without complication, without long-term current use of insulin ([facility]) documented in this encounter Additional Health Concerns Assessment Noted Time PHQ-9 Depression Total Score: 17 024 9:21 AM EST documented as of this encounter Care Teams Director Of Philanthropy Relationship Specialty Start Date End Date Joceline Gutierrez MD [address] [place] [address] PCP - General Family Medicine 02/03/17 Luis Sheehan, PatD [address] [place] [address] Pharmacist Internal Medicine 08/05/22 Omari Miller Community Health Worker 10/07/23 01/03/24 Karo Gonsales, JOE [address] [place] [address] Grey Goods Examiner 10/07/23 documented as of this encounter
--- OUTSIDE RECORDS SUMMARY | 2024-08-08 11:21 | XMS_ITS | Encounter Summary ---
Author Organization [employer] Address [address] 7t [place] [address] Care Team Providers Care Corporate Counsel Name Role Phone Joceline Gutierrez MD Primary Care Provider + Luis Sheehan PharmD Unavailable [phone] Karo Gonsales RN Unavailable [phone] Reason for Visit * Reason Onset Date Comments Med Refill 07/19/2024 Encounter Details Date Type Department Care Team (Late st Contact Info) Description 07/19/2024 Refill [facility] MEDICINE 230 [place], [place] [phone] Joceline Gutierrez MD 230 [place], [place] [phone] Type 2 diabetes mellitus without complication, without long-term current use of insulin ([facility]); Chronic bilateral low back pain with right-sided sciatica; Seasonal allergies Social History Tobacco Use Types Packs/Day Years [...] 2:00 PM EDT Office Visit [facility] MEDICINE 230 [place] [address] Joceline Gutierrez MD 230 [place] [address] 10/11/2024 1:00 PM EDT Office Visit [facility] OPTOMETRY [address] [place], [place] [phone] Geneva Pena OD 230 [place] [address] documented as of this encounter Goals Goal Patient Goal Type Associated Problems Recent Progress Patient-Stated? Author Blood Pressure < 140/90 Blood Pressure 140/85( 024 10:55 AM EDT) No Luis Sheehan, PharmD documented as of this encounter Visit Diagnoses Diagnosis Type 2 diabetes mellitus without complication, without long-term current use of insulin ([facility]) Chronic bilateral low back pain with right-sided sciatica Seasonal allergies Allergic rhinitis, cause unspecified documented in this encounter Additional Health Concerns Assessment Noted Time PHQ-9 Depression Total Score: 17 024 9:21 AM EST documented as of this encounter Care Teams Corporate Counsel Relationship Specialty Start Date End Date Joceline Gutierrez MD [address] [place] [address] PCP - General Family Medicine 02/03/17 Luis Sheehan, PharmD [address] [place] [address] Pharmacist Internal Medicine 08/05/22 Karo Gonsales RN [address] [place] [address] Outside Installation Machinist 10/07/23 documented as of this encounter
--- OUTSIDE RECORDS SUMMARY | 2024-08-08 11:21 | XMS_ITS | Encounter Summary ---
Author Organization [employer] Address [address] [facility] [address]t [place] [address] Care Team Providers Care Bicycle Inspector Name Role Phone Joceline Gutierrez MD Primary Care Provider + Luis Sheehan PharmD Unavailable Karo Gonsales RN Unavailable [phone] Reason for Visit * Reason Comments Med Refill Encounter Details Date Type Department Care Team (Late st Contact Info) Description 05/15/2024 Refill [facility] 230 [place], [place] [phone] Jayleen Mo MD [address] [place], [place] [phone] Seasonal allergies; Essential hypertension; Hypertension, essential Social History Tobacco Use Types Packs/Day Years [...] the past 12 months, has t he [employer], gas, oil or water company threatened to [...] Description 09/21/2024 2:00 PM EDT Office Visit [facility] [address] [place] [address] Joceline Gutierrez MD [address] [place] [address] 10/11/2024 1:00 PM EDT Office Visit [facility] [address] [place] [address] Geneva Pena, SHEYLA 230 [place] [address] documented as of this encounter Goals Goal Patient Goal Type Associated Problems Recent Progress Patient-Stated? Author Blood Pressure < 140/90 Blood Pressure 140/85( 024 10:55 AM EDT) No Luis Sheehan, PatD documented as of this encounter Visit Diagnoses Diagnosis Seasonal allergies Allergic rhinitis, cause unspecified Essential hypertension Unspecified essential hypertension Hypertension, essential Unspecified essential hypertension documented in this encounter Additional Health Concerns Assessment Noted Time PHQ-9 Depression Total Score: 17 08/19/ 024 9:21 AM EST documented as of this encounter Care Teams Bicycle Inspector Relationship Specialty Start Date End Date Joceline Gutierrez MD [address] [place] [address] PCP - General Family Medicine 02/03/17 Luis Sheehan PharmD [address] [place] [address] Pharmacist Internal Medicine 08/05/22 Karo Gonsales RN [address] [place] [address] [address] Tester 10/07/23 documented as of this encounter
--- OUTSIDE RECORDS SUMMARY | 2024-08-08 11:21 | XMS_ITS | Encounter Summary ---
Author Organization [employer] [facility] Address [address] [facility] [address] 7t [place] [address] Care Team Providers Care Global Sourcing Manager Name Role Phone Joceline Gutierrez MD Primary Care Provider + Luis Sheehan PharmD Unavailable Omari Miller Unavailable Unavailable Karo Gonsales RN Unavailable [phone] Encounter Details Date Type Department Care Team (Late Contact Info) Description 01/06/2023 Abstract [facility] MEDICINE [address] [place] [address] Joceline Gutierrez MD [address] [place] [address] Social History Tobacco Use Types Packs/Day Years Used Date Smoking Tobacco: Never Passive Smoke Exposure: Never Smokeless Tobacco: Never Alcohol Use Standard Drinks/Week Comments Never 0 (1 standard drink = 0.6 oz pur e alcohol) Depression Answer Date Recorded Patient Health Questionnaire-9 Score 20 01/01/2023 Depression Answer Date Recorded Patient Health Questionnaire-2 Score 5 01/01/2023 Comments No Sex and Gender Information Value Date Recorded Sex Assigned at Female 04/14/2022 10:15 AM EDT Legal Sex Female 10:15 AM EDT Gender Identity Female 04/14/2022 10:15 AM EDT Sexual Orientation Straight 04/14/2022 10 :15 AM EDT documented as of this encounter Plan of Treatment Upcoming Encounters Date Type Department Care Team (Late Contact Info) Description 09/21/2024 2:00 PM EDT Office Visit [facility] MEDICINE [address] [place] [address] Joceline Gutierrez MD [address] [place] [address] 10/11/2024 1:00 PM EDT Office Visit [facility] OPTOMETRY [address] [place], [place] [phone] Geneva Pena, OD 230 [place] [address] documented as of this encounter Goals Goal Patient Goal Type Associated Problems Recent Progress Patient-Stated? Author Blood Pressure < 140/90 Blood Pressure 140/85( 024 10:55 AM EDT) No Luis Sheehan, PharmD documented as of this encounter Visit Diagnoses Not on filedocumented in this encounter Additional Health Concerns Assessment Noted Time PHQ-9 Depression Total Score: 20 023 11:20 AM EDT documented as of this encounter Care Teams Global Sourcing Manager Relationship Specialty Start Date End Date Joceline Gutierrez MD [address] [place] [address] PCP - General Family Medicine 02/03/17 Luis Sheehan, PharmD [address] [place] [address] Pharmacist Internal Medicine 08/05/22 Omari Miller Community Health Worker 10/07/23 01/03/24 Karo Gonsales, JOE [address] [place] [address] Pre Sales Technical Engineer 10/07/23 documented as of this encounter
--- OUTSIDE RECORDS SUMMARY | 2024-08-08 11:21 | XMS_ITS | Encounter Summary ---
Author Organization [employer] Address [address] [facility] [address] [place] [address] Care Team Providers Care Senior It Auditor Name Role Phone Joceline Gutierrez MD Primary Care Provider + Luis Sheehan PharmD Unavailable [phone] Karo Gonsales RN Unavailable [phone] Reason for Visit * Reason Onset Date Comments Med Refill 07/19/2024 Encounter Details Date Type Department Care Team (Late st Contact Info) Description 07/19/2024 Refill [facility] MEDICINE [address] [place], [place] [phone] Joceline uGtierrez MD [address] [place] [address] Chronic bilateral low back pain with right-sided sciatica Social History Tobacco Use Types Packs/Day Years [...] encounter Miscellaneous Notes * Telephone Encounter - Sara Gordon LPN - 07/19/2024 10:07 AM EST Zyrtec was sent to [facility] Pharm[facility] on 05/17/24 #90 with 1 refill. Next appointment 09/21/24. * Telephone Encounter - Lashawn Heard - 07/19/2024 9:56 AM EST TC from pt requesting medication refill. Medications needing refill : -Acetaminophen Extra Strength 500 MG tablet - cetirizine (ZyrTEC) 10 MG tablet To be sent to: [facility] Pharmacy documented in this encounter Plan of Treatment Upcoming Encounters Date Type Department Care Team (Late st Contact Info) Description 09/21/2024 2:00 PM EDT Office Visit [facility] MEDICINE [address] [place] [address] Joceline Gutierrez MD [address] [place] [address] 10/11/2024 1:00 PM EDT Office Visit [facility] OPTOMETRY [address] [place] [address] Jean, [place], OD 230 [place] [address] documented as of this encounter Goals Goal Patient Goal Type Associated Problems Recent Progress Patient-Stated? Author Blood Pressure < 140/90 Blood Pressure 140/85( 024 10:55 AM EDT) No Luis Sheehan, PharmD documented as of this encounter Visit Diagnoses Diagnosis Chronic bilateral low back pain with right-sided sciatica documented in this encounter Additional Health Concerns Assessment Noted Time PHQ-9 Depression Total Score: 17 024 9:21 AM EST documented as of this encounter Care Teams Senior It Auditor Relationship Specialty Start Date End Date Joceline Gutierrez MD [address] [place] [address] PCP - General Family Medicine 02/03/17 Luis Sheehan, PharmD [address] [place], [place] [phone] Pharmacist Internal Medicine 08/05/22 Karo Gonsales RN [address] [place] [address] Whistle Punk 10/07/23 documented as of this encounter
--- OUTSIDE RECORDS SUMMARY | 2024-08-08 11:21 | XMS_ITS | Encounter Summary ---
Author Organization [employer] Address [address] [facility] [address] [place] [address] Care Team Providers Care Instrument Mechanic Name Role Phone Joceline Gutierrez MD Primary Care Provider + Luis Sheehan PharmD Unavailable Karo Gonsales RN Unavailable [phone] Reason for Visit * Reason Onset Date Comments Lali recall 07/15/2024 Encounter Details Date Type Department Care Team (Late st Contact Info) Description 07/15/2024 Telephone [facility] MEDICINE [address] [place], [place] [phone] Joceline Gutierrez MD [address] [place], [place] [phone] September recall Social History Tobacco Use Types Packs/Day Years [...] Telephone Encounter - Katelynn Johnson MA - 07/15/2024 9:34 AM EST Pt requested to R/S follow up appt with PCP from 07/22/24. Appt rescheduled for 09/21/24 at 9:15 am. documented in this encounter Plan of Treatment Upcoming Encounters Date Type Department Care Team (Late st Contact Info) Description 09/21/2024 2:00 PM EDT Office Visit [facility] MEDICINE [address] [place] [address] Joceline Gutierrez MD [address] [place] [address] 10/11/2024 1:00 PM EDT Office Visit [facility] OPTOMETRY [address] [place] [address] Geneva Pena, OD 230 [place] [address] documented as of this encounter Goals Goal [...] documented as of this encounter Care Teams Instrument Mechanic Relationship Specialty Start Date End Date Joceline Gutierrez MD [address] [place] [address] PCP - General Family Medicine 02/03/17 Luis Sheehan, PharmD [address] [place] [address] Pharmacist Internal Medicine 08/05/22 Karo Gonsales RN [address] [place] [address] Legal Administrator 10/07/23 documented as of this encounter
--- OUTSIDE RECORDS SUMMARY | 2024-08-08 11:21 | XMS_ITS | Encounter Summary ---
Author Organization [employer] Address [address] [facility] [address] [place] [address] Care Team Providers Care Regional Director Of Admissions Name Role Phone Joceline Gutierrez MD Primary Care Provider + Luis Sheehan PharmD Unavailable Karo Gonsales RN Unavailable [phone] Reason for Visit * Reason Comments Pre-visit Planning SDOH screening negat brayden and Tobacco screening negative Encounter Details Date Type Department Care Team (Late st Contact Info) Description 07/11/2024 Patient Outreach [facility] MEDICINE 230 [place] [address] Joceline Gutierrez MD 230 [place] [address] Pre-visit Planning (SDOH screening negative and Tobacco screening negative) Social History Tobacco Use Types Packs/Day Years [...] as of this encounter Progress Notes * Thomas Condon - 07/11/2024 1:05 PM EST CC Thomas Simon placed successful outbound call to patient for pre-visit planning. Patient name and confirmed. Patient confirms appt date and time, and has transportation arrangements. Biggest concern for appointment at this time is no concerns. Patient advised to bring to appointment a photo id and insurance card. Appropriate screenings completed in anticipation of appointment. SDOH positive. Patient looking for assistance with utilities. Referral will be placed. documented in this encounter Plan of Treatment Upcoming Encounters Date Type Department Care Team (Late st Contact Info) Description 09/21/2024 2:00 PM EDT Office Visit [facility] [address] [place] [address] Joceline Gutierrez MD [address] [place], [place] [phone] 10/11/2024 1:00 PM EDT Office Visit [facility] OPTOMETRY [address] [place] [address] Jean Geneva, OD 230 [place] [address] documented as of this encounter Goals Goal [...] documented as of this encounter Care Teams Regional Director Of Admissions Relationship Specialty Start Date End Date Joceline Gutierrez MD 230 [place] [address] PCP - General Family Medicine 02/03/17 Luis Sheehan, PharmD 230 [place] [address] Pharmacist Internal Medicine 08/05/22 Karo Gonsales RN [address] [place] [address] Social Work Supervisor 10/07/23 documented as of this encounter
--- OUTSIDE RECORDS SUMMARY | 2024-08-08 11:21 | XMS_ITS | Encounter Summary ---
Author Organization [employer] Address [address] [facility] [address] [place] [address] Care Team Providers Care Pants Presser Automatic Name Role Phone Joceline Gutierrez MD Primary Care Provider + Luis Sheehan PharmD Unavailable [phone] Karo Gonsales RN Unavailable [phone] Reason for Visit * Reason Comments Med Refill Encounter Details Date Type Department Care Team (Late st Contact Info) Description 03/10/[address] [facility] MEDICINE 230 [place], [place] [phone] Joceline Gutierrez MD 230 [place] [address] Vitamin D deficiency Social History Tobacco Use Types Packs/Day Years [...] the past 12 months, has t he ID [employer], gas, oil or water company threatened to [...] [facility] MEDICINE [address] [place] [address] Joceline Gutierrez MD 230 [place] [address] 10/11/2024 1:00 PM EDT Office Visit [facility] OPTOMETRY [address] [place] [address] Geneva Pena, OD 230 [place] [address] documented as of this encounter Goals Goal Patient Goal Type Associated Problems Recent Progress Patient-Stated? Author Blood Pressure < 140/90 Blood Pressure 140/85( 10:55 AM EDT) No Luis Sheehan, PharmD documented as of this encounter Visit Diagnoses Diagnosis Vitamin D deficiency documented in this encounter Additional Health Concerns Assessment Noted Time PHQ-9 Depression Total Score: 17 9:21 AM EST documented as of this encounter Care Teams Pants Presser Automatic Relationship Specialty Start Date End Date Joceline Gutierrez MD 230 [place] [address] PCP - General Family Medicine 02/03/17 Luis Sheehan, PatD 230 [place] [address] Pharmacist Internal Medicine 08/05/22 Karo Gonsales RN [address] [place] [address] Leather Belt Loop Cutter 10/07/23 documented as of this encounter
--- OUTSIDE RECORDS SUMMARY | 2024-08-08 11:21 | XMS_ITS | Encounter Summary ---
Author Organization [employer] Address [address] [facility] [address] 7[address] [place] [address] Care Team Providers Care Functional Analyst Name Role Phone Joceline Gutierrez MD Primary Care Provider + Luis Sheehan PharmD Unavailable [phone] Karo Gonsales RN Unavailable [phone] Reason for Visit * Reason Onset Date Comments Med Refill 07/19/2024 Encounter Details Date Type Department Care Team (Late st Contact Info) Description 07/19/2024 Refill [facility] [address] [place] [address] Joceline Gutierrez MD [address] [place] [address] Seasonal allergies Social History Tobacco Use Types [...] is your housing situation today? I have madisynesperanza hutton 08/20/[address] you [...] Description 09/21/2024 2:00 PM EDT Office Visit [facility] MEDICINE 230 [place] [address] Joceline Gutierrez MD [address] [place] [address] 10/11/2024 1:00 PM EDT Office Visit [facility] OPTOMETRY [address] [place] [address] Geneva Pena, OD 230 [place] [address] documented as of this encounter Goals Goal Patient Goal Type Associated Problems Recent Progress Patient-Stated? Author Blood Pressure < 140/90 Blood Pressure 140/85( 024 10:55 AM EDT) No Luis Sheehan, PharmD documented as of this encounter Visit Diagnoses Diagnosis Seasonal allergies Allergic rhinitis, cause unspecified documented in this encounter Additional Health Concerns Assessment Noted Time PHQ-9 Depression Total Score: 17 08/19/ 024 9:21 AM EST documented as of this encounter Care Teams Functional Analyst Relationship Specialty Start Date End Date Joceline Gutierrez MD [address] [place] [address] PCP - General Family Medicine 02/03/17 Luis Sheehan, PatD [address] [place] [address] Pharmacist Internal Medicine 08/05/22 Karo Gonsales RN [address] [place] [address] Windows Security Engineer 10/07/23 documented as of this encounter
--- OUTSIDE RECORDS SUMMARY | 2024-08-08 11:21 | XMS_ITS | Encounter Summary ---
Author Organization [employer] [facility] Address [address] [facility] [address] 7t [place] [address] Care Team Providers Care Coil Builder Name Role Phone Joceline Gutierrez MD Primary Care Provider + Luis Sheehan PharmD Unavailable Omari Miller Unavailable Unavailable Karo Gonsales RN Unavailable [phone] Reason for Visit * Reason Comments Med Refill Encounter Details Date Type Department Care Team (Late Contact Info) Description 11/30/2022 Refill [facility] MEDICINE [address] [place] [address] Joceline Gutierrez MD 230 [place] [address] Social History Tobacco Use Types Packs/Day Years Used Date Smoking Tobacco: Never Passive Smoke Exposure: Never Smokeless Tobacco: Never Alcohol Use Standard Drinks/Week Comments Never 0 (1 standard drink = 0.6 oz pur e alcohol) Comments No Sex and Gender Information Value Date Recorded Sex Assigned at Female 04/14/2022 10:15 AM EDT Legal Sex Female 10:15 AM EDT Gender Identity Female 04/14/2022 10:15 AM EDT Sexual Orientation Straight 04/14/2022 10 :15 AM EDT documented as of this encounter Plan of Treatment Upcoming Encounters Date Type Department Care Team (Late Contact Info) Description 09/21/2024 2:00 PM EDT Office Visit [facility] MEDICINE 230 [place] [address] Joceline Gutierrez MD 230 [place] [address] 10/11/2024 1:00 PM EDT Office Visit [facility] OPTOMETRY [address] [place] [address] Geneva Pena, OD [address] [place] [address] documented as of this encounter Goals Goal Patient Goal Type Associated Problems Recent Progress Patient-Stated? Author Blood Pressure < 140/90 Blood Pressure 140/85( 024 10:55 AM EDT) No Luis Sheehan, PharmD documented as of this encounter Visit Diagnoses Not on filedocumented in this encounter Additional Health Concerns Assessment Noted Time PHQ-9 Depression Total Score: 0 09/18/19 23 9:19 AM EDT documented as of this encounter Care Teams Coil Builder Relationship Specialty Start Date End Date Joceline Gutierrez MD 230 [place] [address] PCP - General Family Medicine 02/03/17 Luis Sheehan, PharmD [address] [place] [address] Pharmacist Internal Medicine 08/05/22 Omari Miller Community Health Worker 10/07/23 01/03/24 Karo Gonsales, JOE [address] [place] [address] [address] [address] Commissioner 10/07/23 documented as of this encounter
--- OUTSIDE RECORDS SUMMARY | 2024-08-08 11:21 | XMS_ITS | Encounter Summary ---
Author Organization [employer] Address [address] [facility] [address] 7t [place] [address] Care Team Providers Care General Pediatrician Name Role Phone Joceline Gutierrez MD Primary Care Provider + Luis Sheehan PharmD Unavailable Karo Gonsales RN Unavailable [phone] Reason for Visit * Reason Comments Med Refill Encounter Details Date Type Department Care Team (Late st Contact Info) Description 05/30/2024 Refill [facility] MEDICINE 230 [place], [place] [phone] Jayleen Mo MD 230 [place], [place] [phone] Hypertension, essential; Essential hypertension Social History Tobacco Use Types Packs/Day Years [...] Description 09/21/2024 2:00 PM EDT Office Visit [facility] MEDICINE [address] [place] [address] Joceline Gutierrez MD [address] [place] [address] 10/11/2024 1:00 PM EDT Office Visit [facility] OPTOMETRY [address] [place] [address] Geneva Pena, SHEYLA 230 [place] [address] documented as of this encounter Goals Goal Patient Goal Type Associated Problems Recent Progress Patient-Stated? Author Blood Pressure < 140/90 Blood Pressure 140/85( 024 10:55 AM EDT) No Luis Sheehan, PharmD documented as of this encounter Visit Diagnoses Diagnosis Hypertension, essential Unspecified essential hypertension Essential hypertension Unspecified essential hypertension documented in this encounter Additional Health Concerns Assessment Noted Time PHQ-9 Depression Total Score: 17 03/07/2 024 9:21 AM EST documented as of this encounter Care Teams General Pediatrician Relationship Specialty Start Date End Date Joceline Gutierrez MD 230 [place] [address] PCP - General Family Medicine 02/03/17 Luis Sheehan PharmD [address] [place] [address] Pharmacist Internal Medicine 08/05/22 Karo Gonsales, JOE [address] [place] [address] Data Entry Supervisor 10/07/23 documented as of this encounter
== END 2024-08-08 10:56 | disposition home or self-care (01) ==
PROVIDERS: PCP Internal Medicine; Visit Provider Physician Assistant Surgical
DX: E66.812 Obesity, class 2 (principal); Z68.35 Body mass index [BMI] 35.0-35.9, adult; Z90.3 Acquired absence of stomach [part of]; Z98.84 Bariatric surgery status
CPT/HCPCS: 99213

== ENCOUNTER → 2024-08-08 10:08 | Outpatient (BNVA) | payer MEDICAID, SELFPAY | PROVIDERS: PCP Internal Medicine; Visit Provider Physician Assistant Surgical | DX: E66.812 Obesity, class 2 (principal); Z68.35 Body mass index [BMI] 35.0-35.9, adult; Z90.3 Acquired absence of stomach [part of] | CPT/HCPCS: 99212 ==

== ENCOUNTER 2025-04-27 11:49 | Outpatient (REF) | payer MEDICAID, SELFPAY ==
--- OUTSIDE RECORDS SUMMARY | 2025-04-25 11:30 | XMS_ITS | Encounter Summary ---
Author Organization [employer] Address [address] [facility] [address] [place] [address] Care Team Providers Care Certified Prosthetist/Orthotist Name Role Phone Joceline Gutierrez MD Primary Care Provider + Luis Sheehan PharmD Unavailable [phone] Karo Gonsales RN Unavailable Unavailable Encounter Details Date Type Department Care Team (Late st Contact Info) Description 04/25/2025 11:30 AM EST Office Visit [facility] MEDICINE 230 [place], [place] [phone] Joceline Gutierrez MD 230 [place], [place] [phone] Primary hypertension (Primary Dx); Gastroenteritis Social History Tobacco Use Types Packs/Day Years Used Date Smoking Tobacco: Never Passive Smoke Exposure: Never Smokeless Tobacco: Never Alcohol Use Standard Drinks/Week Comments Never 0 (1 standard drink = 0.6 oz pur e alcohol) Depression Answer Date Recorded Patient Health Questionnaire-9 Score 13 04/25/2025 Patient Health Questionnaire-9 Score 13 04/25/2025 Last PHQ-9: Questionnaire Data Not on file 1 06/25/2024 Housing Stability Answer Date Recorded What is [...] Answer Date Recorded Patient Health Questionnaire-2 Score 4 04/25/2025 Internet Access Answer Date Recorded Internet Access Q1 Yes 07/11/2024 Internet Access Q2 Not on file 07/11/2024 Comments No Sex and Gender Information Value Date Recorded Sex Assigned at Female 04/14/2022 10:15 AM EDT Legal Sex Female 10:15 AM EDT Gender Identity Female 04/14/2022 10:15 AM EDT Sexual Orientation Straight 04/14/2022 10 :15 AM EDT documented as of this encounter Last Filed Vital Signs Vital Sign Reading Time Taken Comments Blood Pressure 140/100 04/25/2025 11:43 AM EST Pulse 64 04/25/2025 11:43 AM EST Temperature 36.4 C (97.6 F) 04/25/2025 11:43 AM EST Respiratory Rate 14 04/25/2025 11:43 AM EST Oxygen Saturation 100% 04/25/2025 11:43 AM EST Inhaled Oxygen Concentration - - Weight 87.1 kg (192 lb) 04/25/2025 11:43 AM EST Height 162.6 cm (5' 4 ) 04/25/2025 11:43 AM EST Body Mass Index 32.96 04/25/2025 11:43 AM EST documented in this encounter Functional Status * Over the past 2 weeks, how often have you been bothered by any of the following problems? Question Answer Date of Assessment Author Patient Health Questionnaire -2 Score 4 04/25/2025 11:45 AM EST Radha Shea MA * Little interest or pleasure in doing things Answer Date of Assessment Author Several days 04/25/2025 11:45 AM EST Radha Shea MA * Feeling down, depressed, or hopeless Answer Date of Assessment Author Nearly every day 04/25/2025 11:45 AM Radha Owens MA * Trouble falling or staying asleep, or sleeping too much Answer Date of Assessment Author More than half the days 04/25/2025 11:45 AM Radha Owens MA * Feeling tired or having little energy Answer Date of Assessment Author Several days 04/25/2025 11:45 AM Radha Owens MA * Poor appetite or overeating Answer Date of Assessment Author Several days 04/25/2025 11:45 AM Radha Owens MA * Feeling bad about yourself - or that you are a failure or have let yourself or your family down Answer Date of Assessment Author Not at all 04/25/2025 11:45 AM Radha Owens MA * Trouble concentrating on things, such as reading the newspaper or watching television Answer Date of Assessment Author More than half the days 04/25/2025 11:45 AM Radha Owens MA * Moving or speaking so slowly that other people could have noticed? Or the opposite - being so fidgety or restless that you have been moving around a lot more than usual. Answer Date of Assessment Author More than half the days 04/25/2025 11:45 AM Radha Owens MA * Thoughts that you would be better off or hurting yourself in some way Answer Date of Assessment Author Several days 04/25/2025 11:45 AM Radha Owens MA * Patient Health Questionnaire-9 Score Answer Date of Assessment Author 13 04/25/2025 11:45 AM Radha Owens MA * How difficult have these problems made it for you to do your work, take care of things at home, or get along with other people? Answer Date of Assessment Author Very difficult 04/25/2025 11:45 AM Radha Owens MA * Over the last 2 weeks, how often have you been bothered by any of the following problems? Question Answer Date of Assessment Author Feeling nervous, anxious, or on edge 1 04/25/2025 11:44 AM Radha Owens MA Not being able to stop or co ntrol worrying 2 04/25/2025 11:44 AM Radha Owens MA Worrying too much about diff erent things 3 04/25/2025 11:44 AM EST Radha Shea MYNOR Trouble relaxing 2 04/25/2025 11:44 AM ERIS SheaRadha MA Being so restless that it is hard to sit still 2 04/25/2025 11:44 AM ERIS SheaRadha MYNOR Becoming easily annoyed or irritable 3 04/25/2025 11:44 AM EST Shea MYNOR Garcia Feeling afraid as if somethi ng awful might happen 1 04/25/2025 11:44 AM ERIS Radha Shea MYNOR MORENA-7 Total Score 14 04/25/2025 11:44 AM ERIS SheaRadha MYNOR documented as of this encounter Plan of Treatment Upcoming Encounters Date Type Department Care Team (Late st Contact Info) Description 05/24/2025 11:30 AM EST Office Visit [facility] OPTOMETRY [address] [place] [address] Geneva Pena, OD 230 [place] [address] 06/30/2025 11:15 AM EST Office Visit [facility] MEDICINE [address] [place] [address] Joceline Gutierrez MD [address] [place] [address] Scheduled Orders Name Type Priority Associated Diagnoses Orde r Schedule Stool - Gastrointestinal panel Microbiology Routine Gastroenteritis Expected: 04/25/2025 (Approximate), Expires: 04/25/2026 Basic Metabolic Panel Lab Routine Primary hypertension Expected: 05/25/2025 (Approximate), Expires: 04/25/2026 documented as of this encounter Goals Goal Patient Goal Type Associated Problems Recent Progress Patient-Stated? Author Blood Pressure < 140/90 Blood Pressure 140/100(2024 11:43 AM EST) No Luis Sheehan, PharmD documented as of this encounter Procedures Procedure Name Priority Date/Time Associated Diagnosis Comments LEUKOCYTES STOOL QUALITATIVE Routine 04/27/2025 8:50 AM EST Gastroenteritis documented in this encounter Results * Leukocytes Stool Qualitative (04/27/2025 8:50 AM EST) Leukocytes Stool Qualitative NEGATIVE NEGATIVE [facility] Stool 04/27/2025 8:50 AM EST 04/27/2025 11:50 AM EST us Joceline Gutierrez MD LAB BODY FLUIDS AND STOO LS ORDERABLES Final Result [facility] [address] [place] [address] [phone] documented in this encounter Visit Diagnoses Diagnosis Primary hypertension- Primary Unspecified essential hypertension Gastroenteritis Other and unspecified noninfectious gastroenteritis and colitis documented in this encounter Additional Health Concerns Assessment Noted Time PHQ-9 Depression Total Score: 13 025 11:45 AM EST documented as of this encounter Care Teams Certified Prosthetist/Orthotist Relationship Specialty Start Date End Date Joceline Gutierrez MD [address] [place] [address] PCP - General Family Medicine 02/03/17 Luis Sheehan, PatD [address] [place] [address] Pharmacist Internal Medicine 08/05/22 Karo Gonsales RN [address] [place] [phone] Weapons Officer 10/07/23 documented as of this encounter
[2025-04-27 13:41] LABS: Leukocytes Stool Qualitative NEGATIVE (NEGATIVE)
[2025-04-27 14:41] LABS: E. coli EAEC Not Detected (Not Detect.); E. coli EPEC Not Detected (Not Detect.); E. coli ETEC Not Detected (Not Detect.); E. coli STEC Not Detected (Not Detect.); Shigella sp./EIEC Not Detected (Not Detect.)
--- OUTSIDE RECORDS SUMMARY | 2025-04-27 14:59 | XMS_ITS | Encounter Summary ---
Author Organization [employer] Address 75 [facility] 7t [place] [address] Care Team Providers Care Ammonia Box Tender Name Role Phone Joceline Gutierrez MD Primary Care Provider + Luis Sheehan PharmD Unavailable Omari Miller Unavailable Karo Gonsales RN Unavailable Unavailable Encounter Details Date Type Department Care Team (Late Contact Info) Description 01/06/2023 Abstract [facility] MEDICINE [address] [place] [address] Joceline Gutierrez MD [address] [place] [address] Social History Tobacco Use Types Packs/Day Years [...] Description 05/24/2025 11:30 AM EST Office Visit [facility] OPTOMETRY [address] [place] [address] Geneva Pena, OD [address] [place] [address] 06/30/2025 11:15 AM EST Office Visit [facility] MEDICINE [address] [place] [address] Joceline Gutierrez MD [address] [place] [address] documented as of this encounter Goals Goal [...] documented as of this encounter Care Teams Ammonia Box Tender Relationship Specialty Start Date End Date Joceline Gutierrez MD [address] [place] [address] PCP - General Family Medicine 02/03/17 Luis Sheehan, PharmD [address] [place] [phone] Pharmacist Internal Medicine 08/05/22 Omari Miller Community Health Worker 10/07/2301/02 Karo Gonsales, JOE Sand Miller 10/07/23 documented as of this encounter
--- OUTSIDE RECORDS SUMMARY | 2025-04-27 14:59 | XMS_ITS | Encounter Summary ---
Author Organization [facility] Address [address] [facility] 7t [place] [address] Care Team Providers Care Catering Truck Driver Name Role Phone Joceline Gutierrez MD Primary Care Provider + Luis Sheehan PharmD Unavailable [phone] Karo Gonsales RN Unavailable Unavailable Reason for Visit * Reason Comments Med Refill Encounter Details Date Type Department Care Team (Late st Contact Info) Description 04/06/2025 Refill [facility] MEDICINE [address] [place], [place] [phone] Joceline Gutierrez MD [address] [place] [address] Subacute pansinusitis Social History Tobacco Use Types Packs/Day Years Used Date Smoking Tobacco: Never Passive Smoke Exposure: Never Smokeless Tobacco: Never Alcohol Use Standard Drinks/Week Comments Never 0 (1 standard drink = 0.6 oz pur e alcohol) Depression Answer Date Recorded Patient Health Questionnaire-9 Score 12 03/23/2025 Patient Health Questionnaire-9 Score 12 03/23/2025 Last PHQ-9: Questionnaire Data Not on file 1 Housing Stability Answer Date Recorded What is [...] Answer Date Recorded Patient Health Questionnaire-2 Score 2 03/23/2025 Internet Access Answer Date Recorded Internet Access [...] Description 05/24/2025 11:30 AM EST Office Visit [facility] OPTOMETRY [address] [place] [address] [place] Pena, OD [address] [place] [address] 06/30/2025 11:15 AM EST Office Visit [facility] MEDICINE [address] [place] [address] Joceline Gutierrez MD [address] [place] [address] documented as of this encounter Goals Goal Patient Goal Type Associated Problems Recent Progress Patient-Stated? Author Blood Pressure < 140/90 Blood Pressure 140/100(2024 11:43 AM EST) No Luis Sheehan, PharmD documented as of this encounter Visit Diagnoses Diagnosis Subacute pansinusitis documented in this encounter Additional Health Concerns Assessment Noted Time PHQ-9 Depression Total Score: 12 025 12:24 PM EDT documented as of this encounter Care Teams Catering Truck Driver Relationship Specialty Start Date End Date Joceline Gutierrez MD [address] [place] [address] PCP - General Family Medicine 02/03/17 Luis Sheehan PharmD [address] [place] [address] Pharmacist Internal Medicine 08/05/22 Karo Gonsales RN [address] [place] [phone] Plant Engineering Manager 10/07/23 documented as of this encounter
--- OUTSIDE RECORDS SUMMARY | 2025-04-27 14:59 | XMS_ITS | Encounter Summary ---
Author Organization [facility] [employer] Address [address] [facility] 7t [place] [address] Care Team Providers Care Washhouse Worker Name Role Phone Joceline Gutierrez MD Primary Care Provider + Luis Sheehan PharmD Unavailable [phone] Karo Gonsales RN Unavailable Unavailable Reason for Visit * Reason Comments Med Refill Encounter Details Date Type Department Care Team (Late st Contact Info) Description 05/30/2024 Refill [facility] MEDICINE [address] [place] [address] Jayleen Mo MD [address] [place] [address] Hypertension, essential; Essential hypertension Social History Tobacco [...] the past 12 months, has t he [employer], gas, oil or water company threatened to [...] Description 05/24/2025 11:30 AM EST Office Visit [facility] OPTOMETRY [address] [place] [address] Jean, [place], OD [address] [place] [address] 06/30/2025 11:15 AM EST Office Visit [facility] MEDICINE [address] [place] [address] Joceline Gutierrez MD [address] [place] [address] documented as of this encounter Goals Goal [...] documented as of this encounter Care Teams Washhouse Worker Relationship Specialty Start Date End Date Joceline Gutierrez MD [address] [place] [address] PCP - General Family Medicine 02/03/17 Luis Sheehan, Annette [address] [place] [address] Pharmacist Internal Medicine 08/05/22 Karo Gonsales RN [address] [place] [id number] Acid Tank Cleaner 10/07/23 documented as of this encounter
--- OUTSIDE RECORDS SUMMARY | 2025-04-27 14:59 | XMS_ITS | Encounter Summary ---
Author Organization [facility] Address 75 [facility] 7t [place] [address] Care Team Providers Care Veterinary Technician Assistant Name Role Phone Joceline Gutierrez MD Primary Care Provider + Luis Sheehan PharmD Unavailable Omari Miller Unavailable Karo Gonsales RN Unavailable Unavailable Reason for Visit * Reason Comments Med Refill Encounter Details Date Type Department Care Team (Late Contact Info) Description 11/30/2022 Refill [facility] MEDICINE [address] [place] [address] Joceline Gutierrez MD [address] [place] [address] Social History Tobacco Use Types Packs/Day Years [...] Department Care Team (Late Contact Info) Description 05/24/2025 11:30 AM EST Office Visit [facility] OPTOMETRY [address] [place], [place] [phone] [place] Pena, OD [address] [place] [address] 06/30/2025 11:15 AM EST Office Visit [facility] MEDICINE [address] [place] [address] Joceline Gutierrez MD [address] [place], [place] [phone] documented as of this encounter Goals Goal Patient Goal Type Associated Problems Recent Progress Patient-Stated? Author Blood Pressure < 140/90 Blood Pressure 140/100(2024 11:43 AM EST) No Luis Sheehan, PharmD documented as of this encounter Visit Diagnoses Not on filedocumented in this encounter Additional Health Concerns Assessment Noted Time PHQ-9 Depression Total Score: 0 09/18/19 9:19 AM EDT documented as of this encounter Care Teams Veterinary Technician Assistant Relationship Specialty Start Date End Date Joceline Gutierrez MD [address] [place] [phone] PCP - General Family Medicine 02/03/17 Luis Sheehan, PharmD [address] [place] [phone] Pharmacist Internal Medicine 08/05/22 Omari Miller Community Health Worker 10/07/2301/02 Karo Gonsales, JOE Can Coverer 10/07/23 documented as of this encounter
--- OUTSIDE RECORDS SUMMARY | 2025-04-27 14:59 | XMS_ITS | Encounter Summary ---
Author Organization [employer] Address [address] [facility] 7t [place] [address] Care Team Providers Care Hooker On Name Role Phone Joceline Gutierrez MD Primary Care Provider + Luis Sheehan PharmD Unavailable [phone] Karo Gonsales RN Unavailable Unavailable Reason for Visit * Reason Comments Med Refill Encounter Details Date Type Department Care Team (Late st Contact Info) Description 05/15/2024 Refill [facility] MEDICINE [address] [place] [address] Jayleen Mo MD [address] [place] [address] Seasonal allergies; Essential hypertension; Hypertension, essential Social [...] the past 12 months, has t he [employer], gas, oil or water company threatened to [...] Description 05/24/2025 11:30 AM EST Office Visit [facility] OPTOMETRY [address] [place], [place] [phone] [place] Pena, OD [address] [place] [address] 06/30/2025 11:15 AM EST Office Visit [facility] MEDICINE [address] [place] [address] Joceline Gutierrez MD [address] [place] [address] documented as of this encounter Goals Goal [...] documented as of this encounter Care Teams Hooker On Relationship Specialty Start Date End Date Joceline Gutierrez MD [address] [place] [address] PCP - General Family Medicine 02/03/17 Luis Sheehan PharmD [address] [place] [address] Pharmacist Internal Medicine 08/05/22 Karo Gonsales RN [address] [place] [address] Rn Procedure 10/07/23 documented as of this encounter
--- OUTSIDE RECORDS SUMMARY | 2025-04-27 14:59 | XMS_ITS | Encounter Summary ---
Author Organization [employer] Address [address] [facility] 7t [place] [address] Care Team Providers Care Windows Software Developer Name Role Phone Joceline Gutierrez MD Primary Care Provider + Luis Sheehan PharmD Unavailable [phone] Karo Gonsales RN Unavailable Unavailable Reason for Visit * Reason Onset Date Comments Chart Prep 04/24/2025 Encounter Details Date Type Department Care Team (Late st Contact Info) Description 04/24/2025 Telephone [facility] MEDICINE [address] [place], [place] [phone] Joceline Gutierrez MD [address] [place] [address] Chart Prep Social History Tobacco Use Types Packs/Day Years [...] the past 12 months, has t he [employer], gas, oil or water company threatened to [...] encounter Miscellaneous Notes * Telephone Encounter - Scarlett Dozier [place] - 04/24/2025 2:18 PM EST Chart Prep Labs: done Images: not applicable Referrals: appointment pending Vaccines due: Hep B Screenings: colonoscopy, mammogram, and foot exam, LMP Overdue care gaps: PHQ-9, MORENA-7, and Disability screen documented in this encounter Plan of Treatment Upcoming Encounters Date Type Department Care Team (Late st Contact Info) Description 05/24/2025 11:30 AM EST Office Visit [facility] OPTOMETRY [address] [place] [address] [place] Pena, OD [address] [place] [address] 06/30/2025 11:15 AM EST Office Visit [facility] MEDICINE [address] [place] [address] Joceline Gutierrez MD [address] [place] [phone] documented as of this encounter Goals Goal [...] documented as of this encounter Care Teams Windows Software Developer Relationship Specialty Start Date End Date Joceline Gutierrez MD [address] [place] [id number] PCP - General Family Medicine 02/03/17 Luis Sheehan, PharmD [address] [place] [phone] Pharmacist Internal Medicine 08/05/22 Karo Gonsales RN [address] [place] [phone] Intermediate Frame Tender 10/07/23 documented as of this encounter
--- OUTSIDE RECORDS SUMMARY | 2025-04-27 14:59 | XMS_ITS | Encounter Summary ---
Author Organization [employer] Address [address] [facility] 7t [place] [address] Care Team Providers Care Facilities Planner Name Role Phone Joceline Gutierrez MD Primary Care Provider + Luis Sheehan PharmD Unavailable Omari Miller Unavailable Karo Gonsales RN Unavailable Unavailable Reason for Visit * Reason Comments Med Refill Encounter Details Date Type Department Care Team (Late st Contact Info) Description 10/22/2023 Refill [facility] MEDICINE [address] [place], [place] [phone] Joceline Gutierrez MD [address] [place], [place] [phone] Type 2 diabetes mellitus without complication, without long-term current use of insulin ([facility]) Social History Tobacco Use Types Packs/Day Years [...] Description 05/24/2025 11:30 AM EST Office Visit [facility] OPTOMETRY [address] [place] [address] Jean, [place], OD [address] [place] [address] 06/30/2025 11:15 AM EST Office Visit [facility] MEDICINE [address] [place] [address] Joceline Gutierrez MD [address] [place] [address] documented as of this encounter Goals Goal Patient Goal Type Associated Problems Recent Progress Patient-Stated? Author Blood Pressure < 140/90 Blood Pressure 140/100(2024 11:43 AM EST) No Luis Sheehan, PharmD documented as of this encounter Visit Diagnoses Diagnosis Type 2 diabetes mellitus without complication, without long-term current use of insulin (HCC) documented in this encounter Additional Health Concerns Assessment Noted Time PHQ-9 Depression Total Score: 17 08/19/ 024 9:21 AM EST documented as of this encounter Care Teams Facilities Planner Relationship Specialty Start Date End Date Joceline Gutierrez MD [address] [place] [address] PCP - General Family Medicine 02/03/17 Luis Sheehan, Annette [address] [place] [address] Pharmacist Internal Medicine 08/05/22 Omari Miller Community Health Worker 10/07/2301/02 Karo Gonsales, JOE Cut And Print Machine Operator 10/07/23 documented as of this encounter
--- OUTSIDE RECORDS SUMMARY | 2025-04-27 14:59 | XMS_ITS | Clinical Summary ---
Author Organization [employer] Address [address] [place] [address] Care Team Providers Care Thread Twister Name Role Phone Joceline Gutierrez MD Primary Care Provider + Luis Sheehan PharmD Unavailable [phone] Karo Gonsales RN Unavailable Unavailable Allergies Active Allergy Reactions Criticality Noted Date Comments Zolpidem Unknown 12/10/2017 Bad thoughts Other reaction(s): adverse reaction - bad thoughts Medications * This document contains information received from the source organization and may not represent a complete record from that organization. polyvinyl alcohol (Liquifilm Tears) 1.4 % ophthalmic solution PLACE 1 DROP IN EACH EYE NEEDED FOR DRY EYES 022 Active Blood Pressure Monitoring (Blood Pressure Kit) kitIndications: Essential hypertension Use as directed to check blood pressure daily 1 kit 023 Active FLUoxetine (PROzac) 10 MG capsule Take 1 capsule by mouth in the morning. 024 Active Blood Glucose Monitoring Suppl (CDNlionSt'Rock' Your Paper Lite) w/Device kitIndications: Type 2 diabetes mellitus without complication, without long-term current use of insulin (HCC) Use 1x/d 1 kit 024 Active albuterol (Proventil HFA) 108 (90 Base) MCG/ACT inhaler Inhale 2 puffs every 4 (four) hours if needed for wheezing. 6.7 g 3 025 2025 Active oxybutynin XL (Ditropan-XL) 15 MG 24 hr tablet Take 15 mg by mouth in the morning. Active chlorhexidine (Peridex) 0.12 % solution Swish 15 mL morning and night for 1 minute. Spit, do not swallow. Do not eat or drink for 30 minutes following use. 473 mL Active TRUEplus Lancets 33G miscIndications :Type 2 diabetes mellitus without complication, without long-term current use of insulin ([facility]) TEST BLOOD SUGAR ONCE DAILY 100 each Active glucose blood (FREESTYLE LITE) test stripIndication s:Type 2 diabetes mellitus without complication, without long-term current use of insulin ([facility]) TEST BLOOD SUGAR TWICE DAILY 50 strip Active Multiple Vitamin (multivitamin) tablet Take 1 tablet by mouth Once per day. 90 tablet 3 Active polyethylene glycol, PEG, 3350 (Glycolax) 17 GM/SCOOP powder Mix 17g (1 capful) in 8 ounces of water and take by mouth every day NEEDED FOR CONSTIPATION > 1 DAY 510 g 3 Active valsartan (Diovan) 160 MG tablet Take 0.5 tablets (80 mg) by mouth 2 times daily. 30 tablet 2 Active hydrOXYzine HCl (Atarax) 50 MG tablet Take 1 tablet (50 mg) by mouth at bedtime. 30 tablet 3 Active escitalopram (Lexapro) 10 MG tablet Take 1 tablet (10 mg) by mouth in the morning. 30 tablet 1 Active atorvastatin (Lipitor) 40 MG tabletIndicatio ns:Chronic bilateral low back pain with right-sided sciatica Take 1 tablet (40 mg) by mouth in the morning. 90 tablet 1 Active fluticasone (Flonase Allergy Relief) 50 MCG/ACT nasal sprayIndication s:Subacute pansinusitis Administer 1 spray into each nostril Once per day. Shake gently. Before first use, prime pump. After use, clean tip and replace cap. 16 g Active sucralfate (Carafate) 1 g tablet Take 1 tablet (1 g) by mouth 3 times daily. 90 tablet 1 Active ibuprofen 800 MG tablet TAKE 1 TABLET BY MOUTH THREE TIMES DAILY IN THE MORNING, AT NOON, AND AT BEDTIME NEEDED FOR MILD OR MODERATE PAIN 30 tablet 1 Active Acetaminophen Extra Strength 500 MG tabletIndicatio ns:Subacute pansinusitis TAKE 1 TABLET BY MOUTH EVERY 8 TO 12 HOURS NEEDED, DO NOT EXCEED 4 TABLETS / 24 HOURS 90 tablet 1 Active calcium carbonate (Tums) 500 MG chewable tablet Chew 1 tablet (500 mg) 2 times daily. 60 tablet 3:08 PM EST 2025 Active valsartan-hydro CHLOROthiazide (Diovan HCT) 160-25 MG tablet Take 1 tablet by mouth Once per day. 30 tablet 11 025 2025 Active ibuprofen 800 MG tablet TAKE 1 TABLET BY MOUTH THREE TIMES DAILY IN THE MORNING, AT NOON, AND AT BEDTIME NEEDED FOR MILD PAIN OR FOR MODERATE PAIN 30 tablet 1 2024 Discontinued omeprazole (PriLOSEC) [address] capsule TAKE 1 CAPSULE BY MOUTH TWICE DAILY IN THE MORNING AND IN THE EVENING 180 capsule 1 025 2024 Discontinued(S antoni effects) sucralfate (Carafate) 1 g tablet Take 1 tablet (1 g) by mouth 3 times daily. 90 tablet 1 2024 Discontinued(R eorder (will not trigger notification to Pharmacy)) amoxicillin-cla vulanate (Augmentin) 875-125 MG tablet Take 1 tablet by mouth 2 times daily for 7 days. 14 tablet 2024 Acetaminophen Extra Strength 500 MG tabletIndicatio ns:Subacute pansinusitis TAKE 1 TABLET BY MOUTH EVERY 8 TO 12 HOURS NEEDED. DO NOT EXCEED 4 TABLETS PER 24 HOURS. 90 tablet 2024 Discontinued Active Problems Problem Noted Date Diagnosed Date Subacute pansinusitis 12/27/2024 Assessment & Plan (03/23/2025 3:48 PM EDT): Rapid viral test are negative, Rx Augmentin x 7 days. Rest (sleep at least 8 hours a night). Hydrate with plenty of water (avoid caffeine and alcohol). Use saline nose drops to loosen mucus + Flonase Take Acetaminophen (Tylenol )/Ibuprofen as needed to reduce fever, headache, body aches or discomfort Gargle with salt water and use throat sprays/lozenges for throat pain. Use heated, humidified air. If you do not have a humidifier, take hot showers. Cover coughs and sneezes using the crook of your elbow. If you have a fever, stay home and away from others (self isolation) until fever-free for 72 hours (temperature should be less than 100 F without medication). Since she has an ethmoidal sinus, I explained that she is more prone to have sinusitis as complication of URIs. I advised her to come as needed if symptoms of URIs do not resolve within 1 week. Assessment & Plan (12/27/2024 4:16 PM EDT): Rapid viral test are negative, Rx Augmentin x 7 days. Rest (sleep at least 8 hours a night). Advised to be out of school for 2 days, she will wear her face mask for the first 48 hours of antibiotics Hydrate with plenty of water (avoid caffeine and alcohol). Use saline nose drops to loosen mucus + Flonase Take Acetaminophen (Tylenol )/Ibuprofen as needed to reduce fever, headache, body aches or discomfort Gargle with salt water and use throat sprays/lozenges for throat pain. Use heated, humidified air. If you do not have a humidifier, take hot showers. Cover coughs and sneezes using the crook of your elbow. If you have a fever, stay home and away from others (self isolation) until fever-free for 72 hours (temperature should be less than 100 F without medication). Neck sprain 09/21/2024 Assessment & Plan (09/26/2024 8:40 AM EDT): I gave her information regarding stretching exercises for her neck Apply heat to affected area and take Tylenol alternated with ibuprofen as needed Advised to contact [facility], she declined PT referral. Follow-up with me in 6 to 8 weeks S/P laparoscopic sleeve gastrectomy 03/10/2024 Overview (03/10/2024): [place] [facility] Weight on surgery day 261 lb Assessment & Plan (03/10/2024 3:36 PM EDT): Doing well, lost 40+ lb since she started the process, and approx 15lb since surgery I congratulated her for her effort, encouraged to continue diet and fu with Surgery. Advised re need for lifelong protein supplementation, will check Vit D, Ferritin, B12, Zinc in 6mo JAD (obstructive sleep apnea) 09/18/2023 Assessment & Plan (09/26/2024 8:36 AM EDT): Never received CPAP prescribed last year. Advised patient to reach out again to DME provider and reach out to her insurance as well. Will do a new sleep study at the end of the year and see if she still needs it or update the new prescription if she has not received the prescribed CPAP from last year, as she has been lost weight since bariatric surgery Assessment & Plan (10/30/2023 1:34 PM EDT): [...] to FU w/ company ([employer]) Will call [employer] company to deliver NUNO Papilledema 08/20/2023 Assessment & Plan (08/20/2023 10:17 AM EST): Recent finding on eye exam, given Hx of intracranial HTN I will refer back to neurology Benign breast cyst in female, right 08/20/2023 Assessment & Plan (08/20/2023 10:20 AM EST): Has Fu with next week Stress incontinence of urine 09/17/2022 Assessment & Plan (09/17/2022 10:22 AM EDT): Somewhat improving with oxybutynin fu with Continue kegel exercise Recommended weight reduction Pure hypercholesterolemia 09/17/2022 [...] exercise, life style modifications, diet, referral to extension service specialist. Discussed re lower calorie intake, increase dietary fiber Pt will start following up [place] [facility] [place] we discussed about pharmacotherapy including injectables like semiglutide but she declines at this time will consider other medications including topiramate FU as above Assessment & Plan (09/17/2022 10:24 AM EDT): Information for [facility] [place] given as above. Pt agreed [...] PAP smear: Up to date. FU with [employer] for yearly pap smear, next one due [...] (dyspnea on exertion) 07/15/2022 Assessment & Plan (03/23/2025 3:51 PM EDT): She continues with occasional symptoms, especially when walking long distances, they have somewhat improved with weight loss so she has asked to be referred to [facility] weight reduction program (Dr. Olmos) as she does not want continue follow-[place] at [facility] [place] had her bariatric [place]. I agreed to renew her school parking accommodation letter x 1y We discussed importance of hypertension control, use of inhalers and building up exercise We discussed about continue stretching of her sizes of her back, will refer to PT again. Assessment & Plan (09/18/2023 3:30 PM EDT): Most likely 2/2 to obesity and uncontrolled HTN. Order echo and PFTs to ro other conditions. Told her to take time to walk, to walk slowly, to avoid using stairs. She can park her car at a nearby, handicap parking Epigastric mass 07/15/2022 Gastroesophageal reflux disease without esophagi tis 07/15/2022 Assessment & Plan (10/06/2024 11:24 AM EDT): Probably exacerbated by constipation, advised to start MiraLAX today and daily until she has regular bowel movement. Take Zofran 3 times daily AC meals as needed nausea and vomiting, Continue omeprazole and start sucralfate 1 tablet AC meals Avoid solid fluid for now, start p.o. hydration with clear fluids including water, Pedialyte, Gatorade, renetta red, chicken broth and protein shake if tolerated until she has a BM. Discussed with her the importance of avoiding constipation and having small infection meals Reconsult as needed Goiter 07/15/2022 Lipoma of torso 07/15/2022 Recurrent major depressive episodes, moderate (C MS/HCC) 07/15/2022 Assessment & Plan (03/23/2025 4:10 PM EDT): Doing well on escitalopram. Assessment & Plan (01/01/2023 12:07 PM EDT): [...] MH services PLAN: 1. Follow up with [facility]: Not recommended for follow-up 2. Patient goal is to engage in MH services 3. Behavioral Recommendations a. Ind. Therapy b. Med. Management c. Use of coping skills d. [facility] for extra support as needed. Assessment & Plan (07/16/2022 11:46 AM EST): Will contact [facility] to have counselor contacting her more often and assist and support during this family crisis. Pt feels safe at home and is able to reach out for safety I discussed with her regarding discussing with family members about distribution of responsibilities including their own health. 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 She will discuss with their sample case porter. FU with me in 1 month, will readdress issue of medication if patient is agreeable Systolic murmur 07/15/2022 Vitamin D deficiency 07/15/2022 Assessment & Plan (09/26/2024 8:40 AM EDT): She has been off vitamin supplementation for more than 6 months now She will be due to check vitamin D in November, advised her to call for outdoor exercise daily for at least 15 minutes Strain of right gastrocnemius muscle 10/08/2017 Chronic [...] pain 07/21/2012 Hypertension 12/22/2011 Assessment & Plan (12/27/2024 4:16 PM EDT): Uncontrolled, probably related to acute URI. Continue valsartan daily and check BP at home and follow-up with me next month. Can call back to clinic as needed if BP continues to be elevated after 1 week of completing antibiotics Assessment & Plan (09/26/2024 8:39 AM EDT): Uncontrolled today, patient is off medications. Continue to monitor BP 3 times per week and follow-up with me in 4 to 6 weeks. She will bring her med box at next visit with me Assessment & Plan (03/10/2024 3:30 PM EDT): [...] Uncontrolled Add labetalol 100mg BID Will check [employer] about CPAP deliver, Rx sent in 03/2023. [...] with me in 1 month. Severe obesity (CMS/HCC) 12/22/2011 Assessment & Plan (03/23/2025 4:14 PM EDT): Doing well status post bariatric surgery in 2023 Advised to continue close follow-up with dietitian, she wants to be referred to [facility] weight reduction program with Dr. Neumann, I I will write a referral, however I am not sure that they will be able to follow-up patient who has not had surgery there. Alternatively, I offered referral to our dietitian, she will follow-up with me at next visit Assessment & Plan (09/26/2024 8:44 AM EDT): Assessment & Plan (03/10/2024 3:31 PM EDT): Significantly improving sp bariatric surgery, she will fu with Dr Ramirez. Continue taking protein shakes and advance diet as tolerated. Resolved Problems Problem Noted Date Diagnosed Date Resolved Date Class 1 obesity due to exces s calories with serious comorbidity and body mass index (BMI) of 33.0 to 33.9 in adult 09/26/2024 03/23/2025 Assessment & Plan (09/26/2024 8:44 AM EDT): Significantly improving sp bariatric surgery, she will fu with [place]ariatric [place] [facility]. Continue regular diet with smaller portions Advised to reach out to bariatric surgery clinic for recommendations for specific nutritional supplementation i.e. iron, vitamin D etc. Commended multivitamins Will check labs in 3 to 4 months Candidiasis 03/10/2024 09/26/2024 Assessment & Plan (03/10/2024 3:32 PM EDT): On abdomen Use lotrimin + OTC hydrocortisone cream bid Re consult prn Class 3 severe obesity due t o [...] exercise, life style modifications, diet, referral to extension service specialist. Discussed re lower calorie intake, increase dietary fiber Assessment & Plan (08/20/2023 10:20 AM EST): Discussed re weight reduction options including exercise, life style modifications, diet, referral to extension service specialist. Discussed re lower calorie intake, increase dietary fiber Pt given information on wt management program again Type 2 diabetes mellitus 07/15/2022 Assessment & Plan (09/26/2024 8:41 AM EDT): Resolved status post bariatric surgery, she is off medications Will continue to monitor RBS and A1c every 6 months and as needed if she starts gaining weight persistently Assessment & Plan (03/10/2024 3:32 PM EDT): [...] weight reduction I gave her information about [facility] [place] to start going to [...] bariatric surgery program for her to FU. 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 FU Neurosurgery S/p meningocele resection last year at [facility]. 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[facility]) 09/20/20212023 Overview (07/15/2022): Last Assessment & Plan: She [...] Encounters Date Type Department Care Team Description 04/25/2025 11:30 AM EST Office Visit [facility] [address] [place] [address] Joceline Gutierrez MD Primary hypertension (Primary Dx); Gastroenteritis 04/25/2025 Travel 04/24/2025 Telephone [facility] [address], [place] [phone] Joceline Gutierrez MD Chart Prep 04/24/2025 Travel 04/12/2025 2:00 PM EDT Office Visit [facility] [address] [place], [place] [id number] Jean, [place], OD Papilledema associated with increased intracranial pressure (Primary Dx) 04/12/2025 Travel 04/10/2025 Refill [facility] [address] [place] [address] Joceline Gutierrez MD Subacute pansinusitis 04/07/2025 Refill [facility] [address] [place] [address] Joceline Gutierrez MD 04/06/2025 Refill [facility] [address] [place] [address] Joceline Gutierrez MD Subacute pansinusitis 04/05/2025 Travel 03/29/2025 Results Follow-Up [address] [address] Joceline Gutierrez MD Referral to Bariatric Surgery 03/23/2025 12:15 PM EDT Office Visit [address] [address] Joceline Gutierrez MD Subacute pansinusitis (Primary Dx); ZHAO (dyspnea on exertion); Chronic bilateral low back pain with right-sided sciatica; Recurrent major depressive episodes, moderate (CMS/HCC) (HCC); Mild intermittent asthma without complication; Cough, unspecified type; Chest congestion; Type 2 diabetes mellitus without complication, without long-term current use of insulin ([facility]); S/P laparoscopic sleeve gastrectomy; Severe obesity (CMS/HCC) (HCC) 03/23/2025 Travel 03/22/[address] [phone] Rosaura Hutchinson, RN Nurse Triage 03/14/[address] [phone] Joceline Gutierrez MD Chronic bilateral low back pain with right-sided sciatica 02/08/[address] [phone] Joceline Gutierrez MD april recall from Last 3 Months Immunizations Immunization Administration Dates Next Due Hep B, Adolescent [...] Mass Index 32.96 04/25/2025 11:43 AM EST Plan of Treatment Upcoming Encounters Date Type Department Care Team (Late st Contact Info) Description 05/24/2025 11:30 AM EST Office Visit [facility] [address] [place] [address] [place] Pena, OD [address] [place] [address] 06/30/2025 11:15 AM EST Office Visit [facility] [address] [place] [address] Joceline Gutierrez MD [address] [place] [address] Health Maintenance Due Date Last Done Comments CT Colonography 1979 Colonoscopy 1979 Colorectal Cancer Screening 1979 FIT DNA/Cologuard 1979 FIT 1979 FOBT 1979 Sigmoidoscopy 1979 Family Planning (PISQ) 1994 Hepatitis B Vaccines (2 of 3 - 19+ 3-dose series) 09/17/2023 08/20/2023, 01/16/2010, 05/22/2009, Additional history exists Mammogram 07/03/2024 07/03/2023, 06/15, 07/03/2023, Additional history exists Diabetes: Foot Exam 08/19/2024 08/20/2023, 08/20/2023, 08/20/2023, Additional history exists Diabetes: Urine Protein Screening 09/14/2024 09/15/2023, 09/15/2023 Lipid Panel 10/19/2024 10/20/2023, 0407/2023, 09/15/2022, Additional history exists Dental Oral Exam 05/08/2025 11/04/2024, 04/29/2019 Dental Prophylaxis 05/08/2025 11/04/2024, 05/02/2019 SDOH Screening 07/11/2025 07/11/2024 Diabetes: Hemoglobin A1C 09/21/2025 025, 09/21/2024, 10/20/2023, Additional history exists Depression Monitoring 10/23/2025 04/25/2025, 025 Dental X-Ray: Bitewings 11/05/2025 11/04/2024, 04/29 Cervical Cancer Screening 12/08/2025 HPV/Cotest 12/08/2025 07/15/2022, 05/23/2021 Pap Smear 12/08/2025 12/08/2022, 06/17, 05/23/2021, Additional history exists Alcohol/Substance Use Screening 03/23/2026 03/23/2025 Disability Screening 04/25/2026 04/25/2025 Tobacco Screening 04/25/2026 04/25/2025 Eye Exam 04/12/2027 04/12/2025, 03/16, 04/12/2025, Additional history exists Dental X-Ray: Full Mouth 11/06/2027 11/04/2024, 04/15 Zoster Vaccines (1 of 2) 2029 DTaP/Tdap/Td Vaccines (3 - Td or Tdap) 08/14/2032 08/14/2022, 02/18/2013, 06/14/2009 RSV Patients and Patients Aged 60 years or older (1 - 1-dose 75+ series) 2054 HIV Screening Completed 09/15/2022 Hepatitis C Screening Completed 09/15/2022 Pneumococcal Vaccine: Pediatrics (0 to 5 Years) and At-Risk Patients (6 to 49) Years Completed 03/30/2023, 03/11/2019 COVID-19 Vaccine Completed 03/30/2025, 08/2023, 07/02/2022, Additional history exists Influenza Vaccine Completed 03/30/2025, , 03/30/2023, Additional history exists HIB Vaccines Aged Out [...] patient's age to complete this topic Meningococcal B Vaccine Aged Out No l onger eligible based on patient's age to complete [...] 140/90 Blood Pressure 140/100(2024 11:43 AM EST) Luis Hayes, PharmD Help patients manage their type 2 diabetes Care Plan Help patients manage their type 2 diabetes Joceline Cruz MD Weekly blood pressure task Care Plan Weekly blood pressure task Joceline Cruz MD Help patients manage their type 2 diabetes Care Plan Help patients manage their type 2 diabetes Joceline Cruz MD Patient has chronic kidney disease Care Plan Patient has chronic kidney disease Joceline Cruz MD Weekly blood pressure task Care Plan Weekly blood pressure task Joceline Cruz MD Patient has chronic kidney disease Care Plan Patient has chronic kidney disease No Joceline Gutierrez MD Procedures Procedure Name Priority Date/Time Associated Diagnosis Comments LEUKOCYTES STOOL QUALITATIVE Routine 04/27/2025 8:50 AM EST Gastroenteritis AMB REFERRAL TO BARIATRIC SURGERY Routine 03/24/2025 S/P laparoscopic sleeve gastrectomy POCT COVID-19 AG DIOR ID NOW Routine 03/23/2025 12:17 PM EDT Cough, unspecified type Chest congestion POCT GLYCATED HEMOGLOBIN, TOTAL Routine 03/23/2025 12:16 PM EDT Type 2 diabetes mellitus without complication, without long-term current use of insulin (HCC) POCT GLUCOSE Routine 03/23/2025 12:16 PM EDT Type 2 diabetes mellitus without complication, without long-term current use of insulin (HCC) PROPHYLAXIS - ADULT Routine 11/04/2024 1 :00 PM EDT INTRAORAL - COMPLETE SERIES OF RADIOGRAPHIC IMAGES Routine 11/04/2024 1:00 PM EDT PERIODIC ORAL EVALUATION - ESTABLISHED PATIENT Routine 11/04/2024 1:00 PM EDT LIPID PANEL, STANDARD Routine 10/20/2023 10:54 AM EDT ALBUMIN, RANDOM URINE W/CREATININE Routine 09/15/2023 8:07 AM EDT Type 2 diabetes mellitus without complication, without long-term current use of insulin (CMS/HCC) BI MAMMOGRAM DIAGNOSTIC TOMOSYNTHESIS RIGHT Routine 07/03/2023 [...] Recently Relevant to Health Maintenance Results * Leukocytes Stool Qualitative (04/27/2025 8:50 AM EST) Leukocytes Stool Qualitative NEGATIVE NEGATIVE [facility] Stool 04/27/2025 8:50 AM EST 04/27/2025 11:50 AM EST Result [facility] Joceline Gutierrez MD LAB BODY FLUIDS AND STOO LS ORDERABLES Final Result [facility] [address] [place] [address] [phone] * Referral to Bariatric Surgery (03/24/2025) Result [place] Joceline Gutierrez MD OUTPATIENT REFERRAL ORDE RABLES Final Result * POCT Rapid Covid-19 DIOR ID NOW (03/23/2025 12:17 PM EDT) [facility] Coronavirus Antigen PCR Negative Negative, Indeterminate, None Detected, Invalid, Specimen unsatisfactory for evaluation, Weakly Positive, 2+ QC Media Lot # [id number] Lot# Expiration Date Swab 03/23/2025 12:1 7 PM EDT Result [facility] Joceline Gutierrez MD POINT OF CARE TEST ENTER /EDIT ORDERABLES Final Result * POCT Hgb A1c (03/23/2025 12:16 PM EDT) [facility] Hemoglobin A1C 5.1 4.0 - 5.7 % QC Media Lot # [id number] Lot# Expiration Date 5,027 Blood 03/23/2025 12:1 6 PM EDT Result [facility] Joceline Gutierrez MD POINT OF CARE TEST ENTER /EDIT ORDERABLES Final Result * POCT Glucose (03/23/2025 12:16 PM EDT) [facility] Glucose Blood, POC 85 60 - 200 mg/dL QC Media Lot # [id number] Lot# Expiration Date 3112,026 Blood Capillary blood specimen / Unknown 03/23/2025 12:16 PM EDT Result [facility] Joceline Guteirrez MD POINT OF CARE TEST ENTER /EDIT ORDERABLES Final Result * (ABNORMAL) Lipid Panel, Standard (10/20/2023 10:54 AM EDT) Triglycerides 88 <150 mg/dL [facility] Comment:Desirable Triglyceri de: less than 150 mg/dLBorderline High Triglyceride 150-199 mg/dLHigh Triglyceride: 200-499 mg/dLVery High Triglyceride: greater than or equal to 5OO mg/dL Cholesterol 121 <200 mg/dL [facility] Comment:Desirable Cholestero l: less than 200 mg/dLBorderline High Cholesterol: 200-239 mg/dLHigh Cholesterol: greater than 239 mg/dL LDL Cholesterol Calculated 66 <100 mg/dL [facility] Comment:Desirable LDL: less than 100 mg/dLNear Optimal/Above Optimal LDL: 110- 129 mg/dLBorderline High LDL: 130-159 mg/dLHigh LDL: 160-189 mg/dLVery High LDL: greater than or equal to 190 mg/dL HDL Cholesterol 38(L) >40 mg/dL [facility] Comment:Desirable HDL: great er than 40 mg/dL Note: This HDL assay may give artificially low results in patients with liver disease. 10/20/2023 10:5 4 AM EDT 10/20/2023 10:54 AM EDT us Generic External Data Provider LAB BLOOD ORDERAB LES Final Result [facility] [address] [place] [phone] * (ABNORMAL) Albumin, Random Urine W/Creatinine (09/15/2023 8:07 AM EDT) Creatinine, Urine 54.23 mg/dL [facility] Microalbumin Urine 24.0 mg/L [facility] Microalbum Creatinine Ratio Ur 44.2(H) <30 ug/mg cr [facility] Comment:Albumin/Creatinine R atio Reference Ranges: Normal: < 30 ug/mg creatinine Microalbuminuria: 30 - 300 ug/mg creatinineClinical Albuminuria: > 300 ug/mg creatinine Urine (Urine, Random) 09/15/2023 8:07 AM EDT 09/15/2023 12:56 PM EDT Joceline Gutierrez MD LAB URINE ORDERABLES Fin al Result [facility] [address] [place] [phone] * BI Mammogram Diagnostic Tomosynthesis Right (07/03/2023 11:45 AM EST) Anatomical Region Laterality Modality Breast Right Mammography 07/03/2023 11:4 5 AM EST Narrative 07/03/2023 12:19 PM EST [address] [place] [address] Mammography Report Signed Patient: Delma Downs MR#: [id number] : 1980 Acct:[id number] Age/Sex: 43 / F ADM Date: 07/03/23 Loc: HO.MAMMO Attending Dr: Joceline Gutierrez MD Ordering Physician: Chanda Danielson CNM Results: 2Beni gn Findings Date of Service: 07/03/23 Follow Up: 1 Year From [facility] Mammogram Procedure(s): MM tomosynthesis diagnostic RT Accession Number(s): [id number] cc: Joceline Gutierrez MD; Chanda Danielson CNM [...] slightly upper outer right breast, unchanged from 202 and benign. There is otherwise no suspicious [...] in OV> 07/03/23 1216 DD/ 1145 TD/TT: Machine Welt Butter: Procedure Note Donotuseinterpreter, Image - [facility]03[facility] [address] [place], [place] [address] Mammography Report Signed Patient: Delma Downs [facility]#: [id number] : 1980Acct:[id number] Age/Sex: 43 / FADM Date: 07/03/23 Loc: HO.MAMMO Attending Dr: Joceline Gutierrez MD Ordering Physician: Chanda Danielson CNMResults: 2Beni gn Findings Date of Service: 07/03/23Follow Up: 1 Year From Orig ina Mammogram Procedure(s): MM tomosynthesis diagnostic RT Accession Number(s): [id number] cc: Joceline Gutierrez MD; Chanda Danielson CNM [...] in OV> 07/03/23 1216 DD/ 1145 TD/TT: Machine Welt Butter: [facility] External Provider IMG BI PROCEDURES Final Result * Pap Smear (12/08/2022 10:56 AM EDT) 12/08/2022 10:5 6 AM EDT 12/08/2022 12:00 PM EDT [facility] - 12/29/2022 10:53 AM EDT ----- ------- Name: Delma Downs Age/Sex: 42/F : 1980 Unit#: [id number] Attend Dr: Mak Begum MD Re12/08/22 Status: DEP REF Location: HO.LNP Disch: ----- ------- SPEC : [id number] RECD: 12/08/22-1199 STATUS: CATHY WEI NUM: [id number] CHRIS: 12/08/22-1055 [facility] DR: Mak Begum MD ENTERED: 12/08/22-1321 SP TYPE: Pap Smr OTHR DR: Joceline Gutierrez MD ORDERED: Pap Smear Interpretation Satisfactory for evaluation. Negative for intraepithelial lesion or malignancy. HPV mRNA E6/E7: NOT DETECTED This assay detects E6/E7 viral messenger RNA (mRNA) from 14 high-risk HPV types (16, 18, 31, 33, 35, 39, 45, 51, 52, 56, 58, 59, 66, 68) HPV testing performed by [facility], [place], [place]. See reference laboratory portion of the EMR for entire report. Clinical Information LMP: Unknown date Previous PAP test: 2021, JOSE LUIS I Material Received ThinPrep-Cervical Copies To: Joceline Gutierrez MD [address] [place] [phone] Mak Begum MD [address] [place], [place] [address]Jacqueline [address] [address] ----- ------- Signed (signature on file) Haja Gallo MD 12/29/22 1053 ----- ------- END OF REPORT [facility] External Provider LAB [facility] Final Result [facility] [address] [place] [phone] [phone] * Hepatitis Panel, General (09/15/2022 8:49 AM EDT) Pathologist [facility] Hepatitis A Antibody Total NON-REACT AP NON-REACT AP [facility] Comment: For additional information, please refer to http://[employer]angent[employer]/faq/XHB690 (This link is being provided for informational/ educational purposes only.) Hepatitis B Surface Antibody QL NON-REACT AP NON-REACT AP [facility] Hepatitis B Surface Ag NON-REACT AP NON-REACT AP [facility] Hepatitis B Core Antibody Total NON-REACT AP NON-REACT AP [facility] Hepatitis C Antibody NON-REACT AP NON-REACT AP [facility] Index 0.05 <1.00 [facility] [place] [facility] Comment: HCV antibody was non-reactive. There is no laboratory evidence of HCV infection. In most cases, no further action is required. However, if recent HCV exposure is suspected, a test for HCV RNA (test code 72657) is suggested. For additional information please refer to http://[employer]/faq/VLO68l7 (This link is being provided for informational/ educational purposes only.) 09/15/2022 8:49 AM EDT 09/15/2022 8:49 AM EDT Narrative [facility] - 09/20/2022 5:14 PM EDT FASTING:YES FASTING: YES us Joceline Gutierrez MD LAB BLOOD ORDERABLES Fin al Result [facility] [address], [place] [address] [facility] [address] [place] [address] * HIV-1/2 Antigen and Antibodies, Fourth Generation, with Reflexes (09/15/2022 8:49 AM EDT) Pathologist [facility] HIV Antigen/Antibody, 4th Generation NON-REAC TIVE NON-REAC TIVE [facility] Comment: HIV-1 antigen and HIV-1/HIV-2 antibodies were not detected. There is no laboratory evidence of HIV infection. PLEASE NOTE: This information has been disclosed to you from records whose confidentiality may be protected by state law. If your state requires such protection, then the state law prohibits you from making any further disclosure of the information without the specific written consent of the person to whom it pertains, or as otherwise permitted by law. A general authorization for the release of medical or other information is NOT sufficient for this purpose. For additional information please refer to http://education.[employer]/faq/WGK899 (This link is being provided for informational/ educational purposes only.) The performance of this assay has not been clinically validated in patients less than 2 years old. Blood Venous blood specimen / Unknown 09/15/2022 8:49 AM EDT 09/15/2022 8:49 AM EDT Narrative [facility] - 09/20/2022 5:14 PM EDT FASTING:YES FASTING: YES us Joceline Gutierrez MD LAB BLOOD ORDERABLES Fin al Result [facility] [address], [place] [address] [facility] [place] [facility] [address] [place] [address] * Thinprep PAP and HPV nRNA E6/E7 (07/15/2022 12:00 AM EST) Clinical Information: LSIL HPV POS 05/2021 [facility] LMP: NONE GIVEN [facility] Prev. PAP: YES [facility] Prev. BX: NONE GIVEN [facility] SOURCE: None given Clinical [facility] Statement Of Adequacy: [facility] Comment: Satisfactory for evaluation. Endocervical/transformation zone component absent. Interpretation/ Result: Negative for intraepithelial lesion or malignancy. [employer] Infection Shift in vaginal andrés suggestive of bacterial vaginosis. [employer] [facility] [employer] [facility]: [facility] [place] [facility] Comment: MXD, CT (ASCP) CT screening location: [address] [address] Review [employer] t: [facility] [place] [facility] Comment: KF, CT(ASCP) CT screening location: [place] [address] (Always Message) [facility] [place] [facility] Comment: EXPLANATORY NOTE: The Pap is a [...] HPV nRNA E6/E7 Not Detected Not Detected [facility] [place] [facility] Comment: Methodology: Design Studio Consultant-Mediated Amplification This assay detects E6/E7 viral messenger RNA (mRNA) from 14 high-risk HPV types (16,18,31,33,35,39,45,51,52,56,58,59,66,68). Cervical sources are required for HPV testing. If a vaginal source from a patient who has had a total hysterectomy with removal of cervix was submitted, please contact the testing laboratory for alternative testing options. For additional information, please refer to http://education.[employer]/faq/GCO645k0 (This link if provided for information/ educational purposes only.) 07/15/2022 07/16/2022 7:1 6 AM EST Narrative [facility] - 07/22/2022 3:46 PM EST FASTING: UNKNOWN Courtney Gerard CNM LAB PATHOLOGY ORDERABLES Final Result [address], [place] [address] [facility] [place] [facility] [address] [place] [address], (Nl2) [place] [address] from Last 3 Months or Most Recently Relevant to Health Maintenance Additional Health Concerns Active Problems Noted Date Diagnosed Date Help patients manage their type 2 diabetes 04/27 Weekly blood pressure task 04/27/2025 Help patients manage their type 2 diabetes 04/27 Patient has chronic kidney disease 04/27/2025 Weekly blood pressure task 04/27/2025 Patient has chronic kidney disease 04/27/2025 Insurance [facility] C3 DENTAL-[facility] MEDICAID STAND ADULT Care Teams Thread Twister Relationship Specialty Start Date End Date Joceline Gutierrez MD [address] [place] [address] PCP - General Family Medicine 02/03/17 Luis Sheehan, PatD [address] [place] [address] Pharmacist Internal Medicine 08/05/22 Karo Gonsales, JOE [address] [place] [phone] Casino Cage Manager 10/07/23
--- OUTSIDE RECORDS SUMMARY | 2025-04-27 14:59 | XMS_ITS | Encounter Summary ---
Author Organization [employer] Address [address] [facility] 7t [place] [address] Care Team Providers Care Enamel Cracker Name Role Phone Joceline Gutierrez MD Primary Care Provider + Luis Sheehan PharmD Unavailable [phone] Karo Gonsales RN Unavailable Unavailable Reason for Visit * Reason Comments Med Refill Encounter Details Date Type Department Care Team (Late st Contact Info) Description 12/19/2024 Refill [facility] [address] [place], [place] [phone] Joceline Gutierrez MD 230 [place] [address] Unspecified chronic gastritis without bleeding Social History Tobacco Use Types Packs/Day Years [...] Description 05/24/2025 11:30 AM EST Office Visit [facility] [address] [place] [address] Jean, [place], OD [address] [place] [address] 06/30/2025 11:15 AM EST Office Visit [facility] [address] [place] [address] Joceline Gutierrez MD [address] [place] [address] documented as of this encounter Goals Goal Patient Goal Type Associated Problems Recent Progress Patient-Stated? Author Blood Pressure < 140/90 Blood Pressure 140/100(2024 11:43 AM EST) No Luis Sheehan, Annette documented as of this encounter Visit Diagnoses Diagnosis Unspecified chronic gastritis without bleeding documented in this encounter Additional Health Concerns Assessment Noted Time PHQ-9 Depression Total Score: 17 024 9:21 AM EST documented as of this encounter Care Teams Enamel Cracker Relationship Specialty Start Date End Date Joceline Gutierrez MD [address] [place] [address] PCP - General Family Medicine 02/03/17 Luis Sheehan PharmD [address] [place] [address] Pharmacist Internal Medicine 08/05/22 Karo Gonsales RN [address] [place] [address] Fruit Sorter 10/07/23 documented as of this encounter
--- OUTSIDE RECORDS SUMMARY | 2025-04-27 14:59 | XMS_ITS | Encounter Summary ---
Author Organization [employer] Address 75 [facility] 7t [place] [address] Care Team Providers Care Buckle Coverer Name Role Phone Joceline Gutierrez MD Primary Care Provider + Luis Sheehan PharmD Unavailable [phone] Omari Miller Unavailable Karo Gonsales RN Unavailable Unavailable Encounter Details Date Type Department Care Team (Latest Contact Info) Description 05/02/2019 Abstract [facility] CONVERSIONS Dental, Provider, DDS Social History [...] Description 05/24/2025 11:30 AM EST Office Visit [facility] OPTOMETRY [address] [place] [address] [place] Pena, OD 230 [place], [place] [phone] 06/30/2025 11:15 AM EST Office Visit [facility] 230 [place], [place] [phone] Joceline Gutierrez MD [address] [place] [address] documented as of this encounter Visit Diagnoses Not on filedocumented in this encounter Care Teams Buckle Coverer Relationship Specialty Start Date End Date Joceline Gutierrez MD [address] [place] [address] [phone] PCP - General Family Medicine 02/03/17 Luis Sheehan, PatD [address] [place] [address] [phone] Pharmacist Internal Medicine 08/05/22 Omari Miller Community Health Worker 10/07/2301/02 Karo Gonsales, JOE Caddy Packer 10/07/23 documented as of this encounter
--- OUTSIDE RECORDS SUMMARY | 2025-04-27 14:59 | XMS_ITS | Encounter Summary ---
Author Organization [employer] Address [address] [facility] [address] 7t [place] [address] Care Team Providers Care Sexual Assault Social Worker Name Role Phone Joceline Gutierrez MD Primary Care Provider + Luis Sheehan PharmD Unavailable [phone] Karo Gonsales RN Unavailable Unavailable Encounter Details Date Type Department Care Team (Latest Contact Info) Description 04/25/2025 Travel Social History Tobacco Use Types Packs/Day Years [...] AM EDT documented as of this encounter Functional Status * Over the past 2 weeks, how often have you been bothered by any of the following problems? Question Answer Date of Assessment Author Patient Health Questionnaire -2 Score 4 04/25/2025 11:45 AM Radha wOens [place] * Little interest or pleasure in doing things Answer Date of Assessment Author Several days 04/25/2025 11:45 AM Radha Owens [place] * Feeling down, depressed, or hopeless [...] diff erent things 3 04/25/2025 11:44 AM Radha Owens [place] Trouble relaxing 2 04/25/2025 11:44 AM Radha Owens [place] Being so restless that it is hard to sit still 2 04/25/2025 11:44 AM Radha Owens [place] Becoming easily annoyed or irritable 3 04/25/2025 11:44 AM Radha Owens [place] Feeling afraid as if somethi ng awful might happen 1 04/25/2025 11:44 AM Radha Owens MA MORENA-7 Total Score 14 04/25/2025 11:44 AM Radha Owens [place] documented as of this encounter Plan of Treatment Upcoming Encounters Date Type Department Care Team (Late st Contact Info) Description 05/24/2025 11:30 AM EST Office Visit [facility] OPT[facility]ET[facility] [address] [place], [place] [phone] [place] Pena, OD [address] [place] [address] 06/30/2025 11:15 AM EST Office Visit [facility] 230 [facility] [place] [address] Joceline Gutierrez MD [address] [place] [address] documented as of this encounter Goals Goal [...] documented as of this encounter Care Teams Sexual Assault Social Worker Relationship Specialty Start Date End Date Joceline Gutierrez MD [address] [place] [address] PCP - General Family Medicine 02/03/17 Luis Sheehan, PharmD [address] [place] [phone] Pharmacist Internal Medicine 08/05/22 Karo Gonsales, JOE [address] [place] [address] Hplc Chemist 10/07/23 documented as of this encounter
--- OUTSIDE RECORDS SUMMARY | 2025-04-27 14:59 | XMS_ITS | Encounter Summary ---
Author Organization [employer] Address 75 [facility] 7t [place] [address] Care Team Providers Care Test Engine Operator Name Role Phone Joceline Gutierrez MD Primary Care Provider + Luis Sheehan PharmD Unavailable [phone] Karo Gonsales RN Unavailable Unavailable Reason for Visit * Reason Comments Med Refill Encounter Details Date Type Department Care Team (Late st Contact Info) Description 03/10/2024 [facility] 230 [place], [place] [phone] Joceline Gutierrez MD 230 [place] [address] Vitamin D deficiency Social History Tobacco Use [...] Description 05/24/2025 11:30 AM EST Office Visit [facility] [address] [place] [address] Jean, [place], OD 230 [place] [address] 06/30/2025 11:15 AM EST Office Visit [facility] [address] [place] [address] Joceline Gutierrez MD [address] [place] [address] documented as of this encounter Goals Goal Patient Goal Type Associated Problems Recent Progress Patient-Stated? Author Blood Pressure < 140/90 Blood Pressure 140/100(2024 11:43 AM EST) Luis Hayes, PharmD documented as of this encounter Visit Diagnoses Diagnosis Vitamin D deficiency documented in this encounter Additional Health Concerns Assessment Noted Time PHQ-9 Depression Total Score: 17 024 9:21 AM EST documented as of this encounter Care Teams Test Engine Operator Relationship Specialty Start Date End Date Joceline Gutierrez MD [address] [place] [address] PCP - General Family Medicine 02/03/17 Luis Sheehan, PatD [address] [place] [phone] Pharmacist Internal Medicine 08/05/22 Karo Gonsales, JOE [address] [place] [address] Coil Repair Technician 10/07/23 documented as of this encounter
--- OUTSIDE RECORDS SUMMARY | 2025-04-27 14:59 | XMS_ITS | Encounter Summary ---
Author Organization [employer] Address [address] [facility] 7t [place] [address] Care Team Providers Care Cigarette Making Machine Hopper Feeder Name Role Phone Joceline Gutierrez MD Primary Care Provider + Luis Sheehan PharmD Unavailable [phone] Karo Gonsales RN Unavailable Unavailable Reason for Visit * Reason Onset Date Comments Durable Medical Equipment 04/05/2024 Encounter Details Date Type Department Care Team (Late st Contact Info) Description 04/05/2024 Telephone [facility] [address] [place] [address] Joceline Gutierrez MD [address] [place] [address] Durable Medical Equipment Social History Tobacco Use [...] the past 12 months, has t he [employer], gas, oil or water [facility] threatened to shut off services in your [...] any questions you can contact [facility] at [phone] opt 6. documented in this encounter Plan of Treatment Upcoming Encounters Date Type Department Care Team (Late st Contact Info) Description 05/24/2025 11:30 AM EST Office Visit [facility] OPTOMET[facility] [address] [place] [address] [place] Pena, OD [address] [place] [address] 06/30/2025 11:15 AM EST Office Visit [facility] [address] [place] [address] Joceline Gutierrez MD [address] [place] [address] documented as of this encounter Goals Goal [...] documented as of this encounter Care Teams Cigarette Making Machine Hopper Feeder Relationship Specialty Start Date End Date Joceline Gutierrez MD [address] [place] [address] PCP - General Family Medicine 02/03/17 Luis Sheehan, PharmD [address] [place] [phone] Pharmacist Internal Medicine 08/05/22 Karo Gonsales RN [address] [place] [address] Paper Rewinder 10/07/23 documented as of this encounter
--- OUTSIDE RECORDS SUMMARY | 2025-04-27 14:59 | XMS_ITS | Encounter Summary ---
Author Organization [employer] Address 75 [facility] 7t [place] [address] Care Team Providers Care Service Center Appraiser Name Role Phone Jocelnie Gutierrez MD Primary Care Provider + Luis Sheehan PharmD Unavailable Karo Gonsales RN Unavailable Unavailable Reason for Visit * Reason Onset Date Comments Med Refill 07/19/2024 Encounter Details Date Type Department Care Team (Late st Contact Info) Description 07/19/2024 Refill [facility] [address] [place] [address] Joceline Gutierrez MD [address] [place] [address] Seasonal allergies Social History Tobacco Use Types [...] 05/24/2025 11:30 AM EST Office Visit [facility] [address] [place] [address] Jean, [place], OD [address] [place] [address] 06/30/2025 11:15 AM EST Office Visit [facility] [address] [place] [address] Joceline Gutierrez MD [address] [place] [address] documented as of this encounter Goals Goal [...] documented as of this encounter Care Teams Service Center Appraiser Relationship Specialty Start Date End Date Joceline Gutierrez MD [address] [place] [address] PCP - General Family Medicine 02/03/17 Luis Sheehan, PatD [address] [place] [address] Pharmacist Internal Medicine 08/05/22 Karo Gonsales RN [address] [place] [phone] City Council Member 10/07/23 documented as of this encounter
--- OUTSIDE RECORDS SUMMARY | 2025-04-27 14:59 | XMS_ITS | Encounter Summary ---
Author Organization [employer] Address [address] [facility] [address] 7t [place] [address] Care Team Providers Care Sewer Pipe Layer Helper Name Role Phone Joceline Gutierrez MD Primary Care Provider + Luis Sheehan PharmD Unavailable [phone] Karo Gonsales RN Unavailable Unavailable Encounter Details Date Type Department Care Team (Latest Contact Info) Description 04/24/2025 Travel Social History Tobacco Use Types Packs/Day [...] Description 05/24/2025 11:30 AM EST Office Visit [facility] OPTOMETRY [address] [place] [address] [place] Pena, OD 230 [place] [address] 06/30/2025 11:15 AM EST Office Visit [facility] 230 [place] [address] Joceline Gutierrez MD [address] [place] [address] documented as of this encounter Goals Goal [...] documented as of this encounter Care Teams Sewer Pipe Layer Helper Relationship Specialty Start Date End Date Joceline Gutierrez MD [address] [place] [address] PCP - General Family Medicine 02/03/17 Luis Sheehan, PatD 230 [facility] [place] [address] Pharmacist Internal Medicine 08/05/22 Karo Gonsales, JOE [address] [place] [address] Volumetric Weigher 10/07/23 documented as of this encounter
== END 2025-04-27 11:50 | disposition home or self-care (01) ==
LOC: HO.LNP 11:49
PROVIDERS: Visit Provider Internal Medicine
DX: K52.9 Noninfective gastroenteritis and colitis, unspecified (principal)
CPT/HCPCS: 87507; 89055